=== PATIENT | female | born 1945 | race Hispanic/Latino ===

== ENCOUNTER 2019-02-19 17:45 | Inpatient (IN) | payer MEDICARE ==
[2019-02-19] MEDS ORDERED: Aspirin Chewable 81 MG TAB ONE (18:30)
[2019-02-19] MEDS ORDERED: Lidocaine 1% PF 5 ML VIAL ONE (20:09)
[2019-02-19] MEDS ORDERED: Ondansetron ODT 4 MG TAB ONE (20:09)
[2019-02-19 21:40] LABS: ALT (SGPT) 16 U/L (8-55); AST (SGOT) 21 U/L (5-34); Albumin 3.9 g/dL (3.4-4.8); Alkaline Phosphatase 75 U/L (40-110); Anion Gap 12 mmol/L (10-20); BUN (Urea Nitrogen) 18 mg/dL (9.8-20.1); Bilirubin, Total 0.3 mg/dL (0.2-1.2); Calc. Creatinine Clearance 0 mL/min (70-130); Calcium 9.2 mg/dL (7.8-10.44); Carbon Dioxide 27 mmol/L (23-31); Chloride 106 mmol/L (98-107); Estimated GFR-MDRD 73; Globulin 3.4 g/dL (2.4-3.5); Glucose 111 mg/dL (83-110); Lipase 41 U/L (8-78); Potassium 3.6 mmol/L (3.5-5.1); Protein, Total 7.3 g/dL (6.0-8.3); Sodium 141 mmol/L (136-145)
[2019-02-19 21:50] LABS: Eosinophils 2 % (0-10); Hemoglobin 15.2 g/dL (12.0-16.0); Lymphocytes 18 % (21-51); MDiff Complete? YES; Mean Corpuscular HGB CONC 32.8 g/dL (32.0-36.0); Mean Corpuscular Hemoglobin 31.1 pg (27.0-31.0); Mean Corpuscular Volume 94.7 fL (78.0-98.0); Mean Platelet Volume 10.9 fL (7.4-10.4); Monocytes 14 % (0-10); Neutrophil 66 % (42-75); Platelet Count 200 thou/uL (130-400); Platelet Morphology Comment Appears Adequate; RBC Distribution Width 12.4 % (11.5-14.5); Red Blood Cell (RBC) Count 4.88 mill/uL (4.20-5.40); White Blood Cell (WBC) Count 5.4 thou/uL (4.8-10.8)
--- NOTE | 2019-02-19 22:00 | RAD ---
EXAM: Chest PA and lateral: HISTORY: Cough COMPARISON: none FINDINGS: Cardiomegaly. Mild vascular congestion. No infiltrate or significant effusion. Osseous structures are unremarkable. IMPRESSION: Cardiomegaly with mild vascular congestion
[2019-02-19 22:01] LABS: CKMB 3.7 ng/mL (0-6.6)
[2019-02-20] MEDS ORDERED: Furosemide 40 MG/4 ML VIAL ONE (00:42)
[2019-02-20 03:02] VITALS: BMI 32.1
[2019-02-20] MEDS ORDERED: Bisacodyl 5 MG TAB PO PRN (03:07)
[2019-02-20] MEDS ORDERED: HYDROcodone/Acetaminophen 5/325 mg Tablet PO PRN (03:07)
[2019-02-20] MEDS ORDERED: hydrALAZINE 20 MG/ML VIAL SLOW IVP PRN (03:11)
[2019-02-20] MEDS ORDERED: Benzonatate 100 MG CAP PO PRN (03:11)
[2019-02-20 03:16] LABS: Troponin I 0.017 ng/mL (< 0.028)
--- NOTE | 2019-02-20 03:43 | HP ---
PRESENTING COMPLAINT: Cough with wheezing. HISTORY OF PRESENT ILLNESS: Aldo Lucas is a 73-year-old female with past medical history of hypertension, presumed CHF as per daughter, diagnosed in [facility] two years ago with heart failure but not started on any diuretics, no history of COPD in the past, who presented because of recurrent cough with chest congestion. The patient denies any left-sided chest pain. She admits to onset of symptoms since the last three weeks. She was seen by her primary and started on antibiotics, which she finished a couple of days ago, but symptoms did continue to persist. She presented to the ED at Urgent Care, where she was found to be mildly hypoxic and started on nasal cannula O2. She was also given DuoNeb and patient feels some relief. The patient denies any headaches. She denies any chest pain now. She denies any other symptoms. PAST MEDICAL HISTORY: Hypertension, hyperlipidemia, history of CHF as per daughter, but no known EF. SOCIAL HISTORY: The patient resides with the daughter. No history of tobacco, alcohol, or illicit drug use, although patient was a secondhand exposure for about 10 years with her spouse. ALLERGIES: NO KNOWN DRUG ALLERGIES. HOME MEDICATIONS: Include: 1. Lisinopril. 2. Coreg. 3. Zocor. 4. Furosemide 20 daily. REVIEW OF SYSTEMS: All systems reviewed x14, negative except as mentioned above. FAMILY HISTORY: No history of coronary artery disease or lung cancer. PHYSICAL EXAMINATION: VITAL SIGNS: Blood pressure of 118/64, pulse of 56, respiratory rate of 18, O2 saturation 96% on 2 L nasal cannula. GENERAL: Average build elderly female, appears stated age, not in any distress, on nasal cannula O2. HEENT: Head is atraumatic, normocephalic. Pupils equal and reactive to light. Extraocular motor movement intact. NECK: No JVD. No carotid bruit. RESPIRATORY: No bibasal crepitation, but noted mild expiratory wheezes bilaterally. CARDIOVASCULAR: S1, S2. Rate and rhythm regular. GI: Abdomen is full, soft, nontender. Bowel sounds positive. EXTREMITIES: No pedal edema. No calf tenderness. NEURO: The patient is alert and conversant. LABORATORY DATA: EKG shows normal sinus rhythm, no ST-segment changes except for mild T-wave flattening. Rest of lab: WBC 5.4, hemoglobin 15, neutrophils 66. D-dimer less than 0.2. Potassium 3.6, creatinine 0.7. Alkaline phosphatase, AST and ALT normal. Troponin 0.03, repeat of 0.01. BNP of 714. Lipase 41. IMPRESSION: 1. Possible acute diastolic congestive heart failure exacerbation. 2. Mild chronic obstructive pulmonary disease exacerbation. 3. Hypertension-controlled. PLAN: We will admit the patient to observation status and manage patient for the followin. Acute CHF exacerbation given mildly elevated BNP. We will obtain echocardiogram, daily weight, and monitor intake and output. We will start Lasix 40 mg IV q.12 for now. Follow with diuresis. We will consult Cardiology given mild elevated troponin on initial presentation. 2. Acute CHF exacerbation, unclear, possibility of underlying infectious process considered given prolonged phase of symptoms. We will start DuoNeb scheduled. We will start low-dose steroids. We will also dose Mucomyst for symptom relief. We will obtain flu swab to rule out viral bronchiolitis. Wean O2 as tolerated. 3. Hypertension, controlled. Continue lisinopril and Coreg for now. 4. DVT prophylaxis, subcutaneous Lovenox. 5. Advance directive discussed with daughter and patient. The patient wished to be full code. 6. Mild troponin elevation, follow Cardiology, may be due to demand ischemia. The patient might benefit from aspirin and Plavix, but would defer to Cardiology for now since trending down to low troponin. Total time spent in review of record discussion with patient and evaluation greater than 60 minutes. Job ID: [id number]
[2019-02-20] MEDS: Acetaminophen 325 MG TAB PO PRN (04:17)
[2019-02-20] MEDS: cefTRIAXone\\ROCEPHIN 1 GM in Sodium Chloride 0.9% 100 ML IVPB SCH (04:27)
[2019-02-20 04:55] LABS: ALT (SGPT) 16 U/L (8-55); AST (SGOT) 21 U/L (5-34); Albumin 3.9 g/dL (3.4-4.8); Alkaline Phosphatase 67 U/L (40-110); Anion Gap 10 mmol/L (10-20); BUN (Urea Nitrogen) 16 mg/dL (9.8-20.1); Bilirubin, Total 0.4 mg/dL (0.2-1.2); Calc. Creatinine Clearance 80 mL/min (70-130); Carbon Dioxide 30 mmol/L (23-31); Chloride 107 mmol/L (98-107); Estimated GFR-MDRD 75; Glucose 100 mg/dL (83-110); Magnesium 2.2 mg/dL (1.6-2.6); Potassium 3.4 mmol/L (3.5-5.1); Protein, Total 6.9 g/dL (6.0-8.3); Sodium 144 mmol/L (136-145)
[2019-02-20 04:59] LABS: Troponin I 0.038 ng/mL (< 0.028)
[2019-02-20] MEDS: methylPREDNISolone Sod Succ 40 MG VIAL IVP SCH ×4 (06:26→23:39)
[2019-02-20] MEDS: Furosemide 40 MG/4 ML VIAL SLOW IVP SCH ×2 (06:29→14:47)
[2019-02-20] MEDS: Acetylcysteine 20% 200 MG/ML 30 ML VIAL INH SCH ×4 (06:54→19:42)
[2019-02-20] MEDS ORDERED: Prevnar 13-Val Conj/PF 0.5 ML SYRINGE IM ONE (09:00)
[2019-02-20] MEDS ORDERED: Enoxaparin Sodium 40 MG/0.4 ML SYRINGE SC SCH (09:00)
[2019-02-20] MEDS: Carvedilol 6.25 MG TAB PO SCH ×2 (09:27→20:30)
[2019-02-20] MEDS: Aspirin Chewable 81 MG TAB PO SCH (09:27)
[2019-02-20] MEDS: Famotidine 20 MG TAB PO SCH ×2 (09:28→20:30)
[2019-02-20] MEDS: Lisinopril 10 MG TAB PO SCH (09:28)
[2019-02-20] MEDS: guaiFENesin ER 600 MG TAB PO SCH ×2 (09:28→20:30)
[2019-02-20] MEDS ORDERED: Potassium Chloride 20 MEQ TAB PO SCH (10:30)
[2019-02-20] MEDS ORDERED: Simvastatin 40 MG TAB PO SCH (21:00)
--- NOTE | 2019-02-20 22:03 | CON ---
DATE OF CONSULTATION: PRIMARY CARE DOCTOR: Zhang Clement MD PRIMARY FACILITY MAINTENANCE WORKER: Liliana Lorenz MD REASON FOR CARDIOLOGY CONSULTATION: Pericardial effusion. HISTORY OF PRESENT ILLNESS: Ms. Carlson is a 73-year-old female with a significant history of heart failure, hypertension. At this moment, the patient is a non-Tajik speaker, Frisian only. The patient's information was retrieved from the patient's medical record and Dr. Clement's office. The patient followed up with Dr. Clement in September 2017 for chronic systolic heart failure. According to his note, the patient was seen by a syruper in [facility]. She was told that has a congestive heart failure and enlarged heart. The patient is supposed to have echocardiograms done at Dr. Clement's office. However, the patient has not had any echocardiogram or any further cardiac workup. According to the patient's medical record, the patient started having severe cough with chest congestion for the last 3 weeks. She tried antibiotic, which was prescribed by primary care doctor and she finished a couple of days ago; however, the patient's symptoms did not improve. The patient presented to urgent care and the patient was found to be mildly hypoxic and the patient needed nasal cannula. At this moment, the patient is on 2 L nasal cannula. She is having severe cough. The patient denies any chest pain at this moment. The patient had echocardiograms done, which result is in the computer yet, but the patient was found to have pericardial effusion. PAST MEDICAL HISTORY: Chronic systolic heart failure, hypertension, hyperlipidemia. PAST SURGICAL HISTORY: Appendectomy, cholecystectomy. FAMILY HISTORY: No history of coronary artery disease or lung disease. However, the patient's daughter has a history of breast cancer. SOCIAL HISTORY: The patient denies EtOH, or tobacco abuse, or illicit drug abuse. She has a total of 6 children at home. ALLERGIES: SHE HAS NO KNOWN DRUG ALLERGIES. HOME MEDICATIONS: 1. Lasix 40 mg once a day. 2. Simvastatin 40 mg once a day. 3. Lisinopril 10 mg once a day. 4. Carvedilol 12.5 mg twice a day. 5. Tessalon 100 mg p.o. three times a day as needed. REVIEW OF SYSTEMS: According to the patient's medical record, the patient's review of systems is negative. PHYSICAL EXAMINATION: VITAL SIGNS: Blood pressure 106/60, temperature 97.2, pulse is 56, sinus rhythm, respiratory rate 16, O2 saturation 94% on room air. GENERAL: The patient is alert and oriented x4. She can follow commands, not in acute distress except the patient having severe cough. EYES: Head, normocephalic and atraumatic. EYES: Extraocular muscle movement intact. ENT AND MOUTH: Oral and nasal mucosa moist without lesions. NECK: Supple. Normal range of motion. No JVD. RESPIRATORY: Congestion to bilateral lung and diminished at the bases. CARDIOVASCULAR: Regular rate and rhythm. Normal S1, S2. No S3 or S4. No significant murmur, hives, or thrill noted. 2+ pulses in the bilateral upper and lower extremity. No edema in the lower extremities at this moment. SKIN: Warm and dry. No lesion, rash, or erythema noted. ABDOMEN: Soft, nontender. No mass to palpitate. Bowel sounds are present. MUSCULOSKELETAL: The patient is able to move all extremities. NEUROLOGIC: The patient is alert and oriented x4. The patient can follow commands. PSYCHIATRIC: The patient's mood is appropriate. DIAGNOSTIC DATA: Chest x-ray shows cardiomegaly with mild vascular congestion. LABORATORY DATA: WBC 5.4, hemoglobin 15.2, and platelet 200. D-dimer is negative. Sodium 133, potassium 3.4, BUN is 16, and creatinine 0.76, glucose 100, magnesium 2.2, AST 21, ALT 16, CK-MB 3.7, troponin 0.038, 0.017, and 0.038. BNP of 538. Influenza A and B negative. ASSESSMENT AND PLAN: 1. Acute on chronic systolic heart failure. At this moment, the patient is stable with room air. She is on carvedilol 12.5 mg twice a day, lisinopril 10 mg once a day and she is on Lasix 40 mg twice a day. Echocardiogram was done and result is pending at this moment. We would like to continue to monitor. 2. Possible pericardial effusion. At this moment, we are waiting for echocardiogram results and we are going to adjust the patient's medical treatment depending on echo results. 3. Hypertension. Blood pressure is stable with current medication. 4. Hyperlipidemia. She is on simvastatin 40 mg once a day. Thank you very much for Cardiology Service to participate in the care of this patient. We will follow along the patient's care team and make further recommendations as appropriate. Job ID: [id number]
[2019-02-21] MEDS: Acetylcysteine 20% 200 MG/ML 30 ML VIAL INH SCH ×4 (00:18→18:34)
[2019-02-21] MEDS: cefTRIAXone\\ROCEPHIN 1 GM in Sodium Chloride 0.9% 100 ML IVPB SCH (03:35)
[2019-02-21 05:56] LABS: Troponin I 0.013 ng/mL (< 0.028)
[2019-02-21] MEDS: methylPREDNISolone Sod Succ 40 MG VIAL IVP SCH (06:16)
[2019-02-21] MEDS: Furosemide 40 MG/4 ML VIAL SLOW IVP SCH (06:18)
[2019-02-21] MEDS: Aspirin Chewable 81 MG TAB PO SCH (08:32)
[2019-02-21] MEDS: Potassium Chloride 20 MEQ TAB PO SCH (08:32)
[2019-02-21] MEDS: Carvedilol 6.25 MG TAB PO SCH ×2 (08:33→20:29)
[2019-02-21] MEDS: Famotidine 20 MG TAB PO SCH ×2 (08:34→20:29)
[2019-02-21] MEDS: guaiFENesin ER 600 MG TAB PO SCH ×2 (08:35→20:29)
[2019-02-21] MEDS: Lisinopril 10 MG TAB PO SCH (08:35)
[2019-02-21 10:35] LABS: Potassium 3.8 mmol/L (3.5-5.1)
--- NOTE | 2019-02-21 12:55 | PDOC.HOSPP ---
- Subjective Encounter Date: 02/21/19 Encounter Time: 12:53 Subjective: Patient seen and examined for CHF. Had VT with Afib in last hour. SOB improving. No fever or chills. No new complaints. No overnight events - Objective Vital Signs & Weight: Vital Signs (12 hours) Temp Pulse Resp BP Pulse Ox 02/21/19 11:25 88 L 02/21/19 11:12 98 F 97 20 133/88 92 L 02/21/19 08:45 59 L 16 02/21/19 07:29 97.7 F 58 L 14 127/60 93 L 02/21/19 03:36 97.7 F 65 20 119/60 93 L Weight Admit Weight 164 lb 11.2 oz Weight 158 lb 12.8 oz I&O: 02/20/19 02/21/19 02/22/19 06:59 06:59 06:59 Intake Total 1570 240 Output Total 600 875 Balance -600 695 240 Result Diagrams: 02/19/19 18:37 02/21/19 04:51 EKG Reviewed by me: Yes (Tele Afib) Hospitalist ROS - Review of Systems Cardiovascular: reports: orthopnea, paroxysmal noc. dyspnea. denies: chest pain , palpitations, edema, light headedness, other Gastrointestinal: denies: nausea, vomiting, abdominal pain, diarrhea, constipation, melena, hematochezia, other - Medication Medications: Active Medications Generic Name Dose Route Start Last Admin Trade Name Freq PRN Reason Stop Dose Admin Acetaminophen 650 mg 02/20/19 03:14 02/20/19 04:17 Tylenol PO 650 mg Q4H PRN Administration Headache/Fever or Pain Acetylcysteine 600 mg 02/20/19 07:00 02/21/19 08:45 Mucomyst 20% INH 600 mg [id number] ZANE Administration Albuterol/Ipratropium 3 ml 02/20/19 13:00 02/21/19 08:45 Duoneb NEB 3 ml [id number] ZANE Administration Aspirin 81 mg 02/20/19 09:00 02/21/19 08:32 Aspirin Chewable PO 81 mg DAILY ZANE Administration Benzonatate 100 mg 02/20/19 03:11 02/20/19 04:17 Tessalon PO 100 mg TID PRN Administration Cough Carvedilol 12.5 mg 02/20/19 09:00 02/21/19 08:33 Coreg PO 12.5 mg BID ZANE Administration Famotidine 20 mg 02/20/19 09:00 02/21/19 08:34 Pepcid PO 20 mg BID ZANE Administration Furosemide 40 mg 02/20/19 06:00 02/21/19 06:18 Lasix SLOW IVP 40 mg 0600,1400 ZANE Administration Guaifenesin 1,200 mg 02/20/19 09:00 02/21/19 08:35 Mucinex PO 1,200 mg Q12HR ZANE Administration Lisinopril 10 mg 02/20/19 09:00 02/21/19 08:35 Zestril PO 10 mg QAM ZANE Administration Potassium Chloride 40 meq 02/21/19 08:00 02/21/19 08:32 K-Dur PO 40 meq QAM-WM ZANE Administration Simvastatin 40 mg 02/20/19 21:00 02/20/19 20:30 Zocor PO 40 mg HS ZANE Administration - Exam General Appearance: NAD Neck: supple, no JVD Heart: no gallops, no rubs, normal peripheral pulses, irregular Respiratory: CTAB, no wheezes, no rales, normal chest expansion, rhonchi Gastrointestinal: soft, non-tender, non-distended, normal bowel sounds Extremities: no cyanosis, no clubbing, no edema Neurological: no new deficit Psychiatric: normal affect, A&O x 3 Hosp A/P - Plan DVT proph w/SCDs Acute on chronic diastolic HF exacerbation (POA) New onset Afib/NSVT Acute Bronchitis Type 2 [place] (POA) - resolved Moderate Pericardial effusion HTN with HTN heart disease Hypokalemia HLD CKD 2 Obesity BMI 31 Polish speaking only PLAN: Cont IV Lasix Replace Potassium AM labs including VELAI TSH normal Change IV Ceftriaxone/Steroids to PO Cardio/CV following Cardiac Rehab Cont Coreg/Lisinopril Hold anticoag for Afib per Cardiology
--- NOTE | 2019-02-21 13:50 | PRG ---
DATE OF SERVICE: 02/21/2019 SUBJECTIVE: Ms. Carlson states she is doing better. She did have decreased oxygenation today down to 80. She required oxygen. She states she is resting comfortably. She would like to go home. She also developed atrial fibrillation over the last several hours. This is a new finding. She has no previous history of atrial fibrillation. She also had 4 beats of nonsustained VT. Her echo was recently reviewed. She has severe LVH present. It does appear diffuse. She has had poorly-controlled hypertension in the past. Her EKG does suggest LVH changes. OBJECTIVE: GENERAL: Patient is a pleasant 73-year-old female, who is in no acute distress. The patient appears their stated age. VITAL SIGNS: Blood pressure 132/88, pulse 97, temperature 98. NEUROLOGIC: The patient is alert and oriented x3 with no focal neurologic deficits. HEENT: Sclerae without icterus. Mouth has moist mucous membranes with normal pallor. NECK: No JVD. Carotid upstroke brisk. No bruits bilaterally. LUNGS: Clear to auscultation with unlabored respirations. BACK: No scoliosis or kyphosis. CARDIAC: Regular rate and rhythm with normal S1 and S2. No S3 or S4 noted. No significant rubs, murmurs, thrills, or gallops noted throughout the precordium. PMI is not displaced. There is no parasternal heave. ABDOMEN: Soft, nontender, nondistended. No peritoneal signs present. No hepatosplenomegaly. No abnormal striae. EXTREMITIES: 2+ femoral and 2+ dorsalis pedis pulses. No cyanosis, clubbing, or edema. SKIN: No gross abnormalities. PERTINENT LABORATORY DATA: Hemoglobin 15.2, hematocrit 46.2. Creatinine 0.76. BNP of 538. IMPRESSION: 1. Acute on chronic diastolic heart failure. 2. [id number] pericardial effusion without tamponade. 3. Marked left ventricular hypertrophy. 4. New-onset atrial fibrillation. 5. Nonsustained ventricular tachycardia. RECOMMENDATIONS: Ms. Carlson's clinical course is certainly complex. Her TSH was normal. She does have marked LVH, likely related to poorly-controlled blood pressure in the past. I am concerned about recent nonsustained VT. We would recommend amiodarone therapy IV for recent onset atrial fibrillation. We would not recommend anticoagulation therapy at this point. May consider anticoagulation therapy tomorrow in hopes of possible cardioversion if she continues to be in atrial fibrillation. Her effusion may be related to an inflammatory process. We will attempt nonsteroidal therapy. I do not feel this is consistent with amyloidosis. She can have pericardial effusion with LVH, but she does have EKG changes suggesting LVH. I would also recommend decreasing Lasix from b.i.d. dosing to once a day dosing. She has little filling noted on echo. We will follow. Job ID: [id number]
[2019-02-21] MEDS ORDERED: Amiodarone 150 MG, Admixture Fee 1 EACH in Dextrose 5% in Water 100 ML IVPB SCH (16:00)
[2019-02-21] MEDS: Amiodarone 450 MG in Dextrose 5% in Water 250 ML IVPB SCH (16:10)
[2019-02-21] MEDS: Calcium Carbonate + Vit D 1 TAB PO SCH (16:12)
[2019-02-21] MEDS: predniSONE 20 MG TAB PO SCH (16:12)
[2019-02-21] MEDS: Atorvastatin Calcium 20 MG TAB PO SCH (20:29)
[2019-02-21] MEDS: Cefdinir 300 MG CAP PO SCH (20:29)
[2019-02-22] MEDS: Acetylcysteine 20% 200 MG/ML 30 ML VIAL INH SCH ×2 (01:02→06:52)
[2019-02-22] MEDS: Amiodarone 450 MG in Dextrose 5% in Water 250 ML IVPB SCH ×2 (03:07→20:07)
[2019-02-22 04:55] LABS: #Eosinphils 0.1 thou/uL (0.0-0.7); #Monocytes 0.6 thou/uL (0.11-0.59); #Neutrophils 15.3 thou/uL (1.40-6.50); %Basophils 0.1 % (0.0-1.0); %Eosinophils 0.3 % (0.0-10.0); %Lymphocytes 5.9 % (21.0-51.0); %Monocytes 3.8 % (0.0-10.0); Hemoglobin 15.4 g/dL (12.0-16.0); Mean Corpuscular HGB CONC 32.4 g/dL (32.0-36.0); Mean Corpuscular Hemoglobin 30.6 pg (27.0-31.0); Mean Corpuscular Volume 94.6 fL (78.0-98.0); Mean Platelet Volume 9.9 fL (7.4-10.4); Platelet Count 239 thou/uL (130-400); RBC Distribution Width 12.3 % (11.5-14.5); Red Blood Cell (RBC) Count 5.03 mill/uL (4.20-5.40)
[2019-02-22 05:20] LABS: ALT (SGPT) 20 U/L (8-55); AST (SGOT) 20 U/L (5-34); Albumin 3.7 g/dL (3.4-4.8); Alkaline Phosphatase 70 U/L (40-110); Anion Gap 11 mmol/L (10-20); BUN (Urea Nitrogen) 25 mg/dL (9.8-20.1); Bilirubin, Total 0.3 mg/dL (0.2-1.2); Calc. Creatinine Clearance 64 mL/min (70-130); Calcium 9.5 mg/dL (7.8-10.44); Carbon Dioxide 28 mmol/L (23-31); Chloride 105 mmol/L (98-107); Estimated GFR-MDRD 61; Globulin 3.1 g/dL (2.4-3.5); Glucose 146 mg/dL (83-110); Magnesium 2.3 mg/dL (1.6-2.6); Protein, Total 6.8 g/dL (6.0-8.3); Sodium 140 mmol/L (136-145)
[2019-02-22 05:23] LABS: Phosphorus 2.9 mg/dL (2.3-4.7)
[2019-02-22] MEDS: Furosemide 40 MG/4 ML VIAL SLOW IVP SCH (06:13)
[2019-02-22] MEDS: guaiFENesin ER 600 MG TAB PO SCH ×2 (09:41→20:10)
[2019-02-22] MEDS: Multivit, Therapeutic 1 TAB PO SCH (09:42)
[2019-02-22] MEDS: Potassium Chloride 20 MEQ TAB PO SCH (09:42)
[2019-02-22] MEDS: Calcium Carbonate + Vit D 1 TAB PO SCH ×2 (09:42→16:13)
[2019-02-22] MEDS: Lisinopril 10 MG TAB PO SCH (09:42)
[2019-02-22] MEDS: Cefdinir 300 MG CAP PO SCH ×2 (09:42→20:09)
[2019-02-22] MEDS: Famotidine 20 MG TAB PO SCH ×2 (09:43→20:09)
[2019-02-22] MEDS: Carvedilol 6.25 MG TAB PO SCH ×2 (09:43→20:10)
[2019-02-22] MEDS: predniSONE 20 MG TAB PO SCH (09:43)
[2019-02-22] MEDS: Aspirin Chewable 81 MG TAB PO SCH (09:43)
--- NOTE | 2019-02-22 12:48 | PDOC.HOSPP ---
- Subjective Encounter Date: 02/22/19 Encounter Time: 08:00 Subjective: Patient seen and examined for CHF/Afib/Pericardial effusion. SOB improving. Mild productive cough. No other complaints. No overnight events - Objective Vital Signs & Weight: Vital Signs (12 hours) Temp Pulse Resp BP BP BP Pulse Ox 02/22/19 11:47 98 F 64 23 H 130/62 95 02/22/19 09:43 117/60 02/22/19 09:42 117/60 02/22/19 09:00 95 02/22/19 08:00 96.4 F L 67 18 132/83 95 02/22/19 06:50 79 16 91 L 02/22/19 03:00 98.4 F 74 16 114/56 L 93 L 02/22/19 01:01 81 12 91 L Weight Admit Weight 164 lb 11.2 oz Weight 150 lb 11.2 oz I&O: 02/21/19 02/22/19 02/23/19 06:59 06:59 06:59 Intake Total 1570 720 Output Total 875 Balance 695 720 Result Diagrams: 02/22/19 04:39 02/22/19 04:39 EKG Reviewed by me: Yes (Tele Afib) Hospitalist ROS - Review of Systems Cardiovascular: denies: chest pain, palpitations, orthopnea, paroxysmal noc. dyspnea, edema, light headedness, other Gastrointestinal: denies: nausea, vomiting, abdominal pain, diarrhea, constipation, melena, hematochezia, other - Medication Medications: Active Medications Generic Name Dose Route Start Last Admin Trade Name Freq PRN Reason Stop Dose Admin Acetaminophen 650 mg 02/20/19 03:14 02/20/19 04:17 Tylenol PO 650 mg Q4H PRN Administration Headache/Fever or Pain Albuterol/Ipratropium 3 ml 02/20/19 13:00 02/22/19 06:50 Duoneb NEB 3 ml [id number] ZANE Administration Aspirin 81 mg 02/20/19 09:00 02/22/19 09:43 Aspirin Chewable PO 81 mg DAILY ZANE Administration Atorvastatin Calcium 20 mg 02/21/19 21:00 02/21/19 20:29 Lipitor PO 20 mg HS ZANE Administration Benzonatate 100 mg 02/20/19 03:11 02/20/19 04:17 Tessalon PO 100 mg TID PRN Administration Cough Calcium/Vitamin D 1 tab 02/21/19 17:00 02/22/19 09:42 Caltrate 600 + Vit D PO 1 tab BID-WM ZANE Administration Carvedilol 12.5 mg 02/20/19 09:00 02/22/19 09:43 Coreg PO 12.5 mg BID ZANE Administration Cefdinir 300 mg 02/21/19 21:00 02/22/19 09:42 Omnicef PO 300 mg BID ZANE Administration Famotidine 20 mg 02/20/19 09:00 02/22/19 09:43 Pepcid PO 20 mg BID ZANE Administration Furosemide 40 mg 02/22/19 06:00 02/22/19 06:13 Lasix SLOW IVP 40 mg 0600 ZANE Administration Guaifenesin 1,200 mg 02/20/19 09:00 02/22/19 09:41 Mucinex PO 1,200 mg Q12HR ZANE Administration Amiodarone HCl 450 mg/ 259 mls @ 0 mls/hr 02/21/19 13:30 02/22/19 03:07 Dextrose/Water IVPB 259 mls INF ZANE Administration Protocol Per Protocol Lisinopril 10 mg 02/20/19 09:00 02/22/19 09:42 Zestril PO 10 mg QAM ZANE Administration Multivitamins 1 tab 02/22/19 09:00 02/22/19 09:42 Theragran PO 1 tab DAILY ZANE Administration Potassium Chloride 40 meq 02/21/19 08:00 02/22/19 09:42 K-Dur PO 40 meq QAM-WM ZANE Administration - Exam General Appearance: NAD Heart: no gallops, irregular Respiratory: no wheezes, no rales, rhonchi Gastrointestinal: soft, non-tender, normal bowel sounds Extremities: no edema Hosp A/P - Plan DVT proph w/SCDs Acute on chronic diastolic HF exacerbation (POA) New onset Afib/NSVT Acute Bronchitis Type 2 [place] (POA) - resolved Moderate Pericardial effusion HTN with HTN heart disease Hypokalemia HLD CKD 2 Obesity BMI 31 Northern Irish speaking only PLAN: Cont IV Lasix 40 mg daily Cont Amiodarone drip Cont Potassium Reduce Prednisone to daily Cont PO Omnicef Cont Coreg/Lisinopril Hold anticoag for Afib per Cardiology AM labs VELIA pending
[2019-02-22] MEDS: Atorvastatin Calcium 20 MG TAB PO SCH (20:10)
[2019-02-23 05:00] LABS: ALT (SGPT) 23 U/L (8-55); AST (SGOT) 16 U/L (5-34); Albumin 3.6 g/dL (3.4-4.8); Alkaline Phosphatase 72 U/L (40-110); Anion Gap 11 mmol/L (10-20); BUN (Urea Nitrogen) 23 mg/dL (9.8-20.1); Bilirubin, Total 0.3 mg/dL (0.2-1.2); Calc. Creatinine Clearance 73 mL/min (70-130); Calcium 9.5 mg/dL (7.8-10.44); Carbon Dioxide 28 mmol/L (23-31); Chloride 106 mmol/L (98-107); Estimated GFR-MDRD 75; Globulin 2.9 g/dL (2.4-3.5); Glucose 146 mg/dL (83-110); Magnesium 2.4 mg/dL (1.6-2.6); Potassium 4.2 mmol/L (3.5-5.1); Protein, Total 6.5 g/dL (6.0-8.3); Sodium 141 mmol/L (136-145)
[2019-02-23] MEDS: Furosemide 40 MG/4 ML VIAL SLOW IVP SCH (05:35)
[2019-02-23] MEDS: Famotidine 20 MG TAB PO SCH ×2 (08:23→20:14)
[2019-02-23] MEDS: Lisinopril 10 MG TAB PO SCH (08:24)
[2019-02-23] MEDS: predniSONE 20 MG TAB PO SCH (08:24)
[2019-02-23] MEDS: Multivit, Therapeutic 1 TAB PO SCH (08:24)
[2019-02-23] MEDS: Carvedilol 6.25 MG TAB PO SCH ×2 (08:25→20:16)
[2019-02-23] MEDS: guaiFENesin ER 600 MG TAB PO SCH ×2 (08:25→20:17)
[2019-02-23] MEDS: Calcium Carbonate + Vit D 1 TAB PO SCH ×2 (08:26→17:33)
[2019-02-23] MEDS: Potassium Chloride 20 MEQ TAB PO SCH (08:26)
[2019-02-23] MEDS: Cefdinir 300 MG CAP PO SCH ×2 (08:26→20:14)
[2019-02-23] MEDS: Aspirin Chewable 81 MG TAB PO SCH (08:26)
[2019-02-23] MEDS: Acetaminophen 325 MG TAB PO PRN (08:27)
[2019-02-23] MEDS ORDERED: Cyclobenzaprine 10 MG TAB PO PRN (09:29)
--- NOTE | 2019-02-23 10:32 | RAD ---
EXAM: XR Chest Pa Lat STANDARD PROVIDED CLINICAL HISTORY: Shortness of breath COMPARISON: 02/19/2019 FINDINGS: Cardiac silhouette remains enlarged. Mild prominence of the pulmonary vasculature. No focal consolida tion, pleural fluid or pneumothorax apparent. IMPRESSION: Stable radiographic appearance of the chest.
[2019-02-23] MEDS: Amiodarone 450 MG in Dextrose 5% in Water 250 ML IVPB SCH (11:52)
--- NOTE | 2019-02-23 16:27 | PDOC.HOSPP ---
- Subjective Encounter Date: 02/23/19 Encounter Time: 11:40 Subjective: Patient seen and examined for CHF/Afib. SOB earlier. Productive cough. On Amio drip. No other complaints. No overnight events - Objective Vital Signs & Weight: Vital Signs (12 hours) Temp Pulse Resp BP BP Pulse Ox 02/23/19 15:57 97.4 F L 93 22 H 139/91 H 93 L 02/23/19 12:36 63 16 02/23/19 11:11 98.0 F 75 24 H 126/76 92 L 02/23/19 08:23 98.4 F 89 19 128/63 91 L 02/23/19 06:59 72 14 Weight Admit Weight 164 lb 11.2 oz Weight 149 lb 3.2 oz I&O: 02/22/19 02/23/19 02/24/19 06:59 06:59 06:59 Intake Total 720 1272.05 Output Total 1550 Balance 720 -277.95 Result Diagrams: 02/22/19 04:39 02/23/19 04:09 EKG Reviewed by me: Yes (Tele Afib) Hospitalist ROS - Review of Systems Respiratory: reports: cough, SOB with excertion, sputum. denies: dry, shortness of breath, hemoptysis, pleuritic pain, wheezing, other Cardiovascular: denies: chest pain, palpitations, orthopnea, paroxysmal noc. dyspnea, edema, light headedness, other Gastrointestinal: denies: nausea, vomiting, abdominal pain, diarrhea, constipation, melena, hematochezia, other - Medication Medications: Active Medications Generic Name Dose Route Start Last Admin Trade Name Freq PRN Reason Stop Dose Admin Acetaminophen 650 mg 02/20/19 03:14 02/23/19 08:27 Tylenol PO 650 mg Q4H PRN Administration Headache/Fever or Pain Albuterol/Ipratropium 3 ml 02/20/19 03:14 02/23/19 12:36 Duoneb NEB 3 ml Q4H PRN Administration SOB &/or Wheezing Aspirin 81 mg 02/20/19 09:00 02/23/19 08:26 Aspirin Chewable PO 81 mg DAILY ZANE Administration Atorvastatin Calcium 20 mg 02/21/19 21:00 02/22/19 20:10 Lipitor PO 20 mg HS ZANE Administration Benzonatate 100 mg 02/20/19 03:11 02/20/19 04:17 Tessalon PO 100 mg TID PRN Administration Cough Calcium/Vitamin D 1 tab 02/21/19 17:00 02/23/19 08:26 Caltrate 600 + Vit D PO 1 tab BID-WM ZANE Administration Carvedilol 12.5 mg 02/20/19 09:00 02/23/19 08:25 Coreg PO 12.5 mg BID ZANE Administration Cefdinir 300 mg 02/21/19 21:00 02/23/19 08:26 Omnicef PO 300 mg BID ZANE Administration Famotidine 20 mg 02/20/19 09:00 02/23/19 08:23 Pepcid PO 20 mg BID ZANE Administration Furosemide 40 mg 02/22/19 06:00 02/23/19 05:35 Lasix SLOW IVP 40 mg 0600 ZANE Administration Guaifenesin 1,200 mg 02/20/19 09:00 02/23/19 08:25 Mucinex PO 1,200 mg Q12HR ZANE Administration Amiodarone HCl 450 mg/ 259 mls @ 0 mls/hr 02/21/19 13:30 02/23/19 11:52 Dextrose/Water IVPB 259 mls INF ZANE Administration Protocol Per Protocol Lisinopril 10 mg 02/20/19 09:00 02/23/19 08:24 Zestril PO 10 mg QAM ZANE Administration Multivitamins 1 tab 02/22/19 09:00 02/23/19 08:24 Theragran PO 1 tab DAILY ZANE Administration Potassium Chloride 40 meq 02/21/19 08:00 02/23/19 08:26 K-Dur PO 40 meq QAM-WM ZANE Administration Prednisone 20 mg 02/23/19 08:00 02/23/19 08:24 Prednisone PO 20 mg QAM-WM ZANE Administration - Exam General Appearance: NAD Heart: no gallops, irregular Respiratory: no wheezes, rhonchi Gastrointestinal: soft, non-tender, normal bowel sounds Extremities: no edema Hosp A/P - Plan DVT proph w/lovenox Acute on chronic diastolic HF exacerbation New onset Afib/NSVT Acute Bronchitis Type 2 [place] - resolved Moderate Pericardial effusion HTN with HTN heart disease Hypokalemia HLD CKD 2 Obesity BMI 31 Korean speaking only PLAN: CXR today - no infiltrate Cont IV Lasix/Amiodarone drip Cont Prednisone/Omnicef Cont Coreg/Lisinopril Hold anticoag for Afib per Cardiology Add Flexeril AM labs VELIA pending
[2019-02-23] MEDS: Budesonide 0.5 MG/2 ML NEB INH SCH (19:14)
[2019-02-23] MEDS: Amiodarone 200 MG TAB PO SCH (20:15)
[2019-02-23] MEDS: Atorvastatin Calcium 20 MG TAB PO SCH (20:16)
[2019-02-23] MEDS: Enoxaparin Sodium 80 MG/0.8 ML SYRINGE SC SCH (20:16)
[2019-02-23] MEDS ORDERED: Enoxaparin Sodium 40 MG/0.4 ML SYRINGE SC SCH (21:00)
[2019-02-24 04:49] LABS: #Basophils 0.1 thou/uL (0.0-0.2); #Eosinphils 0.1 thou/uL (0.0-0.7); #Lymphocytes 2.6 thou/uL (1.20-3.40); #Neutrophils 8.4 thou/uL (1.40-6.50); %Basophils 0.6 % (0.0-1.0); %Eosinophils 0.7 % (0.0-10.0); %Lymphocytes 21.6 % (21.0-51.0); %Monocytes 8.3 % (0.0-10.0); %Neutrophils 68.9 % (42.0-75.0); Hemoglobin 15.9 g/dL (12.0-16.0); Mean Corpuscular Hemoglobin 30.3 pg (27.0-31.0); Mean Corpuscular Volume 94.7 fL (78.0-98.0); Mean Platelet Volume 9.7 fL (7.4-10.4); Platelet Count 240 thou/uL (130-400); RBC Distribution Width 12.4 % (11.5-14.5); Red Blood Cell (RBC) Count 5.26 mill/uL (4.20-5.40); White Blood Cell (WBC) Count 12.1 thou/uL (4.8-10.8)
[2019-02-24 05:17] LABS: Anion Gap 11 mmol/L (10-20); BUN (Urea Nitrogen) 29 mg/dL (9.8-20.1); Calc. Creatinine Clearance 55 mL/min (70-130); Carbon Dioxide 28 mmol/L (23-31); Chloride 104 mmol/L (98-107); Estimated GFR-MDRD 55; Potassium 4.1 mmol/L (3.5-5.1); Sodium 139 mmol/L (136-145)
[2019-02-24 05:18] LABS: ALT (SGPT) 28 U/L (8-55); AST (SGOT) 19 U/L (5-34); Albumin 3.5 g/dL (3.4-4.8); Alkaline Phosphatase 65 U/L (40-110); Bilirubin, Total 0.3 mg/dL (0.2-1.2); Calcium 9.5 mg/dL (7.8-10.44); Globulin 2.9 g/dL (2.4-3.5); Glucose 93 mg/dL (83-110); Magnesium 2.3 mg/dL (1.6-2.6); Protein, Total 6.4 g/dL (6.0-8.3)
[2019-02-24] MEDS: Furosemide 40 MG/4 ML VIAL SLOW IVP SCH (06:02)
[2019-02-24] MEDS: Budesonide 0.5 MG/2 ML NEB INH SCH (06:58)
--- NOTE | 2019-02-24 08:27 | CON ---
DATE OF CONSULTATION: Please refer to the notes already dictated by nurse practitioner. This is a very pleasant 73-year-old female who is [place]ian-speaking only. She came in with increasing shortness of breath and was found to have also some short runs of nonsustained ventricular tachycardia by echocardiogram. She had a [id number] pericardial effusion. She has been followed by Dr. Clement in the past and had some echocardiograms performed at that time, but she has had no significant other further cardiac workup in the recent past. She did have some increased congestion and coughing, which for the last several weeks she has been on antibiotics, but continues to have problems with coughing and she was seen in the urgent care and was noted to be hypoxic and was started on oxygen and was then admitted to the hospital. I have discussed this patient with my nurse practitioner, Sandy Cruz. We agreed with her assessment and plan on this patient. PAST MEDICAL HISTORY: Please refer the notes dictated by the nurse practitioner. SOCIAL HISTORY: Please refer the notes dictated by the nurse practitioner. FAMILY HISTORY: Please refer the notes dictated by the nurse practitioner. REVIEW OF SYSTEMS: Please refer the notes dictated by the nurse practitioner. MEDICATIONS: Please refer the notes dictated by the nurse practitioner. ALLERGIES: PLEASE REFER THE NOTES DICTATED BY THE NURSE PRACTITIONER. PHYSICAL EXAMINATION: Please refer the notes dictated by the nurse practitioner. IMPRESSION: 1. A 73-year-old female who has developed most likely acute systolic heart failure or diastolic heart failure. She has had a history of probably recent viral infection, upper respiratory tract infection with coughing. She does have a small pericardial effusion, which for this could be a viral etiology, but has had no previous history of pericardial effusions that I am aware of. She has been placed on beta blockers. We will see whether or not this will control her. She has also been placed on diuretics and seems to be somewhat better. She is also on nebulizer treatments and hopefully the infection will subside. I believe she has also been placed on antibiotics and also some steroids and otherwise appears to be relatively comfortable. She has had a recent nebulizer treatment today. 2. Pericardial effusion. This is mild to moderate. There is no evidence of tamponade. I would continue the present medications with diuretics. This may improve. Otherwise, we will repeat the echocardiogram in the next 2 to 4 weeks depending on the progress of the patient. Should it become worse, then she may need to undergo a therapeutic pericardiocentesis or pericardial window. 3. Hypertension. This will be dealt with by the primary care service. 4. Hypercholesterolemia. This also will be dealt with the primary care service at this time. Further care of the patient will be by Dr. Clement. Job ID: [id number]
[2019-02-24] MEDS: Amiodarone 200 MG TAB PO SCH (09:19)
[2019-02-24] MEDS: Famotidine 20 MG TAB PO SCH (09:19)
[2019-02-24] MEDS: Cefdinir 300 MG CAP PO SCH (09:19)
[2019-02-24] MEDS: Potassium Chloride 20 MEQ TAB PO SCH (09:20)
[2019-02-24] MEDS: guaiFENesin ER 600 MG TAB PO SCH (09:21)
[2019-02-24] MEDS: Carvedilol 6.25 MG TAB PO SCH (09:21)
[2019-02-24] MEDS: Multivit, Therapeutic 1 TAB PO SCH (09:21)
[2019-02-24] MEDS: predniSONE 20 MG TAB PO SCH (09:22)
[2019-02-24] MEDS: Lisinopril 10 MG TAB PO SCH (09:22)
[2019-02-24] MEDS: Aspirin Chewable 81 MG TAB PO SCH (09:22)
[2019-02-24] MEDS: Calcium Carbonate + Vit D 1 TAB PO SCH (09:22)
[2019-02-24] MEDS: Enoxaparin Sodium 80 MG/0.8 ML SYRINGE SC SCH (09:23)
[2019-02-24 14:35] VITALS: BP 133/79; TEMP 97.4
--- NOTE | 2019-02-24 16:09 | PRG ---
DATE OF SERVICE: 02/24/2019 SUBJECTIVE: Ms. Carlson is doing much better over the weekend. She remains in atrial fibrillation. She got her 1st dose of Lovenox yesterday, which is out of the 48-hour window. She no longer has cough. Blood pressure has been better controlled. OBJECTIVE: VITAL SIGNS: Blood pressure 132/79, pulse 76, temperature 97.4. LUNGS: Clear to auscultation. HEART: Irregularly irregular. ABDOMEN: Soft, nontender, and nondistended. EXTREMITIES: No edema. PERTINENT LABORATORY DATA: Hemoglobin 15. Creatinine 1.0. IMPRESSION: 1. Small pericardial effusion. 2. Moderate to marked left ventricular hypertrophy. 3. Hypotension. 4. New onset atrial fibrillation. RECOMMENDATIONS: After discussing this further with the family, it appears Ms. Carlson likely has paroxysmal atrial fibrillation while at home. She has intermittent episodes of palpitations. She is currently rate controlled. We will therefore continue with amiodarone therapy and consider outpatient cardioversion. We will add Eliquis 5 mg one p.o. b.i.d. We will continue with current blood pressure medications without any changes. She did have episode of nonsustained VT and may be related to her LVH. She has no previous history of sudden cardiac in her family. No syncope or presyncope. She appears to be asymptomatic. At this point, we would not recommend a further treatment. Plan is to follow up Ms. Carlson in the next 2 to 3 weeks. Job ID: [id number]
[2019-02-24 16:20] LABS: ANA Symphony (Qualitative) POSITIVE (Negative); ANA Symphony (Quantitative) 2.3 Ratio (< 0.7 Negative); CENP IgG Antibody Less than 0.4 EliAU/mL (<7 Negative); Jo-1 IgG Antibody Less than 0.3 EliAU/mL (<7 Negative); RNP70 IgG Antibody Less than 0.3 EliAU/mL (<7 Negative); SSB/La IgG Antibody 1.8 EliAU/mL (<7 Negative); Scleroderma-70 IgG Antibody 0.7 EliAU/mL (<7 Negative); Smith D IgG Antibody 1.9 EliAU/mL (<7 Negative); dsDNA IgG Antibody 0.9 IU/mL (<10 Negative)
--- NOTE | 2019-02-25 14:16 | DIS ---
DATE OF ADMISSION: 02/20/2019 DATE OF DISCHARGE: 02/24/2019 DISCHARGE DISPOSITION: Home. FOLLOWUP: 1. Follow up with Dr. Karsten Rockwell on 27 February 2019. 2. Follow up with Dr. Clement in 2 weeks. 3. Outpatient cardiac rehab. ALLERGIES: NO KNOWN DRUG ALLERGIES. 2 L FLUID RESTRICTION WAS RECOMMENDED. THE PATIENT WAS SEEN AND EXAMINED ON THE DAY OF DISCHARGE. DENIES ANY NEW COMPLAINTS. SHORTNESS OF BREATH HAS SIGNIFICANTLY IMPROVED. DISCHARGE MEDICATIONS: 1. Prednisone 20 mg daily for next 2 days. 2. Multivitamin one tablet daily. 3. Omnicef 300 mg b.i.d. for one more day. 4. Eliquis 5 mg b.i.d. 5. Amiodarone taper. 6. Mucinex twice a day. All other home medications were left unchanged. BRIEF HOSPITAL COURSE: The patient is a 73-year-old female with hypertension, presented to the emergency room with shortness of breath, cough, and wheezing. Her workup was consistent with acute on chronic diastolic heart failure exacerbation. Echocardiogram showed ejection fraction 60% to 65% with diastolic dysfunction. Markedly enlarged right atrium, mild mitral regurgitation, mild tricuspid regurgitation with moderate pericardial effusion. The patient was evaluated by Cardiology. There was no indication for pericardiocentesis or pericardial window per Cardiology. She showed improvement with diuretics. The patient developed atrial fibrillation with rapid ventricular response, requiring amiodarone drip. Amiodarone has been transitioned to oral. Due to elevated CHADS2 score, the patient has been started on Eliquis. She understands the risk associated with anticoagulation. The patient also was diagnosed with acute bronchitis and showed good improvement with antibiotics as well as steroids. Shortness of breath, cough, and wheezing have significantly improved. She has been cleared by consultants for discharge. FINAL DIAGNOSES: 1. Acute on chronic diastolic heart failure exacerbation. 2. New onset atrial fibrillation with rapid ventricular response. 3. Nonsustained ventricular tachycardia. 4. Acute bronchitis. 5. Type 2 myocardial infarction, resolved. 6. Moderate pericardial effusion. 7. Hypertension with hypertensive heart disease. 8. Hypokalemia. 9. Hyperlipidemia. 10. Chronic kidney disease, stage 2. 11. Obesity with a BMI of 31. TEST PENDING AT DISCHARGE: VELIA. Job ID: [id number]
== END 2019-02-24 15:55 | disposition home or self-care (01) | DRG 280 ==
LOC: ERS 17:45 → 2SW 23:57 → OBSVTOIN 02-20 13:13 → 2NO 02-22 08:48
PROVIDERS: ADMIT Internal Medicine; ATTEND Internal Medicine
DX: I13.0 Hypertensive heart and chronic kidney disease with heart failure and stage 1 through stage 4 chronic kidney disease, or unspecified chronic kidney disease (principal); I21.A1 Myocardial infarction type 2; I50.33 Acute on chronic diastolic (congestive) heart failure; J44.1 Chronic obstructive pulmonary disease with (acute) exacerbation; I47.2 Ventricular tachycardia; I31.3 Pericardial effusion (noninflammatory); E87.6 Hypokalemia; N18.2 Chronic kidney disease, stage 2 (mild); I48.0 Paroxysmal atrial fibrillation; E66.9 Obesity, unspecified; I95.9 Hypotension, unspecified; J20.9 Acute bronchitis, unspecified; E78.00 Pure hypercholesterolemia, unspecified; E78.5 Hyperlipidemia, unspecified; Z90.49 Acquired absence of other specified parts of digestive tract; Z79.01 Long term (current) use of anticoagulants; Z68.31 Body mass index [BMI] 31.0-31.9, adult
CPT/HCPCS: 36415; 71046; 80053; 82553; 83690; 83735; 83880; 84100; 84132; 84443; 84484; 85025; 85379; 86038; 86140; 86225; 86235; 87070; 87205; 87804; 90471; 90670; 93306; 93798; 94640; G0009; J0282; J0696; J1650; J1940; J2001; J2920; J3490; J7070; J7512; J7608; J7620; J7626; Q0162

== ENCOUNTER 2019-12-25 16:00 | Inpatient (IN) | payer MEDICARE, OTHER ==
--- NOTE | 2019-12-25 16:55 | RAD ---
EXAM: Single view of the chest HISTORY: CHF and shortness of breath COMPARISON: 02/23/2019 FINDINGS: Single view of the chest shows a massively enlarged but stable cardiomediastinal silhouette . There is no evidence of consolidation, mass, or pleural effusion. No acute osseous abnormality. IMPRESSION: Severe cardiomegaly. A pericardial effusion cannot be excluded.
[2019-12-25 17:04] LABS: #Basophils 0.1 thou/uL (0.0-0.2); #Eosinphils 0.1 thou/uL (0.0-0.7); #Lymphocytes 1.3 thou/uL (1.20-3.40); #Monocytes 0.6 thou/uL (0.11-0.59); #Neutrophils 5.4 thou/uL (1.40-6.50); %Basophils 0.9 % (0.0-1.0); %Eosinophils 1.6 % (0.0-10.0); %Lymphocytes 17.7 % (21.0-51.0); %Monocytes 7.9 % (0.0-10.0); %Neutrophils 71.8 % (42.0-75.0); Hemoglobin 16.6 g/dL (12.0-16.0); Mean Corpuscular HGB CONC 31.5 g/dL (32.0-36.0); Mean Corpuscular Hemoglobin 30.5 pg (27.0-31.0); Mean Corpuscular Volume 96.6 fL (78.0-98.0); Mean Platelet Volume 9.3 fL (7.4-10.4); Platelet Count 254 thou/uL (130-400); RBC Distribution Width 14.4 % (11.5-14.5); Red Blood Cell (RBC) Count 5.43 mill/uL (4.20-5.40); White Blood Cell (WBC) Count 7.6 thou/uL (4.8-10.8)
[2019-12-25 17:31] LABS: ALT (SGPT) 27 U/L (8-55); AST (SGOT) 35 U/L (5-34); Albumin 3.4 g/dL (3.4-4.8); Alkaline Phosphatase 76 U/L (40-110); Anion Gap 12 mmol/L (10-20); BUN (Urea Nitrogen) 22 mg/dL (9.8-20.1); Bilirubin, Total 0.8 mg/dL (0.2-1.2); Calc. Creatinine Clearance 0 mL/min (70-130); Calcium 8.4 mg/dL (7.8-10.44); Carbon Dioxide 32 mmol/L (23-31); Chloride 105 mmol/L (98-107); Estimated GFR-MDRD 50; Globulin 2.6 g/dL (2.4-3.5); Glucose 139 mg/dL (83-110); Potassium 3.8 mmol/L (3.5-5.1); Sodium 145 mmol/L (136-145)
[2019-12-25 17:46] LABS: CKMB 3.8 ng/mL (0-6.6)
--- NOTE | 2019-12-25 19:19 | HP ---
PRIMARY CARE PHYSICIAN: Karsten Rockwell MD REASON FOR ADMISSION: [id number] diastolic congestive heart failure exacerbation. HISTORY OF PRESENT ILLNESS: female, who has history of chronic diastolic heart failure. The patient was admitted last year in February. At that time, the patient had new-onset atrial fibrillation and nonsustained ventricular tachycardia. The patient also had moderate pericardial effusion and echocardiography showed diastolic dysfunction. The patient was given diuretic therapy, Eliquis, amiodarone, and other medication. Today, the patient presented to emergency room with increasing shortness of breath and bilateral lower extremity edema. The patient reports that the patient returned from [place] today and she was given medication there as well. The patient does not have any medication with her at this point, so she does not know what medicine she was taking prior to coming to [place]. The patient has weight gain. The patient also visited here primary care physician and the patient was slightly hypoxic at doctor's office and subsequently she was sent to emergency room for evaluation. As per report at doctor's office, the patient's saturation was 88% on room air, but subsequently her saturation was 95% on room air. PAST MEDICAL HISTORY: 1. Chronic diastolic heart failure. 2. Hypertension. 3. Paroxysmal atrial fibrillation. 4. History of pericardial effusion. 5. Chronic kidney disease stage 2. 6. Obesity with BMI 31. 7. Dyslipidemia. PAST SURGICAL HISTORY: 1. Appendicectomy. 2. Cholecystectomy. FAMILY HISTORY: No strong family history of premature coronary artery disease, stroke, or cancer. SOCIAL HISTORY: No history of tobacco, alcohol, or illicit drug abuse. ALLERGIES: NO KNOWN DRUG ALLERGY. REVIEW OF SYSTEMS: All review of systems reviewed with her and negative except as mentioned in HPI. CURRENT HOME MEDICATIONS: The patient does not have any medication with her at this point, but based on last discharge summary, the patient is on following medications; 1. Coreg 12.5 mg twice daily. 2. Lasix 40 mg daily. 3. Lisinopril 10 mg daily. 4. Zocor 40 mg p.o. at bedtime. 5. Amiodarone 200 mg daily. 6. Eliquis 5 mg b.i.d. EMERGENCY ROOM COURSE: The patient has received no treatment so far in the emergency room. PHYSICAL EXAMINATION: VITAL SIGNS: Currently, blood pressure 141/80, pulse 76, respiratory rate 22, temperature 99.5, saturation 88% on room air on admission, but subsequently 95% on room air. Weight 77 kg. GENERAL: The patient is currently alert, awake, no acute distress. HEENT: Head; normocephalic, atraumatic. NECK: Supple. No JVD. No meningeal signs of irritation. LUNGS: Bibasilar rales noted. No obvious rhonchi or rales. CARDIAC: S1 and S2 appears irregular, soft systolic murmur noted, no gallop, no rub. ABDOMEN: Soft, bowel sounds present, nontender, nondistended. No organomegaly. No mass. EXTREMITIES: Bilateral lower extremity edema noted, good distal pulsation. SKIN: No skin rash. HEMATOLOGICAL: No lymphadenopathy. NEUROLOGIC: Grossly nonfocal examination. SIGNIFICANT LABORATORY DATA: CBC: WBC 7.6, hemoglobin 16.6, platelets 254. BMP: Sodium 145, potassium 3.8, chloride 105, carbon dioxide 32, anion gap 12, BUN 22, creatinine 1.08, glucose 139, calcium 8.4. LFT: AST 35, ALT 27, alkaline phosphatase 76, albumin 3.4, CK-MB 3.8, troponin-I 0.037. BNP 888.85. ASSESSMENT AND PLAN: 1. [id number] diastolic congestive heart failure exacerbation. The patient had echocardiography on February 2019, which showed EF 60% to 65% and diastolic dysfunction. The patient has an elevated BNP, bilateral lower extremity edema all consistent with CHF exacerbation. The patient will be treated with Lasix 40 mg IV b.i.d. and we will also give her Zaroxolyn 5 mg p.o. daily. We will monitor input/output chart and will repeat labs tomorrow. Fluid restriction 1.2 L. Heart failure education given. 2. Chronic atrial fibrillation, rate controlled. We will continue amiodarone 200 mg p.o. daily, Coreg 6.25 mg twice daily, Eliquis 5 mg p.o. b.i.d. 3. Elevated troponin, likely due to demand ischemia type-2 VA. We will do serial cardiac enzymes x3 to rule out acute coronary syndrome. 4. Dyslipidemia. We will continue Zocor 40 mg p.o. at bedtime. 5. Hypertension. We will continue Coreg 6.25 mg twice daily, lisinopril 5 mg p.o. daily. 6. DVT prophylaxis. The patient is already on Eliquis therapy. 7. Gastrointestinal prophylaxis, Pepcid 20 mg p.o. b.i.d. 8. Code status: The patient is full code. 9. Disposition plan: Based on clinical course, we are expecting the patient's stay in hospital 24 hours. We will also rule out COVID-19 infection on her. Job ID: [id number]
[2019-12-25] MEDS ORDERED: Nitroglycerin 0.4 MG TAB (25 Tab Bottle) SL PRN (20:30)
[2019-12-25] MEDS ORDERED: Loperamide HCl 2 MG CAP PO PRN (20:30)
[2019-12-25] MEDS ORDERED: Cepastat Lozenges 1 LOZ PO PRN (20:30)
[2019-12-25] MEDS ORDERED: Calcium Carbonate 500 MG ChewTAB PO PRN (20:30)
[2019-12-25] MEDS ORDERED: Diabetic Tussin 200 MG/10 ML UDCUP PO PRN (20:30)
[2019-12-25] MEDS ORDERED: Guaifenesin DM 100-10/5 ML UDCUP PO PRN (20:30)
[2019-12-25] MEDS ORDERED: Zolpidem Tartrate 5 MG TAB PO PRN (20:30)
[2019-12-25] MEDS ORDERED: Ondansetron PF 4 MG/2 ML Vial IVP PRN (20:30)
[2019-12-25] MEDS ORDERED: Ondansetron ODT 4 MG TAB PO PRN (20:30)
[2019-12-25] MEDS ORDERED: HYDROcodone/Acetaminophen 5/325 mg Tablet PO PRN ×3 (20:30)
[2019-12-25] MEDS ORDERED: Bisacodyl 10 MG SUPP PR PRN (20:30)
[2019-12-25] MEDS ORDERED: hydrALAZINE 20 MG/ML VIAL SLOW IVP PRN (20:30)
[2019-12-25] MEDS ORDERED: Senokot S 8.6-50 MG TAB PO PRN (20:30)
[2019-12-25] MEDS ORDERED: Sodium Chloride 0.65% Nasal 44 ML BOT EA NARE PRN (20:30)
[2019-12-25] MEDS ORDERED: Acetaminophen 325 MG TAB PO PRN ×2 (20:30)
[2019-12-25] MEDS ORDERED: Loratadine 10 MG TAB PO PRN (20:30)
[2019-12-25] MEDS ORDERED: Metolazone 5 MG TAB PO SCH (21:00)
[2019-12-25] MEDS ORDERED: Simvastatin 20 MG TAB PO SCH (21:00)
[2019-12-25] MEDS: Famotidine 20 MG TAB PO SCH (21:27)
[2019-12-25] MEDS: Apixaban 5 MG TAB PO SCH (21:27)
[2019-12-25 22:06] LABS: Troponin I 0.017 ng/mL (< 0.028)
[2019-12-25 22:53] VITALS: BMI 29.9
[2019-12-26 01:16] LABS: Troponin I 0.018 ng/mL (< 0.028)
[2019-12-26 04:45] LABS: #Eosinphils 0.1 thou/uL (0.0-0.7); #Lymphocytes 1.2 thou/uL (1.20-3.40); #Monocytes 0.5 thou/uL (0.11-0.59); #Neutrophils 5.3 thou/uL (1.40-6.50); %Basophils 0.5 % (0.0-1.0); %Eosinophils 1.7 % (0.0-10.0); %Lymphocytes 16.4 % (21.0-51.0); %Monocytes 7.2 % (0.0-10.0); %Neutrophils 74.1 % (42.0-75.0); Hemoglobin 16.3 g/dL (12.0-16.0); Mean Corpuscular HGB CONC 31.4 g/dL (32.0-36.0); Mean Corpuscular Hemoglobin 30.9 pg (27.0-31.0); Mean Corpuscular Volume 98.4 fL (78.0-98.0); Mean Platelet Volume 9.6 fL (7.4-10.4); Platelet Count 246 thou/uL (130-400); RBC Distribution Width 14.3 % (11.5-14.5); Red Blood Cell (RBC) Count 5.28 mill/uL (4.20-5.40); White Blood Cell (WBC) Count 7.2 thou/uL (4.8-10.8)
[2019-12-26] MEDS: Furosemide 40 MG/4 ML VIAL SLOW IVP SCH ×2 (05:04→13:47)
[2019-12-26 05:07] LABS: Anion Gap 12 mmol/L (10-20); BUN (Urea Nitrogen) 18 mg/dL (9.8-20.1); Calc. Creatinine Clearance 65 mL/min (70-130); Calcium 8.5 mg/dL (7.8-10.44); Carbon Dioxide 35 mmol/L (23-31); Chloride 103 mmol/L (98-107); Estimated GFR-MDRD 55; Glucose 127 mg/dL (83-110); Magnesium 2.3 mg/dL (1.6-2.6); Potassium 3.8 mmol/L (3.5-5.1); Sodium 146 mmol/L (136-145)
[2019-12-26 07:11] LABS: Bacteria/HPF None Seen HPF (None Seen); Bilirubin Negative (Negative); Blood, Urine Negative (Negative); Clarity Clear (Clear); Glucose, Urine (Dipstick) Normal (Negative); Ketone, Urine Negative (Negative); Leukocyte Negative Leu/uL (Negative); Nitrite Negative (Negative); Protein, Urine (Dipstick) Negative (Neg-Trace); RBC/HPF 0-3 HPF (0-3); Specific Gravity, Urine 1.007 (1.002-1.036); Squamous Epithelial None Seen HPF (0-3); Urobilinogen Normal mg/dL (Less than 2); WBC/HPF 0-3 HPF (0-3); pH, Urine 5.5 (5.0-9.0)
[2019-12-26 07:21] LABS: Urine Culture Reflex No No
[2019-12-26] MEDS ORDERED: Metolazone 5 MG TAB PO SCH (08:30)
[2019-12-26] MEDS ORDERED: FLU VACC QS2020-21(65YR UP)/PF 240 MCG/0.7 ML SYRINGE IM ONE (09:00)
[2019-12-26] MEDS: Famotidine 20 MG TAB PO SCH ×2 (09:05→20:06)
[2019-12-26] MEDS: Carvedilol 6.25 MG TAB PO SCH ×2 (09:05→17:55)
[2019-12-26] MEDS: Amiodarone 200 MG TAB PO SCH (09:05)
[2019-12-26] MEDS: Lisinopril 5 MG TAB PO SCH (09:05)
[2019-12-26] MEDS: Apixaban 5 MG TAB PO SCH ×2 (09:05→20:06)
--- NOTE | 2019-12-26 11:17 | PDOC.HOSPP ---
- Subjective Encounter Date: 12/26/19 Encounter Time: 10:15 Subjective: Patient is seen as a follow-up for congestive heart failure today. She states she has been diuresing well and has no chest pain or shortness of breath. No overnight events. - Objective Vital Signs & Weight: Vital Signs (12 hours) Temp Pulse Resp BP Pulse Ox 12/26/19 09:05 64 12/26/19 08:00 97.8 F 73 16 126/70 96 12/26/19 04:00 97.1 F L 64 14 120/60 94 L 12/26/19 00:00 97.3 F L Weight Weight 176 lb 14.4 oz I&O: 12/25/19 12/26/19 12/27/19 06:59 06:59 06:59 Intake Total 130 Output Total 400 Balance -270 Result Diagrams: 12/26/19 17:44 12/26/19 17:44 Radiology Reviewed by me: Yes (Chest x-raypulmonary vascular congestion) EKG Reviewed by me: Yes (Atrial fibrillation on telemetry) Hospitalist ROS - Review of Systems Cardiovascular: denies: chest pain, palpitations, orthopnea, paroxysmal noc. dyspnea, edema, light headedness, other Gastrointestinal: denies: nausea, vomiting, abdominal pain, diarrhea, constipation, melena, hematochezia, other All other systems reviewed; all pertinent +/- noted in HPI/Subj - Medication Medications: Active Medications Generic Name Dose Route Start Last Admin Trade Name Freq PRN Reason Stop Dose Admin Amiodarone HCl 200 mg 12/26/19 09:00 12/26/19 09:05 Amiodarone 200 Mg Tab PO 200 mg DAILY ZANE Administration Apixaban 5 mg 12/25/19 21:00 12/26/19 09:05 Apixaban 5 Mg Tab PO 5 mg BID ZANE Administration Carvedilol 6.25 mg 12/26/19 08:00 12/26/19 09:05 Carvedilol 6.25 Mg Tab PO 6.25 mg BID-WM ZANE Administration Famotidine 20 mg 12/25/19 21:00 12/26/19 09:05 Famotidine 20 Mg Tab PO 20 mg BID ZANE Administration Furosemide 40 mg 12/26/19 06:00 12/26/19 05:04 Furosemide 40 Mg/4 Ml Vial SLOW IVP 40 mg 0600,1400 ZANE Administration Lisinopril 5 mg 12/26/19 09:00 12/26/19 09:05 Lisinopril 5 Mg Tab PO 5 mg DAILY ZANE Administration Simvastatin 40 mg 12/25/19 21:00 12/25/19 21:27 Simvastatin 20 Mg Tab PO 40 mg HS ZANE Administration - Exam General Appearance: NAD, awake alert Neck: supple Heart: RRR, no murmur, no gallops, normal peripheral pulses, irregular Respiratory: no wheezes, no tachypnea, rales (bibasilar), rhonchi Gastrointestinal: soft, non-tender, non-distended, normal bowel sounds Extremities: no cyanosis, no clubbing, 1+ LE edema Neurological: no new deficit Psychiatric: normal affect, normal behavior, A&O x 3 Hosp A/P - Plan DVT proph w/SCDs Acute on chronic diastolic congestive heart failure exacerbation Patient appears to be diuresing well, 3 pounds lost since admission Continue IV Lasix Continue monitoring on telemetry Obtain echo, last known was in 2019 Consult cardiology Chronic atrial fibrillation, rate controlled Continue monitor on telemetry Patient not sure of medications, medications continued from previous hospital stay, nursing attempting to verify home medications with family Elevated troponin Second and third set of troponins negative Denied chest pain Possibly elevated due to demand ischemia Hypertension Vital signs stable throughout the night Continue current antihypertensives
[2019-12-26 16:23] LABS: SARS-CoV-2 MS2 Positive; SARS-CoV-2 N Gene Negative; SARS-CoV-2 S Gene Negative; SARS-CoV-2 by NAA Not Detected (NotDetected); SARS-CoV-2 orf1ab Negative
[2019-12-26 17:49] LABS: Hemoglobin 17.6 g/dL (12.0-16.0); Platelet Count 270 thou/uL (130-400)
[2019-12-26] MEDS: Atorvastatin Calcium 20 MG TAB PO SCH (20:07)
--- NOTE | 2019-12-26 21:10 | CON ---
DATE OF CONSULTATION: 12/26/2019 REASON FOR CONSULTATION: Heart failure. PRIMARY COUNCILOR: Dr. Zhang Clement. HISTORY OF PRESENT ILLNESS: Mrs. Carlson is a very pleasant 74 -year-old female, Vietnamese-speaking mostly, who comes to the hospital for shortness of breath. She has a significant history of what appears to be a hypertrophic cardiomyopathy versus an infiltrative disease. She has severe LVH and has had severe diastolic dysfunction in the past. She comes in after noticing worsening shortness of breath. She was admitted and given IV Lasix and she is already feeling better. On my evaluation, Mrs. Carlson is lying flat on the bed. Her breathing is still little bit labored, but not needing any oxygen supplementation. PAST MEDICAL HISTORY: 1. Diastolic heart failure. 2. Severe LVH. 3. Hypertension. 4. Paroxysmal atrial fibrillation. 5. History of pericardial effusion. 6. Chronic kidney disease, stage 2. 7. Obesity. 8. Hyperlipidemia. SURGICAL HISTORY: 1. Appendectomy. 2. Cholecystectomy. FAMILY HISTORY: No coronary artery disease. SOCIAL HISTORY: No alcohol, tobacco, or drugs. ALLERGIES: NO KNOWN DRUG ALLERGIES. REVIEW OF SYSTEMS: A 12-point review of systems was done and was found to be negative other than stated in the history of present illness. OUTPATIENT MEDICATIONS: 1. Coreg 12.5 mg b.i.d. 2. Lasix 40 mg a day. 3. Lisinopril 10 mg a day. 4. Zocor 40 mg a day. 5. Amiodarone 200 mg a day. 6. Eliquis 5 mg b.i.d. PHYSICAL EXAMINATION: VITAL SIGNS: respiratory rate 20, saturating 92% on 2 L nasal cannula, and blood pressure 139/80. GENERAL: Awake, alert, oriented x3. No distress. HEENT: Normocephalic and atraumatic. NECK: Supple. LUNGS: Clear. CARDIOVASCULAR: S1 and S2. No S3 or S4. There is a grade 2/6 systolic murmur at the right upper sternal border. ABDOMEN: Soft with positive bowel sounds. EXTREMITIES: No edema. SKIN: Warm and dry. LABORATORY DATA: Laboratory work was reviewed. CBC was reviewed. Hemoglobin is 17.6. Chemistries with a creatinine of 1.25, potassium is 3.8. UA was unremarkable. Serology, COVID PCR was negative. ASSESSMENT: 1. Severe left ventricular hypertrophy. 2. Moderate-sized pericardial effusion. 3. Hypertension. 4. Paroxysmal atrial fibrillation. PLAN: 1. With this amount of LVH seen on echo, there is always concern for amyloid or sarcoid unlikely that this is an apical variant of hypertrophic cardiomyopathy as the hypertrophy is global on the left ventricle. Her LV is hyperdynamic at about 70% to 75%; however, given the severity of her LVH, her filling pattern is not sufficient. I would hold off on any more diuresis. We would try to slow her down as much as possible with beta blockade to try to allow as much filling time as possible to improve forward flow and may restart diuresis after that. 2. Likely she got decompensated because rapid of atrial fibrillation. Currently rate controlled in the 60's to 70's. Thank you for letting us to participate in the care of your patient. We will follow. Job ID: [id number] MTDD
[2019-12-27] MEDS: Furosemide 40 MG/4 ML VIAL SLOW IVP SCH (00:45)
[2019-12-27] MEDS: Apixaban 5 MG TAB PO SCH ×2 (09:15→21:15)
[2019-12-27] MEDS: Amiodarone 200 MG TAB PO SCH (09:15)
[2019-12-27] MEDS: Lisinopril 5 MG TAB PO SCH (09:15)
[2019-12-27] MEDS: Famotidine 20 MG TAB PO SCH ×2 (09:15→21:14)
[2019-12-27] MEDS: Carvedilol 6.25 MG TAB PO SCH ×2 (09:15→16:21)
--- NOTE | 2019-12-27 14:48 | PDOC.HOSPP ---
- Subjective Encounter Date: 12/27/19 Encounter Time: 10:00 Subjective: Patient seen and examined for congestive heart failure exacerbation. Shortness of breath improving. Denies any chest pain, syncope or palpitations. - Objective Vital Signs & Weight: Vital Signs (12 hours) Temp Pulse Resp BP Pulse Ox 12/27/19 09:15 78 12/27/19 08:00 98.8 F 74 18 130/76 94 L 12/27/19 04:23 98.7 F 78 16 121/61 92 L Weight Weight 165 lb 14.4 oz I&O: 12/26/19 12/27/19 12/28/19 06:59 06:59 06:59 Intake Total 130 840 Output Total 400 2150 Balance -270 -1310 Result Diagrams: 12/26/19 17:44 12/26/19 17:44 Additional Labs: 12/26/19 17:44 Abnormal Lab Results - Last 48 hrs 12/25/19 16:50: RBC 5.43 H, Hgb 16.6 H, Hct 52.5 H, MCHC 31.5 L, Lymphocytes % 17.7 L, Monocytes # 0.6 H 12/25/19 16:50: B-Natriuretic Peptide 888.5 H 12/25/19 16:50: Troponin I 0.037 H 12/25/19 16:50: Carbon Dioxide 32 H, BUN 22 H, AST 35 H 12/26/19 04:01: Sodium 146 H, Carbon Dioxide 35 H 12/26/19 04:01: Hgb 16.3 H, Hct 52.0 H, MCV 98.4 H, MCHC 31.4 L, Lymphocytes % 16.4 L 12/26/19 05:58: Hyaline Casts 4-6 A EKG Reviewed by me: Yes (Atrial fibrillation on telemetry) Hospitalist ROS - Review of Systems Gastrointestinal: denies: nausea, vomiting, abdominal pain, diarrhea, constipation, melena, hematochezia, other Genitourinary: denies: dysuria, frequency, incontinence, hematuria, retention, other - Medication Medications: Active Medications Generic Name Dose Route Start Last Admin Trade Name Freq PRN Reason Stop Dose Admin Amiodarone HCl 200 mg 12/26/19 09:00 12/27/19 09:15 Amiodarone 200 Mg Tab PO 200 mg DAILY ZANE Administration Apixaban 5 mg 12/25/19 21:00 12/27/19 09:15 Apixaban 5 Mg Tab PO 5 mg BID ZANE Administration Atorvastatin Calcium 20 mg 12/26/19 21:00 12/26/19 20:07 Atorvastatin Calcium 20 Mg Tab PO 20 mg HS ZANE Administration Carvedilol 6.25 mg 12/26/19 08:00 12/27/19 09:15 Carvedilol 6.25 Mg Tab PO 6.25 mg BID-WM ZANE Administration Famotidine 20 mg 12/25/19 21:00 12/27/19 09:15 Famotidine 20 Mg Tab PO 20 mg BID ZANE Administration Lisinopril 5 mg 12/26/19 09:00 12/27/19 09:15 Lisinopril 5 Mg Tab PO 5 mg DAILY ZANE Administration - Exam General Appearance: NAD Heart: RRR, no gallops Respiratory: no wheezes, no ronchi Gastrointestinal: non-tender, non-distended, normal bowel sounds Extremities: no cyanosis, no clubbing Neurological: no new deficit Psychiatric: normal affect, A&O x 3 Hosp A/P - Plan Acute on chronic diastolic heart failure exacerbation Chronic atrial fibrillation on anticoagulation Hypertension with severe hypertensive heart disease CKD stage II Hyperlipidemia Plan: Diuretics on hold per cardiology recommendation. We will continue beta-blockers with low-dose MACIE inhibitor. Continue amiodarone with Eliquis for atrial f ibrillation. Cardiology input appreciated. Echocardiogram showed severely concentric left ventricular hypertrophy with moderate tricuspid regurgitation with moderate sized pericardial effusion. Monitor labs on a daily basis.
--- NOTE | 2019-12-27 16:10 | PDOC.CPN ---
- Subjective Date: 12/27/19 Time: 16:08 Interval history: She is feeling better. Breathing better. - Review of Systems General: denies: fever/chills, weight/appetite/sleep changes, night sweats, fatigue Respiratory: reports: shortness of breath. denies: cough, congestion, exercise intolerance Cardiovascular: denies: chest pain, palpitation, edema, paroxysmal nocturnal dyspnea, orthopnea Gastrointestinal: denies: nausea, vomiting, diarrhea, constipation, abd pain, GI bleeding Musculoskeletal: denies: pain, tenderness, stiffness, swelling, arthritis/ar thralgias Neurological: denies: numbness, syncope, seizure, weakness - Objective Allergies/Adverse Reactions: Allergies Allergy/AdvReac Type Severity Reaction Status Date / Time No Known Allergies Allergy Verified 12/25/19 20:52 Visit Medications: Current Medications Acetaminophen (Acetaminophen 325 Mg Tab) 650 mg PO Q4H PRN PRN Reason: Headache/Fever/Mild Pain (1-3) Hydrocodone Bitart/Acetaminophen (Hydrocodone/Acetaminophen 5/325 Mg Tablet) 1 tab PO Q4H PRN PRN Reason: Moderate Pain (4-6) Amiodarone HCl (Amiodarone 200 Mg Tab) 200 mg PO DAILY [facility] Last Admin: 12/27/19 09:15 Dose: 200 mg Documented by: Apixaban (Apixaban 5 Mg Tab) 5 mg PO BID [facility] Last Admin: 12/27/19 09:15 Dose: 5 mg Documented by: Atorvastatin Calcium (Atorvastatin Calcium 20 Mg Tab) 20 mg PO [facility] Last Admin: 12/26/19 20:07 Dose: 20 mg Documented by: Bisacodyl (Bisacodyl 10 Mg Supp) 10 mg ID DAILYPRN PRN PRN Reason: Constipation Calcium Carbonate (Calcium Carbonate 500 Mg Chewtab) 1,000 mg PO Q4H PRN PRN Reason: Heartburn or Indigestion Carvedilol (Carvedilol 6.25 Mg Tab) 6.25 mg PO BID-[facility] Last Admin: 12/27/19 09:15 Dose: 6.25 mg Documented by: Famotidine (Famotidine 20 Mg Tab) 20 mg PO BID [facility] Last Admin: 12/27/19 09:15 Dose: 20 mg Documented by: Guaifenesin (Diabetic Tussin 200 Mg/10 Ml Udcup) 200 mg PO Q4H PRN PRN Reason: Cough Guaifenesin/Dextromethorphan (Guaifenesin Dm 100-10/5 Ml Udcup) 15 ml PO Q4H PRN PRN Reason: Cough Hydralazine HCl (Hydralazine 20 Mg/Ml Vial) 10 mg SLOW IVP Q4H PRN PRN Reason: SBP > 180 and HR < 70 Lisinopril (Lisinopril 5 Mg Tab) 5 mg PO DAILY [facility] Last Admin: 12/27/19 09:15 Dose: 5 mg Documented by: Loperamide HCl (Loperamide Hcl 2 Mg Cap) 2 mg PO PRN PRN PRN Reason: Diarrhea/Loose Stools Loratadine (Loratadine 10 Mg Tab) 10 mg PO DAILYPRN PRN PRN Reason: Sinus Symptoms Nitroglycerin (Nitroglycerin 0.4 Mg Tab (25 Tab Bottle)) 0.4 mg SL Q5MIN PRN PRN Reason: Chest Pain Ondansetron HCl (Ondansetron Odt 4 Mg Tab) 4 mg PO Q6H PRN PRN Reason: Nausea/Vomiting Ondansetron HCl (Ondansetron Pf 4 Mg/2 Ml Vial) 4 mg IVP Q6H PRN PRN Reason: Nausea/Vomiting Senna/Docusate Sodium (Senokot S 8.6-50 Mg Tab) 2 tab PO BIDPRN PRN PRN Reason: Constipation Sodium Chloride (Sodium Chloride 0.65% Nasal 44 Ml Bot) 0 ml EA NARE QIDPRN PRN PRN Reason: Nasal Congestion Throat Lozenges (Cepastat Lozenges 1 Hakeem) 1 hakeem PO Q2H PRN PRN Reason: Sore Throat Zolpidem Tartrate (Zolpidem Tartrate 5 Mg Tab) 5 mg PO HSPRN PRN PRN Reason: Insomnia Vital Signs & Weight: Vital Signs Temp Pulse Resp BP Pulse Ox 12/27/19 15:41 98.6 F 78 16 93/58 L 92 L 12/27/19 12:00 98.4 F 72 17 116/70 93 L 12/27/19 09:15 78 12/27/19 08:00 98.8 F 74 18 130/76 94 L 12/27/19 04:23 98.7 F 78 16 121/61 92 L Weight 165 lb 14.4 oz - Physical Exam General: alert & oriented x3 HEENT: mucus membranes moist Neck: supple neck Cardiac: regular rate and rhythm Lungs: normal breath sounds Abdomen: active bowel sounds Extremities: no edema Skin: clear Musculoskeletal: no pain - Labs Result Diagrams: 12/26/19 17:44 12/26/19 17:44 Troponin/CKMB CK-MB (CK-2) 3.8 ng/mL (0-6.6) 12/25/19 16:50 Troponin I 0.018 ng/mL (< 0.028) 12/26/19 00:41 - Telemetry Supraventricular conduction: atrial fibrillation - Assessment/Plan Assessment/Plan: 1. Paroxysmal Afib 2. Diastolic dysfunction. 3. Severe LVH 4. Moderate sized pericardial effusion PLAN: - She is currently rate controlled. - Will give one dose IV lasix. - Will likely benefit from maintaining sinus rhythm. May need an ablation. Will get EP involved.
[2019-12-27] MEDS ORDERED: Furosemide 40 MG/4 ML VIAL SLOW IVP SCH (16:30)
[2019-12-27 16:51] LABS: BUN (Urea Nitrogen) 23 mg/dL (9.8-20.1); Calc. Creatinine Clearance 43 mL/min (70-130); Calcium 8.4 mg/dL (7.8-10.44); Estimated GFR-MDRD 36; Glucose 127 mg/dL (83-110)
[2019-12-27 17:01] LABS: Anion Gap 17 mmol/L (10-20); Carbon Dioxide 34 mmol/L (23-31); Chloride 91 mmol/L (98-107); Potassium 3.2 mmol/L (3.5-5.1); Sodium 139 mmol/L (136-145)
[2019-12-27] MEDS ORDERED: Potassium Chloride 20 MEQ TAB PO SCH (17:15)
[2019-12-27] MEDS: Atorvastatin Calcium 20 MG TAB PO SCH (21:15)
[2019-12-28 04:47] LABS: BUN (Urea Nitrogen) 25 mg/dL (9.8-20.1); Calc. Creatinine Clearance 53 mL/min (70-130); Calcium 8.8 mg/dL (7.8-10.44); Estimated GFR-MDRD 46; Glucose 102 mg/dL (83-110); Magnesium 2.5 mg/dL (1.6-2.6)
[2019-12-28 04:56] LABS: Anion Gap 17 mmol/L (10-20); Carbon Dioxide 35 mmol/L (23-31); Chloride 92 mmol/L (98-107); Potassium 3.7 mmol/L (3.5-5.1); Sodium 140 mmol/L (136-145)
[2019-12-28] MEDS: Famotidine 20 MG TAB PO SCH (09:14)
[2019-12-28] MEDS: Carvedilol 6.25 MG TAB PO SCH ×2 (09:14→16:29)
[2019-12-28] MEDS: Lisinopril 5 MG TAB PO SCH (09:14)
[2019-12-28] MEDS: Apixaban 5 MG TAB PO SCH ×2 (09:14→20:27)
[2019-12-28] MEDS: Amiodarone 200 MG TAB PO SCH (09:14)
--- NOTE | 2019-12-28 15:30 | PDOC.HOSPP ---
- Subjective Encounter Date: 12/28/19 Encounter Time: 11:00 Subjective: Patient seen and examined for congestive heart failure exacerbation. Short of breath on [id number] exertion. Denies any chest pain, palpitations or syncope. - Objective Vital Signs & Weight: Vital Signs (12 hours) Temp Pulse Resp BP Pulse Ox 12/28/19 15:22 979 F H 73 16 96/55 L 97 12/28/19 12:00 97.5 F L 75 16 100/68 95 12/28/19 09:14 61 12/28/19 08:00 97.6 F 78 17 102/76 92 L 12/28/19 04:00 97.9 F 61 14 103/59 L 92 L Weight Weight 169 lb 1 oz I&O: 12/27/19 12/28/19 12/29/19 06:59 06:59 06:59 Intake Total 840 720 250 Output Total 2150 400 400 Balance -1310 320 -150 Result Diagrams: 12/26/19 17:44 12/28/19 04:05 Additional Labs: Abnormal Lab Results - Last 48 hrs 12/26/19 17:44: Creatinine 1.25 H 12/26/19 17:44: Hgb 17.6 H, Hct 55.3 H 12/27/19 16:25: Potassium 3.2 L, Chloride 91 L, Carbon Dioxide 34 H, BUN 23 H, Creatinine 1.42 H 12/28/19 04:05: Chloride 92 L, Carbon Dioxide 35 H, BUN 25 H, Creatinine 1.16 H EKG Reviewed by me: Yes (Sinus rhythm on telemetry) Hospitalist ROS - Review of Systems Constitutional: denies: fever, chills, sweats, weakness, malaise, other Gastrointestinal: denies: nausea, vomiting, abdominal pain, diarrhea, constipation, melena, hematochezia, other - Medication Medications: Active Medications Generic Name Dose Route Start Last Admin Trade Name Freq PRN Reason Stop Dose Admin Amiodarone HCl 200 mg 12/26/19 09:00 12/28/19 09:14 Amiodarone 200 Mg Tab PO 200 mg DAILY [facility] Administration Apixaban 5 mg 12/25/19 21:00 12/28/19 09:14 Apixaban 5 Mg Tab PO 5 mg BID [facility] Administration Atorvastatin Calcium 20 mg 12/26/19 21:00 12/27/19 21:15 Atorvastatin Calcium 20 Mg Tab PO 20 mg HS [facility] Administration Carvedilol 6.25 mg 12/26/19 08:00 12/28/19 09:14 Carvedilol 6.25 Mg Tab PO 6.25 mg BID-[facility] ZANE Administration Lisinopril 5 mg 12/26/19 09:00 12/28/19 09:14 Lisinopril 5 Mg Tab PO Not Given DAILY [facility] - Exam General - other findings: In mild respiratory distress Heart: RRR, no gallops Respiratory: no wheezes, rales, rhonchi Gastrointestinal: soft, no guarding, no rigidity Extremities: no cyanosis Extremities - other findings: Trace edema in bilateral lower extremity Neurological: no new deficit Hosp A/P - Plan Acute on chronic diastolic heart failure exacerbation Chronic atrial fibrillation on anticoagulation Hypertension with severe hypertensive heart disease MARIA DEL ROSARIO on CKD stage II Hyperlipidemia Moderate tricuspid regurgitation Moderate sized pericardial effusion Plan: Continue IV Lasix. Monitor renal function closely. Continue fluid restriction. Continue amiodarone with Eliquis. Continue carvedilol with MACIE inhibitor. Echocardiogram reviewed. Electrophysiology consultation. A.m. labs. Plan discussed with the patient and the family at the bedside.
[2019-12-28] MEDS ORDERED: Furosemide 40 MG/4 ML VIAL SLOW IVP SCH (15:45)
--- NOTE | 2019-12-28 15:56 | PDOC.CPN ---
- Subjective Date: 12/28/19 Time: 15:55 Interval history: She feels better today, she diuresed well with single dosing and renal function improved but still needing supplemental O2. - Review of Systems General: denies: fever/chills, weight/appetite/sleep changes, night sweats, fatigue Respiratory: denies: cough, congestion, shortness of breath, exercise intolerance Cardiovascular: denies: chest pain, palpitation, edema, paroxysmal nocturnal dyspnea, orthopnea Gastrointestinal: denies: nausea, vomiting, diarrhea, constipation, abd pain, GI bleeding Musculoskeletal: denies: pain, tenderness, stiffness, swelling, arthritis/arthralgias Neurological: denies: numbness, syncope, seizure, weakness - Objective Allergies/Adverse Reactions: Allergies Allergy/AdvReac Type Severity Reaction Status Date / Time No Known Allergies Allergy Verified 12/25/19 20:52 Visit Medications: Current Medications Acetaminophen (Acetaminophen 325 Mg Tab) 650 mg PO Q4H PRN PRN Reason: Headache/Fever/Mild Pain (1-3) Hydrocodone Bitart/Acetaminophen (Hydrocodone/Acetaminophen 5/325 Mg Tablet) 1 tab PO Q4H PRN PRN Reason: Moderate Pain (4-6) Amiodarone HCl (Amiodarone 200 Mg Tab) 200 mg PO DAILY [facility] Last Admin: 12/28/19 09:14 Dose: 200 mg Documented by: Apixaban (Apixaban 5 Mg Tab) 5 mg PO BID [facility] Last Admin: 12/28/19 09:14 Dose: 5 mg Documented by: Atorvastatin Calcium (Atorvastatin Calcium 20 Mg Tab) 20 mg PO [facility] Last Admin: 12/27/19 21:15 Dose: 20 mg Documented by: Bisacodyl (Bisacodyl 10 Mg Supp) 10 mg MO DAILYPRN PRN PRN Reason: Constipation Calcium Carbonate (Calcium Carbonate 500 Mg Chewtab) 1,000 mg PO Q4H PRN PRN Reason: Heartburn or Indigestion Carvedilol (Carvedilol 6.25 Mg Tab) 6.25 mg PO BID-[facility] Last Admin: 12/28/19 09:14 Dose: 6.25 mg Documented by: Famotidine (Famotidine 20 Mg Tab) 20 mg PO DAILY [facility] Furosemide (Furosemide 40 Mg/4 Ml Vial) 40 mg SLOW IVP NOW [facility] Stop: 10/25/20 17:45 Guaifenesin (Diabetic Tussin 200 Mg/10 Ml Udcup) 200 mg PO Q4H PRN PRN Reason: Cough Guaifenesin/Dextromethorphan (Guaifenesin Dm 100-10/5 Ml Udcup) 15 ml PO Q4H PRN PRN Reason: Cough Hydralazine HCl (Hydralazine 20 Mg/Ml Vial) 10 mg SLOW IVP Q4H PRN PRN Reason: SBP > 180 and HR < 70 Lisinopril (Lisinopril 5 Mg Tab) 5 mg PO DAILY [facility] Last Admin: 12/28/19 09:14 Dose: Not Given Documented by: Loperamide HCl (Loperamide Hcl 2 Mg Cap) 2 mg PO PRN PRN PRN Reason: Diarrhea/Loose Stools Loratadine (Loratadine 10 Mg Tab) 10 mg PO DAILYPRN PRN PRN Reason: Sinus Symptoms Nitroglycerin (Nitroglycerin 0.4 Mg Tab (25 Tab Bottle)) 0.4 mg SL Q5MIN PRN PRN Reason: Chest Pain Ondansetron HCl (Ondansetron Odt 4 Mg Tab) 4 mg PO Q6H PRN PRN Reason: Nausea/Vomiting Ondansetron HCl (Ondansetron Pf 4 Mg/2 Ml Vial) 4 mg IVP Q6H PRN PRN Reason: Nausea/Vomiting Senna/Docusate Sodium (Senokot S 8.6-50 Mg Tab) 2 tab PO BIDPRN PRN PRN Reason: Constipation Sodium Chloride (Sodium Chloride 0.65% Nasal 44 Ml Bot) 0 ml EA NARE QIDPRN PRN PRN Reason: Nasal Congestion Throat Lozenges (Cepastat Lozenges 1 Hakeem) 1 hakeem PO Q2H PRN PRN Reason: Sore Throat Zolpidem Tartrate (Zolpidem Tartrate 5 Mg Tab) 5 mg PO HSPRN PRN PRN Reason: Insomnia Vital Signs & Weight: Vital Signs Temp Pulse Resp BP Pulse Ox 12/28/19 15:22 979 F H 73 16 96/55 L 97 12/28/19 12:00 97.5 F L 75 16 100/68 95 12/28/19 09:14 61 12/28/19 08:00 97.6 F 78 17 102/76 92 L 12/28/19 04:00 97.9 F 61 14 103/59 L 92 L Weight 169 lb 1 oz - Physical Exam General: alert & oriented x3 HEENT: mucus membranes moist Neck: supple neck Cardiac: irregularly regular Lungs: clear to auscultation Neuro: grossly intact Abdomen: active bowel sounds Extremities: no edema Skin: clear Musculoskeletal: no pain - Labs Result Diagrams: 12/26/19 17:44 12/28/19 04:05 Troponin/CKMB CK-MB (CK-2) 3.8 ng/mL (0-6.6) 12/25/19 16:50 Troponin I 0.018 ng/mL (< 0.028) 12/26/19 00:41 - Telemetry Supraventricular conduction: atrial fibrillation - Assessment/Plan Assessment/Plan: 1. Paroxysmal Afib 2. Acute on chronic Diastolic dysfunction. 3. Severe LVH 4. Moderate sized pericardial effusion PLAN: - She is currently rate controlled. - Continue IV lasix once daily for now. - Will likely benefit from maintaining sinus rhythm. May need an ablation. EP consult. - [place]peranza for stroke prophylaxis.
[2019-12-28] MEDS: Atorvastatin Calcium 20 MG TAB PO SCH (20:27)
[2019-12-29 04:37] LABS: BUN (Urea Nitrogen) 20 mg/dL (9.8-20.1); Calc. Creatinine Clearance 69 mL/min (70-130); Calcium 8.9 mg/dL (7.8-10.44); Estimated GFR-MDRD 63; Glucose 96 mg/dL (83-110)
[2019-12-29 04:47] LABS: Anion Gap 16 mmol/L (10-20); Carbon Dioxide 36 mmol/L (23-31); Chloride 90 mmol/L (98-107); Potassium 3.1 mmol/L (3.5-5.1); Sodium 139 mmol/L (136-145)
[2019-12-29] MEDS ORDERED: Potassium Chloride 20 MEQ TAB PO SCH (08:15)
[2019-12-29] MEDS ORDERED: Furosemide 100 MG/10 ML VIAL SLOW IVP SCH (09:00)
--- NOTE | 2019-12-29 09:29 | PRG ---
DATE OF SERVICE: 12/29/2019 SUBJECTIVE: MS. Carlson is doing much better. She was admitted over the weekend for CHF-type symptoms. She Was diuresed. She states she is near or back to her baseline. No current complaints. EP consultation is pending. OBJECTIVE: VITAL SIGNS: Blood pressure 112/67, pulse 63, temperature 98.1. LUNGS: Clear to auscultation. HEART: Irregularly irregular. ABDOMEN: Soft, nontender, and nondistended. EXTREMITIES: No edema. PERTINENT LABORATORY DATA: Hemoglobin 17.6, hematocrit 55.3. Echo Doppler dated 12/26/2019, LVEF 70% to 75% with moderately dilated left atrium measuring 4.4 with severe LVH. IMPRESSION: 1. Diastolic dysfunction. 2. Severe LVH. 3. Atrial fibrillation. RECOMMENDATIONS: Discussed the case with Kimberley, Ms. Carlson's daughter. It appears she had an appointment at [facility] and underwent coronary angiography and was not found to have significant coronary artery disease. There was no cardiac biopsy that was performed. I would like to obtain records from [facility]. EP has been consulted for her atrial fibrillation. Kimberley also states she was in [place] for 1 month and is unsure if she was stayed compliant on taking her anticoagulation therapy. I would like to obtain records from [facility]. There was no cardiac biopsy or workup. We then likely recommend she be seen at [facility] in the Amyloidosis Clinic. 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 Unfortunately, it portends a poor prognosis. Job ID: [id number]
[2019-12-29] MEDS: Apixaban 5 MG TAB PO SCH ×2 (09:53→20:01)
[2019-12-29] MEDS: Carvedilol 6.25 MG TAB PO SCH ×2 (09:53→17:16)
[2019-12-29] MEDS: Lisinopril 5 MG TAB PO SCH (09:53)
[2019-12-29] MEDS: Amiodarone 200 MG TAB PO SCH (09:53)
[2019-12-29] MEDS: Famotidine 20 MG TAB PO SCH (09:54)
[2019-12-29] MEDS: Potassium Chloride 20 MEQ TAB PO SCH ×2 (12:03→17:16)
--- NOTE | 2019-12-29 13:39 | CON ---
DATE OF CONSULTATION: 12/29/2019 REASON FOR CONSULTATION: Atrial fibrillation. HISTORY OF PRESENT ILLNESS: Ms. Shayy Carlson is a very pleasant 74-year-old woman, who is Angolan-speaking only. This consultation was performed with the assistance of [employer], given her preferred language is Angolan. Her current problem list is as follows: 1. Diastolic heart failure. 2. Hypertrophic cardiomyopathy with severe left ventricular hypertrophy versus infiltrative disease. 3. Hypertension. 4. Atrial fibrillation, diagnosed in February 2019, placed on Eliquis and amiodarone. 5. Pericardial effusion, diagnosed in February 2019. 6. Chronic kidney disease, stage 2. 7. Hyperlipidemia. 8. CHADS-VASc score of greater than or equal to 4 on the basis of advancing age, female gender, heart failure, and hypertension, with recent interruption in Eliquis/oral anticoagulation. SUBJECTIVE: Ms. Carlson was recently visiting her son in [place] and was there for nearly 1 month. She began to feel shortness of breath with weakness and having dyspnea. Her son took her to the hospital there, and upon discharge, she returned to be with her daughter here in [place]. Her daughter promptly brought her to the emergency room for further evaluation. She was found in slight fluid overload and diuresed. She was also found in atrial fibrillation with RVR and it is felt her atrial fibrillation with RVR is likely contributing to her congestive heart failure symptoms. EP consultation was requested for management of her atrial fibrillation. Her daughter usually manages her medications, but while she was in [place], it is unclear what medications she was on if any and the patient is not a good historian in this regard. Also, there is mention of an outpatient procedure at [facility] in [place], likely a left heart catheterization, but records have not yet been received for review. PAST MEDICAL HISTORY: As above. PAST SURGICAL HISTORY: Appendectomy and cholecystectomy. FAMILY HISTORY: Negative for sudden cardiac or early-onset CAD to the best of her recollection and her daughter's recollection. SOCIAL HISTORY: Denies alcohol, tobacco, or illicit drug use. ALLERGIES: NO KNOWN DRUG ALLERGIES. REVIEW OF SYSTEMS: A 12-point review of systems is unremarkable and as per HPI, and her shortness of breath is greatly improved and overall she feels well. OBJECTIVE: VITAL SIGNS: Height 5 feet 5 inches, weight 166 pounds. Pulse 66, temperature 97.5, respirations 18, oxygen is 95% on room air, blood pressure 133/70. GENERAL: The patient is alert and oriented. Speech is clear. Affect is appropriate. She is Angolan-speaking only. Translation services were used. She is in no apparent distress. Sitting upright at the edge of the bed, eating lunch as we converse. HEENT: She is normocephalic and atraumatic. Her sclerae are anicteric. EOMs are intact. Oral mucosa is moist and pink with adequate dentition. Her trachea is midline. There is no lymphadenopathy. CARDIAC: Her heart rate is irregularly irregular, but not tachycardic. PMI is nondisplaced. LUNGS: Clear to auscultation bilaterally without wheezes, crackles, or rhonchi. Respirations are even and unlabored with good bilateral excursion. ABDOMEN: Soft, nontender without palpable masses. EXTREMITIES: Warm and dry to touch. Well perfused without clubbing, cyanosis, or edema. NEUROLOGIC: Grossly intact and nonfocal. Gait was not assessed, but she moved independently in bed with no assistance. DATABASE: Laboratory is reviewed. Hematology is unremarkable. Chemistry; potassium 3.1, creatinine 0.88. BNP on admission 888. Liver enzymes within normal ranges. AST was slightly elevated at 35. Magnesium 2.3. Echocardiogram on 12/26/2019, LVEF 70% to 75%, with severe concentric left ventricular hypertrophy and poor filling, concern for amyloid versus sarcoid process. Moderate sized pericardial effusion, RVSP of 41 mmHg, left atrial dimension 4.41 cm (6 cm by echo in February 2019). Telemetry and EKG show atrial fibrillation, currently rate controlled, and incomplete right bundle-branch block measuring 114 milliseconds. IMPRESSION: 1. Persistent atrial fibrillation. 2. Severe concentric left ventricular hypertrophy. 3. Diastolic heart failure. 4. Chronic kidney disease. 5. Elevated CHADS-VASc score with indication for oral anticoagulation with recent unknown compliance. 6. Left atrial enlargement, currently assessed at 4.4 cm, measuring 6 cm in February 2019. PLAN AND RECOMMENDATIONS: Ms. Carlson is a very pleasant 74-year-old woman, diagnosed with atrial fibrillation in February of last year and was placed on amiodarone for suppression with oral anticoagulation on Eliquis. She was recently in [place] for nearly 1 month with unknown medication compliance at that time with her oral anticoagulation and other medications. She is a poor historian, and while she is in the [place], her daughter is largely her size cutter. She came in with some diastolic heart failure and is found to be in atrial fibrillation. There is concern that she may have been having RVR, which would certainly contribute to heart failure exacerbation with her severe left ventricular hypertrophy and her insufficient filling pattern. Her treatment options include reloading on amiodarone as there was possibly a one month interruption in her recent therapy versus pulmonary venous isolation ablation. Before attempting to restore sinus rhythm, she would either need to be on consistent oral anticoagulation for 30 days or ZOLTAN would need to be done to rule out left atrial appendage thrombus. I discussed treatment options with her and her daughter over the phone at length. We are awaiting some records from [facility] in [place] for procedure she had there. At this point, she is unsure if she is interested in an ablative procedure, but preventing rapid ventricular rates, to improve her filling time, it is needed to prevent recurrent episodes like this. For now, we will continue amiodarone and resuming oral anticoagulation. We will continue to discuss options with the patient and her daughter and possible ZOLTAN followed by ablation later this week. Thank you for allowing us to participate in the care of this patient. Job ID: [id number] [facility]ALS[facility]
--- NOTE | 2019-12-29 15:43 | PDOC.HOSPP ---
- Subjective Encounter Date: 12/29/19 Encounter Time: 10:00 Subjective: Patient seen and examined for congestive heart failure exacerbation. Shortness of breath improving. Denies any chest pain or palpitations. - Objective Vital Signs & Weight: Vital Signs (12 hours) Temp Pulse Resp BP BP Pulse Ox 12/29/19 15:28 97.5 F L 67 16 102/64 93 L 12/29/19 12:02 97.4 F L 74 18 96/61 94 L 12/29/19 09:57 95 12/29/19 07:45 97.5 F L 66 18 133/70 93 L Weight Weight 166 lb 7 oz I&O: 12/28/19 12/29/19 12/30/19 06:59 06:59 06:59 Intake Total 720 250 Output Total 400 400 Balance 320 -150 Result Diagrams: 12/26/19 17:44 12/29/19 04:00 Additional Labs: Abnormal Lab Results - Last 48 hrs 12/27/19 16:25: Potassium 3.2 L, Chloride 91 L, Carbon Dioxide 34 H, BUN 23 H, Creatinine 1.42 H 12/28/19 04:05: Chloride 92 L, Carbon Dioxide 35 H, BUN 25 H, Creatinine 1.16 H 12/29/19 04:00: Potassium 3.1 L, Chloride 90 L, Carbon Dioxide 36 H EKG Reviewed by me: Yes (Atrial fibrillation on telemetry) Hospitalist ROS - Review of Systems Constitutional: denies: fever, chills, sweats, weakness, malaise, other Gastrointestinal: denies: nausea, vomiting, abdominal pain, diarrhea, constipation, melena, hematochezia, other - Medication Medications: Active Medications Generic Name Dose Route Start Last Admin Trade Name Freq PRN Reason Stop Dose Admin Amiodarone HCl 200 mg 12/26/19 09:00 12/29/19 09:53 Amiodarone 200 Mg Tab PO 200 mg DAILY [facility] Administration Apixaban 5 mg 12/25/19 21:00 12/29/19 09:53 Apixaban 5 Mg Tab PO 5 mg BID [facility] Administration Atorvastatin Calcium 20 mg 12/26/19 21:00 12/28/19 20:27 Atorvastatin Calcium 20 Mg Tab PO 20 mg HS [facility]ANE Administration Carvedilol 6.25 mg 12/26/19 08:00 12/29/19 09:53 Carvedilol 6.25 Mg Tab PO 6.25 mg BID-WM ZANE Administration Famotidine 20 mg 12/29/19 09:00 12/29/19 09:54 Famotidine 20 Mg Tab PO 20 mg DAILY [facility] Administration Lisinopril 5 mg 12/26/19 09:00 12/29/19 09:53 Lisinopril 5 Mg Tab PO 5 mg DAILY [facility] Administration Potassium Chloride 20 meq 12/29/19 12:00 12/29/19 12:03 Potassium Chloride 20 Meq Tab PO 20 meq TID-WM ZANE Administration - Exam General Appearance: NAD Neck: supple Heart: RRR, no gallops Respiratory: no wheezes, rales, rhonchi Gastrointestinal: soft, non-tender, non-distended Extremities - other findings: Trace edema bilateral lower extremity Neurological: no new deficit Hosp A/P - Plan Acute on chronic diastolic heart failure exacerbation Chronic atrial fibrillation on anticoagulation Hypertension with severe hypertensive heart disease MARIA DEL ROSARIO on CKD stage II Hypokalemia Hyperlipidemia Moderate tricuspid regurgitation Moderate sized pericardial effusion Plan: Await electrophysiology input. Continue IV Lasixreduce dose to 40 mg IV daily. Replace potassium. Continue fluid restriction. Continue carvedilol, Eliquis with amiodarone. Get records from [facility] per cardiology recommendation. 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 Recheck electrolytes and renal function in a.m. Continue fluid restriction. Continue other medications as above.
[2019-12-29] MEDS: Atorvastatin Calcium 20 MG TAB PO SCH (20:01)
[2019-12-30 04:11] LABS: #Basophils 0.1 thou/uL (0.0-0.2); #Eosinphils 0.1 thou/uL (0.0-0.7); #Lymphocytes 1.4 thou/uL (1.20-3.40); #Monocytes 0.8 thou/uL (0.11-0.59); #Neutrophils 3.9 thou/uL (1.40-6.50); %Basophils 0.9 % (0.0-1.0); %Eosinophils 2.1 % (0.0-10.0); %Lymphocytes 21.7 % (21.0-51.0); %Monocytes 12.6 % (0.0-10.0); %Neutrophils 62.7 % (42.0-75.0); Hemoglobin 17.2 g/dL (12.0-16.0); Mean Corpuscular HGB CONC 31.4 g/dL (32.0-36.0); Mean Corpuscular Hemoglobin 30.2 pg (27.0-31.0); Mean Corpuscular Volume 96.2 fL (78.0-98.0); Mean Platelet Volume 9.5 fL (7.4-10.4); Platelet Count 251 thou/uL (130-400); RBC Distribution Width 14.2 % (11.5-14.5); Red Blood Cell (RBC) Count 5.68 mill/uL (4.20-5.40); White Blood Cell (WBC) Count 6.2 thou/uL (4.8-10.8)
[2019-12-30 04:33] LABS: Anion Gap 14 mmol/L (10-20); BUN (Urea Nitrogen) 33 mg/dL (9.8-20.1); Calc. Creatinine Clearance 64 mL/min (70-130); Calcium 9.2 mg/dL (7.8-10.44); Carbon Dioxide 35 mmol/L (23-31); Chloride 96 mmol/L (98-107); Estimated GFR-MDRD 59; Glucose 96 mg/dL (83-110); Potassium 3.8 mmol/L (3.5-5.1); Sodium 141 mmol/L (136-145)
[2019-12-30] MEDS: Carvedilol 6.25 MG TAB PO SCH ×2 (09:40→16:45)
[2019-12-30] MEDS: Potassium Chloride 20 MEQ TAB PO SCH ×3 (09:40→16:46)
[2019-12-30] MEDS: Famotidine 20 MG TAB PO SCH (09:40)
[2019-12-30] MEDS: Amiodarone 200 MG TAB PO SCH (09:41)
[2019-12-30] MEDS: Furosemide 40 MG/4 ML VIAL SLOW IVP SCH (09:41)
[2019-12-30] MEDS: Lisinopril 5 MG TAB PO SCH (09:41)
[2019-12-30] MEDS: Apixaban 5 MG TAB PO SCH ×2 (09:41→22:03)
--- NOTE | 2019-12-30 10:42 | PRG ---
DATE OF SERVICE: 12/30/2019 SUBJECTIVE: Ms. Carlson is doing well. No current complaints. She states she would like to go home. Her shortness of breath is back to baseline. OBJECTIVE: VITAL SIGNS: Blood pressure 108/63, pulse 66, temperature 98.5. LUNGS: Clear to auscultation. HEART: Irregularly irregular. ABDOMEN: Soft, nontender, and nondistended. EXTREMITIES: 1+ pitting edema. PERTINENT LABORATORY DATA: Hemoglobin 17.2, hematocrit 54.6, white blood cell count 6.2. Review of previous hospitalizations indicate negative ATTR amyloidosis after cardiac MR. Cardiac MR did confirm asymmetric septal hypertrophy with interseptum of 2.2 cm in thickness. IMPRESSION: 1. Atrial fibrillation. 2. Shortness of breath. 3. Asymmetric septal hypertrophy. 4. Moderate pericardial effusion. RECOMMENDATIONS: Discussed case with Dr. Harris, Dr. Billy, in addition to Dr. Blandon. I am pleased that she is negative for ATTR amyloidosis. We will have to address her asymmetric septal hypertrophy. She has no previous history of syncope, presyncope, lightheadedness, or dizziness with no documented history of ventricular tachycardia. We will continue to closely observe. May also benefit from cardioversion, although was in [place] for 1 month recently and unknown how compliant she was with the medications. Would recommend continuing amiodarone therapy in addition to beta- geena therapy. She has no coronary artery disease and aspirin not needed. I discussed the case with Dr. Blandon about pericardial window, although she does not appear to be hemodynamically compromised. This is a chronic pericardial effusion. Plan is outpatient cardioversion. Otherwise, I have no further recommendations. Job ID: [id number]
--- NOTE | 2019-12-30 15:28 | PDOC.HOSPP ---
- Subjective Encounter Date: 12/30/19 Encounter Time: 10:30 Subjective: Patient seen and examined for congestive heart failure exacerbation. Shortness of breath slightly better. No significant cough. No wheezing or chest pain reported. - Objective Vital Signs & Weight: Vital Signs (12 hours) Temp Pulse Resp BP BP Pulse Ox 12/30/19 11:33 98.1 F 73 16 108/63 96 12/30/19 09:41 66 12/30/19 07:42 98.5 F 66 16 108/63 69 L 12/30/19 07:40 97 12/30/19 04:00 98.0 F 65 15 130/74 94 L Weight Weight 164 lb 9 oz I&O: 12/29/19 12/30/19 12/31/19 06:59 06:59 06:59 Intake Total 250 1170 Output Total 400 1925 Balance -150 -755 Result Diagrams: 12/30/19 03:16 12/30/19 03:16 EKG Reviewed by me: Yes (Atrial fibrillation on telemetry) Hospitalist ROS - Review of Systems Gastrointestinal: denies: nausea, vomiting, abdominal pain, diarrhea, constipation, melena, hematochezia, other Genitourinary: denies: dysuria, frequency, incontinence, hematuria, retention, other - Medication Medications: Active Medications Generic Name Dose Route Start Last Admin Trade Name Freq PRN Reason Stop Dose Admin Amiodarone HCl 200 mg 12/26/19 09:00 12/30/19 09:41 Amiodarone 200 Mg Tab PO 200 mg DAILY ZANE Administration Apixaban 5 mg 12/25/19 21:00 12/30/19 09:41 Apixaban 5 Mg Tab PO 5 mg BID ZANE Administration Atorvastatin Calcium 20 mg 12/26/19 21:00 12/29/19 20:01 Atorvastatin Calcium 20 Mg Tab PO 20 mg HS ZANE Administration Carvedilol 6.25 mg 12/26/19 08:00 12/30/19 09:40 Carvedilol 6.25 Mg Tab PO 6.25 mg BID-WM ZANE Administration Famotidine 20 mg 12/29/19 09:00 12/30/19 09:40 Famotidine 20 Mg Tab PO 20 mg DAILY ZANE Administration Furosemide 40 mg 12/30/19 09:00 12/30/19 09:41 Furosemide 40 Mg/4 Ml Vial SLOW IVP 40 mg DAILY ZANE Administration Lisinopril 5 mg 12/26/19 09:00 12/30/19 09:41 Lisinopril 5 Mg Tab PO 5 mg DAILY ZANE Administration Potassium Chloride 20 meq 12/29/19 12:00 12/30/19 11:33 Potassium Chloride 20 Meq Tab PO 20 meq TID-WM ZANE Administration Sodium Chloride 10 ml 12/29/19 21:00 12/30/19 10:01 Flush - Normal Saline 10 Ml Syringe IVF 10 ml Q12HR ZANE Administration - Exam General - other findings: Mild respiratory distress Heart: RRR, no gallops Respiratory: no wheezes, rhonchi Gastrointestinal: soft, normal bowel sounds, no guarding, no rigidity Extremities - other findings: Trace edema in bilateral lower extremity Neurological: no new deficit Hosp A/P - Plan Acute on chronic diastolic heart failure exacerbationimprovingstill requiring O2 supplementation Chronic atrial fibrillation on anticoagulation Hypertension with severe hypertensive heart disease MARIA DEL ROSARIO on CKD stage II Hypokalemia Hyperlipidemia Moderate tricuspid regurgitation Moderate sized pericardial effusion ?Cardiac amyloidosis Plan: Continue IV Lasix. Continue amiodarone with beta-blockers and Eliquis. Continue MACIE inhibitor. Continue potassium replacement. Recheck labs on the daily basis. Cardioversion later this week with ZOLTAN. Plan discussed with family at the bedside. Continue other medications as above. Await records from [facility].
--- NOTE | 2019-12-30 15:57 | PDOC.EP ---
- Subjective Date: 12/30/19 Time: 08:00 Interval History: she is feeling less short of breath today and very eager to get home. She denies any heart racing, palpitations, chest pain, stroke-like symptoms, dizziness or lightheadedness, or passing out episodes. She is still requiring supplemental oxygen - Review of Systems Constitutional: denies: chills, fever, malaise, sweats, weakness Respiratory: reports: shortness of breath. denies: cough, dry, hemoptysis, pleuritic pain, SOB with excertion, sputum, wheezing Cardiology: denies: chest pain, edema, heart racing, light headedness, palpitations Gastrointestinal: denies: abdominal pain, constipation, vomitting - Objective Allergies/Adverse Reactions: Allergies Allergy/AdvReac Type Severity Reaction Status Date / Time No Known Allergies Allergy Verified 12/25/19 20:52 Current Medications Acetaminophen (Acetaminophen 325 Mg Tab) 650 mg PO Q4H PRN PRN Reason: Headache/Fever/Mild Pain (1-3) Hydrocodone Bitart/Acetaminophen (Hydrocodone/Acetaminophen 5/325 Mg Tablet) 1 tab PO Q4H PRN PRN Reason: Moderate Pain (4-6) Amiodarone HCl (Amiodarone 200 Mg Tab) 200 mg PO DAILY [facility] Last Admin: 12/30/19 09:41 Dose: 200 mg Documented by: Apixaban (Apixaban 5 Mg Tab) 5 mg PO BID [facility] Last Admin: 12/30/19 09:41 Dose: 5 mg Documented by: Atorvastatin Calcium (Atorvastatin Calcium 20 Mg Tab) 20 mg PO [facility] Last Admin: 12/29/19 20:01 Dose: 20 mg Documented by: Bisacodyl (Bisacodyl 10 Mg Supp) 10 mg MO DAILYPRN PRN PRN Reason: Constipation Calcium Carbonate (Calcium Carbonate 500 Mg Chewtab) 1,000 mg PO Q4H PRN PRN Reason: Heartburn or Indigestion Carvedilol (Carvedilol 6.25 Mg Tab) 6.25 mg PO BID-[facility] Last Admin: 12/30/19 09:40 Dose: 6.25 mg Documented by: Famotidine (Famotidine 20 Mg Tab) 20 mg PO DAILY [facility] Last Admin: 12/30/19 09:40 Dose: 20 mg Documented by: Furosemide (Furosemide 40 Mg/4 Ml Vial) 40 mg SLOW IVP DAILY [facility] Last Admin: 12/30/19 09:41 Dose: 40 mg Documented by: Guaifenesin (Diabetic Tussin 200 Mg/10 Ml Udcup) 200 mg PO Q4H PRN PRN Reason: Cough Guaifenesin/Dextromethorphan (Guaifenesin Dm 100-10/5 Ml Udcup) 15 ml PO Q4H PRN PRN Reason: Cough Hydralazine HCl (Hydralazine 20 Mg/Ml Vial) 10 mg SLOW IVP Q4H PRN PRN Reason: SBP > 180 and HR < 70 Lisinopril (Lisinopril 5 Mg Tab) 5 mg PO DAILY [facility] Last Admin: 12/30/19 09:41 Dose: 5 mg Documented by: Loperamide HCl (Loperamide Hcl 2 Mg Cap) 2 mg PO PRN PRN PRN Reason: Diarrhea/Loose Stools Loratadine (Loratadine 10 Mg Tab) 10 mg PO DAILYPRN PRN PRN Reason: Sinus Symptoms Nitroglycerin (Nitroglycerin 0.4 Mg Tab (25 Tab Bottle)) 0.4 mg SL Q5MIN PRN PRN Reason: Chest Pain Ondansetron HCl (Ondansetron Odt 4 Mg Tab) 4 mg PO Q6H PRN PRN Reason: Nausea/Vomiting Ondansetron HCl (Ondansetron Pf 4 Mg/2 Ml Vial) 4 mg IVP Q6H PRN PRN Reason: Nausea/Vomiting Potassium Chloride (Potassium Chloride 20 Meq Tab) 20 meq PO TID-WM [facility] Last Admin: 12/30/19 11:33 Dose: 20 meq Documented by: Senna/Docusate Sodium (Senokot S 8.6-50 Mg Tab) 2 tab PO BIDPRN PRN PRN Reason: Constipation Sodium Chloride (Sodium Chloride 0.65% Nasal 44 Ml Bot) 0 ml EA NARE QIDPRN PRN PRN Reason: Nasal Congestion Sodium Chloride (Flush - Normal Saline 10 Ml Syringe) 10 ml IVF Q12HR [facility] Last Admin: 12/30/19 10:01 Dose: 10 ml Documented by: Sodium Chloride (Flush - Normal Saline 10 Ml Syringe) 10 ml IVF PRN PRN PRN Reason: Saline Flush Throat Lozenges (Cepastat Lozenges 1 Hakeem) 1 hakeem PO Q2H PRN PRN Reason: Sore Throat Zolpidem Tartrate (Zolpidem Tartrate 5 Mg Tab) 5 mg PO HSPRN PRN PRN Reason: Insomnia Vital Signs & Weight: Vital Signs Temp Pulse Resp BP BP Pulse Ox 12/30/19 11:33 98.1 F 73 16 108/63 96 12/30/19 09:41 66 12/30/19 07:42 98.5 F 66 16 108/63 69 L 12/30/19 07:40 97 12/30/19 04:00 98.0 F 65 15 130/74 94 L Weight 164 lb 9 oz I/O: I/O 12/29/19 12/30/19 12/31/19 06:59 06:59 06:59 Intake Total 250 1170 Output Total 400 1925 Balance -150 -784 - Quality Measures CV meds: Eliquis: Yes - Physical Exam General: alert & oriented x3, appears well, no apparent distress, speech clear, affect appropriate HEENT: mucus membranes moist, normocephaly Neck: supple neck, midline trachea, no lymphadenopathy, JVD/HJR Cardiology: regular rate, irregularly irregular, other (negative for pulsus pa radoxus). negative: tachycardia Lungs: clear to auscultation, normal breath sounds, no wheeze, rales, rhonchi Neurology: cranial nerve 2-12 intact, grossly intact, no lateralizing findings Abdomen: unremarkable, active bowel sounds, no pulsations/bruits, other (+ HRJ) - Chadsvasc Risk factors Age 65-74: 1 Female: 1 Risk Score: 2 - Labs Result Diagrams: 12/30/19 03:16 12/31/19 04:20 - EKG Interpretation EKG Method: Telemetry EKG shows: Atrial fibrillation - Assessment/Plan Assessment/Plan: IMPRESSION: 1. Persistent atrial fibrillation. 2. Asymmetric septal hypertrophic cardiomyopathy 3. Diastolic heart failure. 4. Chronic kidney disease. 5. Elevated CHADS-VASc score with indication for oral anticoagulation with recent unknown compliance. 6. Left atrial enlargement, currently assessed at 4.4 cm, measuring 6 cm in February 2019. 7. moderate to large pericardial effusion -CVS feels her pericardial effusion is chronic and stable and doesn't require draining. CHF: She still has + JVD with O2 sats ~86% on room air. She is still being diuresed with IV lasix. Afib: For now I would recommend medical management with amiodarone and Eliquis which is the patient's preference as well. PVAI ablation could be considered later if the pericardial effusion is drained. ZOLTAN guided cardioversion was mentioned by Cardiology, possibly as outpatient later this week.
[2019-12-30] MEDS: Atorvastatin Calcium 20 MG TAB PO SCH (22:03)
[2019-12-31 05:01] LABS: Albumin 3.5 g/dL (3.4-4.8); Anion Gap 12 mmol/L (10-20); BUN (Urea Nitrogen) 30 mg/dL (9.8-20.1); BUN/Creatinine Ratio 28.57; Calc. Creatinine Clearance 57 mL/min (70-130); Calcium 9.6 mg/dL (7.8-10.44); Carbon Dioxide 37 mmol/L (23-31); Chloride 99 mmol/L (98-107); Estimated GFR-MDRD 52; Glucose 109 mg/dL (83-110); Magnesium 2.5 mg/dL (1.6-2.6); Phosphorus 3.8 mg/dL (2.3-4.7); Potassium 4.1 mmol/L (3.5-5.1); Sodium 144 mmol/L (136-145)
[2019-12-31] MEDS: Potassium Chloride 20 MEQ TAB PO SCH ×3 (08:14→18:02)
[2019-12-31] MEDS: Carvedilol 6.25 MG TAB PO SCH ×2 (08:15→18:02)
[2019-12-31] MEDS: Famotidine 20 MG TAB PO SCH (08:15)
[2019-12-31] MEDS: Lisinopril 5 MG TAB PO SCH (08:16)
[2019-12-31] MEDS: Apixaban 5 MG TAB PO SCH ×2 (08:16→22:38)
[2019-12-31] MEDS: Amiodarone 200 MG TAB PO SCH (08:17)
[2019-12-31] MEDS: Furosemide 40 MG/4 ML VIAL SLOW IVP SCH (08:17)
--- NOTE | 2019-12-31 12:45 | PQF ---
CLINICAL DOCUMENTATION CLARIFICATION FORM: Dear Dr. PASQUALE RUBIO Date: 12-31-19 Please exercise your independent, professional judgment in responding to the clarification form. Clinical indicators are provided on the bottom of this form for your review. Please check appropriate box(es) to clarify if the following diagnosis has been ruled in our ruled out: TYPE 2 CO [x ] Ruled in diagnosis [ ] Continue to treat [ x ] Resolved [ ] Ruled out diagnosis [ ] Other diagnosis [ ] Unable to determine In addition, please specify: Present on Admission (POA): [ x ] Yes [ ] No [ ] Unable to determine For continuity of documentation, please document condition throughout progress notes and discharge summary. Thank You. To be completed by CDI/Coding staff for physician review: CLINICAL INDICATORS - SIGNS / SYMPTOMS / LABS / RESULTS AND LOCATION IN MR: ER NOTES 12-25-19: SOB, HX OF CHF, HTN, HYPERCHOLESTEROLEMIA, MILD CHEST PAIN ER DX 12-25-19: CONGESTIVE HEART FAILURE, TROP ELEVATION H&P 12-26-19: ACUTE ON CHRONIC DIASTOLIC CONGESTIVE HEART FAILURE EXACERBATION, CHRONIC ATRIAL FIBRILLATION, ELEVATED TROPONIN, LIKELY DUE TO DEMAND ISCHEMIA TYPE -2 CO. WE WILL DO SERIAL CARDIAC ENZYMES X3 TO RULE OUT ACUTE CORONARY SYNDROME. TROPONIN: 12-25-19: 0.037 12-25-19: 0.017 12-26-19: 0.018 RISK FACTORS / RESULTS AND LOCATION IN MR: ER NOTES 12-25-19: SOB, HX OF CHF, HTN, HYPERCHOLESTEROLEMIA, MILD CHEST PAIN H&P 12-26-19: ACUTE ON CHRONIC DIASTOLIC CONGESTIVE HEART FAILURE EXACERBATION, CHRONIC ATRIAL FIBRILLATION, ELEVATED TROPONIN, LIKELY DUE TO DEMAND ISCHEMIA TYPE -2 CO. WE WILL DO SERIAL CARDIAC ENZYMES X3 TO RULE OUT ACUTE CORONARY SYNDROME. TREATMENTS / RESULTS AND LOCATION IN MR: CARDIAC TROPONIN X3 12-25-19 TO 12-26-19 CARDIOLOGY CONSULT 12-26-19 CDS Signature: Martha Chauhan Phone #: [phone] Date: 12-31-19 This is a permanent part of the Medical Record [facility]
--- NOTE | 2019-12-31 18:43 | PRG ---
DATE OF SERVICE: 12/31/2019 SUBJECTIVE: Ms. Carlson is doing well. No current complaints. She would like to go home. Her shortness of breath has improved. OBJECTIVE: VITAL SIGNS: Blood pressure 120/72, pulse 70, temperature 97.5. LUNGS: Clear to auscultation. HEART: Irregularly irregular. ABDOMEN: Soft, nontender, and nondistended. EXTREMITIES: No edema. PERTINENT LABORATORY DATA: Hemoglobin 17.2. Creatinine 1.05. IMPRESSION: 1. Atrial fibrillation. 2. Asymmetric septal hypertrophy. 3. Diastolic dysfunction. RECOMMENDATIONS: Plan is to continue with low-dose amiodarone therapy as an outpatient. Her rate appears to be well controlled. I would like to have Ms. Carlson continue anticoagulation therapy and amiodarone therapy over the next 3 to 4 weeks prior to cardioversion. She is hemodynamically stable. There is no compromise on echo. She does have a small to moderate sized pericardial effusion with no compromise. Discussed the case with Dr. Marck Blandon. If she continues to have issues with shortness of breath, may consider window, but at this point, we will continue with conservative treatment. Okay for discharge. Job ID: [id number]
--- NOTE | 2019-12-31 19:10 | PDOC.HOSPP ---
- Subjective Encounter Date: 12/31/19 Encounter Time: 10:30 Subjective: Patient seen and examined for congestive heart failure exacerbation. O2 saturation today is 86% on room air. Requiring 2 L oxygen. Gets short of breath on [id number] exertion. Denies any chest pain or palpitations - Objective Vital Signs & Weight: Vital Signs (12 hours) Temp Pulse Resp BP Pulse Ox 12/31/19 15:17 97.5 F L 70 16 120/72 94 L 12/31/19 11:33 97.5 F L 78 16 107/72 92 L 12/31/19 08:10 98.0 F 74 16 123/71 92 L Weight Weight 164 lb I&O: 12/30/19 12/31/19 01/01/20 06:59 06:59 06:59 Intake Total 1170 720 800 Output Total 2132 1300 1200 Balance -755 -580 -400 Result Diagrams: 12/30/19 03:16 01/01/20 04:07 Additional Labs: Abnormal Lab Results - Last 48 hrs 12/31/19 04:20: Carbon Dioxide 37 H, BUN 30 H EKG Reviewed by me: Yes (Atrial fibrillation on telemetry) Hospitalist ROS - Review of Systems Cardiovascular: denies: chest pain, palpitations, orthopnea, paroxysmal noc. dyspnea, edema, light headedness, other Gastrointestinal: denies: nausea, vomiting, abdominal pain, diarrhea, constipation, melena, hematochezia, other Genitourinary: denies: dysuria, frequency, incontinence, hematuria, retention, other - Medication Medications: Active Medications Generic Name Dose Route Start Last Admin Trade Name Freq PRN Reason Stop Dose Admin Amiodarone HCl 200 mg 12/26/19 09:00 12/31/19 08:17 Amiodarone 200 Mg Tab PO 200 mg DAILY ZANE Administration Apixaban 5 mg 12/25/19 21:00 12/31/19 08:16 Apixaban 5 Mg Tab PO 5 mg BID ZANE Administration Atorvastatin Calcium 20 mg 12/26/19 21:00 12/30/19 22:03 Atorvastatin Calcium 20 Mg Tab PO 20 mg HS ZANE Administration Carvedilol 6.25 mg 12/26/19 08:00 12/31/19 18:02 Carvedilol 6.25 Mg Tab PO 6.25 mg BID-WM ZANE Administration Famotidine 20 mg 12/29/19 09:00 12/31/19 08:15 Famotidine 20 Mg Tab PO 20 mg DAILY ZANE Administration Furosemide 40 mg 12/30/19 09:00 12/31/19 08:17 Furosemide 40 Mg/4 Ml Vial SLOW IVP 40 mg DAILY ZANE Administration Lisinopril 5 mg 12/26/19 09:00 12/31/19 08:16 Lisinopril 5 Mg Tab PO 5 mg DAILY ZANE Administration Potassium Chloride 20 meq 12/29/19 12:00 12/31/19 18:02 Potassium Chloride 20 Meq Tab PO 20 meq TID-WM ZANE Administration Sodium Chloride 10 ml 12/29/19 21:00 12/31/19 08:18 Flush - Normal Saline 10 Ml Syringe IVF 10 ml Q12HR ZANE Administration - Exam General Appearance: NAD (At rest) Heart: RRR, no gallops Respiratory: no wheezes, rhonchi Respiratory - other findings: Diminished air entry at bases Gastrointestinal: soft, non-tender, normal bowel sounds Extremities: no cyanosis Neurological: no new deficit Psychiatric: normal affect, A&O x 3 Hosp A/P - Plan Acute on chronic diastolic heart failure exacerbationimprovingstill requiring O2 supplementation Chronic atrial fibrillation on anticoagulation Hypertension with severe hypertensive heart disease MARIA DEL ROSARIO on CKD stage II Type II NM Hypokalemia Hyperlipidemia Moderate tricuspid regurgitation Moderate sized pericardial effusion ?Cardiac amyloidosis Plan: Awaiting [facility] from [facility]. Will arrange for home oxygen since O2 saturation on room air is 86%. Continue IV Lasix for now. Probably discharge in next 24 to 48 hours if okay with cardiology. Case discussed with ajit ctrophysiology. Continue current dose of amiodarone, Eliquis, carvedilol and lisinopril. Continue fluid restriction. Recheck electrolytes in a.m.
[2019-12-31] MEDS: Atorvastatin Calcium 20 MG TAB PO SCH (22:38)
[2020-01-01 04:53] LABS: Albumin 3.3 g/dL (3.4-4.8); Anion Gap 13 mmol/L (10-20); BUN (Urea Nitrogen) 26 mg/dL (9.8-20.1); BUN/Creatinine Ratio 29.89; Calc. Creatinine Clearance 69 mL/min (70-130); Calcium 9.3 mg/dL (7.8-10.44); Carbon Dioxide 30 mmol/L (23-31); Chloride 104 mmol/L (98-107); Estimated GFR-MDRD 64; Glucose 106 mg/dL (83-110); Magnesium 2.3 mg/dL (1.6-2.6); Potassium 4.2 mmol/L (3.5-5.1); Sodium 143 mmol/L (136-145)
[2020-01-01] MEDS: Apixaban 5 MG TAB PO SCH (09:11)
[2020-01-01] MEDS: Amiodarone 200 MG TAB PO SCH (09:11)
[2020-01-01] MEDS: Lisinopril 5 MG TAB PO SCH (09:11)
[2020-01-01] MEDS: Furosemide 40 MG/4 ML VIAL SLOW IVP SCH (09:13)
[2020-01-01] MEDS: Potassium Chloride 20 MEQ TAB PO SCH ×2 (09:13→12:19)
[2020-01-01] MEDS: Carvedilol 6.25 MG TAB PO SCH (09:13)
[2020-01-01] MEDS: Famotidine 20 MG TAB PO SCH (09:13)
[2020-01-01 12:34] VITALS: BP 135/81; TEMP 97.6
--- NOTE | 2020-01-01 16:33 | PDOC.EP ---
- Subjective Date: 01/01/20 Time: 08:00 Interval History: she looked significantly improved this morning and was ambulating throughout her room with no apparent distress. After her morning routine and returning to bed her oxygen level was 90% on room air, quickly returning to 94% within 1 mi nute of rest. she feels well and wishes to go home 8 point review of systems was negative except that listed above - Objective Allergies/Adverse Reactions: Allergies Allergy/AdvReac Type Severity Reaction Status Date / Time No Known Allergies Allergy Verified 12/25/19 20:52 Vital Signs & Weight: Vital Signs Temp Pulse Resp BP BP Pulse Ox 01/01/20 12:25 97.6 F 73 16 135/81 95 01/01/20 09:11 76 168/90 H 01/01/20 07:45 97.1 F L 67 17 137/83 95 Weight 164 lb I/O: I/O 12/31/19 01/01/20 01/02/20 06:59 06:59 06:59 Intake Total 720 930 Output Total 1300 1500 Balance -580 -570 - Quality Measures CV meds: Eliquis: Yes - Physical Exam General: alert & oriented x3, appears well, no apparent distress, speech clear, affect appropriate HEENT: mucus membranes moist, normocephaly Neck: supple neck, midline trachea, no JVD/HJR, no masses, no bruit, no lymphadenopathy, no thromegaly Cardiology: regular rate, PMI nondisplaced, irregularly irregular Lungs: clear to auscultation, normal breath sounds, no wheeze, rales, rhonchi Neurology: cranial nerve 2-12 intact, grossly intact, no lateralizing findings Abdomen: HJR negative - Labs Result Diagrams: 12/30/19 03:16 01/01/20 04:07 - EKG Interpretation EKG Method: Telemetry EKG shows: Atrial fibrillation - Assessment/Plan Assessment/Plan: IMPRESSION: 1. Persistent atrial fibrillation. 2. Asymmetric septal hypertrophic cardiomyopathy 3. Diastolic heart failure. 4. Chronic kidney disease. 5. Elevated CHADS-VASc score with indication for oral anticoagulation with recent unknown compliance. 6. Left atrial enlargement, currently assessed at 4.4 cm, measuring 6 cm in February 2019. 7. moderate to large pericardial effusion -CVS feels her pericardial effusion is chronic and stable and doesn't require draining. CHF: improved. JVD has normalized and now 90-94% on room air after activity Afib: For now I would recommend medical management with amiodarone and Eliquis which is the patient's preference as well. PVAI ablation could be considered later if the pericardial effusion is drained. cardiology is planning for cardioversion after 30 days of uninterrupted oral anticoagulation therapy. I will see her back in 6 weeks, to re-evaluate her after the cardioversion and discussed treatment options moving forward for her atrial fibrillation
--- NOTE | 2020-01-02 07:44 | PDOC.DS.DS ---
Provider - Provider Date of Admission: 12/26/19 15:30 Date of Discharge: 01/01/20 Admitting Provider: Jonathan Solano MD Consultations: Cardiology, Other (Electrophysiology) Primary Care Physician: LATONYA COFFEY JR, MD Course - Hospital Course Hospital Course: Patient is a 74-year-old female with diastolic heart failure who was recently in [place] presented to the emergency room with shortness of breath. Her initial O2 saturation in the emergency room was in high 80s. She was admitted with a diagnosis of acute on chronic diastolic heart failure exacerbation. She was unable to recall what medications were she taking recently. Her symptoms improved with IV diuretics with O2 supplementation. Her weight on the day of discharge is 164 pounds from 179 pounds. Patient was evaluated by cardiology and electrophysiology. Echocardiogram showed severe concentric left ventricular hypertrophy with moderate sized pericardial effusion, moderate tricuspid regurgitation. There was no need for pericardial window per cardiology at this time. She will follow up with cardiology and electrophysiology as outpatient for ZOLTAN cardioversion as outpatient. She was extensively counseled on congestive heart failure with fluid restriction. Final diagnosis: Acute on chronic diastolic heart failure exacerbationimprovingstill requiring O2 supplementation Chronic atrial fibrillation on anticoagulation Hypertension with severe hypertensive heart disease MARIA DEL ROSARIO on CKD stage II Type II PR Hypokalemia Hyperlipidemia Moderate tricuspid regurgitation Moderate sized pericardial effusion ?Cardiac amyloidosis Resuscitation Status: 12/25/19 18:18 Resuscitation Status Routine Resuscitation Status: FULL: Full Resuscitation - Labs Lab Results: 12/30/19 03:16 01/01/20 04:07 Abnormal Lab Results - Last 48 hrs 01/01/20 04:07: BUN 26 H, Albumin 3.3 L - Physical Exam Vitals: Weight Weight 164 lb Physical Exam: The patient was seen and examined on the day of discharge. Plan - Discharge Medications Prescriptions: Carvedilol 12.5 mg PO BID #60 tablet Amiodarone [Cordarone] 200 mg PO DAILY #30 tab Apixaban [Eliquis] 5 mg PO BID #60 tablet Potassium Chloride [K-Dur] 20 meq PO DAILY #7 tab Furosemide [Lasix] 40 mg PO DAILY #30 tab Lisinopril 10 mg PO QAM #30 tablet Home Medications: Medication Instructions Recorded Confirmed Type Multivit, Therapeutic [Theragran] 1 tab PO DAILY tab 02/24/19 12/26/19 Rx Amiodarone [Cordarone] 200 mg PO DAILY #30 tab 01/01/20 Rx Apixaban [Eliquis] 5 mg PO BID #60 tablet 01/01/20 Rx Carvedilol 12.5 mg PO BID #60 tablet 01/01/20 Rx Furosemide [Lasix] 40 mg PO DAILY #30 tab 01/01/20 Rx Lisinopril 10 mg PO QAM #30 tablet 01/01/20 Rx Potassium Chloride [K-Dur] 20 meq PO DAILY #7 tab 01/01/20 Rx Allergies: No Known Allergies Allergy (Verified 12/25/19 20:52) - Discharge Instructions Discharge Instructions:: Basic metabolic profile after 1 weekPCP to arrange and follow TAKE CONTROL OF HEART FAILURE Together we can! o Weigh yourself daily every morning after going to the bathroom. Call your health care provider if you gain 2 pounds in a day or 5 pounds in a week. Use the daily log provided to record your weight. o Eat no more than 2 grams (2000mg) sodium (salt) a day. Read food labels and throw away the salt shaker! o Your personal fluid limit: Take in no more than [ 1500 ] ml, equal to [ 6 ] Cups PER DAY. This includes anything that is liquid at room temperature. o Take your Medications as prescribed. Do not skip doses. If you can't afford your medications, please let your doctor know. o Watch for worsening heart failure symptoms such as increased swelling or increased shortness of breath with activity or at rest. o Follow-up with your primary care provider within 1 week of discharge from the hospital. o Maintain activity as tolerated with frequent rest periods. o If you smoke - smoking puts stress on your heart. We can help you quit smoking, just ask. o Expect a follow up call in one to three days if you are being discharged to your home. Please go to heart.[email or web address] to learn even more about managing your heart failure using the free interactive workbook. Nourishment:: Fluid Restriction Diet (1800 ml / 24 hours ) - Follow up Plan Referrals: Latonya Coffey Jr, MD [Primary Care Provider] - 01/06/20 10:00 am (YOU NEED REPEAT LABWORK-BMP IN 1 WEEK. ) Zhang Dodge MD [Active] - 2-3 Weeks (CALL AND SCHEDULE FOLLOW UP APPT TO SEE DR DODGE IN 2-3 WEEKS. ) Maikel Brown MD [Medical Territory Manager] - 7 Days (DR MARTÍNEZ OFFICE SHOULD CONTACT YOU TO SET UP OUTPATIENT FOLLOW UP APPT TO SEE DR BROWN FOR OUTPATIENT CARDIOVERSION AND ATRIAL FIBRILLATION FOLLOW UP. CALL HIS OFFICE IF YOU DO NOT HEAR FROM THEM. ) Disposition: HOME
== END 2020-01-01 14:51 | disposition home or self-care (01) | DRG 280 ==
LOC: ERS 16:00 → 2NO 18:37 → OBSVTOIN 12-26 15:30
PROVIDERS: ADMIT Internal Medicine; ATTEND Internal Medicine
DX: I13.0 Hypertensive heart and chronic kidney disease with heart failure and stage 1 through stage 4 chronic kidney disease, or unspecified chronic kidney disease (principal); I50.33 Acute on chronic diastolic (congestive) heart failure; I21.A1 Myocardial infarction type 2; I31.3 Pericardial effusion (noninflammatory); N17.9 Acute kidney failure, unspecified; I48.19 Other persistent atrial fibrillation; Z20.828 Contact with and (suspected) exposure to other viral communicable diseases; I48.0 Paroxysmal atrial fibrillation; N18.2 Chronic kidney disease, stage 2 (mild); E66.9 Obesity, unspecified; I07.1 Rheumatic tricuspid insufficiency; E87.6 Hypokalemia; Z68.31 Body mass index [BMI] 31.0-31.9, adult; Z90.49 Acquired absence of other specified parts of digestive tract; Z79.01 Long term (current) use of anticoagulants; Z79.899 Other long term (current) drug therapy; Z23 Encounter for immunization
CPT/HCPCS: 36415; 71045; 80048; 80053; 80069; 81001; 82553; 83735; 83880; 84484; 85025; 87635; 90471; 90662; 90732; 93005; 93306; 94760; G0008; G0009; J1940; U0003

== ENCOUNTER 2020-04-12 10:14 | Day surgery (SDC) | payer MEDICARE ==
[2020-04-09 09:21] VITALS: BMI 31.2
[2020-04-12] MEDS ORDERED: PROPOFOL 40 ML ONE (12:13)
[2020-04-12] MEDS ORDERED: Hydrocortisone 1% Cream 30 GM TUBE ONE (14:04)
== END 2020-04-12 14:15 | disposition home or self-care (01) ==
LOC: CCL 10:14
PROVIDERS: ATTEND Internal Medicine Cardiovascular Disease
PROC: 5A2204Z Restoration of Cardiac Rhythm, Single (ICD-10-PCS; principal; 2020-04-12)
DX: I48.19 Other persistent atrial fibrillation (principal); I13.0 Hypertensive heart and chronic kidney disease with heart failure and stage 1 through stage 4 chronic kidney disease, or unspecified chronic kidney disease; N18.2 Chronic kidney disease, stage 2 (mild); I50.32 Chronic diastolic (congestive) heart failure; E78.5 Hyperlipidemia, unspecified; I31.3 Pericardial effusion (noninflammatory); M35.00 Sjogren syndrome, unspecified; J44.9 Chronic obstructive pulmonary disease, unspecified; E66.9 Obesity, unspecified; Z68.31 Body mass index [BMI] 31.0-31.9, adult; Z79.01 Long term (current) use of anticoagulants; Z79.899 Other long term (current) drug therapy
CPT/HCPCS: 92960; 93005; 93010; J2704

== ENCOUNTER 2020-04-14 10:14 | Inpatient (IN) | payer MEDICARE ==
[2020-04-14] MEDS ORDERED: Propofol 1,000 MG/100 ML VIAL IV ONE (10:47)
[2020-04-14] MEDS ORDERED: Fentanyl 100 MCG/2 ML VIAL ONE (10:47)
[2020-04-14] MEDS ORDERED: Furosemide 40 MG/4 ML VIAL ONE (10:48)
[2020-04-14] MEDS ORDERED: Nitroglycerin 2% Ointment 1 INCH/1 GM Packet ONE (10:48)
[2020-04-14 10:51] LABS: #Lymphocytes 0.9 thou/uL (1.20-3.40); #Monocytes 0.4 thou/uL (0.11-0.59); #Neutrophils 8.9 thou/uL (1.40-6.50); %Basophils 0.1 % (0.0-1.0); %Eosinophils 0.4 % (0.0-10.0); %Lymphocytes 8.4 % (21.0-51.0); %Monocytes 4.3 % (0.0-10.0); %Neutrophils 86.7 % (42.0-75.0); Hemoglobin 15.9 g/dL (12.0-16.0); Mean Corpuscular HGB CONC 33.2 g/dL (32.0-36.0); Mean Corpuscular Hemoglobin 31.6 pg (27.0-31.0); Mean Corpuscular Volume 95.2 fL (78.0-98.0); Mean Platelet Volume 9.6 fL (7.4-10.4); Platelet Count 175 thou/uL (130-400); RBC Distribution Width 16.6 % (11.5-14.5); Red Blood Cell (RBC) Count 5.04 mill/uL (4.20-5.40); White Blood Cell (WBC) Count 10.3 thou/uL (4.8-10.8)
--- NOTE | 2020-04-14 10:52 | RAD ---
EXAM: Single view of the chest HISTORY: Decreased responsiveness COMPARISON: 12/25/2019 FINDINGS: Single view of the chest shows an enlarged cardiomediastinal silhouette. An NG tube is see n in the stomach. An endotracheal tube is seen approximately 7 mm from the placido. There appears to be a small right pleural effusion with adjacent atelectasis. No acute osseous abnormality. IMPRESSION: 1. Slightly low-lying endotracheal tube should be withdrawn approximately 2 cm. 2. Cardiomegaly and right pleural effusion
[2020-04-14 10:55] LABS: Actual Bicarbonate (HCO3a) 26.8 mEq/L (22-28); Analyzer IN Cardio ER; Base Excess (BEa) 0.4 mEq/L (-2.0 to +3.0); CO2 Tension 49.4 mmHg (35.0-45.0); Calcium, Ionized (arterial) 1.18 mmol/L (1.12-1.30); Carboxyhemoglobin (COHb) 0.6 gm% (0.0-3.0); Hemoglobin (Hb) 16.3 g/dL (12.0-16.0); O2 Tension (PaO2), arterial 77.9 mmHg (> 70.0); Potassium - ABG Lab 3.35 mmol/L (3.70-5.30); pH, Arterial 7.35 (7.35-7.45)
[2020-04-14 10:59] LABS: Bilirubin Negative (Negative); Blood, Urine Negative (Negative); Glucose, Urine (Dipstick) Negative (Negative); Ketone, Urine Negative (Negative); Leukocyte Negative (Negative); Nitrite Negative (Negative); Protein, Urine (Dipstick) Negative (Neg-Trace); Urobilinogen 0.2 mg/dL (Less than 2)
[2020-04-14 11:02] LABS: Clarity Clear (Clear)
[2020-04-14 11:04] LABS: Puncture Site LBA
[2020-04-14] MEDS ORDERED: Aspirin 300 MG Suppository ONE (11:06)
[2020-04-14 11:20] LABS: ALT (SGPT) 19 U/L (8-55); AST (SGOT) 25 U/L (5-34); Albumin 3.9 g/dL (3.4-4.8); Alkaline Phosphatase 96 U/L (40-110); Anion Gap 14 mmol/L (10-20); BUN (Urea Nitrogen) 10 mg/dL (9.8-20.1); Bilirubin, Total 1.2 mg/dL (0.2-1.2); Calc. Creatinine Clearance 0 mL/min (70-130); Calcium 8.3 mg/dL (7.8-10.44); Carbon Dioxide 26 mmol/L (23-31); Chloride 106 mmol/L (98-107); Globulin 2.5 g/dL (2.4-3.5); Glucose 147 mg/dL (83-110); Potassium 3.7 mmol/L (3.5-5.1); Protein, Total 6.4 g/dL (5.8-8.1); Sodium 142 mmol/L (136-145)
[2020-04-14 11:21] LABS: Magnesium 1.9 mg/dL (1.6-2.6)
[2020-04-14 11:27] LABS: INR-International Normal Ratio 1.3; PTT 29.3 sec (22.9-36.1); Prothrombin Time 16.8 sec (12.0-14.7)
[2020-04-14 11:48] LABS: SARS-CoV-2 NAA Rapid Test Not Detected (NotDetected)
[2020-04-14] MEDS ORDERED: fentaNYL Citrate/PF 2,000 MCG in Sodium Chloride 0.9% 60 ML IV SCH (12:00)
[2020-04-14 12:08] LABS: CKMB 2.9 ng/mL (0-6.6)
[2020-04-14] MEDS ORDERED: Acetaminophen 650 MG Suppository PR PRN (13:27)
[2020-04-14] MEDS ORDERED: Propofol 1,000 MG/100 ML VIAL IV PRN (15:30)
[2020-04-14] MEDS ORDERED: Fentanyl CADD 100 ML IV SCH (15:30)
[2020-04-14] MEDS ORDERED: Propofol BOLUS 1,000 MG/100 ML VIAL IV PRN (15:30)
[2020-04-14] MEDS ORDERED: Fentanyl BOLUS 250 ML IVPB PRN (15:30)
[2020-04-14] MEDS ORDERED: Morphine 2 MG/ML VIAL SLOW IVP PRN (15:30)
[2020-04-14] MEDS ORDERED: Lorazepam 2 MG/ML VIAL SLOW IVP PRN (15:30)
[2020-04-14] MEDS ORDERED: DISCONTINUE PREVIOUS NARCOTIC PAIN MEDICATIONS AND BENZODIAZEPINES FS SCH (15:30)
[2020-04-14 15:34] LABS: Troponin I 0.067 ng/mL (< 0.028)
[2020-04-14] MEDS ORDERED: Electrolyte Replacement Protocol FS SCH (15:39)
--- NOTE | 2020-04-14 15:44 | CT ---
Exam: Head CT without contrast HISTORY: Declining responsiveness. Fall. Patient is on blood thinners. COMPARISON: none FINDINGS: Hemorrhage: No intraparenchymal hemorrhage or extra-axial hematoma. Brain parenchyma: Cortical barboza-white matter differentiation is preserved. No mass effect or midline shift. Basilar cisterns are patent.Mild encephalomalacia in the left cerebellar hemisphere Ventricular system: Ventricles and sulci are patent and symmetric. Calvarium: Intact. No fracture. Sinuses and mastoid air cells: Right maxillary sinus mucus retention cysts. IMPRESSION: No acute intracranial process.
--- NOTE | 2020-04-14 16:21 | CON ---
DATE OF CONSULTATION: 04/14/2020 REASON FOR CONSULTATION: The patient is intubated. CONSULTING PHYSICIAN: Hospitalist group-no personal contact from them. HISTORY OF THE PRESENT ILLNESS: It seems she was intubated prior to arrival to the hospital and it is not clear from the ER records what had happened. There was also no history and physical on the chart. I am told she became unresponsive prior to arrival and there was a question whether or not she had fallen and hit her head. PAST MEDICAL HISTORY: Per previous records in the chart 1. She has diastolic heart failure. 2. Severe left ventricular hypertrophy. 3. Hypertension. 4. Paroxysmal atrial fibrillation. 5. Pericardial effusion. 6. Chronic kidney disease stage 2. 7. Obesity. 8. Hyperlipidemia. PAST SURGICAL HISTORY: 1. Appendectomy. 2. Cholecystectomy. FAMILY MEDICAL HISTORY: Unremarkable. SOCIAL HISTORY: Nonsmoker. Does not drink. Does not consume alcohol. ALLERGIES: NONE. MEDICATIONS: Prior to admission. 1. Carvedilol 3.125 mg b.i.d. 2. Eliquis 5 mg b.i.d. 3. Lasix 40 mg daily. 4. Lisinopril 10 mg daily. 5. Amiodarone 200 mg daily. REVIEW OF SYSTEMS: Cannot be obtained as she is intubated. PHYSICAL EXAMINATION: VITAL SIGNS: Pulse is 47, blood pressure 101/60, O2 saturation 98%, respiratory rate 16. Her last recorded temperature was 99.5, but it was high as 100.1 in the ER. GENERAL: She is currently intubated. She has received fentanyl for sedation. It is difficult to get her to arouse. HEENT: Pupils are 3 mm, reactive. Oropharynx intubated with ET tube and OG tube. NECK: No adenopathy or JVD. LUNGS: Fairly clear anteriorly. CARDIOVASCULAR: S1 and S2. Bradycardic. ABDOMEN: Soft and nontender to palpation. EXTREMITIES: No clubbing, cyanosis, edema. LABORATORY DATA: White blood cell count 10, hematocrit 48, platelet count 175. INR 1.3. PH 7.35, pCO2 of 49, PO2 of 77, on SIMV rate 16, tidal volume 450, PEEP 7, pressure 10, FiO2 60%. BNP was 821. Troponin 0.67. Sodium 142, potassium 3.7, chloride 106, CO2 of 26, BUN 10, creatinine 0.7, glucose 147. TSH 3.2. Chest x-ray shows cardiomegaly, bilateral small effusions. ET tube is just above the placido. There is fluid in the right horizontal fissure. ASSESSMENT: 1. Diastolic heart failure. 2. Acute hypoxic respiratory failure. 3. Bradycardia. PLAN: The patient will be kept on mechanical ventilation at least overnight. She has been started on furosemide intravenously by the hospitalist group. She will continue on fentanyl for sedation as needed. I will add Protonix for GI prophylaxis. Since there is a question whether or not she had some head trauma, her anticoagulation will be held. Job ID: [id number]
[2020-04-14 17:23] LABS: Troponin I 0.066 ng/mL (< 0.028)
--- NOTE | 2020-04-14 19:37 | CON ---
DATE OF CONSULTATION: REASON FOR CONSULTATION: Bradycardia, hypertrophic cardiomyopathy, intubated. HISTORY OF PRESENT ILLNESS: Ms. Carlson is a 74-year-old woman, currently intubated on the ventilator. She, from what I can tell from the chart, became unresponsive prior to arrival and was intubated prior to arrival to this hospital. It is unclear whether she had actually fallen or lost consciousness. PAST MEDICAL HISTORY: 1. Diastolic heart failure. 2. Hypertrophic cardiomyopathy. 3. Paroxysmal atrial fibrillation, I think she had a recent cardioversion. 4. History of pericardial effusion, I think she may have had that drained in the past. 5. Chronic kidney disease, stage 2. SURGICAL HISTORY: Appendectomy, cholecystectomy. FAMILY HISTORY: Unremarkable. SOCIAL HISTORY: Nonsmoker, nondrinker. ALLERGIES: NONE. REVIEW OF SYSTEMS: Not obtainable. MEDICATIONS: Listed were include; 1. Carvedilol. 2. Amiodarone. 3. Lisinopril. 4. Lasix. 5. Eliquis. PHYSICAL EXAMINATION: GENERAL: This is a 74-year-old woman, intubated on the ventilator. VITAL SIGNS: Her blood pressure is 94/50. Pulse 48, it is sinus. LUNGS: Clear. CARDIAC: She is bradycardic. There is no murmur, rub, or gallop. ABDOMEN: Soft, nontender. EXTREMITIES: Warm, dry. No clubbing. No cyanosis. No edema. PERTINENT LABORATORY DATA: Hemoglobin 15.9. Troponin indeterminate at 0.067. BNP 821. Chest x-ray; endotracheal tube in place, cardiomegaly, right-sided pleural effusion. We collected some fluid in the fissure. Echocardiogram done on 12/26/2019, revealed severe concentric left ventricular hypertrophy. CONCLUSION: 1. Episode of unresponsiveness, requiring intubation. According to the emergency room doctor, it appears that it was preceded by difficulty breathing. Reading the emergency room doctor's note, it says her daughter was attempting to drive her to the emergency room, she became altered in terms of mental status and very short of breath. She stopped and called 911. 2. History of pericardial window. 3. History of hypertrophic cardiomyopathy. 4. Sinus bradycardia. 5. Hold amiodarone and carvedilol. 6. Possibly extubate tomorrow. 7. In view of low blood pressure, we would hold any further diuretics tonight. 8. If necessary, add dopamine if blood pressure becomes lower. Currently, it is 127/65 most recently. If necessary, could also add dobutamine. Job ID: [id number]
[2020-04-14] MEDS: Famotidine/PF 20 mg/2ml Vial SLOW IVP SCH (20:59)
[2020-04-14] MEDS: Furosemide 40 MG/4 ML VIAL SLOW IVP SCH (20:59)
[2020-04-14] MEDS ORDERED: Furosemide 40 MG/4 ML VIAL SLOW IVP SCH (21:00)
--- NOTE | 2020-04-14 22:22 | PDOC.HHP ---
Hospitalist DENISA SOB History of Present Illness: Patient is a 75-year-old female with PMH of diastolic CHF, severe left ventricular hypertrophy, DM type II, paroxysmal A. fib, and CKD II who presents to the ED with CC of shortness of breath. Per daughter, patient had cardioversion 3 days ago, and her symptom started later that day. Her shortness of breath got worse today and daughter was driving patient here when she became unresponsive. Daughter stopped the car and called 911. Per report, patient was intubated by EMS prior to arrival here. Patient was admitted here and 12/2019, for CHF exacerbation. Echo done at that time showed severe LVH and pericardial effusion. Daughter states patient had pericardial window in 01/2020. Allergies/Adverse Reactions: Allergy/AdvReac Type Severity Reaction Status Date / Time No Known Allergies Allergy Verified 04/09/20 09:08 Home Medications: Medication Instructions Recorded Confirmed Type Multivit, Therapeutic [Theragran] 1 tab PO DAILY tab 02/24/19 04/12/20 Rx Amiodarone [Cordarone] 200 mg PO DAILY #30 tab 01/01/20 04/12/20 Rx Apixaban [Eliquis] 5 mg PO BID #60 tablet 01/01/20 04/12/20 Rx Furosemide [Lasix] 40 mg PO DAILY #30 tab 01/01/20 04/12/20 Rx Lisinopril 10 mg PO QAM #30 tablet 01/01/20 04/12/20 Rx Carvedilol 6.25 mg PO BID 04/09/20 04/12/20 History Past History: PMHx: PSHx: FHx: Social: Hospitalist HPI ROS ROS unobtainable: due to endotracheal tube Hospitalist Exam Vitals: Vital Signs (12 hours) Pulse Resp BP Pulse Ox 04/14/20 18:35 45 L 94/53 L 04/14/20 15:35 47 L 101/60 04/14/20 13:56 16 100 Weight Admit Weight 177 lb 0.499 oz Weight 177 lb 0.499 oz Most Recent Monitor Data Heart Rate from ECG 46 NIBP 110/69 NIBP BP-Mean 82 Respiration from ECG 16 SpO2 97 General - other findings: Intubated Eye: PERRL ENT: moist mucosa ENT - other findings: ET tube in place Neck: no JVD Heart - other findings: Bradycardic, regular rate, no murmur Gastrointestinal: soft, non-tender, non-distended Extremities: no edema Skin: normal turgor Neurological - other findings: tries to move extremities with painful stimuli, sedated and intubated Hospitalist Results Result Diagrams: 04/14/20 10:38 04/14/20 10:38 Lab results: Laboratory Last Values WBC 10.3 thou/uL (4.8-10.8) 04/14/20 10:38 RBC 5.04 mill/uL (4.20-5.40) 04/14/20 10:38 Hgb 15.9 g/dL (12.0-16.0) 04/14/20 10:38 Hct 48.0 % (36.0-47.0) H 04/14/20 10:38 MCV 95.2 fL (78.0-98.0) 04/14/20 10:38 MCH 31.6 pg (27.0-31.0) H 04/14/20 10:38 MCHC 33.2 g/dL (32.0-36.0) 04/14/20 10:38 RDW 16.6 % (11.5-14.5) H 04/14/20 10:38 Plt Count 175 thou/uL (130-400) 04/14/20 10:38 MPV 9.6 fL (7.4-10.4) 04/14/20 10:38 Neutrophils % 86.7 % (42.0-75.0) H 04/14/20 10:38 Lymphocytes % 8.4 % (21.0-51.0) L 04/14/20 10:38 Monocytes % 4.3 % (0.0-10.0) 04/14/20 10:38 Eosinophils % 0.4 % (0.0-10.0) 04/14/20 10:38 Basophils % 0.1 % (0.0-1.0) 04/14/20 10:38 Neutrophils # 8.9 thou/uL (1.40-6.50) H 04/14/20 10:38 Lymphocytes # 0.9 thou/uL (1.20-3.40) L 04/14/20 10:38 Monocytes # 0.4 thou/uL (0.11-0.59) 04/14/20 10:38 Eosinophils # 0.0 thou/uL (0.0-0.7) 04/14/20 10:38 Basophils # 0.0 thou/uL (0.0-0.2) 04/14/20 10:38 PT 16.8 sec (12.0-14.7) H 04/14/20 10:51 INR 1.3 04/14/20 10:51 APTT 29.3 sec (22.9-36.1) 04/14/20 10:51 Specimen Type ARTERIAL 04/14/20 10:50 Puncture Site LBA 04/14/20 10:50 Bicarbonate Actual 26.8 mEq/L (22-28) 04/14/20 10:50 ABG pH 7.35 (7.35-7.45) 04/14/20 10:50 ABG pCO2 49.4 mmHg (35.0-45.0) H 04/14/20 10:50 ABG pO2 77.9 mmHg (> 70.0) H 04/14/20 10:50 ABG O2 Sat (Measured) 94.8 % (94.0-98.0) 04/14/20 10:50 ABG O2 Content 21.5 vol% (18.0-21.0) H 04/14/20 10:50 ABG Base Excess 0.4 mEq/L (-2.0 to +3.0) 04/14/20 10:50 ABG Hematocrit 48.0 % (36.0-47.0) H 04/14/20 10:50 ABG Hemoglobin 16.3 g/dL (12.0-16.0) H 04/14/20 10:50 ABG Oxyhemoglobin 93.6 % (94.0-98.0) L 04/14/20 10:50 ABG Carboxyhemoglobin 0.6 gm% (0.0-3.0) 04/14/20 10:50 ABG Methemoglobin 0.70 gm% (0.04-1.52) 04/14/20 10:50 ABG Deoxyhemoglobin 5.1 % (0.0-2.9) H 04/14/20 10:50 Seb Test NOT DONE 04/14/20 10:50 A-a O2 Gradient 288.150 mmHg (0-20) H 04/14/20 10:50 Sodium 141 mmol/L (135-148) 04/14/20 10:50 Potassium 3.35 mmol/L (3.70-5.30) L 04/14/20 10:50 Chloride 104 mmol/L (98-106) 04/14/20 10:50 Ionized Calcium 1.18 mmol/L (1.12-1.30) 04/14/20 10:50 Mode of Support PSIMV 04/14/20 10:50 Mechanical Rate 16 min 04/14/20 10:50 Inspired O2 60 % 04/14/20 10:50 Tidal Volume 450 ml 04/14/20 10:50 Pressure Support 10 cmH2O 04/14/20 10:50 PEEP or CPAP 7.0 cmH2O 04/14/20 10:50 Sodium 142 mmol/L (136-145) 04/14/20 10:38 Potassium 3.7 mmol/L (3.5-5.1) 04/14/20 10:38 Chloride 106 mmol/L (98-107) 04/14/20 10:38 Carbon Dioxide 26 mmol/L (23-31) 04/14/20 10:38 Anion Gap 14 mmol/L (10-20) 04/14/20 10:38 BUN 10 mg/dL (9.8-20.1) 04/14/20 10:38 Creatinine 0.69 mg/dL (0.6-1.1) 04/14/20 10:38 Estimated GFR (MDRD) 84 04/14/20 10:38 Glucose 147 mg/dL (83-110) H 04/14/20 10:38 POC Glucose 130 mg/dL (70-100) H 04/14/20 15:42 Lactic Acid 1.2 mmol/L (0.5-2.2) 04/14/20 11:06 Calcium 8.3 mg/dL (7.8-10.44) 04/14/20 10:38 Magnesium 1.9 mg/dL (1.6-2.6) 04/14/20 10:54 Total Bilirubin 1.2 mg/dL (0.2-1.2) 04/14/20 10:38 AST 25 U/L (5-34) 04/14/20 10:38 ALT 19 U/L (8-55) 04/14/20 10:38 Alkaline Phosphatase 96 U/L (40-110) 04/14/20 10:38 Creatine Kinase 80 U/L (29-168) 04/14/20 10:54 CK-MB (CK-2) 2.9 ng/mL (0-6.6) 04/14/20 10:51 Troponin I 0.066 ng/mL (< 0.028) H 04/14/20 16:47 B-Natriuretic Peptide 821.7 pg/mL (0-100) H 04/14/20 11:06 Serum Total Protein 6.4 g/dL (5.8-8.1) 04/14/20 10:38 Albumin 3.9 g/dL (3.4-4.8) 04/14/20 10:38 Globulin 2.5 g/dL (2.4-3.5) 04/14/20 10:38 Albumin/Globulin Ratio 1.6 g/dL (1.2-2.2) 04/14/20 10:38 TSH 3rd Generation 3.2759 uIU/mL (0.35-4.94) 04/14/20 11:06 Urine Color Yellow (Yellow) 04/14/20 10:40 Urine Clarity Clear (Clear) 04/14/20 10:40 Urine pH 6.0 (5.0-9.0) 04/14/20 10:40 Ur Specific [place] 1.020 (1.005-1.030) 04/14/20 10:40 Urine Protein Negative mg/dL (Neg-Trace) 04/14/20 10:40 Urine Glucose (UA) Negative mg/dL (Negative) 04/14/20 10:40 Urine Ketones Negative mg/dL (Negative) 04/14/20 10:40 Urine Blood Negative (Negative) 04/14/20 10:40 Urine Nitrite Negative (Negative) 04/14/20 10:40 Urine Bilirubin Negative (Negative) 04/14/20 10:40 Urine Urobilinogen 0.2 mg/dL (Less than 2) 04/14/20 10:40 Ur Leukocyte Esterase Negative (Negative) 04/14/20 10:40 Influenza A RNA INAAT Not Detected (NotDetected) 04/14/20 11:02 Influenza B RNA INAAT Not Detected (NotDetected) 04/14/20 11:02 SARS-CoV-2 Rap RNA(RT-PCR) Not Detected (NotDetected) 04/14/20 11:02 CT scan - chest Status: image reviewed by vt Hospitalist H&P A/P (1) Acute respiratory failure with hypoxia Code(s): J96.01 - ACUTE RESPIRATORY FAILURE WITH HYPOXIA Status: Acute Assessment and Plan: possible from CHF excerbation (BNP elevated and CXR showed right sided pleural effusion). PE is also in the DDx, however patient is on eliquis. She received IV lasix in the ED. Plan: -Vent management per pulmonary -Echo -Lasix held for now due to hypotension (2) Syncope Code(s): R55 - SYNCOPE AND COLLAPSE Status: Acute Assessment and Plan: It sounds like patient had a syncopal episode while daughter was driving her here to the ED. EKG showed sinus bradycardia. CT head showed no acute intracranial abnormalities. This could also be from hypoxia. Plan: -Echo -Telemetry (3) Diastolic CHF Code(s): I50.30 - UNSPECIFIED DIASTOLIC (CONGESTIVE) HEART FAILURE Status: Chronic Assessment and Plan: -Lasix held due to hypotension -cardiology following (4) Paroxysmal A-fib Code(s): I48.0 - PAROXYSMAL ATRIAL FIBRILLATION Status: Chronic Assessment and Plan: EKG and Tele showed sinus bradycardia Plan: -amiodarone and carvedilol held by cardiology -cont Eliquis
[2020-04-15] MEDS: Acetaminophen 325 MG TAB PO PRN (01:30)
[2020-04-15 03:58] LABS: #Lymphocytes 1.1 thou/uL (1.20-3.40); #Monocytes 0.4 thou/uL (0.11-0.59); #Neutrophils 6.9 thou/uL (1.40-6.50); %Basophils 0.2 % (0.0-1.0); %Eosinophils 0.4 % (0.0-10.0); %Lymphocytes 12.6 % (21.0-51.0); %Monocytes 5.2 % (0.0-10.0); %Neutrophils 81.6 % (42.0-75.0); Hemoglobin 14.4 g/dL (12.0-16.0); Mean Corpuscular Hemoglobin 30.6 pg (27.0-31.0); Mean Corpuscular Volume 92.8 fL (78.0-98.0); Mean Platelet Volume 9.9 fL (7.4-10.4); Platelet Count 201 thou/uL (130-400); RBC Distribution Width 16.8 % (11.5-14.5); Red Blood Cell (RBC) Count 4.72 mill/uL (4.20-5.40); White Blood Cell (WBC) Count 8.4 thou/uL (4.8-10.8)
[2020-04-15 04:18] LABS: Anion Gap 14 mmol/L (10-20); BUN (Urea Nitrogen) 18 mg/dL (9.8-20.1); Calc. Creatinine Clearance 83 mL/min (70-130); Calcium 8.9 mg/dL (7.8-10.44); Carbon Dioxide 23 mmol/L (23-31); Chloride 107 mmol/L (98-107); Glucose 106 mg/dL (83-110); Potassium 3.3 mmol/L (3.5-5.1); Sodium 141 mmol/L (136-145)
[2020-04-15 06:44] LABS: CO2 Tension 31.6 mmHg (35.0-45.0); Calcium, Ionized (arterial) 1.19 mmol/L (1.12-1.30); Carboxyhemoglobin (COHb) 0.9 gm% (0.0-3.0); Hemoglobin (Hb) 15.4 g/dL (12.0-16.0); O2 Tension (PaO2), arterial 69.7 mmHg (> 70.0); Potassium - ABG Lab 3.22 mmol/L (3.70-5.30); pH, Arterial 7.53 (7.35-7.45)
[2020-04-15 07:42] LABS: Puncture Site LRA
--- NOTE | 2020-04-15 08:02 | RAD ---
PORTABLE CHEST: Date: 04/15/2020 INDICATION: Pneumonia follow-up. COMPARISON: 04/14/2020. FINDINGS/IMPRESSION: ET tube, NG tube unchanged. Cardiomegaly and bilateral effusions again noted. Mild vascular engorgeme nt. Heart has a globular shape and pericardial effusion should be excluded. No significant interval change. POS: AGW
[2020-04-15] MEDS ORDERED: Potassium Bicarbonate/Cit Ac 20 MEQ TAB PER TUBE SCH ×2 (08:30→09:45)
--- NOTE | 2020-04-15 08:34 | PRG ---
DATE OF SERVICE: 04/15/2020 35 minutes of critical care time. SUBJECTIVE: The patient remains intubated on mechanical ventilation. We tried to wake her up. She would follow some commands. OBJECTIVE: VITAL SIGNS: Her temperature is 99.7, pulse 47, blood pressure 127/66, O2 saturation 99%. 24-hour intake not quantitated nor output. HEENT: Unremarkable except for she has some excoriations on her tongue. NECK: No JVD. LUNGS: Clear. CARDIAC: S1 and S2. Regular. ABDOMEN: Soft. EXTREMITIES: No clubbing or cyanosis. Has trace edema. IMAGING DATA: Chest x-ray shows cardiomegaly with bilateral small effusions. The ET tube is in good position. LABORATORY DATA: White blood cell count 8.4, hematocrit 43, platelet count 201. PH 7.53, pCO2 of 31, pO2 of 69 on SIMV rate 16, tidal volume 450, PEEP 5, pressure support 10, FiO2 40%. Sodium 141, potassium 3.3, chloride 107, CO2 of 23, BUN 18, creatinine 0.7, glucose 106. ASSESSMENT: 1. Acute hypoxic respiratory failure requiring mechanical ventilation. 2. Acute diastolic heart failure. 3. History of pericardial window. 4. Hypertrophic cardiomyopathy. 5. Bradycardia. PLAN: 1. Hoping to get her extubated later today. I have decreased her ventilatory parameters and stopped her fentanyl. 2. Withhold beta-blockers. The patient is chronically anticoagulated. The patient is on diuretics, potassium, is on electrolyte replacement protocol. Job ID: [id number]
[2020-04-15] MEDS ORDERED: Magnesium 2 GM/50 ML 2 GM in Premix Bag 1 BAG IVPB SCH ×2 (09:45→18:00)
[2020-04-15] MEDS: Famotidine 20 MG TAB PO SCH ×2 (09:50→23:20)
[2020-04-15] MEDS: Apixaban 5 MG TAB PO SCH ×2 (09:50→10:00)
[2020-04-15] MEDS: Furosemide 40 MG/4 ML VIAL SLOW IVP SCH (10:00)
--- NOTE | 2020-04-15 12:04 | PRG ---
DATE OF SERVICE: 04/15/2020 SUBJECTIVE: Ms. Carlson was recently intubated due to mental status changes. She had increased shortness of breath. No chest pain or pressure noted. She remains in sinus rhythm. Chest x-ray did suggest a globular heart and cannot exclude pericardial effusion. The patient did undergo successful cardioversion two days ago and is currently in sinus. She is currently on amiodarone therapy. OBJECTIVE: VITAL SIGNS: Blood pressure 127/66, pulse 62, respirations 20. LUNGS: Mild crackles noted bilaterally. HEART: Regular rate and rhythm. ABDOMEN: Soft, nontender, nondistended. EXTREMITIES: No edema. PERTINENT LABORATORY DATA: Hemoglobin 43.8, platelet count 201. Creatinine 0.78. BNP of 821. PERTINENT CARDIAC MEDICATIONS: 1. Eliquis 5 mg b.i.d. 2. Lasix 40 b.i.d. IMPRESSION: 1. Respiratory failure. 2. Atrial fibrillation. 3. Hypertrophic cardiomyopathy. 4. Pericardial effusion, status post window. RECOMMENDATIONS: Would recommend repeating echo to assess for recurrent effusion. The patient did have an echo done in the office recently without significant effusion present. Continue Eliquis given recent cardioversion. Would also recommend restarting amiodarone. Her symptoms likely secondary to hypertrophic cardiomyopathy. Continue low-dose Lasix IV. The patient is awake and alert and following commands and likely to be extubated today. Job ID: [id number]
[2020-04-15 13:09] LABS: Potassium 3.1 mmol/L (3.5-5.1)
[2020-04-15] MEDS: Ondansetron PF 4 MG/2 ML Vial IVP PRN (13:45)
--- NOTE | 2020-04-15 14:35 | CT ---
CT HEAD WITHOUT CONTRAST: 04/15/20 INDICATIONS: Stroke protocol. Comparison made to CT head from 04/14/20. FINDINGS: There is now increased cytotoxic edema seen in the right occipital, posterior temporal and right thal amus. The findings are consistent with subacute infarct in the right posterior cerebral artery distri bution. No hemorrhage. Ventricles have normal size and position. IMPRESSION: Cytotoxic edema consistent with subacute infarct right posterior cerebral artery distribution. Musa crow discussed with Dr. Bauman. POS: JOSE
--- NOTE | 2020-04-15 15:28 | PDOC.HOSPP ---
- Subjective Encounter Date: 04/15/20 Encounter Time: 10:00 Subjective: is weaning on vent for extubation today awakens easily, not fully oriented, [place] speaking only - Objective Vital Signs & Weight: Vital Signs (12 hours) Pulse Resp BP Pulse Ox 04/15/20 08:58 99 04/15/20 06:32 44 L 105/66 04/15/20 06:00 16 04/15/20 04:00 16 Weight Admit Weight 177 lb 0.499 oz Weight 169 lb 12.095 oz Most Recent Monitor Data Heart Rate from ECG 63 NIBP 166/104 NIBP BP-Mean 124 Respiration from ECG 19 SpO2 94 I&O: 04/14/20 04/15/20 04/16/20 06:59 06:59 06:59 Intake Total 0 Output Total 1015 Balance -1015 Result Diagrams: 04/15/20 03:38 04/15/20 12:50 Additional Labs: Accuchecks 04/15/20 04/15/20 04/14/20 14:38 14:22 15:42 POC Glucose 108 H 115 H 130 H Hospitalist ROS - Medication Medications: Active Medications Generic Name Dose Route Start Last Admin Trade Name Freq PRN Reason Stop Dose Admin Acetaminophen 650 mg 04/14/20 13:27 04/15/20 01:30 Acetaminophen 325 Mg Tab PO 650 mg Q4H PRN Administration Headache/Fever/Mild Pain (1-3) Famotidine 20 mg 04/15/20 09:00 04/15/20 09:50 Famotidine 20 Mg Tab PO 20 mg BID ZANE Administration Furosemide 40 mg 04/14/20 21:00 04/15/20 10:00 Furosemide 40 Mg/4 Ml Vial SLOW IVP 40 mg BID ZANE Administration Hospitalist Exam Vitals: Vital Signs (12 hours) Pulse Resp BP Pulse Ox 04/15/20 08:58 99 04/15/20 06:32 44 L 105/66 04/15/20 06:00 16 04/15/20 04:00 16 Weight Admit Weight 177 lb 0.499 oz Weight 169 lb 12.095 oz Most Recent Monitor Data Heart Rate from ECG 63 NIBP 166/104 NIBP BP-Mean 124 Respiration from ECG 19 SpO2 94 Eye: PERRL, anicteric sclera ENT: no oropharyngeal lesions, moist mucosa Neck: supple, no JVD Heart: RRR, no murmur Respiratory: no wheezes, no rales Gastrointestinal: soft, non-tender, non-distended, normal bowel sounds Extremities: no cyanosis, no edema Neurological: cranial nerve grossly intact, no new deficit Hosp A/P (1) Acute CVA (cerebrovascular accident) Code(s): I63.9 - CEREBRAL INFARCTION, UNSPECIFIED Status: Acute (2) Hypertrophic cardiomyopathy Code(s): I42.2 - OTHER HYPERTROPHIC CARDIOMYOPATHY Status: Chronic (3) Pericardial effusion Code(s): I31.3 - PERICARDIAL EFFUSION (NONINFLAMMATORY) Status: Chronic (4) Obesity (BMI 30.0-34.9) Code(s): E66.9 - OBESITY, UNSPECIFIED Status: Chronic (5) Dyslipidemia Code(s): E78.5 - HYPERLIPIDEMIA, UNSPECIFIED Status: Chronic (6) H/O: CVA (cerebrovascular accident) Code(s): Z86.73 - PRSNL HX OF TIA (TIA), AND CEREB INFRC W/O RESID DEFICITS Status: Chronic (7) Acute respiratory failure with hypoxia Code(s): J96.01 - ACUTE RESPIRATORY FAILURE WITH HYPOXIA Status: Acute (8) Syncope Code(s): R55 - SYNCOPE AND COLLAPSE Status: Resolved (9) Diastolic CHF Code(s): I50.30 - UNSPECIFIED DIASTOLIC (CONGESTIVE) HEART FAILURE Status: Chr onic Qualifiers: Heart failure chronicity: acute on chronic Qualified Code(s): I50.33 - Acute on chronic diastolic (congestive) heart failure (10) Paroxysmal A-fib Code(s): I48.0 - PAROXYSMAL ATRIAL FIBRILLATION Status: Chronic - Plan Had CT brain on arrival which did not reveal ac cva but had findings of old left cerebellar cva, repeat done around 2 pm shows 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
[2020-04-15] MEDS ORDERED: Electrolyte Replacement Protocol 1 EACH FS ONE (15:43)
--- NOTE | 2020-04-15 16:04 | PDOC.PULCC ---
CCU Progress Note: Subj/Obj - Subjective Date: 04/15/20 Time: 15:56 Subjective: Patient had abrupt change in neurologic status some hours after extubation. Called code stroke with findings of sudden alteration in mental status, both eyes deviated to right and left neglect, no blink to confrontation, followed commands in all ext's but would not turn head nor eyes to left. Extensor findings in both feet and left arm. She was taken emergently to CT scan of the head and found subacute ischemic stroke of the right tempocc lobes compared to admission CT head. She is able to cough but does not clear secretions, deep suctioning causes gag reflex. Lungs are clear but there are sonorous sounds intermittently in upper airway that can be cleared with suctioning with [place]. BP w/ MAP [address], orders to maintain MAP 90 to 110. Concerns about temporal seizure like activity as described discussed with Neurol and plans of care. Orders strict NPO and change of meds from po to iv, d/c sedatives, needs mechanical DVT prophylaxis. Call to Neurologist and discussed. Discussed with MARY KAY Housestaff. CTA head and neck ordered, NS ordered to maintain Na in mid to high range due to cerebral edema. Neuro checks every hour. She is able to respond verbally to questions in [place] and motor is weak on left but intact, no nystagmus, pupils reactive. HOLD anticoagulants at least one week. Echo ordered. Trop elevated, series ordered. EKG ordered. Met with son and by phone with daughter and reviewed CT of the head with them. Explained clinical issues CCT bedside no overlap 45 mins - Objective Allergies/Adverse Reactions: Allergies Allergy/AdvReac Type Severity Reaction Status Date / Time No Known Allergies Allergy Verified 04/09/20 09:08 Medications: Current Medications Acetaminophen (Acetaminophen 650 Mg Suppository) 650 mg SD Q4H PRN PRN Reason: Headache/Fever/Mild Pain (1-3) Acetaminophen (Acetaminophen 325 Mg Tab) 650 mg PO Q4H PRN PRN Reason: Headache/Fever/Mild Pain (1-3) Last Admin: 04/15/20 01:30 Dose: 650 mg Documented by: Aspirin (Aspirin 81 Mg Enteric Coated Tablet) 81 mg PO DAILY ZANE Famotidine (Famotidine/Pf 20 Mg/2ml Vial) 20 mg SLOW IVP DAILY ZANE Sodium Chloride (Normal Saline 0.9%) 1,000 mls @ 100 mls/hr IV .Q10H ZANE Levetiracetam 1,000 mg/ Device 100 mls @ 200 mls/hr IVPB BID ZANE Levetiracetam 2,000 mg/ Sodium (Chloride) 120 mls @ 200 mls/hr IVPB ONE ZANE Miscellaneous Medication (Electrolyte Replacement Protocol) 1 each FS ASDIR ZANE Miscellaneous Medication (Electrolyte Replacement Protocol 1 Each) 1 each FS ONE ONE Stop: 04/15/20 15:44 Morphine Sulfate (Morphine 2 Mg/Ml Vial) 2 mg SLOW IVP Q1H PRN PRN Reason: Breakthrough Pain/Agitation Stop: 05/14/20 15:30 Discontinue Previous Narcotic Pain Medications And Benzodiazepines 1 each FS .ONE ZANE Stop: 05/14/20 15:30 Ondansetron HCl (Ondansetron Pf 4 Mg/2 Ml Vial) 4 mg IVP Q6H PRN PRN Reason: Nausea/Vomiting Vital Signs and I&O: Vital Signs Temp 100.2 F H 04/15/20 02:00 Pulse 44 L 04/15/20 06:32 Resp 16 04/15/20 06:00 BP 105/66 04/15/20 06:32 Pulse Ox 99 04/15/20 08:58 Intake & Output 04/14/20 04/15/20 04/15/20 18:59 06:59 18:59 Intake Total 0 Output Total 475 540 Balance -475 -540 Weight 177 lb 0.499 oz 169 lb 12.095 oz Intake: Oral 0 Output: Gastric Drainage 150 250 Output, Dodd 325 290 Emesis 0 Other: Voiding Method Indwelling Catheter Indwelling Catheter CCU Progress Note: Data - Labs Result Diagrams: 04/15/20 03:38 04/15/20 12:50 Lab results: Laboratory Results 04/14/20 04/14/20 04/14/20 10:38 10:38 10:40 WBC 10.3 RBC 5.04 Hgb 15.9 Hct 48.0 H MCV 95.2 MCH 31.6 H MCHC 33.2 RDW 16.6 H Plt Count 175 MPV 9.6 Neutrophils % 86.7 H Lymphocytes % 8.4 L Monocytes % 4.3 Eosinophils % 0.4 Basophils % 0.1 Neutrophils # 8.9 H Lymphocytes # 0.9 L Monocytes # 0.4 Eosinophils # 0.0 Basophils # 0.0 ESR Westergren PT INR APTT Specimen Type Puncture Site Bicarbonate Actual ABG pH ABG pCO2 ABG pO2 ABG O2 Sat (Measured) ABG O2 Content ABG Base Excess ABG Hematocrit ABG Hemoglobin ABG Oxyhemoglobin ABG Carboxyhemoglobin ABG Methemoglobin ABG Deoxyhemoglobin Seb Test A-a O2 Gradient Ionized Calcium Mode of Support Mechanical Rate Inspired O2 Tidal Volume Pressure Support PEEP or CPAP Sodium 142 Potassium 3.7 Chloride 106 Carbon Dioxide 26 Anion Gap 14 BUN 10 Creatinine 0.69 Estimated GFR (MDRD) 84 Glucose 147 H POC Glucose Lactic Acid Calcium 8.3 Magnesium Total Bilirubin 1.2 AST 25 ALT 19 Alkaline Phosphatase 96 Creatine Kinase CK-MB (CK-2) Troponin I B-Natriuretic Peptide Serum Total Protein 6.4 Albumin 3.9 Globulin 2.5 Albumin/Globulin Ratio 1.6 TSH 3rd Generation Urine Color Yellow Urine Clarity Clear Urine pH 6.0 Ur Specific [place] 1.020 Urine Protein Negative Urine Glucose (UA) Negative Urine Ketones Negative Urine Blood Negative Urine Nitrite Negative Urine Bilirubin Negative Urine Urobilinogen 0.2 Ur Leukocyte Esterase Negative Influenza A RNA INAAT Influenza B RNA INAAT SARS-CoV-2 Rap RNA(RT-PCR) 04/14/20 04/14/20 04/14/20 10:50 10:51 10:51 WBC RBC Hgb Hct MCV MCH MCHC RDW Plt Count MPV Neutrophils % Lymphocytes % Monocytes % Eosinophils % Basophils % Neutrophils # Lymphocytes # Monocytes # Eosinophils # Basophils # ESR Westergren PT 16.8 H INR 1.3 APTT 29.3 Specimen Type ARTERIAL Puncture Site LBA Bicarbonate Actual 26.8 ABG pH 7.35 ABG pCO2 49.4 H ABG pO2 77.9 H ABG O2 Sat (Measured) 94.8 ABG O2 Content 21.5 H ABG Base Excess 0.4 ABG Hematocrit 48.0 H ABG Hemoglobin 16.3 H ABG Oxyhemoglobin 93.6 L ABG Carboxyhemoglobin 0.6 ABG Methemoglobin 0.70 ABG Deoxyhemoglobin 5.1 H Seb Test NOT DONE A-a O2 Gradient 288.150 H Ionized Calcium 1.18 Mode of Support PSIMV Mechanical Rate 16 Inspired O2 60 Tidal Volume 450 Pressure Support 10 PEEP or CPAP 7.0 Sodium 141 Potassium 3.35 L Chloride 104 Carbon Dioxide Anion Gap BUN Creatinine Estimated GFR (MDRD) Glucose POC Glucose Lactic Acid Calcium Magnesium Total Bilirubin AST ALT Alkaline Phosphatase Creatine Kinase CK-MB (CK-2) 2.9 Troponin I 0.062 H B-Natriuretic Peptide Serum Total Protein Albumin Globulin Albumin/Globulin Ratio TSH 3rd Generation Urine Color Urine Clarity Urine pH Ur Specific [place] Urine Protein Urine Glucose (UA) Urine Ketones Urine Blood Urine Nitrite Urine Bilirubin Urine Urobilinogen Ur Leukocyte Esterase Influenza A RNA INAAT Influenza B RNA INAAT SARS-CoV-2 Rap RNA(RT-PCR) 04/14/20 04/14/20 04/14/20 10:54 11:02 11:06 WBC RBC Hgb Hct MCV MCH MCHC RDW Plt Count MPV Neutrophils % Lymphocytes % Monocytes % Eosinophils % Basophils % Neutrophils # Lymphocytes # Monocytes # Eosinophils # Basophils # ESR Westergren PT INR APTT Specimen Type Puncture Site Bicarbonate Actual ABG pH ABG pCO2 ABG pO2 ABG O2 Sat (Measured) ABG O2 Content ABG Base Excess ABG Hematocrit ABG Hemoglobin ABG Oxyhemoglobin ABG Carboxyhemoglobin ABG Methemoglobin ABG Deoxyhemoglobin Sbe Test A-a O2 Gradient Ionized Calcium Mode of Support Mechanical Rate Inspired O2 Tidal Volume Pressure Support PEEP or CPAP Sodium Potassium Chloride Carbon Dioxide Anion Gap BUN Creatinine Estimated GFR (MDRD) Glucose POC Glucose Lactic Acid Calcium Magnesium 1.9 Total Bilirubin AST ALT Alkaline Phosphatase Creatine Kinase 80 CK-MB (CK-2) Troponin I B-Natriuretic Peptide Serum Total Protein Albumin Globulin Albumin/Globulin Ratio TSH 3rd Generation 3.2759 Urine Color Urine Clarity Urine pH Ur Specific [place] Urine Protein Urine Glucose (UA) Urine Ketones Urine Blood Urine Nitrite Urine Bilirubin Urine Urobilinogen Ur Leukocyte Esterase Influenza A RNA INAAT Not Detected Influenza B RNA INAAT Not Detected SARS-CoV-2 Rap RNA(RT-PCR) Not Detected 04/14/20 04/14/20 04/14/20 11:06 11:06 14:11 WBC RBC Hgb Hct MCV MCH MCHC RDW Plt Count MPV Neutrophils % Lymphocytes % Monocytes % Eosinophils % Basophils % Neutrophils # Lymphocytes # Monocytes # Eosinophils # Basophils # ESR Westergren PT INR APTT Specimen Type Puncture Site Bicarbonate Actual ABG pH ABG pCO2 ABG pO2 ABG O2 Sat (Measured) ABG O2 Content ABG Base Excess ABG Hematocrit ABG Hemoglobin ABG Oxyhemoglobin ABG Carboxyhemoglobin ABG Methemoglobin ABG Deoxyhemoglobin Seb Test A-a O2 Gradient Ionized Calcium Mode of Support Mechanical Rate Inspired O2 Tidal Volume Pressure Support PEEP or CPAP Sodium Potassium Chloride Carbon Dioxide Anion Gap BUN Creatinine Estimated GFR (MDRD) Glucose POC Glucose Lactic Acid 1.2 Calcium Magnesium Total Bilirubin AST ALT Alkaline Phosphatase Creatine Kinase CK-MB (CK-2) Troponin I 0.067 H B-Natriuretic Peptide 821.7 H Serum Total Protein Albumin Globulin Albumin/Globulin Ratio TSH 3rd Generation Urine Color Urine Clarity Urine pH Ur Specific [place] Urine Protein Urine Glucose (UA) Urine Ketones Urine Blood Urine Nitrite Urine Bilirubin Urine Urobilinogen Ur Leukocyte Esterase Influenza A RNA INAAT Influenza B RNA INAAT SARS-CoV-2 Rap RNA(RT-PCR) 04/14/20 04/14/20 04/15/20 15:42 16:47 03:38 WBC RBC Hgb Hct MCV MCH MCHC RDW Plt Count MPV Neutrophils % Lymphocytes % Monocytes % Eosinophils % Basophils % Neutrophils # Lymphocytes # Monocytes # Eosinophils # Basophils # ESR Westergren PT INR APTT Specimen Type Puncture Site Bicarbonate Actual ABG pH ABG pCO2 ABG pO2 ABG O2 Sat (Measured) ABG O2 Content ABG Base Excess ABG Hematocrit ABG Hemoglobin ABG Oxyhemoglobin ABG Carboxyhemoglobin ABG Methemoglobin ABG Deoxyhemoglobin Seb Test A-a O2 Gradient Ionized Calcium Mode of Support Mechanical Rate Inspired O2 Tidal Volume Pressure Support PEEP or CPAP Sodium 141 Potassium 3.3 L Chloride 107 Carbon Dioxide 23 Anion Gap 14 BUN 18 Creatinine 0.78 Estimated GFR (MDRD) 73 Glucose 106 POC Glucose 130 H Lactic Acid Calcium 8.9 Magnesium Total Bilirubin AST ALT Alkaline Phosphatase Creatine Kinase CK-MB (CK-2) Troponin I 0.066 H B-Natriuretic Peptide Serum Total Protein Albumin Globulin Albumin/Globulin Ratio TSH 3rd Generation Urine Color Urine Clarity Urine pH Ur Specific [place] Urine Protein Urine Glucose (UA) Urine Ketones Urine Blood Urine Nitrite Urine Bilirubin Urine Urobilinogen Ur Leukocyte Esterase Influenza A RNA INAAT Influenza B RNA INAAT SARS-CoV-2 Rap RNA(RT-PCR) 04/15/20 04/15/20 04/15/20 03:38 06:30 12:50 WBC 8.4 RBC 4.72 Hgb 14.4 Hct 43.8 MCV 92.8 MCH 30.6 MCHC 33.0 RDW 16.8 H Plt Count 201 MPV 9.9 Neutrophils % 81.6 H Lymphocytes % 12.6 L Monocytes % 5.2 Eosinophils % 0.4 Basophils % 0.2 Neutrophils # 6.9 H Lymphocytes # 1.1 L Monocytes # 0.4 Eosinophils # 0.0 Basophils # 0.0 ESR Westergren PT INR APTT Specimen Type ARTERIAL Puncture Site LRA Bicarbonate Actual 26.0 ABG pH 7.53 H ABG pCO2 31.6 L ABG pO2 69.7 ABG O2 Sat (Measured) 95.1 ABG O2 Content 20.3 ABG Base Excess 4.0 H ABG Hematocrit 45.0 ABG Hemoglobin 15.4 ABG Oxyhemoglobin 94.0 ABG Carboxyhemoglobin 0.9 ABG Methemoglobin 0.30 ABG Deoxyhemoglobin 4.8 H Seb Test POSITIVE A-a O2 Gradient 176.000 H Ionized Calcium 1.19 Mode of Support SIMV.PSV Mechanical Rate 16 Inspired O2 40 Tidal Volume 450 Pressure Support 10 PEEP or CPAP 5.0 Sodium 141 Potassium 3.22 L 3.1 L Chloride 107 H Carbon Dioxide Anion Gap BUN Creatinine Estimated GFR (MDRD) Glucose POC Glucose Lactic Acid Calcium Magnesium Total Bilirubin AST ALT Alkaline Phosphatase Creatine Kinase CK-MB (CK-2) Troponin I B-Natriuretic Peptide Serum Total Protein Albumin Globulin Albumin/Globulin Ratio TSH 3rd Generation Urine Color Urine Clarity Urine pH Ur Specific [place] Urine Protein Urine Glucose (UA) Urine Ketones Urine Blood Urine Nitrite Urine Bilirubin Urine Urobilinogen Ur Leukocyte Esterase Influenza A RNA INAAT Influenza B RNA INAAT SARS-CoV-2 Rap RNA(RT-PCR) 04/15/20 04/15/20 04/15/20 14:22 14:38 15:20 WBC RBC Hgb Hct MCV MCH MCHC RDW Plt Count MPV Neutrophils % Lymphocytes % Monocytes % Eosinophils % Basophils % Neutrophils # Lymphocytes # Monocytes # Eosinophils # Basophils # ESR Westergren 18 PT INR APTT Specimen Type Puncture Site Bicarbonate Actual ABG pH ABG pCO2 ABG pO2 ABG O2 Sat (Measured) ABG O2 Content ABG Base Excess ABG Hematocrit ABG Hemoglobin ABG Oxyhemoglobin ABG Carboxyhemoglobin ABG Methemoglobin ABG Deoxyhemoglobin Seb Test A-a O2 Gradient Ionized Calcium Mode of Support Mechanical Rate Inspired O2 Tidal Volume Pressure Support PEEP or CPAP Sodium Potassium Chloride Carbon Dioxide Anion Gap BUN Creatinine Estimated GFR (MDRD) Glucose POC Glucose 115 H 108 H Lactic Acid Calcium Magnesium Total Bilirubin AST ALT Alkaline Phosphatase Creatine Kinase CK-MB (CK-2) Troponin I B-Natriuretic Peptide Serum Total Protein Albumin Globulin Albumin/Globulin Ratio TSH 3rd Generation Urine Color Urine Clarity Urine pH Ur Specific [place] Urine Protein Urine Glucose (UA) Urine Ketones Urine Blood Urine Nitrite Urine Bilirubin Urine Urobilinogen Ur Leukocyte Esterase Influenza A RNA INAAT Influenza B RNA INAAT SARS-CoV-2 Rap RNA(RT-PCR) - ABG Interpretation ABG Results: ABG pH 7.53 (7.35-7.45) H 04/15/20 06:30 ABG pCO2 31.6 mmHg (35.0-45.0) L 04/15/20 06:30 ABG Base Excess 4.0 mEq/L (-2.0 to +3.0) H 04/15/20 06:30
[2020-04-15 16:19] LABS: Syphilis Antibody Nonreactive (Nonreactive); Syphilis Antibody Index 0.05 S/CO (<1.00 Non-Reactive)
[2020-04-15] MEDS ORDERED: Electrolyte Replacement Protocol FS PRN (17:45)
[2020-04-15] MEDS ORDERED: levETIRAcetam 2,000 MG in Sodium Chloride 0.9% 100 ML IVPB SCH (17:45)
[2020-04-15] MEDS ORDERED: Potassium Chloride 40 MEQ in Sodium Chloride 0.9% 250 ML 250 ML IVPB SCH (18:00)
[2020-04-15] MEDS: Sodium Chloride 0.9% 1,000 ML IV SCH (18:48)
--- NOTE | 2020-04-15 19:34 | ULT ---
CAROTID DOPPLER: 04/15/20 PROVIDED CLINICAL HISTORY: CVA. FINDINGS: Gimenez scale and color Doppler sonography with spectral analysis was performed of the extracranial [place] tid system bilaterally. There was evidence for a hemodynamically significant internal carotid artery stenosis by peak systolic velocity or ratio criteria. Antegrade flow is seen in the vertebral arterie s. IMPRESSION: No sonographic evidence for a hemodynamically significant internal carotid artery stenosis. POS: MARK
[2020-04-15] MEDS ORDERED: Rosuvastatin 20 MG TAB PO SCH (21:00)
[2020-04-15] MEDS ORDERED: Famotidine 20 MG TAB PO SCH (21:00)
[2020-04-15] MEDS: Famotidine/PF 20 mg/2ml Vial SLOW IVP SCH (23:20)
[2020-04-16 03:15] LABS: #Lymphocytes 0.9 thou/uL (1.20-3.40); #Monocytes 0.6 thou/uL (0.11-0.59); #Neutrophils 7.7 thou/uL (1.40-6.50); %Basophils 0.3 % (0.0-1.0); %Eosinophils 0.5 % (0.0-10.0); %Lymphocytes 10.1 % (21.0-51.0); %Monocytes 6.8 % (0.0-10.0); %Neutrophils 82.4 % (42.0-75.0); Hemoglobin 15.1 g/dL (12.0-16.0); Mean Corpuscular HGB CONC 32.3 g/dL (32.0-36.0); Mean Corpuscular Hemoglobin 30.7 pg (27.0-31.0); Mean Platelet Volume 9.8 fL (7.4-10.4); Platelet Count 194 thou/uL (130-400); RBC Distribution Width 16.8 % (11.5-14.5); Red Blood Cell (RBC) Count 4.91 mill/uL (4.20-5.40); White Blood Cell (WBC) Count 9.3 thou/uL (4.8-10.8)
[2020-04-16 03:37] LABS: Anion Gap 12 mmol/L (10-20); BUN (Urea Nitrogen) 16 mg/dL (9.8-20.1); Calc. Creatinine Clearance 87 mL/min (70-130); Calcium 8.9 mg/dL (7.8-10.44); Carbon Dioxide 27 mmol/L (23-31); Cardiac Risk 5.1 (Less than 4.5); Chloride 108 mmol/L (98-107); Cholesterol 183 mg/dl (< 200 Desired); Glucose 87 mg/dL (83-110); HDL Cholesterol 36 mg/dL (>60 Neg Risk); LDL Cholesterol, Calculated 124 mg/dL; Magnesium 2.4 mg/dL (1.6-2.6); Potassium 3.8 mmol/L (3.5-5.1); Sodium 143 mmol/L (136-145); Triglycerides 115 mg/dL (Less than 150)
[2020-04-16] MEDS: Sodium Chloride 0.9% 1,000 ML IV SCH ×2 (05:19→18:09)
[2020-04-16] MEDS ORDERED: levETIRAcetam in NS 1,000 MG in Premix Bag 1 BAG IVPB SCH (06:00)
[2020-04-16] MEDS: Ondansetron PF 4 MG/2 ML Vial IVP PRN (06:04)
--- NOTE | 2020-04-16 08:55 | PDOC.PULCC ---
CCU Progress Note: Subj/Obj - Subjective Date: 04/16/20 Time: 08:40 Subjective: see dictated note [id number] - Objective Allergies/Adverse Reactions: Allergies Allergy/AdvReac Type Severity Reaction Status Date / Time No Known Allergies Allergy Verified 04/09/20 09:08 Medications: Current Medications Acetaminophen (Acetaminophen 650 Mg Suppository) 650 mg [place] Q4H PRN PRN Reason: Headache/Fever/Mild Pain (1-3) Acetaminophen (Acetaminophen 325 Mg Tab) 650 mg PO Q4H PRN PRN Reason: Headache/Fever/Mild Pain (1-3) Last Admin: 04/15/20 01:30 Dose: 650 mg Documented by: Amiodarone HCl (Amiodarone 200 Mg Tab) 200 mg PO DAILY ZANE Aspirin (Aspirin 81 Mg Enteric Coated Tablet) 81 mg PO DAILY ZANE Famotidine (Famotidine 20 Mg Tab) 20 mg PO DAILY ZANE Sodium Chloride (Normal Saline 0.9%) 1,000 mls @ 100 mls/hr IV .Q10H ZANE Last Admin: 04/16/20 05:19 Dose: 1,000 mls Documented by: Levetiracetam 500 mg/ Device 100 mls @ 200 mls/hr IVPB 0600,1800 ZANE Metoprolol Tartrate (Metoprolol Tartrate 25 Mg Tab) 12.5 mg PO BID ZANE Last Admin: 04/16/20 08:21 Dose: Not Given Documented by: Miscellaneous Medication (Electrolyte Replacement Protocol) 0 each FS ASDIR PRN; Protocol PRN Reason: ELECTROLYTE REPLACEMENT Morphine Sulfate (Morphine 2 Mg/Ml Vial) 2 mg SLOW IVP Q1H PRN PRN Reason: Breakthrough Pain/Agitation Stop: 05/14/20 15:30 Ondansetron HCl (Ondansetron Pf 4 Mg/2 Ml Vial) 4 mg IVP Q6H PRN PRN Reason: Nausea/Vomiting Last Admin: 04/16/20 06:04 Dose: 4 mg Documented by: Vital Signs and I&O: Vital Signs Temp 100.2 F H 04/15/20 02:00 Pulse 75 04/15/20 14:40 Resp 23 H 04/15/20 14:40 BP 161/120 H 04/15/20 14:40 Pulse Ox 95 04/16/20 06:30 Intake & Output 04/15/20 04/16/20 04/16/20 18:59 06:59 18:59 Intake Total 37 1615 Output Total 1427 382 Balance -1390 1233 Weight 166 lb 3.657 oz Intake: Intake, IV Amount 7 1615 Fentanyl CADD 100 ml @ 7 Per Protocol IV INF ZANE Rx#:[id number] Magnesium 2 GM/50 ML 2 gm 50 In Premix Bag 1 bag @ 50 mls/hr IVPB NOW ZANE Rx#: [id number] Potassium Chloride 40 meq 265 In Sodium Chloride 0.9% 250 ML 250 ml @ 67.5 mls/ hr IVPB NOW ZANE Rx#: [id number] Sodium Chloride 0.9% 1, 1200 000 ml @ 100 mls/hr IV . Q10H ZANE Rx#:[id number] levETIRAcetam in NS 1,000 100 mg In Premix Bag 1 bag @ 200 mls/hr IVPB 0600, 1800 ZANE Rx#:[id number] Oral 30 Output: Output, Dodd 1425 382 Emesis 2 Other: Voiding Method Indwelling Catheter # Bowel Movements 0 CCU Progress Note: Data - Labs Result Diagrams: 04/16/20 02:58 04/16/20 02:58 Lab results: Laboratory Results 04/14/20 04/14/20 04/14/20 10:38 10:38 10:40 WBC 10.3 RBC 5.04 Hgb 15.9 Hct 48.0 H MCV 95.2 MCH 31.6 H MCHC 33.2 RDW 16.6 H Plt Count 175 MPV 9.6 Neutrophils % 86.7 H Lymphocytes % 8.4 L Monocytes % 4.3 Eosinophils % 0.4 Basophils % 0.1 Neutrophils # 8.9 H Lymphocytes # 0.9 L Monocytes # 0.4 Eosinophils # 0.0 Basophils # 0.0 ESR Westergren PT INR APTT Specimen Type Puncture Site Bicarbonate Actual ABG pH ABG pCO2 ABG pO2 ABG O2 Sat (Measured) ABG O2 Content ABG Base Excess ABG Hematocrit ABG Hemoglobin ABG Oxyhemoglobin ABG Carboxyhemoglobin ABG Methemoglobin ABG Deoxyhemoglobin Seb Test A-a O2 Gradient Ionized Calcium Mode of Support Mechanical Rate Inspired O2 Tidal Volume Pressure Support PEEP or CPAP Sodium 142 Potassium 3.7 Chloride 106 Carbon Dioxide 26 Anion Gap 14 BUN 10 Creatinine 0.69 Estimated GFR (MDRD) 84 Glucose 147 H POC Glucose Lactic Acid Calcium 8.3 Magnesium Total Bilirubin 1.2 AST 25 ALT 19 Alkaline Phosphatase 96 Creatine Kinase CK-MB (CK-2) Troponin I B-Natriuretic Peptide Serum Total Protein 6.4 Albumin 3.9 Globulin 2.5 Albumin/Globulin Ratio 1.6 Triglycerides Cholesterol LDL Cholesterol, Calc HDL Cholesterol Heart Disease Risk Ratio TSH 3rd Generation Urine Color Yellow Urine Clarity Clear Urine pH 6.0 Ur Specific [place] 1.020 Urine Protein Negative Urine Glucose (UA) Negative Urine Ketones Negative Urine Blood Negative Urine Nitrite Negative Urine Bilirubin Negative Urine Urobilinogen 0.2 Ur Leukocyte Esterase Negative Syphilis IgG/IgM Ab Influenza A RNA INAAT Influenza B RNA INAAT SARS-CoV-2 Rap RNA(RT-PCR) 04/14/20 04/14/20 04/14/20 10:50 10:51 10:51 WBC RBC Hgb Hct MCV MCH MCHC RDW Plt Count MPV Neutrophils % Lymphocytes % Monocytes % Eosinophils % Basophils % Neutrophils # Lymphocytes # Monocytes # Eosinophils # Basophils # ESR Westergren PT 16.8 H INR 1.3 APTT 29.3 Specimen Type ARTERIAL Puncture Site LBA Bicarbonate Actual 26.8 ABG pH 7.35 ABG pCO2 49.4 H ABG pO2 77.9 H ABG O2 Sat (Measured) 94.8 ABG O2 Content 21.5 H ABG Base Excess 0.4 ABG Hematocrit 48.0 H ABG Hemoglobin 16.3 H ABG Oxyhemoglobin 93.6 L ABG Carboxyhemoglobin 0.6 ABG Methemoglobin 0.70 ABG Deoxyhemoglobin 5.1 H Seb Test NOT DONE A-a O2 Gradient 288.150 H Ionized Calcium 1.18 Mode of Support PSIMV Mechanical Rate 16 Inspired O2 60 Tidal Volume 450 Pressure Support 10 PEEP or CPAP 7.0 Sodium 141 Potassium 3.35 L Chloride 104 Carbon Dioxide Anion Gap BUN Creatinine Estimated GFR (MDRD) Glucose POC Glucose Lactic Acid Calcium Magnesium Total Bilirubin AST ALT Alkaline Phosphatase Creatine Kinase CK-MB (CK-2) 2.9 Troponin I 0.062 H B-Natriuretic Peptide Serum Total Protein Albumin Globulin Albumin/Globulin Ratio Triglycerides Cholesterol LDL Cholesterol, Calc HDL Cholesterol Heart Disease Risk Ratio TSH 3rd Generation Urine Color Urine Clarity Urine pH Ur Specific [place] Urine Protein Urine Glucose (UA) Urine Ketones Urine Blood Urine Nitrite Urine Bilirubin Urine Urobilinogen Ur Leukocyte Esterase Syphilis IgG/IgM Ab Influenza A RNA INAAT Influenza B RNA INAAT SARS-CoV-2 Rap RNA(RT-PCR) 04/14/20 04/14/20 04/14/20 10:54 11:02 11:06 WBC RBC Hgb Hct MCV MCH MCHC RDW Plt Count MPV Neutrophils % Lymphocytes % Monocytes % Eosinophils % Basophils % Neutrophils # Lymphocytes # Monocytes # Eosinophils # Basophils # ESR Westergren PT INR APTT Specimen Type Puncture Site Bicarbonate Actual ABG pH ABG pCO2 ABG pO2 ABG O2 Sat (Measured) ABG O2 Content ABG Base Excess ABG Hematocrit ABG Hemoglobin ABG Oxyhemoglobin ABG Carboxyhemoglobin ABG Methemoglobin ABG Deoxyhemoglobin Seb Test A-a O2 Gradient Ionized Calcium Mode of Support Mechanical Rate Inspired O2 Tidal Volume Pressure Support PEEP or CPAP Sodium Potassium Chloride Carbon Dioxide Anion Gap BUN Creatinine Estimated GFR (MDRD) Glucose POC Glucose Lactic Acid Calcium Magnesium 1.9 Total Bilirubin AST ALT Alkaline Phosphatase Creatine Kinase 80 CK-MB (CK-2) Troponin I B-Natriuretic Peptide Serum Total Protein Albumin Globulin Albumin/Globulin Ratio Triglycerides Cholesterol LDL Cholesterol, Calc HDL Cholesterol Heart Disease Risk Ratio TSH 3rd Generation 3.2759 Urine Color Urine Clarity Urine pH Ur Specific [place] Urine Protein Urine Glucose (UA) Urine Ketones Urine Blood Urine Nitrite Urine Bilirubin Urine Urobilinogen Ur Leukocyte Esterase Syphilis IgG/IgM Ab Influenza A RNA INAAT Not Detected Influenza B RNA INAAT Not Detected SARS-CoV-2 Rap RNA(RT-PCR) Not Detected 04/14/20 04/14/20 04/14/20 11:06 11:06 14:11 WBC RBC Hgb Hct MCV MCH MCHC RDW Plt Count MPV Neutrophils % Lymphocytes % Monocytes % Eosinophils % Basophils % Neutrophils # Lymphocytes # Monocytes # Eosinophils # Basophils # ESR Westergren PT INR APTT Specimen Type Puncture Site Bicarbonate Actual ABG pH ABG pCO2 ABG pO2 ABG O2 Sat (Measured) ABG O2 Content ABG Base Excess ABG Hematocrit ABG Hemoglobin ABG Oxyhemoglobin ABG Carboxyhemoglobin ABG Methemoglobin ABG Deoxyhemoglobin Seb Test A-a O2 Gradient Ionized Calcium Mode of Support Mechanical Rate Inspired O2 Tidal Volume Pressure Support PEEP or CPAP Sodium Potassium Chloride Carbon Dioxide Anion Gap BUN Creatinine Estimated GFR (MDRD) Glucose POC Glucose Lactic Acid 1.2 Calcium Magnesium Total Bilirubin AST ALT Alkaline Phosphatase Creatine Kinase CK-MB (CK-2) Troponin I 0.067 H B-Natriuretic Peptide 821.7 H Serum Total Protein Albumin Globulin Albumin/Globulin Ratio Triglycerides Cholesterol LDL Cholesterol, Calc HDL Cholesterol Heart Disease Risk Ratio TSH 3rd Generation Urine Color Urine Clarity Urine pH Ur Specific [place] Urine Protein Urine Glucose (UA) Urine Ketones Urine Blood Urine Nitrite Urine Bilirubin Urine Urobilinogen Ur Leukocyte Esterase Syphilis IgG/IgM Ab Influenza A RNA INAAT Influenza B RNA INAAT SARS-CoV-2 Rap RNA(RT-PCR) 04/14/20 04/14/20 04/15/20 15:42 16:47 03:38 WBC RBC Hgb Hct MCV MCH MCHC RDW Plt Count MPV Neutrophils % Lymphocytes % Monocytes % Eosinophils % Basophils % Neutrophils # Lymphocytes # Monocytes # Eosinophils # Basophils # ESR Westergren PT INR APTT Specimen Type Puncture Site Bicarbonate Actual ABG pH ABG pCO2 ABG pO2 ABG O2 Sat (Measured) ABG O2 Content ABG Base Excess ABG Hematocrit ABG Hemoglobin ABG Oxyhemoglobin ABG Carboxyhemoglobin ABG Methemoglobin ABG Deoxyhemoglobin Seb Test A-a O2 Gradient Ionized Calcium Mode of Support Mechanical Rate Inspired O2 Tidal Volume Pressure Support PEEP or CPAP Sodium 141 Potassium 3.3 L Chloride 107 Carbon Dioxide 23 Anion Gap 14 BUN 18 Creatinine 0.78 Estimated GFR (MDRD) 73 Glucose 106 POC Glucose 130 H Lactic Acid Calcium 8.9 Magnesium Total Bilirubin AST ALT Alkaline Phosphatase Creatine Kinase CK-MB (CK-2) Troponin I 0.066 H B-Natriuretic Peptide Serum Total Protein Albumin Globulin Albumin/Globulin Ratio Triglycerides Cholesterol LDL Cholesterol, Calc HDL Cholesterol Heart Disease Risk Ratio TSH 3rd Generation Urine Color Urine Clarity Urine pH Ur Specific [place] Urine Protein Urine Glucose (UA) Urine Ketones Urine Blood Urine Nitrite Urine Bilirubin Urine Urobilinogen Ur Leukocyte Esterase Syphilis IgG/IgM Ab Influenza A RNA INAAT Influenza B RNA INAAT SARS-CoV-2 Rap RNA(RT-PCR) 04/15/20 04/15/20 04/15/20 03:38 06:30 12:50 WBC 8.4 RBC 4.72 Hgb 14.4 Hct 43.8 MCV 92.8 MCH 30.6 MCHC 33.0 RDW 16.8 H Plt Count 201 MPV 9.9 Neutrophils % 81.6 H Lymphocytes % 12.6 L Monocytes % 5.2 Eosinophils % 0.4 Basophils % 0.2 Neutrophils # 6.9 H Lymphocytes # 1.1 L Monocytes # 0.4 Eosinophils # 0.0 Basophils # 0.0 ESR Westergren PT INR APTT Specimen Type ARTERIAL Puncture Site LRA Bicarbonate Actual 26.0 ABG pH 7.53 H ABG pCO2 31.6 L ABG pO2 69.7 ABG O2 Sat (Measured) 95.1 ABG O2 Content 20.3 ABG Base Excess 4.0 H ABG Hematocrit 45.0 ABG Hemoglobin 15.4 ABG Oxyhemoglobin 94.0 ABG Carboxyhemoglobin 0.9 ABG Methemoglobin 0.30 ABG Deoxyhemoglobin 4.8 H Seb Test POSITIVE A-a O2 Gradient 176.000 H Ionized Calcium 1.19 Mode of Support SIMV.PSV Mechanical Rate 16 Inspired O2 40 Tidal Volume 450 Pressure Support 10 PEEP or CPAP 5.0 Sodium 141 Potassium 3.22 L 3.1 L Chloride 107 H Carbon Dioxide Anion Gap BUN Creatinine Estimated GFR (MDRD) Glucose POC Glucose Lactic Acid Calcium Magnesium Total Bilirubin AST ALT Alkaline Phosphatase Creatine Kinase CK-MB (CK-2) Troponin I B-Natriuretic Peptide Serum Total Protein Albumin Globulin Albumin/Globulin Ratio Triglycerides Cholesterol LDL Cholesterol, Calc HDL Cholesterol Heart Disease Risk Ratio TSH 3rd Generation Urine Color Urine Clarity Urine pH Ur Specific [place] Urine Protein Urine Glucose (UA) Urine Ketones Urine Blood Urine Nitrite Urine Bilirubin Urine Urobilinogen Ur Leukocyte Esterase Syphilis IgG/IgM Ab Influenza A RNA INAAT Influenza B RNA INAAT SARS-CoV-2 Rap RNA(RT-PCR) 04/15/20 04/15/20 04/15/20 14:22 14:38 15:20 WBC RBC Hgb Hct MCV MCH MCHC RDW Plt Count MPV Neutrophils % Lymphocytes % Monocytes % Eosinophils % Basophils % Neutrophils # Lymphocytes # Monocytes # Eosinophils # Basophils # ESR Westergren 18 PT INR APTT Specimen Type Puncture Site Bicarbonate Actual ABG pH ABG pCO2 ABG pO2 ABG O2 Sat (Measured) ABG O2 Content ABG Base Excess ABG Hematocrit ABG Hemoglobin ABG Oxyhemoglobin ABG Carboxyhemoglobin ABG Methemoglobin ABG Deoxyhemoglobin Seb Test A-a O2 Gradient Ionized Calcium Mode of Support Mechanical Rate Inspired O2 Tidal Volume Pressure Support PEEP or CPAP Sodium Potassium Chloride Carbon Dioxide Anion Gap BUN Creatinine Estimated GFR (MDRD) Glucose POC Glucose 115 H 108 H Lactic Acid Calcium Magnesium Total Bilirubin AST ALT Alkaline Phosphatase Creatine Kinase CK-MB (CK-2) Troponin I B-Natriuretic Peptide Serum Total Protein Albumin Globulin Albumin/Globulin Ratio Triglycerides Cholesterol LDL Cholesterol, Calc HDL Cholesterol Heart Disease Risk Ratio TSH 3rd Generation Urine Color Urine Clarity Urine pH Ur Specific [place] Urine Protein Urine Glucose (UA) Urine Ketones Urine Blood Urine Nitrite Urine Bilirubin Urine Urobilinogen Ur Leukocyte Esterase Syphilis IgG/IgM Ab Influenza A RNA INAAT Influenza B RNA INAAT SARS-CoV-2 Rap RNA(RT-PCR) 04/15/20 04/15/20 04/16/20 15:20 18:57 02:58 WBC RBC Hgb Hct MCV MCH MCHC RDW Plt Count MPV Neutrophils % Lymphocytes % Monocytes % Eosinophils % Basophils % Neutrophils # Lymphocytes # Monocytes # Eosinophils # Basophils # ESR Westergren PT INR APTT Specimen Type Puncture Site Bicarbonate Actual ABG pH ABG pCO2 ABG pO2 ABG O2 Sat (Measured) ABG O2 Content ABG Base Excess ABG Hematocrit ABG Hemoglobin ABG Oxyhemoglobin ABG Carboxyhemoglobin ABG Methemoglobin ABG Deoxyhemoglobin Seb Test A-a O2 Gradient Ionized Calcium Mode of Support Mechanical Rate Inspired O2 Tidal Volume Pressure Support PEEP or CPAP Sodium 143 Potassium 3.8 Chloride 108 H Carbon Dioxide 27 Anion Gap 12 BUN 16 Creatinine 0.71 Estimated GFR (MDRD) 81 Glucose 87 POC Glucose 106 H Lactic Acid Calcium 8.9 Magnesium 2.4 Total Bilirubin AST ALT Alkaline Phosphatase Creatine Kinase CK-MB (CK-2) Troponin I B-Natriuretic Peptide Serum Total Protein Albumin Globulin Albumin/Globulin Ratio Triglycerides 115 Cholesterol 183 LDL Cholesterol, Calc 124 HDL Cholesterol 36 Heart Disease Risk Ratio 5.1 TSH 3rd Generation Urine Color Urine Clarity Urine pH Ur Specific [place] Urine Protein Urine Glucose (UA) Urine Ketones Urine Blood Urine Nitrite Urine Bilirubin Urine Urobilinogen Ur Leukocyte Esterase Syphilis IgG/IgM Ab Nonreactive Influenza A RNA INAAT Influenza B RNA INAAT SARS-CoV-2 Rap RNA(RT-PCR) 04/16/20 04/16/20 04/16/20 02:58 02:58 06:32 WBC 9.3 RBC 4.91 Hgb 15.1 Hct 46.7 MCV 95.0 MCH 30.7 MCHC 32.3 RDW 16.8 H Plt Count 194 MPV 9.8 Neutrophils % 82.4 H Lymphocytes % 10.1 L Monocytes % 6.8 Eosinophils % 0.5 Basophils % 0.3 Neutrophils # 7.7 H Lymphocytes # 0.9 L Monocytes # 0.6 H Eosinophils # 0.0 Basophils # 0.0 ESR Westergren PT INR APTT Specimen Type Puncture Site Bicarbonate Actual ABG pH ABG pCO2 ABG pO2 ABG O2 Sat (Measured) ABG O2 Content ABG Base Excess ABG Hematocrit ABG Hemoglobin ABG Oxyhemoglobin ABG Carboxyhemoglobin ABG Methemoglobin ABG Deoxyhemoglobin Sbe Test A-a O2 Gradient Ionized Calcium Mode of Support Mechanical Rate Inspired O2 Tidal Volume Pressure Support PEEP or CPAP Sodium Potassium Chloride Carbon Dioxide Anion Gap BUN Creatinine Estimated GFR (MDRD) Glucose POC Glucose 78 Lactic Acid Calcium Magnesium Total Bilirubin AST ALT Alkaline Phosphatase Creatine Kinase CK-MB (CK-2) Troponin I B-Natriuretic Peptide 1325.4 H Serum Total Protein Albumin Globulin Albumin/Globulin Ratio Triglycerides Cholesterol LDL Cholesterol, Calc HDL Cholesterol Heart Disease Risk Ratio TSH 3rd Generation Urine Color Urine Clarity Urine pH Ur Specific [place] Urine Protein Urine Glucose (UA) Urine Ketones Urine Blood Urine Nitrite Urine Bilirubin Urine Urobilinogen Ur Leukocyte Esterase Syphilis IgG/IgM Ab Influenza A RNA INAAT Influenza B RNA INAAT SARS-CoV-2 Rap RNA(RT-PCR) 04/16/20 08:25 WBC RBC Hgb Hct MCV MCH MCHC RDW Plt Count MPV Neutrophils % Lymphocytes % Monocytes % Eosinophils % Basophils % Neutrophils # Lymphocytes # Monocytes # Eosinophils # Basophils # ESR Westergren PT INR APTT Specimen Type Puncture Site Bicarbonate Actual ABG pH ABG pCO2 ABG pO2 ABG O2 Sat (Measured) ABG O2 Content ABG Base Excess ABG Hematocrit ABG Hemoglobin ABG Oxyhemoglobin ABG Carboxyhemoglobin ABG Methemoglobin ABG Deoxyhemoglobin Seb Test A-a O2 Gradient Ionized Calcium Mode of Support Mechanical Rate Inspired O2 Tidal Volume Pressure Support PEEP or CPAP Sodium Potassium Chloride Carbon Dioxide Anion Gap BUN Creatinine Estimated GFR (MDRD) Glucose POC Glucose 80 Lactic Acid Calcium Magnesium Total Bilirubin AST ALT Alkaline Phosphatase Creatine Kinase CK-MB (CK-2) Troponin I B-Natriuretic Peptide Serum Total Protein Albumin Globulin Albumin/Globulin Ratio Triglycerides Cholesterol LDL Cholesterol, Calc HDL Cholesterol Heart Disease Risk Ratio TSH 3rd Generation Urine Color Urine Clarity Urine pH Ur Specific [place] Urine Protein Urine Glucose (UA) Urine Ketones Urine Blood Urine Nitrite Urine Bilirubin Urine Urobilinogen Ur Leukocyte Esterase Syphilis IgG/IgM Ab Influenza A RNA INAAT Influenza B RNA INAAT SARS-CoV-2 Rap RNA(RT-PCR) - ABG Interpretation ABG Results: ABG pH 7.53 (7.35-7.45) H 04/15/20 06:30 ABG pCO2 31.6 mmHg (35.0-45.0) L 04/15/20 06:30 ABG Base Excess 4.0 mEq/L (-2.0 to +3.0) H 04/15/20 06:30
[2020-04-16] MEDS ORDERED: Aspirin 81 mg Enteric Coated Tablet PO SCH (09:00)
[2020-04-16] MEDS ORDERED: Amiodarone 200 MG TAB PO SCH (09:00)
[2020-04-16] MEDS ORDERED: Famotidine 20 MG TAB PO SCH (09:00)
[2020-04-16] MEDS ORDERED: Metoprolol Tartrate 25 MG TAB PO SCH (09:00)
[2020-04-16] MEDS ORDERED: Sodium Chloride 3% 500 ML IVPB SCH (09:15)
--- NOTE | 2020-04-16 09:21 | PRG ---
DATE OF SERVICE: 04/16/2020 SUBJECTIVE: This patient remains extubated but has been diagnosed with a fairly significant stroke by CT scan. She has a right posterior cerebellar artery distribution infarct. She has profound dysarthria. She has some left-sided arm weakness and leg weakness, but can move those extremities. OBJECTIVE: VITAL SIGNS: Her temperature is 99.7, pulse 70, blood pressure 142/113. HEENT: She can follow with her eyes. Oropharynx has facial droop. NECK: No adenopathy or JVD. LUNGS: Clear. CARDIAC: S1 and S2. Regular. ABDOMEN: Soft. EXTREMITIES: Trace edema. LABORATORY DATA: White blood cell count 9.3, hematocrit 46, platelet count 194. Sodium 143, potassium 3.8, chloride 108, CO2 of 27, BUN 16, creatinine 0.7, glucose 87. BNP 1325. ASSESSMENT: 1. Cerebrovascular accident. 2. Status post respiratory failure requiring mechanical ventilation. 3. Acute diastolic heart failure. 4. History of pericardial window. 5. Hypertrophic cardiomyopathy. PLAN: Her prognosis from a neurologic standpoint is quite poor. It does not look like she needs to be reintubated, but she will need to be watched closely as she is at risk for this to happen. Will eventually need to consider putting a Dobhoff tube in starting tube feeds. Need to discuss with family the possibility of a DNR status as the patient is unlikely do well. Job ID: [id number]
[2020-04-16] MEDS ORDERED: Famotidine/PF 20 mg/2ml Vial SLOW IVP SCH (09:45)
--- NOTE | 2020-04-16 09:52 | PRG ---
DATE OF SERVICE: 04/16/2020 TIME: 08:40 a.m. SUBJECTIVE: The patient is able to answer some questions. She has an ineffective cause for clearance of upper airway secretions. She has remained n.p.o. since discovery of an extensive temporo-occipital ischemic stroke on 04/15/2020. No additional seizure activity has been noted, the patient was placed on Keppra on 04/15/2020. The case was discussed this morning with Cardiology and the attending physician. She is examined completely. OBJECTIVE: VITAL SIGNS: The patient has a T-max of 100.8. HEAD AND NECK: The patient has a left-sided gaze paresis. Pupils are equal. She has a left-sided motor weakness as well. Her oropharynx is extremely dry. Tongue is dry. She is asking for water. When slight a bit of water was given to her with sponge, she had extreme dysphagia and cannot take anything by mouth. Neck is supple. No bruits. LUNGS: Clear. CARDIAC: Regular rate and rhythm. There is a systolic short early ejection murmur at the left sternal border. No rub, click or gallop. ABDOMEN: Protuberant, soft without hepatosplenomegaly, hypoactive bowel sounds. EXTREMITIES: Without clubbing, cyanosis, edema. : Dodd catheter in place with a pink sediment. Urine is kennedy in color. SKIN: There are no rashes or lesions noted. The patient is currently undergoing EEG monitoring. LABORATORY DATA: Normal UA. CBC with a hemoglobin of 15, white count 9.3, platelets 194, neutrophils 82%. Chemistry showed a sodium of 143, potassium 3.8, chloride 108, bicarbonate 27, BUN 12, creatinine 0.7, glucose is ranging 78 to 106. BNP is 1325. Triglycerides 115, cholesterol 183, LDL 124, HDL 36. TSH 3.2. Serologies negative for syphilis. IMPRESSION: 1. Extensive right hemispheric temporo-occipital ischemic stroke. 2. Severe dysphagia. 3. History of atrial fibrillation now in sinus rhythm. 4. Hypertrophic cardiomyopathy. 5. Hypertension with plans to maintain MAP 90 to 110 today and start decreasing tomorrow. 6. At risk of hypoglycemia since she is n.p.o. 7. Pericardial effusion, discussed with Cardiology and plans are to address further delayed date. PLAN: 1. Continue IV fluids to keep her sodium in the 140s. She is currently at 143, so we will continue saline and add small amount of 3% about 100 mL of 3% today. 2. Continue Accu-Chek every 6 hours to avoid hypoglycemia. 3. Suggest we do not manipulate her airway at this time as she is quite fragile and wait to provide nutrition. The alternative is to place a percutaneous gastrostomy through Radiology or Surgery. 4. Decrease blood pressure tomorrow. 5. Monitor electrolytes. 6. Check Keppra level and have reduced the dose to 500 every 12 hours. 7. Mechanical DVT prophylaxis. 8. Stress ulcer prophylaxis, IV Pepcid. 9. Awaiting Neurology interpretation of her EEG due to possible seizure. 10. Hold diuretics for now as her input and output is no excessively positive. She is being maintained just above her insensible losses. High risk of requiring endotracheal intubation. I have discussed with the nurses about oral care and we will continue to monitor closely in ICU. She is scheduled to have an MRI/MRA today per Dr. Shabazz. Coordinate care with Neurology, Cardiology and Primary Service. Critical care time at bedside 45 minutes, now overlap. Job ID: [id number]
[2020-04-16] MEDS: Famotidine/PF 20 mg/2ml Vial SLOW IVP SCH (09:54)
--- NOTE | 2020-04-16 10:39 | PDOC.EEG ---
Neurology EEG Report - Report Report: This EEG was performed using 24 channel [employer] video EEG machine with 24 disc electrodes. This was an extended 2 hours 9 minutes of inpatient video EEG recording. Digital analysis of the EEG was done for spike and seizure detection which revealed no abnormalities. Background: The posterior background rhythm is not observed. Excessive beta activity seen intermixed with the background. Hyperventilation: Not performed. Photic Stimulation: No significant response. Sleep: No stage change is observed. EEG Diagnosis: Generalized irregular theta delta activity with superimposed beta seen during the recording. Absence of posterior background rhythm. Clinical Interpretation: This EEG is consistent with moderate generalized nonspecific cerebral dysfunction. No electrographic seizures captured during the recording.
--- NOTE | 2020-04-16 12:11 | PDOC.PALCO ---
Palliative Care Consult - Consult Details Requesting Physician: Dr Shabazz Reason for Consult: goals of care, assistance with communication prognosis/disease, family support - Pertinent HPI 75 year old who had a recent cardioversion 3 days prior to event on 04/14.Beckie rtness of breath onset evening after procedures and progressively became worse. She had continued increase in shortness of breath and the daughter was driving her mother to the emergency room for shortness of breath, enroute patient lost consciousness and daughter pulled over and called 911. EMS presented and patient was intubated and transported to the emergency room for further evaluation. Most recent hospitalization was 12/2019 for CHF exacerbation. In review of records and obtaining history from daughter patient also has sought health care in [place], unknown medications. ECHO in 12/2019 identified LVH and pericardial effusion. Identified to have a temporo-occipital ischemic stroke. Currently extubated, not engaging at time of my assessment. - Pertinent PMH Chronic diastolic heart failure, HTN, Atria fib, pericardial effusio, CKD, Obesity BMI 31 - Social History Smoking Status: Never smoker Smoking: no tobacco exposure Alcohol Use: none Drug Use History: none Living Situation: independent, other - Medications MAR Reviewed: Yes - Allergies Allergies/Adverse Reactions: Allergies Allergy/AdvReac Type Severity Reaction Status Date / Time No Known Allergies Allergy Verified 04/09/20 09:08 - Subjective Lethargic, unable to participate in exam, not decisional. Daughter Germaine at bedside. - ROS Non Response: due to mental status - Objective Vital Signs: Vital Signs - Most Recent Temp Pulse Resp BP Pulse Ox 100.2 F H 75 23 H 161/120 H 95 04/15/20 02:00 04/15/20 14:40 04/15/20 14:40 04/15/20 14:40 04/16/20 06:30 Palliative Performance Scale: 30 - Physical Exam Constitutional: confusion, ill appearing, mild distress HEENT: moist MMs, sclera anicteric Respiratory: no rales, no rhonchi, no wheezing Deviation from normal: shallow Cardiovascular: RRR Gastrointestinal: soft, non-tender, positive bowel sounds Genitourinary: raza catheter Deviation from normal: scant edema Neurology: facial droop, hemiplegia Deviation from normal: left sided weakness, difficulity clearing secretions. Skin: cap refill <2 seconds Deviation from normal: unable to appreciate orientation - Problem List (1) Palliative care encounter Code(s): Z51.5 - ENCOUNTER FOR PALLIATIVE CARE Current Visit: Yes Status: Acute (2) Acute CVA (cerebrovascular accident) Code(s): I63.9 - CEREBRAL INFARCTION, UNSPECIFIED Current Visit: Yes Status: Acute (3) Diastolic CHF Code(s): I50.30 - UNSPECIFIED DIASTOLIC (CONGESTIVE) HEART FAILURE Current Visit: Yes Status: Chronic Qualifiers: Heart failure chronicity: acute on chronic Qualified Code(s): I50.33 - Acute on chronic diastolic (congestive) heart failure (4) Dyslipidemia Code(s): E78.5 - HYPERLIPIDEMIA, UNSPECIFIED Current Visit: Yes Status: Chronic (5) Hypertrophic cardiomyopathy Code(s): I42.2 - OTHER HYPERTROPHIC CARDIOMYOPATHY Current Visit: Yes Status: Chronic (6) Obesity (BMI 30.0-34.9) Code(s): E66.9 - OBESITY, UNSPECIFIED Current Visit: Yes Status: Chronic - Plan/Recommendations Plan: Discussed patient with Dr Shabazz Introduced palliative care. Identified Surrogate decision maker. Family agreed to allow Katherine Ignacio be surrogate decision maker. Please see Palliative Care notes in note section. Discussed current complex medical issues and "Hope for the best but family also needs to consider unfavorable outcomes". Encouraged Katherine Ignacio to discuss with her siblings what their mother would desire if she has a poor prognosis or declines. Short life review - Ms Carlson is known for generous love to her family. Multiple grandchildren. Loves to cook, visit over meals and coffee. Kim based and non lutheran Scientologist family. [70] minutes spent on this encounter with >50% of the time in counseling and coordination of care. Thank you for this very appropriate consult.
--- NOTE | 2020-04-16 12:49 | PRG ---
DATE OF SERVICE: 04/16/2020 SUBJECTIVE: Ms. Jones yesterday was extubated. She developed significant unilateral weakness. CT scan confirmed a large ischemic stroke. The patient did appear to be on a Coumadin up until yesterday morning. She recently underwent a cardioversion on 04/12/2020. She has been in sinus rhythm. OBJECTIVE: VITAL SIGNS: Blood pressure 169/82, pulse 66, temperature afebrile. LUNGS: Clear to auscultation. HEART: Regular rate and rhythm. ABDOMEN: Soft, nontender, nondistended. EXTREMITIES: No edema. NEUROLOGIC: Left-sided weakness. PERTINENT LABORATORY DATA: Hemoglobin 15.1, hematocrit 46.7. IMPRESSION: 1. Recent cerebrovascular accident, ischemic. 2. Hypertrophic cardiomyopathy. 3. Atrial fibrillation, status post cardioversion. RECOMMENDATIONS: After discussing case with Dr. Goins, it appears her stroke was consistent with ischemic stroke based on the distribution. We will await MRI results. Given her large CVA present on CT scan, we will need to hold anticoagulation therapy in order to not transform into a hemorrhagic stroke. Unfortunately, prognosis appears poor. We will continue support. ADDENDUM: Spoke with Dr. Carlson. CVA appears to be ischemic and not embolic. Given she is still in SR, we will not continue ACT given risk of conversion to hemmorhagic SVA given large distribution. If she converts to afib, may consider restarting ACT but risk hemmorhagic CVA. I spoke with Kimberley and all questions were answered. Job ID: [id number] MTDD
--- NOTE | 2020-04-16 12:56 | MRI ---
MRI BRAIN NONCONTRAST: DATE: 04/16/2020. HISTORY: A 74-year-old female with acute stroke. Left-sided weakness and gaze deficit. Unresponsive, altered mental status. COMPARISON: No prior MRI of brain. CT of 04/15/2020 available. FINDINGS: As demonstrated on the CT, there is a large, confluent, contiguous region of cytotoxic edema, which h as strongly restricted diffusion, from the anterior temporal lobe, through the posteromedial temporal lobe, and throughout the right occipital lobe. This also involves essentially the entire right thal amus. There is mild mass effect caused by this edema at the thalamus, with the medial edge of the ri ght thalamus crossing the midline to the left a distance of approximately 0.4 cm. There is mild to m oderate effacement of the trigone of the right lateral ventricle. No ventricular dilation; no obstru ctive hydrocephalus. This large acute infarction on the right represents essentially the entire righ t BRICK PITCHER territory, including right thalamoperforators. There are additional regions of cytotoxic edema with restricted diffusion involving large upper porti ons of the bilateral cerebellar hemispheres, right greater than left (bilateral superior cerebellar a rtery territories). There is a 2.5 x 1.5 cm wedge-shaped focus of cytotoxic edema with restricted diffusion at the green end worker ior aspect of the mid left cerebellar hemisphere (left PICA territory). No recent or remote major intraaxial hemorrhage. No extraaxial fluid collection. No shift of the re st of the septum pellucidum. Basal cisterns are clear and patent. IMPRESSION: Large acute infarctions of posterior circulation: 1. Large acute infarction involving entire right BRICK PITCHER (posterior cerebral artery) territory. 2. Acute infarctions involving large portions of the bilateral superior cerebellar artery territorie s, right greater than left. 3. Acute infarction at left PICA (posterior-inferior cerebellar artery) territory. 4. No intracranial hemorrhage. CODEY [place]agg POS: RILEY
--- NOTE | 2020-04-16 14:28 | CON ---
NEUROLOGY CONSULTATION DATE OF CONSULTATION: 04/16/2020 REASON FOR CONSULTATION: Stroke. HISTORY OF PRESENT ILLNESS: Ms. Aldo Holland is a 74-year-old female with a past medical history significant for diastolic congestive heart failure, severe left ventricular hypertrophy, diabetes mellitus type 2, paroxysmal atrial fibrillation and chronic kidney disease stage 2, who presented to the emergency room with shortness of breath on 04/14/2020. She was intubated prior to arrival to the hospital to protect her airway. She underwent cardioversion 3 days prior to the admission. She was admitted for management off CHF exacerbation. Echo was done at that time showed severe left ventricular hypertrophy and pericardial effusion. She was subsequently extubated on 04/15/2020. Several hours after the extubation, she had an abrupt change in neurological status yesterday and stroke code was called because of alteration of awareness, right gaze preference and left hemiplegia. She was taken emergently to the head CT and found to have subacute ischemic infarct , so Neurology was consulted for further evaluation. Abnormal involuntary movements were noted by the road equipment operator, so she was loaded with Keppra 1 g yesterday and started on 1000 mg q.12 hours q.12 hours. No reported seizures after the initiation of Keppra. REVIEW OF SYSTEMS: Not obtainable secondary to the patient's mental status. ALLERGIES: NO KNOWN DRUG ALLERGIES. HOME MEDICATIONS: 1. Multivitamin one tab p.o. daily. 2. Cordarone 200 mg p.o. daily. 3. Eliquis 5 mg p.o. b.i.d. 4. Lasix 40 mg p.o. daily. 5. Lisinopril 10 mg p.o. q.a.m. 6. Carvedilol 6.25 mg p.o. b.i.d. PAST MEDICAL HISTORY: Diastolic congestive heart failure, severe left ventricular hypertrophy, diabetes mellitus type 2, paroxysmal atrial fibrillation, chronic kidney disease type 2. PAST SURGICAL HISTORY: No significant past surgical history. FAMILY HISTORY: No family history of stroke. SOCIAL HISTORY: No history of smoking, alcohol, or illegal drug use. PHYSICAL EXAMINATION: VITAL SIGNS: Blood pressure 169/82, pulse 111, temperature 99.5. CVS: Regular rate and rhythm. CHEST: Clear. ABDOMEN: Soft. NECK: Supple. NEUROLOGICAL EXAMINATION: Mental status, the patient is alert, awake, opens eyes to verbal stimuli. Follows simple commands on the left side. Cranial nerves 2 through 12 intact. Pupils are 4 mm, round and reactive to light. Face, mild left facial droop. gaze preference. Hearing seems to be intact. Tongue midline. . Daughter at bedside, who speaks Romansh. Motor, muscle tone is decreased bulk is normal. Left hemiparesis. Cerebellar, unable to perform finger-nose testing due to mental status. Gait: Deferred due to patient's safety reasons. DATA REVIEWED: I reviewed the MRI of the brain which showed large acute infarction involving the entire posterior cerebral artery territory, acute infarction involving the large portions of the bilateral superior cerebellar territories, right greater than left, acute infarction at left posterior inferior cerebellar artery territory. There is no evidence of acute intracranial hemorrhage. ASSESSMENT AND PLAN: (1) Acute CVA (cerebrovascular accident) Code(s): I63.9 - CEREBRAL INFARCTION, UNSPECIFIED Current Visit: Yes Status: Acute (2) Diastolic CHF Code(s): I50.30 - UNSPECIFIED DIASTOLIC (CONGESTIVE) HEART FAILURE Current Visit: Yes Status: Chronic Qualifiers: Heart failure chronicity: acute on chronic Qualified Code(s): I50.33 - Acute on chronic diastolic (congestive) heart failure (3) Dyslipidemia Code(s): E78.5 - HYPERLIPIDEMIA, UNSPECIFIED Current Visit: Yes Status: Chronic (4) Hypertrophic cardiomyopathy Code(s): I42.2 - OTHER HYPERTROPHIC CARDIOMYOPATHY Current Visit: Yes Status: Chronic (5) Obesity (BMI 30.0-34.9) Code(s): E66.9 - OBESITY, UNSPECIFIED Current Visit: Yes Status: Chronic Ms. Aldo Holland is a 74-year-old female who was admitted on 04/14/2020 because of shortness of breath and intubated prior to arrival, to the hospital. She was treated for congestive heart failure and subsequently extubated; yesterday, Several hours after which she has abrupt change in mental status and head CT showed a subacute infarction. MRI of the brain is positive for acute infarction. Start aspirin and high-intensity statin for secondary stroke. N.p.o. until cleared by Speech. . Permissive control of blood pressure at this time. Strict control of blood glucose. EEG completed today, which was consistent with moderate generalized nonspecific cerebral dysfunction. Consider decreasing the dose of Keppra to 500 mg IV q.12 hours. We will continue to follow. Telemetry to rule out arrhythmias. The patient is currently in sinus rhythm and Cardiology is on board. Hold Eliquis for now since increased risk of hemorrhagic conversion with a stroke. 2D echocardiogram showed left ventricular ejection fraction of 70% to 75%. No thrombus or PFO. She does have grade 3/3 diastolic dysfunction, severe concentric left ventricular hypertrophy, and carotid Dopplers did not reveal hemodynamically significant stenosis. Continue a home medications. PT/OT/Speech. DVT prophylaxis. Check hemoglobin A1c, fasting lipid panel, and TSH. Continue medical management per primary team and Pulmonology. Plan discussed in detail with the patient's daughter at bedside and also Pulmonology attending Dr. Lorena Goins. Thank you for the consult. Job ID: [id number] [place]
[2020-04-16 16:08] LABS: ANA Symphony (Qualitative) POSITIVE (Negative); ANA Symphony (Quantitative) 1.2 Ratio (< 0.7 Negative); CCP IgG Antibody 1.1 EliAU/mL (<7 Negative); CENP IgG Antibody Less than 0.4 EliAU/mL (<7 Negative); EliA RAS New Method **** NEW METHOD ****; Jo-1 IgG Antibody Less than 0.3 EliAU/mL (<7 Negative); RNP70 IgG Antibody Less than 0.3 EliAU/mL (<7 Negative); Rheumatoid Factor IgA Antibody 4.2 IU/mL (<14 Negative); Rheumatoid Factor IgM Antibody 4.4 IU/mL (<3.5 Negative); Scleroderma-70 IgG Antibody Less than 0.6 EliAU/mL (<7 Negative); Smith D IgG Antibody 1.2 EliAU/mL (<7 Negative); dsDNA IgG Antibody Less than 0.5 IU/mL (<10 Negative)
[2020-04-16 16:53] LABS: Anion Gap 14 mmol/L (10-20); BUN (Urea Nitrogen) 15 mg/dL (9.8-20.1); Calc. Creatinine Clearance 96 mL/min (70-130); Calcium 8.8 mg/dL (7.8-10.44); Carbon Dioxide 24 mmol/L (23-31); Chloride 113 mmol/L (98-107); Glucose 82 mg/dL (83-110); Potassium 3.7 mmol/L (3.5-5.1); Sodium 147 mmol/L (136-145)
--- NOTE | 2020-04-16 17:17 | PDOC.HOSPP ---
- Subjective Encounter Date: 04/16/20 Encounter Time: 10:30 Subjective: awake, follows simple verbal stimuli moves all extremities very slowly more so on the left - Objective Vital Signs & Weight: Vital Signs (12 hours) Pulse Pulse BP BP Pulse Ox Pulse Ox Pulse Ox 04/16/20 13:51 53 L 56 L 132/59 L 164/75 H 99 98 04/16/20 13:50 104 H 164/75 H 04/16/20 06:30 95 Weight Admit Weight 177 lb 0.499 oz Weight 166 lb 3.657 oz Most Recent Monitor Data Heart Rate from ECG 68 NIBP 169/82 NIBP BP-Mean 111 Respiration from ECG 20 SpO2 97 I&O: 04/15/20 04/16/20 04/17/20 06:59 06:59 06:59 Intake Total 31.4 1652 Output Total 1015 1809 Balance -983.6 -157 Result Diagrams: 04/16/20 02:58 04/16/20 16:18 Additional Labs: Accuchecks 04/16/20 04/16/20 04/16/20 13:26 08:25 06:32 POC Glucose 85 80 78 04/15/20 18:57 POC Glucose 106 H Hospitalist ROS - Medication Medications: Active Medications Generic Name Dose Route Start Last Admin Trade Name Freq PRN Reason Stop Dose Admin Acetaminophen 650 mg 04/14/20 13:27 04/15/20 01:30 Acetaminophen 325 Mg Tab PO 650 mg Q4H PRN Administration Headache/Fever/Mild Pain (1-3) Famotidine 20 mg 04/17/20 09:00 04/16/20 09:54 Famotidine/Pf 20 Mg/2ml Vial SLOW IVP 20 mg DAILY ZANE Administration Sodium Chloride 1,000 mls @ 100 mls/hr 04/15/20 15:30 04/16/20 05:19 Normal Saline 0.9% IV 1,000 mls .Q10H ZANE Administration Ondansetron HCl 4 mg 04/14/20 13:27 04/16/20 06:04 Ondansetron Pf 4 Mg/2 Ml Vial IVP 4 mg Q6H PRN Administration Nausea/Vomiting Hospitalist Exam Vitals: Vital Signs (12 hours) Pulse Pulse BP BP Pulse Ox Pulse Ox Pulse Ox 04/16/20 13:51 53 L 56 L 132/59 L 164/75 H 99 98 02/12/21 13:50 104 H 164/75 H 04/16/20 06:30 95 Weight Admit Weight 177 lb 0.499 oz Weight 166 lb 3.657 oz Most Recent Monitor Data Heart Rate from ECG 68 NIBP 169/82 NIBP BP-Mean 111 Respiration from ECG 20 SpO2 97 General Appearance: ill appearing Eye: anicteric sclera Eye - other findings: right gaze preference ENT: no oropharyngeal lesions, dry oral mucosa Neck: supple, no JVD Heart: RRR, no murmur Respiratory: no wheezes, no rales, rhonchi Gastrointestinal: soft, non-tender, non-distended, normal bowel sounds Extremities: no cyanosis, no edema Neurological - other findings: left hemiparesis, dysarthria, dysphagia Hosp A/P (1) Acute CVA (cerebrovascular accident) Code(s): I63.9 - CEREBRAL INFARCTION, UNSPECIFIED Status: Acute (2) Hypertrophic cardiomyopathy Code(s): I42.2 - OTHER HYPERTROPHIC CARDIOMYOPATHY Status: Chronic (3) Pericardial effusion Code(s): I31.3 - PERICARDIAL EFFUSION (NONINFLAMMATORY) Status: Chronic (4) Obesity (BMI 30.0-34.9) Code(s): E66.9 - OBESITY, UNSPECIFIED Status: Chronic (5) Dyslipidemia Code(s): E78.5 - HYPERLIPIDEMIA, UNSPECIFIED Status: Chronic (6) H/O: CVA (cerebrovascular accident) Code(s): Z86.73 - PRSNL HX OF TIA (TIA), AND CEREB INFRC W/O RESID DEFICITS Status: Chronic (7) Acute respiratory failure with hypoxia Code(s): J96.01 - ACUTE RESPIRATORY FAILURE WITH HYPOXIA Status: Resolved (8) Syncope Code(s): R55 - SYNCOPE AND COLLAPSE Status: Resolved (9) Diastolic CHF Code(s): I50.30 - UNSPECIFIED DIASTOLIC (CONGESTIVE) HEART FAILURE Status: Chronic Qualifiers: Heart failure chronicity: acute on chronic Qualified Code(s): I50.33 - Acut e on chronic diastolic (congestive) heart failure (10) Paroxysmal A-fib Code(s): I48.0 - PAROXYSMAL ATRIAL FIBRILLATION Status: Chronic - Plan Had CT brain on arrival which did not reveal ac cva but had findings of old left cerebellar cva, repeat done around 2 pm shows massive transfer coordinator distribution cva with edema MRI wo contrast done this am shows post circ multiple cva's including large right transfer coordinator infarct with edema, left pica, b/l superior cerebellar art R>L, appears to be a ischemic infarct, unlikely to be embolic due to post circ involvement with none in the carotid outreach areas. D/w . Plan is start heparin drip if she were to go into afib again, currently in sinus rhythm, only on aspirin rectal. eliquis held in view of large cva with edema and risk of bleeding, d/w and 04/15/20. asp rectal, crestor if able to swallow, stroke protocol with neuro checks, usg carotids shows no sig stenosis. has large pericardial effusion wo tamponade physiology as of now, if she were to get hypotensive, elevated jvd etc then will need stat window, is aware of patient I believe. got extubated on 04/15/20 and maintaining airway lasix held in view of ac cva has multiple medical ac issues, prognosis guarded PT/OT and speech eval, might need peg, await her cerebral edema to resolve to see if she improves clinically. was briefly on 3% NS to reduce cerebral edema, sod got to 147 and it was dc'd by d/w who is in contact with daughter and family, she can speak comoran as well.
[2020-04-16] MEDS ORDERED: Aspirin 300 MG Suppository PR SCH (17:30)
[2020-04-16] MEDS ORDERED: levETIRAcetam in NS 500 MG in Premix Bag 1 BAG IVPB SCH (18:00)
[2020-04-16] MEDS: levETIRAcetam in NS 500 MG in Premix Bag 1 BAG IVPB SCH (20:30)
[2020-04-17 02:20] LABS: Anion Gap 13 mmol/L (10-20); BUN (Urea Nitrogen) 15 mg/dL (9.8-20.1); Calc. Creatinine Clearance 92 mL/min (70-130); Calcium 9.4 mg/dL (7.8-10.44); Carbon Dioxide 26 mmol/L (23-31); Chloride 114 mmol/L (98-107); Glucose 88 mg/dL (83-110); Magnesium 2.2 mg/dL (1.6-2.6); Potassium 4.2 mmol/L (3.5-5.1); Sodium 149 mmol/L (136-145)
[2020-04-17 04:19] LABS: #Lymphocytes 0.7 thou/uL (1.20-3.40); #Monocytes 0.5 thou/uL (0.11-0.59); #Neutrophils 7.8 thou/uL (1.40-6.50); %Basophils 0.1 % (0.0-1.0); %Eosinophils 0.2 % (0.0-10.0); %Lymphocytes 7.5 % (21.0-51.0); %Monocytes 5.5 % (0.0-10.0); %Neutrophils 86.6 % (42.0-75.0); Mean Corpuscular HGB CONC 31.6 g/dL (32.0-36.0); Mean Corpuscular Hemoglobin 30.6 pg (27.0-31.0); Mean Corpuscular Volume 96.7 fL (78.0-98.0); Mean Platelet Volume 9.4 fL (7.4-10.4); Platelet Count 210 thou/uL (130-400); RBC Distribution Width 16.5 % (11.5-14.5)
[2020-04-17 04:46] LABS: Troponin I 0.062 ng/mL (< 0.028)
[2020-04-17] MEDS: Sodium Chloride 0.9% 1,000 ML IV SCH ×2 (04:48→14:49)
[2020-04-17] MEDS: Famotidine/PF 20 mg/2ml Vial SLOW IVP SCH (08:44)
[2020-04-17] MEDS: Aspirin 300 MG Suppository PR SCH (08:45)
[2020-04-17] MEDS: levETIRAcetam in NS 500 MG in Premix Bag 1 BAG IVPB SCH ×2 (10:00→21:20)
[2020-04-17] MEDS: niCARdipine 25 MG in Sodium Chloride 0.9% 250 ML 240 ML IVPB SCH (16:44)
[2020-04-17] MEDS ORDERED: D5 1/2 NS w/10 mEq KCl 1,000 ML/1,000 ML BAG IV SCH (17:30)
--- NOTE | 2020-04-17 18:06 | PRG ---
DATE OF SERVICE: 04/17/2020 TIME: 11 a.m. SUBJECTIVE: For 24 hours, the patient has been in the same clinical state as she was yesterday with left hemiparetic response to her large temporal and occipital stroke with edema. She was given 3% saline with normal saline overnight and had an improvement in sodium level to 147. However, this has not improved her mental status or her physical examination. Her blood pressure has been in the range as targeted. Family has been at bedside and has been informed of her clinical condition. OBJECTIVE: VITAL SIGNS: Blood pressure 164/77 with MAP of 106. Intake of sodium chloride of 0.9%, 100 mL an hour. Glucose is 84. Her temperature is 99.5. GENERAL: She is lethargic. She has a left gaze paresis. She does not have any fascial droop. She is able to follow commands. She will raise her right arm, right leg to command with good strength with crawler dragline operator and elevation. Left side is extremely week. She has a left gaze paresis as mentioned. LUNGS: Clear. CARDIAC: Regular rate and rhythm. ABDOMEN: Benign. She is n.p.o. due to severe dysphagia. LABORATORY DATA: Her labs show white count of 9000, hemoglobin of 15, hematocrit of 47, platelet count of 210. Chemistry, sodium is 149 now, potassium of 4.2, chloride 114. Calcium 9.4, magnesium 2.2. Troponins have all been 0.06 with no change. She has had no additional cardiac arrhythmias. Keppra level is 13.2 and range of normal. She has had no evidence of additional seizures. IMPRESSION: 1. Hypertension to start on Cardene drip with goal blood pressure of 140 to 160 systolic today and to start reducing blood pressure to 130 to 150 tomorrow. 2. Hypernatremia. Stop saline today and start D5 half normal saline. 3. Nutritional status is addressed due to her dysphagia. Awaiting to access whether not the edema around the stroke will improve so that she can oral with speech therapy evaluation next week. 4. History of atrial fibrillation with suspicion on embolic cerebrovascular accident causing the ischemic stroke. Holding anticoagulation at this time and the recommendation of Neurology for at least 1 week to avoid hemorrhagic conversion of large ischemic stroke. This has been explained in detail to the family. 5. Hypertrophic cardiomyopathy. Plan is to start a nicardipine drip today to tightly control her blood pressure. Critical care time at bedside 40 minutes. Job ID: [id number]
--- NOTE | 2020-04-17 18:29 | PDOC.HOSPP ---
- Subjective Encounter Date: 04/17/20 Encounter Time: 12:30 non-verbal Subjective: Patient seen and examined for acute CVA. No overnight events. No significant change in mentation. - Objective Vital Signs & Weight: Vital Signs (12 hours) BP Pulse Ox 04/17/20 11:00 164/77 H 98 Weight Admit Weight 177 lb 0.499 oz Weight 2.681 oz Most Recent Monitor Data Heart Rate from ECG 65 NIBP 163/82 NIBP BP-Mean 109 Respiration from ECG 21 SpO2 100 I&O: 04/16/20 04/17/20 04/18/20 06:59 06:59 06:59 Intake Total 2352 1300 Output Total 1809 1393 Balance 543 -93 Result Diagrams: 04/17/20 04:04 04/17/20 01:27 Additional Labs: Accuchecks 04/17/20 04/17/20 04/17/20 17:47 12:09 06:28 POC Glucose 92 84 85 04/17/20 01:40 POC Glucose 80 Abnormal Lab Results - Last 48 hrs 04/15/20 15:20: Rheumatoid Factor IgM 4.4 H, VELIA Screen POSITIVE H, VELIA Scrn Qualitative POSITIVE H, VELIA Scrn Quantitative 1.2 H, SS-A/Ro IgG Antibody 11.0 H 04/16/20 02:58: Chloride 108 H 04/16/20 02:58: RDW 16.8 H, Neutrophils % 82.4 H, Lymphocytes % 10.1 L, Neutrophils # 7.7 H, Lymphocytes # 0.9 L, Monocytes # 0.6 H 04/16/20 02:58: B-Natriuretic Peptide 1325.4 H 04/16/20 16:18: Sodium 147 H, Chloride 113 H 04/17/20 01:27: Sodium 149 H, Chloride 114 H 04/17/20 04:04: Hct 47.4 H, MCHC 31.6 L, RDW 16.5 H, Neutrophils % 86.6 H, Lymphocytes % 7.5 L, Neutrophils # 7.8 H, Lymphocytes # 0.7 L 04/17/20 04:04: Troponin I 0.062 H Microbiology - Entire Visit 04/14/20 11:06 Venous blood - Right Hand Blood Culture - Preliminary NO GROWTH AT 48 HOURS 04/14/20 11:06 Venous blood - Left Hand Blood Culture - Preliminary NO GROWTH AT 48 HOURS 04/14/20 10:40 Urine raza catheter Urine Culture - Final NO GROWTH AT 48 HOURS Radiology Reviewed by me: Yes (MRI brainreviewed) EKG Reviewed by me: Yes (Sinus rhythm on telemetry) Hospitalist ROS - Review of Systems ROS unobtainable: due to mental status - Medication Medications: Active Medications Generic Name Dose Route Start Last Admin Trade Name Freq PRN Reason Stop Dose Admin Acetaminophen 650 mg 04/14/20 13:27 04/15/20 01:30 Acetaminophen 325 Mg Tab PO 650 mg Q4H PRN Administration Headache/Fever/Mild Pain (1-3) Aspirin 300 mg 04/17/20 09:00 04/17/20 08:45 Aspirin 300 Mg Suppository OK 300 mg DAILY ZANE Administration Famotidine 20 mg 04/17/20 09:00 04/17/20 08:44 Famotidine/Pf 20 Mg/2ml Vial SLOW IVP 20 mg DAILY ZANE Administration Levetiracetam 500 mg/ Device 100 mls @ 200 mls/hr 04/16/20 21:00 04/17/20 10:00 IVPB 100 mls 0900,2100 ZANE Administration Nicardipine HCl 25 mg/ Sodium 250 mls @ 0 mls/hr 04/17/20 15:45 04/17/20 16:44 Chloride IVPB 250 mls INF ZANE Administration Protocol Titrate Ondansetron HCl 4 mg 04/14/20 13:27 04/16/20 06:04 Ondansetron Pf 4 Mg/2 Ml Vial IVP 4 mg Q6H PRN Administration Nausea/Vomiting Sodium Chloride 10 ml 04/17/20 21:00 04/17/20 16:50 Flush - Normal Saline 10 Ml Syringe IVF 10 ml Q12HR ZANE Administration Hospitalist Exam Vitals: Vital Signs (12 hours) BP Pulse Ox 04/17/20 11:00 164/77 H 98 Weight Admit Weight 177 lb 0.499 oz Weight 2.681 oz Most Recent Monitor Data Heart Rate from ECG 65 NIBP 163/82 NIBP BP-Mean 109 Respiration from ECG 21 SpO2 100 General Appearance: ill appearing Neck: supple, no JVD Heart: RRR, no gallops, no rubs Respiratory: no wheezes, no rales Gastrointestinal: soft, non-distended Psychiatric: lethargic Hosp A/P (1) Acute CVA (cerebrovascular accident) Code(s): I63.9 - CEREBRAL INFARCTION, UNSPECIFIED Status: Acute (2) Paroxysmal A-fib Code(s): I48.0 - PAROXYSMAL ATRIAL FIBRILLATION Status: Chronic (3) Diastolic CHF Code(s): I50.30 - UNSPECIFIED DIASTOLIC (CONGESTIVE) HEART FAILURE Status: Chronic Qualifiers: Heart failure chronicity: acute on chronic Qualified Code(s): I50.33 - Acute on chronic diastolic (congestive) heart failure - Plan DVT proph w/SCDs 75-year-old female with recent cardioversion for atrial fibrillation presented on 04/14 with shortness of breath and syncope. Patient was intubated by EMS prior to arrival. Patient was extubated next day. Stroke alert was called on 04/15/2020. CT brain was consistent with acute CVA involving the right posterior cerebral artery distribution with edema. Acute hypoxic respiratory failure requiring mechanical ventilation due to acute on chronic diastolic heart failureresolved Extubated on 04/15 Acute CVA involving the right posterior cerebral artery with bilateral superior cerebral artery and left PICA involvement On aspirin with statins, anticoagulant on hold due to risk of hemorrhagic conversion, stroke team, repeat CT brain in a.m., IV fluids per critical care, on Keppra for seizure prophylaxis Hypertension Plan: Plan for Cardene drip per critical care Hypertrophic cardiomyopathy/large pericardial effusion on echocardiogram with history of pericardial window Atrial fibrillation status post recent cardioversion Swallowing dysfunction due to acute CVA Plan: Will Place Dobbhoff tubeconfirm by imaging, speech therapy input appreciated Diet: We will place Dobbhoff tube and start tube feeding Restraints renewed Family updated A.m. labs ordered DVT prophylaxis: On SCDs, no Lovenox or heparin due to risk of hemorrhagic conversion GI prophylaxis: On Pepcid Pressure ulcer precautions PT/OT/speech
[2020-04-17] MEDS ORDERED: Sodium Chloride 0.9% 500 ML IV SCH (19:15)
[2020-04-17] MEDS: D5 1/2 NS w/10 mEq KCl 1,000 ML/1,000 ML BAG IV SCH (21:20)
[2020-04-18 06:15] LABS: #Lymphocytes 0.7 thou/uL (1.20-3.40); #Monocytes 0.7 thou/uL (0.11-0.59); %Basophils 0.2 % (0.0-1.0); %Eosinophils 0.3 % (0.0-10.0); %Lymphocytes 7.4 % (21.0-51.0); %Monocytes 7.3 % (0.0-10.0); %Neutrophils 84.7 % (42.0-75.0); Mean Corpuscular HGB CONC 31.9 g/dL (32.0-36.0); Mean Corpuscular Hemoglobin 30.8 pg (27.0-31.0); Mean Corpuscular Volume 96.7 fL (78.0-98.0); Mean Platelet Volume 8.8 fL (7.4-10.4); Platelet Count 227 thou/uL (130-400); RBC Distribution Width 16.3 % (11.5-14.5); Red Blood Cell (RBC) Count 5.19 mill/uL (4.20-5.40); White Blood Cell (WBC) Count 9.5 thou/uL (4.8-10.8)
[2020-04-18 06:33] LABS: Phosphorus 2.3 mg/dL (2.3-4.7)
[2020-04-18 06:35] LABS: Anion Gap 12 mmol/L (10-20); BUN (Urea Nitrogen) 9 mg/dL (9.8-20.1); Calc. Creatinine Clearance 0 mL/min (70-130); Calcium 9.1 mg/dL (7.8-10.44); Carbon Dioxide 29 mmol/L (23-31); Chloride 107 mmol/L (98-107); Glucose 143 mg/dL (83-110); Potassium 3.4 mmol/L (3.5-5.1); Sodium 145 mmol/L (136-145)
[2020-04-18] MEDS: D5 1/2 NS w/10 mEq KCl 1,000 ML/1,000 ML BAG IV SCH (07:05)
--- NOTE | 2020-04-18 07:57 | CT ---
PRELIMINARY REPORT/[facility]/AFTER HOURS PROCEDURE CT HEAD WITHOUT INTRAVENOUS CONTRAST: CLINICAL HISTORY: Follow up CVA. TECHNIQUE: Axial computed tomography images of the head/brain without intravenous contrast. COMPARISON: 04/15/2010 FINDINGS: BRAIN: Large bland infarct in the right CHANGE MANAGEMENT MANAGER distribution is again seen, becoming a little better defi delgado but is nonhemorrhagic. Ischemic changes are now also demonstrated along the superior aspect of t he right cerebellum and possibly the left cerebellum. VENTRICLES: No hydrocephalus. ORBITS: The orbits are unremarkable. SINUSES AND MASTOIDS: The paranasal sinuses and mastoid air cells are clear. SOFT TISSUES: No significant facial or scalp soft tissue swelling evident. No radiopaque foreign body is seen. BONES: No acute skull fracture. IMPRESSION: Large right CHANGE MANAGEMENT MANAGER infarct noted. No evidence of hemorrhagic conversion. Extension of the ischemic moses ges now to the cerebellar hemispheres bilaterally right greater than left suggesting involvement of t he basilar artery. ELECTRONICALLY SIGNED BY: Karsten Brasher MD Apr 18, 2020 6:28:53 AM WATER RESOURCE MANAGER This report is intended for review by the ordering physician only, in accordance of law. If you recei ve this report in error, please call [facility] at [phone]. FINAL REPORT EMERGENCY AFTER HOURS CT BRAIN WITHOUT IV CONTRAST: 04/18/20 5:37 a.m. FINDINGS: Large right posterior cerebral artery nonhemorrhagic infarct again noted. There is progression of abnormal low attenuation, evidence for ischemia, now involving the right and left cerebellar hemispheres superiorly. IMPRESSION: Some progressive infarct/ischemic changes in the region of the right posterior cerebral artery as wel l as changes in the superior right cerebellar hemisphere and left cerebellar hemisphere regions. No a cute hemorrhage. This report agrees with the preliminary report. CODE QA POS: RRE
[2020-04-18] MEDS ORDERED: Potassium Chloride 40 MEQ in Sodium Chloride 0.9% 250 ML 250 ML IVPB SCH (09:15)
[2020-04-18] MEDS ORDERED: Magnesium 2 GM/50 ML 2 GM in Premix Bag 1 BAG IVPB SCH (09:15)
[2020-04-18] MEDS: Famotidine/PF 20 mg/2ml Vial SLOW IVP SCH (10:07)
[2020-04-18] MEDS: Aspirin 300 MG Suppository PR SCH (10:07)
[2020-04-18] MEDS: levETIRAcetam in NS 500 MG in Premix Bag 1 BAG IVPB SCH ×2 (10:21→21:00)
[2020-04-18] MEDS: niCARdipine 25 MG in Sodium Chloride 0.9% 250 ML 240 ML IVPB SCH (10:49)
--- NOTE | 2020-04-18 14:29 | PDOC.PULCC ---
CCU Progress Note: Subj/Obj - Subjective Date: 04/18/20 Time: 12:25 - Objective Allergies/Adverse Reactions: Allergies Allergy/AdvReac Type Severity Reaction Status Date / Time No Known Allergies Allergy Verified 04/09/20 09:08 Medications: Current Medications Acetaminophen (Acetaminophen 650 Mg Suppository) 650 mg MI Q4H PRN PRN Reason: Headache/Fever/Mild Pain (1-3) Acetaminophen (Acetaminophen 325 Mg Tab) 650 mg PO Q4H PRN PRN Reason: Headache/Fever/Mild Pain (1-3) Last Admin: 04/15/20 01:30 Dose: 650 mg Documented by: Aspirin (Aspirin 300 Mg Suppository) 300 mg MI DAILY ZANE Last Admin: 04/18/20 10:07 Dose: 300 mg Documented by: Famotidine (Famotidine/Pf 20 Mg/2ml Vial) 20 mg SLOW IVP DAILY ZANE Last Admin: 04/18/20 10:07 Dose: 20 mg Documented by: Levetiracetam 500 mg/ Device 100 mls @ 200 mls/hr IVPB 0900,2100 ZANE Last Admin: 04/18/20 10:21 Dose: 100 mls Documented by: Nicardipine HCl 25 mg/ Sodium (Chloride) 250 mls @ 0 mls/hr IVPB INF ZANE; Protocol Last Admin: 04/18/20 10:49 Dose: 250 mls Documented by: Sodium Chloride (Normal Saline 0.9%) 500 mls @ 0 mls/hr IV .Q0M ZANE Sodium Chloride (Normal Saline 0.9%) 1,000 mls @ 125 mls/hr IV .Q8H ZANE Miscellaneous Medication (Electrolyte Replacement Protocol) 0 each FS ASDIR PRN; Protocol PRN Reason: ELECTROLYTE REPLACEMENT Morphine Sulfate (Morphine 2 Mg/Ml Vial) 2 mg SLOW IVP Q1H PRN PRN Reason: Breakthrough Pain/Agitation Stop: 05/14/20 15:30 Ondansetron HCl (Ondansetron Pf 4 Mg/2 Ml Vial) 4 mg IVP Q6H PRN PRN Reason: Nausea/Vomiting Last Admin: 04/16/20 06:04 Dose: 4 mg Documented by: Sodium Chloride (Flush - Normal Saline 10 Ml Syringe) 10 ml IVF Q12HR ZANE Last Admin: 04/17/20 16:50 Dose: 10 ml Documented by: Sodium Chloride (Flush - Normal Saline 10 Ml Syringe) 10 ml IVF PRN PRN PRN Reason: Saline Flush Vital Signs and I&O: Vital Signs Temp 100.2 F H 04/15/20 02:00 Pulse 53 L 04/16/20 13:51 Resp 23 H 04/15/20 14:40 BP 164/77 H 04/17/20 11:00 Pulse Ox 100 04/17/20 20:00 Intake & Output 04/17/20 04/18/20 04/18/20 18:59 06:59 18:59 Intake Total 1243 1293 Output Total 625 1450 Balance 618 -157 Weight 2.691 oz Intake: Intake, IV Amount 1243 1293 D5 1/2 NS w/10 mEq KCl 1, 958 000 ml In 1,000 ml @ 100 mls/hr IV .Q10H ZANE Rx#: [id number] Sodium Chloride 0.9% 1, 1200 000 ml @ 100 mls/hr IV . Q10H ZANE Rx#:[id number] niCARdipine 25 mg In 43 335 Sodium Chloride 0.9% 250 ML 240 ml @ Titrate IVPB INF ZANE Rx#:[id number] Oral 0 0 Output: Output, Dodd 625 1450 Emesis 0 0 Other: Voiding Method Indwelling Catheter CCU Progress Note: Exam - Physical Exam HEENT: PERRLA Neck: no nodes Cardiovascular: RRR Respiratory: clear to auscultation anteriorly Gastrointestinal: soft, non-tender Deviation from normal: Left hemiparesis and left gaze paresis Psychiatric: normal affect Skin: no rash CCU Progress Note: Data - Labs Result Diagrams: 04/18/20 06:06 04/18/20 06:06 Lab results: Laboratory Results 04/15/20 04/16/20 04/17/20 15:20 16:18 01:27 WBC RBC Hgb Hct MCV MCH MCHC RDW Plt Count MPV Neutrophils % Lymphocytes % Monocytes % Eosinophils % Basophils % Neutrophils # Lymphocytes # Monocytes # Eosinophils # Basophils # Sodium 147 H 149 H Potassium 3.7 4.2 Chloride 113 H 114 H Carbon Dioxide 24 26 Anion Gap 14 13 BUN 15 15 Creatinine 0.63 0.66 Estimated GFR (MDRD) Greater than 90 88 Glucose 82 L 88 POC Glucose Calcium 8.8 9.4 Phosphorus Magnesium 2.2 Troponin I Levetiracetam Rheumatoid Factor IgA 4.2 Rheumatoid Factor IgM 4.4 H Cycl Citrul Peptide IgG 1.1 Rheumatoid Arth New Method NEW METHOD Rheumatoid Arth Interp VELIA Screen POSITIVE H VELIA Scrn Qualitative POSITIVE H VELIA Scrn Quantitative 1.2 H VELIA Interpretation VELIA & Anti-EL New Method NEW METHOD GORGE-1 IgG Antibody Less than 0.3 SS-A/Ro IgG Antibody 11.0 H SS-B/La IgG Antibody 1.0 Sm (Canales) IgG Ab, Quant 1.2 ROPE CLEANER IgG Ab, Quant Less than 0.3 Scl-70 IgG Ab Less than 0.6 Anti-ds DNA IgG Ab Less than 0.5 Anti-ds DNA Interp Anti-U1-ROPE CLEANER IgG, Quant 1.1 Anti-Centromere IgG Ab Less than 0.4 04/17/20 04/17/20 04/17/20 01:40 04:04 04:04 WBC 9.0 RBC 4.90 Hgb 15.0 Hct 47.4 H MCV 96.7 MCH 30.6 MCHC 31.6 L RDW 16.5 H Plt Count 210 MPV 9.4 Neutrophils % 86.6 H Lymphocytes % 7.5 L Monocytes % 5.5 Eosinophils % 0.2 Basophils % 0.1 Neutrophils # 7.8 H Lymphocytes # 0.7 L Monocytes # 0.5 Eosinophils # 0.0 Basophils # 0.0 Sodium Potassium Chloride Carbon Dioxide Anion Gap BUN Creatinine Estimated GFR (MDRD) Glucose POC Glucose 80 Calcium Phosphorus Magnesium Troponin I Levetiracetam 13.2 Rheumatoid Factor IgA Rheumatoid Factor IgM Cycl Citrul Peptide IgG Rheumatoid Arth New Method Rheumatoid Arth Interp VELIA Screen VELIA Scrn Qualitative VELIA Scrn Quantitative VELIA Interpretation VELIA & Anti-EL New Method GORGE-1 IgG Antibody SS-A/Ro IgG Antibody SS-B/La IgG Antibody Sm (Canales) IgG Ab, Quant ROPE CLEANER IgG Ab, Quant Scl-70 IgG Ab Anti-ds DNA IgG Ab Anti-ds DNA Interp Anti-U1-ROPE CLEANER IgG, Quant Anti-Centromere IgG Ab 04/17/20 04/17/20 04/17/20 04:04 06:28 12:09 WBC RBC Hgb Hct MCV MCH MCHC RDW Plt Count MPV Neutrophils % Lymphocytes % Monocytes % Eosinophils % Basophils % Neutrophils # Lymphocytes # Monocytes # Eosinophils # Basophils # Sodium Potassium Chloride Carbon Dioxide Anion Gap BUN Creatinine Estimated GFR (MDRD) Glucose POC Glucose 85 84 Calcium Phosphorus Magnesium Troponin I 0.062 H Levetiracetam Rheumatoid Factor IgA Rheumatoid Factor IgM Cycl Citrul Peptide IgG Rheumatoid Arth New Method Rheumatoid Arth Interp VELIA Screen VELIA Scrn Qualitative VELIA Scrn Quantitative VELIA Interpretation VELIA & Anti-EL New Method GORGE-1 IgG Antibody SS-A/Ro IgG Antibody SS-B/La IgG Antibody Sm (Canales) IgG Ab, Quant ROPE CLEANER IgG Ab, Quant Scl-70 IgG Ab Anti-ds DNA IgG Ab Anti-ds DNA Interp Anti-U1-ROPE CLEANER IgG, Quant Anti-Centromere IgG Ab 04/17/20 04/18/20 04/18/20 17:47 01:45 06:06 WBC RBC Hgb Hct MCV MCH MCHC RDW Plt Count MPV Neutrophils % Lymphocytes % Monocytes % Eosinophils % Basophils % Neutrophils # Lymphocytes # Monocytes # Eosinophils # Basophils # Sodium 145 Potassium 3.4 L Chloride 107 Carbon Dioxide 29 Anion Gap 12 BUN 9 L Creatinine 0.56 L Estimated GFR (MDRD) Greater than 90 Glucose 143 H POC Glucose 92 133 H Calcium 9.1 Phosphorus Magnesium 2.0 Troponin I Levetiracetam Rheumatoid Factor IgA Rheumatoid Factor IgM Cycl Citrul Peptide IgG Rheumatoid Arth New Method Rheumatoid Arth Interp VELIA Screen VELIA Scrn Qualitative VELIA Scrn Quantitative VELIA Interpretation VELIA & Anti-EL New Method GORGE-1 IgG Antibody SS-A/Ro IgG Antibody SS-B/La IgG Antibody Sm (Canales) IgG Ab, Quant ROPE CLEANER IgG Ab, Quant Scl-70 IgG Ab Anti-ds DNA IgG Ab Anti-ds DNA Interp Anti-U1-ROPE CLEANER IgG, Quant Anti-Centromere IgG Ab 04/18/20 04/18/20 04/18/20 06:06 06:06 06:45 WBC 9.5 RBC 5.19 Hgb 16.0 Hct 50.2 H MCV 96.7 MCH 30.8 MCHC 31.9 L RDW 16.3 H Plt Count 227 MPV 8.8 Neutrophils % 84.7 H Lymphocytes % 7.4 L Monocytes % 7.3 Eosinophils % 0.3 Basophils % 0.2 Neutrophils # 8.0 H Lymphocytes # 0.7 L Monocytes # 0.7 H Eosinophils # 0.0 Basophils # 0.0 Sodium Potassium Chloride Carbon Dioxide Anion Gap BUN Creatinine Estimated GFR (MDRD) Glucose POC Glucose 131 H Calcium Phosphorus 2.3 Magnesium Troponin I Levetiracetam Rheumatoid Factor IgA Rheumatoid Factor IgM Cycl Citrul Peptide IgG Rheumatoid Arth New Method Rheumatoid Arth Interp VELIA Screen VELIA Scrn Qualitative VELIA Scrn Quantitative VELIA Interpretation VELIA & Anti-EL New Method GORGE-1 IgG Antibody SS-A/Ro IgG Antibody SS-B/La IgG Antibody Sm (Canales) IgG Ab, Quant ROPE CLEANER IgG Ab, Quant Scl-70 IgG Ab Anti-ds DNA IgG Ab Anti-ds DNA Interp Anti-U1-ROPE CLEANER IgG, Quant Anti-Centromere IgG Ab - ABG Interpretation ABG Results: ABG pH 7.53 (7.35-7.45) H 04/15/20 06:30 ABG pCO2 31.6 mmHg (35.0-45.0) L 04/15/20 06:30 ABG Base Excess 4.0 mEq/L (-2.0 to +3.0) H 04/15/20 06:30 CCU Progress Note: A/P - Plan Plan: Assessment Left hemiparesis and left gaze paresis due to temporoparietal and occipital stroke with surrounding edema Treated with elevation of sodium levels 145-149 with improvement Treated with control of blood pressure with Cardene drip Ongoing dysphagia seen by speech therapy today Hypokalemia treated History of atrial fibrillation and normal sinus rhythm since admission History of hypertrophic cardiomyopathy Recommendation Transfer to neuro floor after no longer requires nicardipine drip per neurology and cardiology Cardiac meds per cardiology Anticoagulation in 3 days if okay with neurology for her history of paroxysmal atrial fibrillation and likelihood of embolic CVA Stress ulcer prophylaxis DVT prophylaxis Physical therapy Normal saline reordered today change from D5 half-normal due to reduction in sodium from 149-145
[2020-04-18] MEDS: Sodium Chloride 0.9% 1,000 ML IV SCH (15:41)
--- NOTE | 2020-04-18 16:08 | PDOC.HOSPP ---
- Subjective Encounter Date: 04/18/20 Encounter Time: 10:30 non-verbal Subjective: Patient seen and examined for encephalopathy due to acute CVA. Remains confused. No new overnight events. N.p.o. due to swallow dysfunction. - Objective Vital Signs & Weight: Weight Admit Weight 177 lb 0.499 oz Weight 2.691 oz Most Recent Monitor Data Heart Rate from ECG 54 NIBP 124/59 NIBP BP-Mean 80 Respiration from ECG 17 SpO2 95 I&O: 04/17/20 04/18/20 04/19/20 06:59 06:59 06:59 Intake Total 1300 2536 Output Total 1393 2075 Balance -93 461 Result Diagrams: 04/18/20 06:06 04/18/20 06:06 Additional Labs: Accuchecks 04/18/20 04/18/20 04/18/20 15:23 06:45 01:45 POC Glucose 97 131 H 133 H 04/17/20 17:47 POC Glucose 92 Abnormal Lab Results - Last 48 hrs 04/15/20 15:20: Rheumatoid Factor IgM 4.4 H, VELIA Screen POSITIVE H, VELIA Scrn Qualitative POSITIVE H, VELIA Scrn Quantitative 1.2 H, SS-A/Ro IgG Antibody 11.0 H 04/16/20 16:18: Sodium 147 H, Chloride 113 H 04/17/20 01:27: Sodium 149 H, Chloride 114 H 04/17/20 04:04: Hct 47.4 H, MCHC 31.6 L, RDW 16.5 H, Neutrophils % 86.6 H, Lymphocytes % 7.5 L, Neutrophils # 7.8 H, Lymphocytes # 0.7 L 04/17/20 04:04: Troponin I 0.062 H 04/18/20 06:06: Potassium 3.4 L, BUN 9 L, Creatinine 0.56 L 04/18/20 06:06: Hct 50.2 H, MCHC 31.9 L, RDW 16.3 H, Neutrophils % 84.7 H, Lymphocytes % 7.4 L, Neutrophils # 8.0 H, Lymphocytes # 0.7 L, Monocytes # 0.7 H Microbiology - Entire Visit 04/14/20 11:06 Venous blood - Right Hand Blood Culture - Preliminary NO GROWTH AT 48 HOURS 04/14/20 11:06 Venous blood - Left Hand Blood Culture - Preliminary NO GROWTH AT 48 HOURS 04/14/20 10:40 Urine raza catheter Urine Culture - Final NO GROWTH AT 48 HOURS Radiology Reviewed by me: Yes (CT brainacute CVA) EKG Reviewed by me: Yes (Sinus rhythm on telemetry) Hospitalist ROS - Review of Systems ROS unobtainable: due to mental status - Medication Medications: Active Medications Generic Name Dose Route Start Last Admin Trade Name Freq PRN Reason Stop Dose Admin Acetaminophen 650 mg 04/14/20 13:27 04/15/20 01:30 Acetaminophen 325 Mg Tab PO 650 mg Q4H PRN Administration Headache/Fever/Mild Pain (1-3) Aspirin 300 mg 04/17/20 09:00 04/18/20 10:07 Aspirin 300 Mg Suppository CA 300 mg DAILY ZANE Administration Famotidine 20 mg 04/17/20 09:00 04/18/20 10:07 Famotidine/Pf 20 Mg/2ml Vial SLOW IVP 20 mg DAILY ZANE Administration Levetiracetam 500 mg/ Device 100 mls @ 200 mls/hr 04/16/20 21:00 04/18/20 10:21 IVPB 100 mls 0900,2100 ZANE Administration Nicardipine HCl 25 mg/ Sodium 250 mls @ 0 mls/hr 04/17/20 15:45 04/18/20 10:49 Chloride IVPB 250 mls INF ZANE Administration Protocol Titrate Sodium Chloride 1,000 mls @ 125 mls/hr 04/18/20 14:30 04/18/20 15:41 Normal Saline 0.9% IV 1,000 mls .Q8H ZANE Administration Ondansetron HCl 4 mg 04/14/20 13:27 04/16/20 06:04 Ondansetron Pf 4 Mg/2 Ml Vial IVP 4 mg Q6H PRN Administration Nausea/Vomiting Sodium Chloride 10 ml 04/17/20 21:00 04/18/20 09:00 Flush - Normal Saline 10 Ml Syringe IVF 10 ml Q12HR ZANE Administration Hospitalist Exam Vitals: Weight Admit Weight 177 lb 0.499 oz Weight 2.691 oz Most Recent Monitor Data Heart Rate from ECG 54 NIBP 124/59 NIBP BP-Mean 80 Respiration from ECG 17 SpO2 95 General Appearance: ill appearing Neck: supple, no JVD Heart: RRR, no gallops Respiratory: no wheezes, no ronchi Gastrointestinal: soft, no guarding, no rigidity Extremities: no cyanosis Neurological - other findings: Exam limited, left-sided neglect Hosp A/P (1) Acute respiratory failure with hypoxia Code(s): J96.01 - ACUTE RESPIRATORY FAILURE WITH HYPOXIA (2) Diastolic CHF Code(s): I50.30 - UNSPECIFIED DIASTOLIC (CONGESTIVE) HEART FAILURE Status: Chronic Qualifiers: Heart failure chronicity: acute on chronic Qualified Code(s): I50.33 - Acut e on chronic diastolic (congestive) heart failure (3) Acute CVA (cerebrovascular accident) Code(s): I63.9 - CEREBRAL INFARCTION, UNSPECIFIED Status: Acute (4) Paroxysmal A-fib Code(s): I48.0 - PAROXYSMAL ATRIAL FIBRILLATION Status: Chronic (5) Hypertrophic cardiomyopathy Code(s): I42.2 - OTHER HYPERTROPHIC CARDIOMYOPATHY Status: Chronic (6) Hypokalemia Code(s): E87.6 - HYPOKALEMIA Status: Acute (7) Swallowing dysfunction Code(s): R13.10 - DYSPHAGIA, UNSPECIFIED Status: Acute - Plan 75-year-old female with recent cardioversion for atrial fibrillation presented on 04/14 with shortness of breath and syncope. Patient was intubated by EMS prior to arrival. Her work-up was consistent with acute on chronic diastolic heart failure exacerbation. She showed good improvement with diuretics. She was extubated the following day. Later on, stroke alert was called on the same day. CT brain was consistent with acute CVA involving the right posterior cerebral artery distribution with edema. Patient was started on aspirin along with statins. Anticoagulants were held due to risk of hemorrhagic conversion. IV fluids and blood pressure was gradually titrated with Cardene drip per critical care recommendations to prevent hemorrhagic conversion as well as vasogenic edema. Echocardiogram was done that showed large pericardial effusion with 3 of 3 diastolic dysfunction and severe concentric left ventricular hypertrophy. Impression/plan: Acute hypoxic respiratory failure requiring mechanical ventilation due to acute on chronic diastolic heart failureExtubated on 04/15 Acute CVA involving the right posterior cerebral artery with bilateral superior cerebral artery and left PICA involvement Plan: Continue aspirin with statins. Anticoagulant on hold due to risk of hemorrhagic conversion, stroke team, continue Keppra for seizure prophylaxis Hypertension with hypertensive crisis Plan: Patient on Cardene drip per critical care Hypertrophic cardiomyopathy/large pericardial effusion on echocardiogram with history of pericardial window Atrial fibrillation status post recent cardioversion Swallowing dysfunction due to acute CVA Plan: Patient is currently n.p.o. until cleared by speech Electrolyte abnormalityhypokalemia Plan: We will replace electrolytes Diet: N.p.o. Critical care recommended to hold Dobbhoff tube feeding since patient will require restraint I attempted to call the family with no answer A.m. labs ordered DVT prophylaxis: On SCDs, no Lovenox or heparin due to risk of hemorrhagic conversion GI prophylaxis: On Pepcid Pressure ulcer precautions Stroke team
[2020-04-18 17:54] LABS: Magnesium 2.3 mg/dL (1.6-2.6); Potassium 4.1 mmol/L (3.5-5.1)
[2020-04-19] MEDS ORDERED: niCARdipine 25 MG/10 ML VIAL ONE (08:00)
[2020-04-19] MEDS ORDERED: Sodium Chloride 0.9% 250 Advantage ONE (08:00)
--- NOTE | 2020-04-19 12:11 | RAD ---
Exam: Abdomen one view HISTORY: Dobbhoff feeding tube placement FINDINGS: Single view abdomen demonstrates a Dobbhoff feeding tube. Distal tip is likely in the duode nal bulb. IMPRESSION: Dobbhoff feeding tube likely terminating in the duodenal bulb.
--- NOTE | 2020-04-19 12:14 | PRG ---
DATE OF SERVICE: 04/19/2020 SUBJECTIVE: The patient remains in the ICU related to recent stroke. OBJECTIVE: VITAL SIGNS: Temperature 98.4, pulse 60, blood pressure 145/80, O2 saturation 94%. GENERAL: She is dysarthric. She is weak on the left side compared to the right. HEENT: Otherwise unremarkable. NECK: No JVD. LUNGS: Clear. CARDIAC: S1, S2. Regular. ABDOMEN: Soft. EXTREMITIES: No edema. LABORATORY DATA: Labs are not available for review at this time. CT of the head result was reviewed from yesterday. ASSESSMENT: 1. Cerebrovascular accident. 2. Status post respiratory failure requiring mechanical ventilation. 3. Paroxysmal atrial fibrillation. 4. Hypertrophic cardiomyopathy. 5. Diastolic heart dysfunction. PLAN: Main issue appears to be related to her stroke. She is still requiring nicardipine for blood pressure control. She cannot take oral medication, so my suggestion would be to have either a feeding tube placed or Dobhoff tube placed and initiate tube feeds and oral medication. Her prognosis is very poor for functional recovery. Job ID: [id number]
[2020-04-19] MEDS: Sodium Chloride 0.9% 1,000 ML IV SCH ×3 (14:39→21:30)
[2020-04-19] MEDS: Aspirin 300 MG Suppository PR SCH (14:42)
[2020-04-19 16:42] LABS: #Eosinphils 0.1 thou/uL (0.0-0.7); #Monocytes 0.8 thou/uL (0.11-0.59); #Neutrophils 7.8 thou/uL (1.40-6.50); %Basophils 0.2 % (0.0-1.0); %Eosinophils 1.2 % (0.0-10.0); %Lymphocytes 10.4 % (21.0-51.0); %Monocytes 8.6 % (0.0-10.0); %Neutrophils 79.5 % (42.0-75.0); Hemoglobin 16.6 g/dL (12.0-16.0); Mean Corpuscular HGB CONC 32.3 g/dL (32.0-36.0); Mean Corpuscular Hemoglobin 31.6 pg (27.0-31.0); Mean Corpuscular Volume 98.1 fL (78.0-98.0); Mean Platelet Volume 10.3 fL (7.4-10.4); Platelet Count 199 thou/uL (130-400); RBC Distribution Width 16.2 % (11.5-14.5); Red Blood Cell (RBC) Count 5.24 mill/uL (4.20-5.40); White Blood Cell (WBC) Count 9.8 thou/uL (4.8-10.8)
[2020-04-19 17:07] LABS: Anion Gap 13 mmol/L (10-20); BUN (Urea Nitrogen) 8 mg/dL (9.8-20.1); Calc. Creatinine Clearance 0 mL/min (70-130); Calcium 9.1 mg/dL (7.8-10.44); Carbon Dioxide 30 mmol/L (23-31); Chloride 102 mmol/L (98-107); Glucose 89 mg/dL (83-110); Magnesium 2.1 mg/dL (1.6-2.6); Potassium 3.7 mmol/L (3.5-5.1); Sodium 141 mmol/L (136-145)
[2020-04-19] MEDS: levETIRAcetam in NS 500 MG in Premix Bag 1 BAG IVPB SCH (18:19)
--- NOTE | 2020-04-19 18:57 | PDOC.HOSPP ---
- Subjective Encounter Date: 04/19/20 Encounter Time: 12:30 Subjective: Patient seen and examined for acute CVA. Intermittently follows commands per RN. She failed swallow eval. No other overnight events - Objective Vital Signs & Weight: Vital Signs (12 hours) Pulse Pulse BP BP Pulse Ox Pulse Ox Pulse Ox 04/19/20 14:24 54 L 54 L 150/83 H 150/85 H 100 99 04/19/20 13:00 96 Weight Admit Weight 177 lb 0.499 oz Weight 2.691 oz Most Recent Monitor Data Heart Rate from ECG 53 NIBP 162/72 NIBP BP-Mean 102 Respiration from ECG 18 SpO2 99 I&O: 04/18/20 04/19/20 04/20/20 06:59 06:59 06:59 Intake Total 2536 1290 1472.2 Output Total 2075 1590 1240 Balance 461 -300 232.2 Result Diagrams: 04/19/20 03:45 04/19/20 03:45 Additional Labs: Accuchecks 04/19/20 04/19/20 04/19/20 17:52 05:53 00:06 POC Glucose 91 88 115 H Abnormal Lab Results - Last 48 hrs 04/18/20 06:06: Potassium 3.4 L, BUN 9 L, Creatinine 0.56 L 04/18/20 06:06: Hct 50.2 H, MCHC 31.9 L, RDW 16.3 H, Neutrophils % 84.7 H, Lymphocytes % 7.4 L, Neutrophils # 8.0 H, Lymphocytes # 0.7 L, Monocytes # 0.7 H 04/19/20 03:45: BUN 8 L, Creatinine 0.48 L 04/19/20 03:45: Hgb 16.6 H, Hct 51.4 H, MCV 98.1 H, MCH 31.6 H, RDW 16.2 H, Neutrophils % 79.5 H, Lymphocytes % 10.4 L, Neutrophils # 7.8 H, Lymphocytes # 1.0 L, Monocytes # 0.8 H Microbiology - Entire Visit 04/14/20 11:06 Venous blood - Right Hand Blood Culture - Final NO GROWTH IN 5 DAYS 04/14/20 11:06 Venous blood - Left Hand Blood Culture - Final NO GROWTH IN 5 DAYS 04/14/20 10:40 Urine raza catheter Urine Culture - Final NO GROWTH AT 48 HOURS EKG Reviewed by me: Yes (Sinus rhythm on telemetry) Hospitalist ROS - Review of Systems ROS unobtainable: due to mental status - Medication Medications: Active Medications Generic Name Dose Route Start Last Admin Trade Name Freq PRN Reason Stop Dose Admin Acetaminophen 650 mg 04/14/20 13:27 04/15/20 01:30 Acetaminophen 325 Mg Tab PO 650 mg Q4H PRN Administration Headache/Fever/Mild Pain (1-3) Aspirin 300 mg 04/17/20 09:00 04/19/20 14:42 Aspirin 300 Mg Suppository [place] Not Given DAILY ZANE Famotidine 20 mg 04/17/20 09:00 04/18/20 10:07 Famotidine/Pf 20 Mg/2ml Vial SLOW IVP 20 mg DAILY ZANE Administration Nicardipine HCl 25 mg/ Sodium 250 mls @ 0 mls/hr 04/17/20 15:45 04/18/20 10:49 Chloride IVPB 250 mls INF ZANE Administration Protocol Titrate Sodium Chloride 1,000 mls @ 125 mls/hr 04/18/20 14:30 04/19/20 14:42 Normal Saline 0.9% IV Not Given .Q8H ZANE Ondansetron HCl 4 mg 04/14/20 13:27 04/16/20 06:04 Ondansetron Pf 4 Mg/2 Ml Vial IVP 4 mg Q6H PRN Administration Nausea/Vomiting Sodium Chloride 10 ml 04/17/20 21:00 04/19/20 14:42 Flush - Normal Saline 10 Ml Syringe IVF Not Given Q12HR [facility] Hospitalist Exam Vitals: Vital Signs (12 hours) Pulse Pulse BP BP Pulse Ox Pulse Ox Pulse Ox 04/19/20 14:24 54 L 54 L 150/83 H 150/85 H 100 99 04/19/20 13:00 96 Weight Admit Weight 177 lb 0.499 oz Weight 2.691 oz Most Recent Monitor Data Heart Rate from ECG 53 NIBP 162/72 NIBP BP-Mean 102 Respiration from ECG 18 SpO2 99 General Appearance: NAD Heart: RRR, no gallops Respiratory: no wheezes, no ronchi Gastrointestinal: soft, non-distended Extremities: no cyanosis Neurological - other findings: Neuroexam limited due to current mentation, exam unchanged Psychiatric: lethargic Hosp A/P (1) Acute respiratory failure with hypoxia Code(s): J96.01 - ACUTE RESPIRATORY FAILURE WITH HYPOXIA (2) Diastolic CHF Code(s): I50.30 - UNSPECIFIED DIASTOLIC (CONGESTIVE) HEART FAILURE Status: Chronic Qualifiers: Heart failure chronicity: acute on chronic Qualified Code(s): I50.33 - Acute on chronic diastolic (congestive) heart failure (3) Acute CVA (cerebrovascular accident) Code(s): I63.9 - CEREBRAL INFARCTION, UNSPECIFIED Status: Acute (4) Paroxysmal A-fib Code(s): I48.0 - PAROXYSMAL ATRIAL FIBRILLATION Status: Chronic (5) Hypertrophic cardiomyopathy Code(s): I42.2 - OTHER HYPERTROPHIC CARDIOMYOPATHY Status: Chronic (6) Hypokalemia Code(s): E87.6 - HYPOKALEMIA Status: Acute (7) Swallowing dysfunction Code(s): R13.10 - DYSPHAGIA, UNSPECIFIED Status: Acute - Plan 75-year-old female with recent cardioversion for atrial fibrillation presented on 04/14 with shortness of breath and syncope. Patient was intubated by EMS prior to arrival. Her work-up was consistent with acute on chronic diastolic heart failure exacerbation. She showed good improvement with diuretics. She was extubated the following day. Later on, stroke alert was called on the same day. CT brain was consistent with acute CVA involving the right posterior cerebral artery distribution with edema. Patient was started on aspirin along with statins. Anticoagulants were held due to risk of hemorrhagic conversion. IV fluids and blood pressure was gradually titrated with Cardene drip per critical care recommendations to prevent hemorrhagic conversion as well as vasogenic edema. Echocardiogram was done that showed large pericardial effusion with 3 of 3 diastolic dysfunction and severe concentric left ventricular hypertrophy. Impression/plan: Acute hypoxic respiratory failure requiring mechanical ventilation due to acute on chronic diastolic heart failureExtubated on 04/15 Acute CVA involving the right posterior cerebral artery with bilateral superior cerebral artery and left PICA involvement Plan: Continue aspirin, statins. stroke team, continue Keppra for seizure prophylaxis. I discussed case with neurology who recommendedanticoagulants can be started 7 days post CVA , increase Keppra to 1000 mg twice daily Hypertension with hypertensive crisis Plan: Cardene drip was discontinued this morning Hypertrophic cardiomyopathy/large pericardial effusion on echocardiogram with history of pericardial window Atrial fibrillation status post recent cardioversionanticoagulant on hold per neurology due to risk of hemorrhagic conversion Swallowing dysfunction due to acute CVA Plan: Patient failed swallow eval. Dobbhoff tube will be placed. Patient will be started on tube feeding Electrolyte abnormalityhypokalemia Plan: Continue to monitor Diet: Tube feeding will be started I attempted to call daughter Kimberley at [phone] with no answer A.m. labs ordered DVT prophylaxis: On SCDs, will start heparin subcu route for DVT prophylaxis GI prophylaxis: On Pepcid Pressure ulcer precautions Stroke team
[2020-04-19] MEDS: Heparin 5,000 UNITS/ML VIAL SC SCH (21:29)
[2020-04-19] MEDS: levETIRAcetam in NS 1,000 MG in Premix Bag 1 BAG IVPB SCH (21:30)
[2020-04-20] MEDS: niCARdipine 25 MG in Sodium Chloride 0.9% 250 ML 240 ML IVPB SCH ×2 (01:55→06:44)
[2020-04-20] MEDS: Sodium Chloride 0.9% 1,000 ML IV SCH (06:07)
--- NOTE | 2020-04-20 08:28 | PRG ---
DATE OF SERVICE: 04/20/2020 SUBJECTIVE: This patient remains in the ICU. She had a Dobhoff tube placed yesterday. Tube feeds have been started. She remains on a nicardipine drip. I find her less responsive today than she was yesterday, although she seems to be maintaining her airway well. OBJECTIVE: VITAL SIGNS: Temperature is 98.3, pulse 62, blood pressure 140/60, and O2 saturation in the low to mid 90s on room air. HEENT: Unremarkable. NECK: No JVD. CHEST: Fairly clear anteriorly. CARDIAC: S1 and S2. Regular. ABDOMEN: Soft. EXTREMITIES: No edema. LABORATORY DATA: I do not see any labs that were ordered today. ASSESSMENT: 1. . 2. Hypertension. 3. Status post respiratory failure requiring mechanical ventilation. PLAN: We will start her on oral antihypertensives through her Dobhoff tube. She could be transferred out to the stroke floor. Her prognosis is extremely poor for functional recovery. Job ID: [id number]
[2020-04-20] MEDS: Famotidine/PF 20 mg/2ml Vial SLOW IVP SCH (08:55)
[2020-04-20] MEDS: Heparin 5,000 UNITS/ML VIAL SC SCH ×2 (08:55→21:12)
[2020-04-20] MEDS: Amlodipine 10 MG TAB PER TUBE SCH (08:55)
[2020-04-20] MEDS ORDERED: Carvedilol 6.25 MG TAB PER TUBE SCH (09:00)
[2020-04-20] MEDS: levETIRAcetam in NS 1,000 MG in Premix Bag 1 BAG IVPB SCH (09:08)
[2020-04-20] MEDS: Amiodarone 200 MG TAB PER TUBE SCH (09:23)
[2020-04-20] MEDS: Aspirin 325 MG TAB PER TUBE SCH (09:23)
--- NOTE | 2020-04-20 09:46 | RAD ---
XR Abdomen 1 View/KUB HISTORY: Dobbhoff tube placement COMPARISON: None. FINDINGS: The Dobbhoff feeding tube is seen the tip is in the region of the antrum or first portion o f the duodenum. The position is similar to the previous exam. IMPRESSION: Dobbhoff feeding tube, the tip of the tube is felt to be in the first portion of the duod enum. Appearance is unchanged since the previous day's study.
[2020-04-20 10:36] LABS: ALT (SGPT) 16 U/L (8-55); AST (SGOT) 26 U/L (5-34); Albumin 3.1 g/dL (3.4-4.8); Alkaline Phosphatase 92 U/L (40-110); Anion Gap 12 mmol/L (10-20); BUN (Urea Nitrogen) 10 mg/dL (9.8-20.1); Bilirubin, Total 1.8 mg/dL (0.2-1.2); Calc. Creatinine Clearance 118 mL/min (70-130); Carbon Dioxide 29 mmol/L (23-31); Chloride 101 mmol/L (98-107); Glucose 83 mg/dL (83-110); Magnesium 1.9 mg/dL (1.6-2.6); Phosphorus 3.1 mg/dL (2.3-4.7); Potassium 3.3 mmol/L (3.5-5.1); Protein, Total 6.1 g/dL (5.8-8.1); Sodium 139 mmol/L (136-145)
--- NOTE | 2020-04-20 10:51 | PRG ---
DATE OF SERVICE: 04/20/2020 SUBJECTIVE: Ms. Carlson is currently undergoing EEG. She has had increase in blood pressure noted. She is somewhat somnolent. OBJECTIVE: VITAL SIGNS: Blood pressure 144/60, pulse 58, temperature afebrile. LUNGS: Clear to auscultation. HEART: Regular rate and rhythm. ABDOMEN: Soft, nontender, nondistended. IMPRESSION AND PLAN: 1. Recent CVA. 2. Respiratory failure, status post intubation, now extubated. I would like to start anticoagulation therapy as soon as okay with Neurology. Neurology has cleared away for anticoagulation therapy after day #7. The patient has had a Dobbhoff tube placed. We will continue amiodarone therapy. Amlodipine has also been added for blood pressure management. Continue aspirin and hold anticoagulation therapy. She is also on carvedilol 6.25 mg one p.o. b.i.d. at home and we will add. We will also add lisinopril 10 mg q.a.m., which is also a home medication. We will make adjustments if needed. Job ID: [id number]
[2020-04-20] MEDS ORDERED: Magnesium 2 GM/50 ML 2 GM in Premix Bag 1 BAG IVPB SCH (11:15)
[2020-04-20] MEDS ORDERED: Potassium Chloride 20 MEQ TAB PO SCH (11:15)
--- NOTE | 2020-04-20 15:19 | PDOC.HOSPP ---
- Subjective Encounter Date: 04/20/20 Encounter Time: 11:00 Subjective: Patient seen and examined for respiratory failure/acute CVA. Somnolent. Was following commands earlier per RN. Off Cardene drip. Tolerating tube feeding. - Objective Vital Signs & Weight: Vital Signs (12 hours) Temp Pulse BP Pulse Ox 04/20/20 12:00 98.3 F 04/20/20 09:23 150/55 H 04/20/20 08:55 65 150/55 H 04/20/20 08:00 98.8 F 100 04/20/20 04:00 98.3 F Weight Admit Weight 177 lb 0.499 oz Weight 168 lb 3.403 oz Most Recent Monitor Data Heart Rate from ECG 62 NIBP 128/71 NIBP BP-Mean 90 Respiration from ECG 22 SpO2 99 I&O: 04/19/20 04/20/20 04/21/20 06:59 06:59 06:59 Intake Total 1290 3490.2 676 Output Total 1590 3015 765 Balance -300 475.2 -89 Result Diagrams: 04/19/20 03:45 04/20/20 10:03 Additional Labs: Accuchecks 04/20/20 04/20/20 04/20/20 12:17 06:13 00:28 POC Glucose 93 92 95 04/19/20 04/19/20 04/17/20 17:52 14:48 08:54 POC Glucose 91 78 86 04/16/20 17:05 POC Glucose 87 Abnormal Lab Results - Last 48 hrs 04/19/20 03:45: BUN 8 L, Creatinine 0.48 L 04/19/20 03:45: Hgb 16.6 H, Hct 51.4 H, MCV 98.1 H, MCH 31.6 H, RDW 16.2 H, Neut rophils % 79.5 H, Lymphocytes % 10.4 L, Neutrophils # 7.8 H, Lymphocytes # 1.0 L, Monocytes # 0.8 H 04/20/20 10:03: Potassium 3.3 L, Creatinine 0.52 L, Total Bilirubin 1.8 H, Albumin 3.1 L, Albumin/Globulin Ratio 1.0 L Microbiology - Entire Visit 04/14/20 11:06 Venous blood - Right Hand Blood Culture - Final NO GROWTH IN 5 DAYS 04/14/20 11:06 Venous blood - Left Hand Blood Culture - Final NO GROWTH IN 5 DAYS 04/14/20 10:40 Urine raza catheter Urine Culture - Final NO GROWTH AT 48 HOURS EKG Reviewed by me: Yes (Sinus rhythm on telemetry) Hospitalist ROS - Review of Systems ROS unobtainable: due to mental status - Medication Medications: Active Medications Generic Name Dose Route Start Last Admin Trade Name Freq PRN Reason Stop Dose Admin Acetaminophen 650 mg 04/14/20 13:27 04/15/20 01:30 Acetaminophen 325 Mg Tab PO 650 mg Q4H PRN Administration Headache/Fever/Mild Pain (1-3) Amiodarone HCl 200 mg 04/20/20 09:00 04/20/20 09:23 Amiodarone 200 Mg Tab PER TUBE 200 mg DAILY ZANE Administration Amlodipine Besylate 10 mg 04/20/20 09:00 04/20/20 08:55 Amlodipine 10 Mg Tab PER TUBE 10 mg DAILY ZANE Administration Aspirin 325 mg 04/20/20 09:00 04/20/20 09:23 Aspirin 325 Mg Tab PER TUBE 325 mg DAILY ZANE Administration Famotidine 20 mg 04/17/20 09:00 04/20/20 08:55 Famotidine/Pf 20 Mg/2ml Vial SLOW IVP 20 mg DAILY ZANE Administration Heparin Sodium (Porcine) 5,000 units 04/19/20 21:00 04/20/20 08:55 Heparin 5,000 Units/Ml Vial SC 5,000 units BID ZANE Administration Levetiracetam 1,000 mg/ Device 100 mls @ 200 mls/hr 04/19/20 21:00 04/20/20 09:08 IVPB 100 mls BID ZANE Administration Ondansetron HCl 4 mg 04/14/20 13:27 04/16/20 06:04 Ondansetron Pf 4 Mg/2 Ml Vial IVP 4 mg Q6H PRN Administration Nausea/Vomiting Sodium Chloride 10 ml 04/17/20 21:00 04/20/20 08:56 Flush - Normal Saline 10 Ml Syringe IVF 10 ml Q12HR ZANE Administration Hospitalist Exam Vitals: Vital Signs (12 hours) Temp Pulse BP Pulse Ox 04/20/20 12:00 98.3 F 04/20/20 09:23 150/55 H 04/20/20 08:55 65 150/55 H 04/20/20 08:00 98.8 F 100 04/20/20 04:00 98.3 F Weight Admit Weight 177 lb 0.499 oz Weight 168 lb 3.403 oz Most Recent Monitor Data Heart Rate from ECG 62 NIBP 128/71 NIBP BP-Mean 90 Respiration from ECG 22 SpO2 99 General Appearance: NAD Heart: RRR, no gallops Respiratory: no wheezes, no ronchi Gastrointestinal: soft, non-distended Extremities: no cyanosis Neurological: no new deficit Neurological - other findings: Left side hemineglect Psychiatric: somnolent Hosp A/P (1) Acute respiratory failure with hypoxia Code(s): J96.01 - ACUTE RESPIRATORY FAILURE WITH HYPOXIA (2) Diastolic CHF Code(s): I50.30 - UNSPECIFIED DIASTOLIC (CONGESTIVE) HEART FAILURE Status: Chronic Qualifiers: Heart failure chronicity: acute on chronic Qualified Code(s): I50.33 - Acute on chronic diastolic (congestive) heart failure (3) Acute CVA (cerebrovascular accident) Code(s): I63.9 - CEREBRAL INFARCTION, UNSPECIFIED Status: Acute (4) Paroxysmal A-fib Code(s): I48.0 - PAROXYSMAL ATRIAL FIBRILLATION Status: Chronic (5) Hypertrophic cardiomyopathy Code(s): I42.2 - OTHER HYPERTROPHIC CARDIOMYOPATHY Status: Chronic (6) Hypokalemia Code(s): E87.6 - HYPOKALEMIA Status: Acute (7) Swallowing dysfunction Code(s): R13.10 - DYSPHAGIA, UNSPECIFIED Status: Acute (8) Hypomagnesemia Code(s): E83.42 - HYPOMAGNESEMIA Status: Acute (9) Abnormal LFTs Code(s): R94.5 - ABNORMAL RESULTS OF LIVER FUNCTION STUDIES Status: Acute (10) Obesity (BMI 30.0-34.9) Code(s): E66.9 - OBESITY, UNSPECIFIED Status: Chronic - Plan 75-year-old female with recent cardioversion for atrial fibrillation presented on 04/14 with shortness of breath and syncope. Patient was intubated by EMS prior to arrival. Her work-up was consistent with acute on chronic diastolic heart failure exacerbation. She showed good improvement with diuretics. She was extubated the following day (04/15). Stroke alert was called later on the same day. CT brain was consistent with acute CVA involving the right posterior cerebral artery distribution with edema. Patient was started on aspirin along with statins. Anticoagulants were held due to risk of hemorrhagic conversion. IV fluids and blood pressure was gradually titrated with Cardene drip per critical care recommendations to prevent hemorrhagic conversion as well as vasogenic edema. Echocardiogram was done that showed large pericardial effusion with 3 of 3 diastolic dysfunction and severe concentric left ventricular hypertrophy. Anticoagulants can be resumed 7 days post CVA per neurology recommendation. Dobbhoff tube was placed on 04/19 due to swallowing dysfunction. Patient was transferred to stroke unit on 04/20. Plan: Patient will be transferred to stroke unit. Patient is off Cardene drip. Will discontinue Raza catheter. Continue tube feeding. Change Keppra to p.o. Replace magnesium and potassium. Restart amlodipine and carvedilol. Change aspirin to p.o. Continue heparin for DVT prophylaxis. Recheck LFTs in a.m. Patient has isolated hyperbilirubinemia of unclear etiology. Will avoid hepa totoxic agents. Plan of care was discussed with the daughter at the bedside. Continue physical therapy. DC blood sugar check.
--- NOTE | 2020-04-20 15:52 | PDOC.EEG ---
Neurology EEG Report - Report Report: This EEG was performed using 24 channel [employer] video digital EEG machine with 24 disc electrodes. This was an extended 2 hours 5 minutes of inpatient video EEG recording. Digital analysis of the EEG was done for Hector and seizure detection which revealed no abnormalities. Background: There is a nonsustained posterior background rhythm is 8 to 8.5 Hz minimal reactivity seen with eye opening and closure. Hyperventilation: . Not performed Photic stimulation: No significant response Sleep: Drowsiness and sleep are observed EEG diagnosis: Intermittent irregular theta activity seen during the recording Nonsustained posterior background rhythm Clinical interpretation: This EEG is consistent with mild generalized nonspecific cerebral dysfunction.
--- NOTE | 2020-04-20 16:41 | PDOC.NEUPN ---
- Subjective Encounter Date: 04/20/20 Subjective: Patient has no acute issues overnight. Transferred to floor today. - Objective Vital Signs & Weight: Vital Signs (12 hours) Temp Pulse BP Pulse Ox 04/20/20 12:00 98.3 F 04/20/20 09:23 150/55 H 04/20/20 08:55 65 150/55 H 04/20/20 08:00 98.8 F 100 Weight Admit Weight 177 lb 0.499 oz Weight 168 lb 3.403 oz Most Recent Monitor Data Heart Rate from ECG 62 NIBP 128/71 NIBP BP-Mean 90 Respiration from ECG 22 SpO2 99 I&O: 04/19/20 04/20/20 04/21/20 06:59 06:59 06:59 Intake Total 1290 3490.2 676 Output Total 1590 3015 765 Balance -300 475.2 -89 Result Diagrams: 04/19/20 03:45 04/20/20 10:03 Additional Labs: Accuchecks 04/20/20 04/20/20 04/20/20 12:17 06:13 00:28 POC Glucose 93 92 95 04/19/20 04/19/20 04/17/20 17:52 14:48 08:54 POC Glucose 91 78 86 04/16/20 17:05 POC Glucose 87 Radiology Reviewed by me: Yes EKG Reviewed by me: Yes ROS - Review of Systems ROS unobtainable: due to mental status (somnolent) - Medication Medications: Active Medications Generic Name Dose Route Start Last Admin Trade Name Freq PRN Reason Stop Dose Admin Acetaminophen 650 mg 04/14/20 13:27 04/15/20 01:30 Acetaminophen 325 Mg Tab PO 650 mg Q4H PRN Administration Headache/Fever/Mild Pain (1-3) Amiodarone HCl 200 mg 04/20/20 09:00 04/20/20 09:23 Amiodarone 200 Mg Tab PER TUBE 200 mg DAILY ZANE Administration Amlodipine Besylate 10 mg 04/20/20 09:00 04/20/20 08:55 Amlodipine 10 Mg Tab PER TUBE 10 mg DAILY ZANE Administration Aspirin 325 mg 04/20/20 09:00 04/20/20 09:23 Aspirin 325 Mg Tab PER TUBE 325 mg DAILY ZANE Administration Heparin Sodium (Porcine) 5,000 units 04/19/20 21:00 04/20/20 08:55 Heparin 5,000 Units/Ml Vial SC 5,000 units BID ZANE Administration Ondansetron HCl 4 mg 04/14/20 13:27 04/16/20 06:04 Ondansetron Pf 4 Mg/2 Ml Vial IVP 4 mg Q6H PRN Administration Nausea/Vomiting Sodium Chloride 10 ml 04/17/20 21:00 04/20/20 08:56 Flush - Normal Saline 10 Ml Syringe IVF 10 ml Q12HR AZNE Administration - Exam General Appearance: awake alert Eye: PERRL ENT: normocephalic atraumatic Neck: supple Respiratory: CTAB Cardiovascular: RRR Gastrointestinal: soft Extremities: no cyanosis Skin: normal turgor Neurological: no new deficit Musculoskeletal: normal tone, no muscle wasting PSYCH: somnolent, lethargic Results - Labs Result Diagrams: 04/19/20 03:45 04/20/20 10:03 Lab results: WBC 9.8 thou/uL (4.8-10.8) 04/19/20 03:45 Hgb 16.6 g/dL (12.0-16.0) H 04/19/20 03:45 Hct 51.4 % (36.0-47.0) H 04/19/20 03:45 MCV 98.1 fL (78.0-98.0) H 04/19/20 03:45 Plt Count 199 thou/uL (130-400) 04/19/20 03:45 Neutrophils % 79.5 % (42.0-75.0) H 04/19/20 03:45 ESR Westergren 18 mm/hr (Less than 30) 04/15/20 15:20 ABG pH 7.53 (7.35-7.45) H 04/15/20 06:30 ABG pCO2 31.6 mmHg (35.0-45.0) L 04/15/20 06:30 ABG pO2 69.7 mmHg (> 70.0) 04/15/20 06:30 Sodium 139 mmol/L (136-145) 04/20/20 10:03 Potassium 3.3 mmol/L (3.5-5.1) L 04/20/20 10:03 Chloride 101 mmol/L (98-107) 04/20/20 10:03 Carbon Dioxide 29 mmol/L (23-31) 04/20/20 10:03 BUN 10 mg/dL (9.8-20.1) 04/20/20 10:03 Creatinine 0.52 mg/dL (0.6-1.1) L 04/20/20 10:03 Glucose 83 mg/dL (83-110) 04/20/20 10:03 Lactic Acid 1.2 mmol/L (0.5-2.2) 04/14/20 11:06 Calcium 9.0 mg/dL (7.8-10.44) 04/20/20 10:03 Total Bilirubin 1.8 mg/dL (0.2-1.2) H 04/20/20 10:03 AST 26 U/L (5-34) 04/20/20 10:03 ALT 16 U/L (8-55) 04/20/20 10:03 Alkaline Phosphatase 92 U/L (40-110) 04/20/20 10:03 Creatine Kinase 80 U/L (29-168) 04/14/20 10:54 CK-MB (CK-2) 2.9 ng/mL (0-6.6) 04/14/20 10:51 Troponin I 0.062 ng/mL (< 0.028) H 04/17/20 04:04 B-Natriuretic Peptide 1325.4 pg/mL (0-100) H 04/16/20 02:58 Serum Total Protein 6.1 g/dL (5.8-8.1) 04/20/20 10:03 Albumin 3.1 g/dL (3.4-4.8) L 04/20/20 10:03 Urine Ketones Negative mg/dL (Negative) 04/14/20 10:40 Urine Blood Negative (Negative) 04/14/20 10:40 Urine Nitrite Negative (Negative) 04/14/20 10:40 Ur Leukocyte Esterase Negative (Negative) 04/14/20 10:40 - Radiology Interpretation MRI - head Additional Comment: MRI brain consistent with acute infarction. PN A/P (1) Acute CVA (cerebrovascular accident) Code(s): I63.9 - CEREBRAL INFARCTION, UNSPECIFIED Status: Acute (2) Hypokalemia Code(s): E87.6 - HYPOKALEMIA Status: Acute (3) Hypomagnesemia Code(s): E83.42 - HYPOMAGNESEMIA Status: Acute (4) Swallowing dysfunction Code(s): R13.10 - DYSPHAGIA, UNSPECIFIED Status: Acute (5) Diastolic CHF Code(s): I50.30 - UNSPECIFIED DIASTOLIC (CONGESTIVE) HEART FAILURE Status: Chronic Qualifiers: Heart failure chronicity: acute on chronic Qualified Code(s): I50.33 - Acute on chronic diastolic (congestive) heart failure (6) Dyslipidemia Code(s): E78.5 - HYPERLIPIDEMIA, UNSPECIFIED Status: Chronic (7) Obesity (BMI 30.0-34.9) Code(s): E66.9 - OBESITY, UNSPECIFIED Status: Chronic (8) Paroxysmal A-fib Code(s): I48.0 - PAROXYSMAL ATRIAL FIBRILLATION Status: Chronic - Plan Daily Plan: speech therapy, out of bed/ambulate, DVT proph w/lovenox 74 year old female with history significant for paroxysmal atrial fibrillation underwent cardioversion few days before this admission now in sinus rhythm consulted for acute stroke. There was concern about seizures . Keppra was started which she tolerated well. No reported seizures since initiation of Keppra. Repeat EEG fro today reviewed which was negative for seizure activity. Continue Keppra 1000 mg PO BID per dophoff tube. Inserted 04/15 for dysphagia Observe seizure precations Arivan 2 mg IV for seizures greater than 2 minutes. MRI of the brain was consistent with acute infarction in the right [employer] and bilateral superior cerebellar territory. 2D echo to evaluate for left ventricular ejection fraction showed pericardial effusion and LVEF 70-75%.. Carotid Dopplers pending to rule out hemodynamically significant stenosis. Continue telemetrypatient has history of atrial fibrillation but currently in sinus rhythm. Cardiology is on board. Neurochecks every 4 hours. Strict control of blood pressure at this time. Strict control of blood glucose. Continue aspirin and high intensity statin for secondary stroke prevention. Restart anticoagulation - 7 days post stroke. Held due to risk of hemorrhagic conversion. N.p.o. till cleared by speech. PT/OT/speech. Continue home medications. Continue medical management per primary team DVT prophylaxis. Case management consult regarding discharge planning. Plan discussed in detail with the nursing staff and also with the daughter at bedside and on the phone.
[2020-04-20] MEDS: Carvedilol 6.25 MG TAB PER TUBE SCH (17:07)
[2020-04-20] MEDS: Atorvastatin Calcium 40 MG TAB PER TUBE SCH (21:12)
[2020-04-20] MEDS: levETIRAcetam 500 mg/5 ml Oral Solution PER TUBE SCH (21:18)
[2020-04-21 05:27] LABS: #Eosinphils 0.1 thou/uL (0.0-0.7); #Lymphocytes 1.1 thou/uL (1.20-3.40); #Monocytes 0.6 thou/uL (0.11-0.59); #Neutrophils 7.2 thou/uL (1.40-6.50); %Basophils 0.1 % (0.0-1.0); %Lymphocytes 11.8 % (21.0-51.0); %Monocytes 7.1 % (0.0-10.0); %Neutrophils 80.1 % (42.0-75.0); Hemoglobin 15.8 g/dL (12.0-16.0); Mean Corpuscular HGB CONC 32.8 g/dL (32.0-36.0); Mean Corpuscular Hemoglobin 31.4 pg (27.0-31.0); Mean Corpuscular Volume 95.8 fL (78.0-98.0); Mean Platelet Volume 8.7 fL (7.4-10.4); Platelet Count 244 thou/uL (130-400); RBC Distribution Width 15.7 % (11.5-14.5); Red Blood Cell (RBC) Count 5.04 mill/uL (4.20-5.40); White Blood Cell (WBC) Count 8.9 thou/uL (4.8-10.8)
[2020-04-21 05:42] LABS: ALT (SGPT) 13 U/L (8-55); AST (SGOT) 21 U/L (5-34); Albumin 2.9 g/dL (3.4-4.8); Alkaline Phosphatase 89 U/L (40-110); Anion Gap 10 mmol/L (10-20); BUN (Urea Nitrogen) 14 mg/dL (9.8-20.1); Bilirubin, Total 1.1 mg/dL (0.2-1.2); Calc. Creatinine Clearance 106 mL/min (70-130); Calcium 8.8 mg/dL (7.8-10.44); Carbon Dioxide 31 mmol/L (23-31); Chloride 101 mmol/L (98-107); Globulin 2.7 g/dL (2.4-3.5); Glucose 131 mg/dL (83-110); Potassium 3.8 mmol/L (3.5-5.1); Protein, Total 5.6 g/dL (5.8-8.1); Sodium 138 mmol/L (136-145)
--- NOTE | 2020-04-21 08:52 | PRG ---
DATE OF SERVICE: 04/21/2020 SUBJECTIVE: Ms. Jones is resting. No current issues overnight. OBJECTIVE: VITAL SIGNS: Blood pressure 137/67, pulse 65, temperature afebrile. LUNGS: Clear to auscultation. HEART: Regular rate and rhythm. ABDOMEN: Soft, nontender, nondistended. EXTREMITIES: No edema. IMPRESSION: 1. Hypertrophic cardiomyopathy. 2. Atrial fibrillation status post cardioversion. 3. Recent cerebrovascular accident. RECOMMENDATIONS: We will await final recommendations from Neurology on when to restart anticoagulation therapy. Currently, the patient appears to be rate controlled. The patient will also need to undergo rehab. Job ID: [id number]
[2020-04-21] MEDS: levETIRAcetam 500 mg/5 ml Oral Solution PER TUBE SCH ×2 (11:51→20:44)
[2020-04-21] MEDS: Multivit, Therapeutic 1 TAB PER TUBE SCH (11:51)
[2020-04-21] MEDS: Lisinopril 5 MG TAB PO SCH (11:51)
[2020-04-21] MEDS: Pantoprazole 40 MG GRANULES PACKET PO SCH (11:51)
[2020-04-21] MEDS: Heparin 5,000 UNITS/ML VIAL SC SCH (11:51)
[2020-04-21] MEDS: Aspirin 325 MG TAB PER TUBE SCH (11:51)
[2020-04-21] MEDS: Amlodipine 10 MG TAB PER TUBE SCH (11:52)
[2020-04-21] MEDS: Amiodarone 200 MG TAB PER TUBE SCH (11:52)
[2020-04-21] MEDS: Carvedilol 6.25 MG TAB PER TUBE SCH ×2 (11:52→18:05)
--- NOTE | 2020-04-21 16:56 | PDOC.HOSPP ---
- Subjective Encounter Date: 04/21/20 Encounter Time: 11:00 Subjective: Patient seen and examined for acute CVA. Mentation improving. Intermittent confusion per RN. Tolerating tube feeding. - Objective Vital Signs & Weight: Vital Signs (12 hours) Temp Pulse Pulse Pulse Resp BP BP 04/21/20 15:05 98.1 F 57 L 20 04/21/20 11:52 56 L 151/73 H 04/21/20 11:51 56 L 151/73 H 04/21/20 11:00 98.1 F 64 20 04/21/20 09:56 58 L 61 172/85 H 04/21/20 08:05 98.2 F 62 18 04/21/20 06:27 55 L 18 BP BP Pulse Ox 04/21/20 15:05 130/71 93 L 04/21/20 11:52 04/21/20 11:51 04/21/20 11:00 151/73 H 94 L 04/21/20 09:56 156/82 H 04/21/20 08:05 170/90 H 99 04/21/20 06:27 137/69 Weight Admit Weight 177 lb 0.499 oz Weight 170 lb 10.205 oz Most Recent Monitor Data Heart Rate from ECG 62 NIBP 128/71 NIBP BP-Mean 90 Respiration from ECG 22 SpO2 99 I&O: 04/20/20 04/21/20 04/22/20 06:59 06:59 06:59 Intake Total 3490.2 1631 200 Output Total 3865 1015 Balance -374.8 616 200 Result Diagrams: 04/21/20 05:11 04/21/20 05:11 Additional Labs: Abnormal Lab Results - Last 48 hrs 04/19/20 03:45: BUN 8 L, Creatinine 0.48 L 04/20/20 10:03: Potassium 3.3 L, Creatinine 0.52 L, Total Bilirubin 1.8 H, Albumin 3.1 L, Albumin/Globulin Ratio 1.0 L 04/21/20 05:11: Hct 48.3 H, MCH 31.4 H, RDW 15.7 H, Neutrophils % 80.1 H, Lymphocytes % 11.8 L, Neutrophils # 7.2 H, Lymphocytes # 1.1 L, Monocytes # 0.6 H 04/21/20 05:11: Creatinine 0.58 L, Serum Total Protein 5.6 L, Albumin 2.9 L, Albumin/Globulin Ratio 1.1 L Microbiology - Entire Visit 04/14/20 11:06 Venous blood - Right Hand Blood Culture - Final NO GROWTH IN 5 DAYS 04/14/20 11:06 Venous blood - Left Hand Blood Culture - Final NO GROWTH IN 5 DAYS 04/14/20 10:40 Urine raza catheter Urine Culture - Final NO GROWTH AT 48 HOURS EKG Reviewed by me: Yes (Sinus rhythm on telemetry) Hospitalist ROS - Review of Systems ROS unobtainable: due to mental status - Medication Medications: Active Medications Generic Name Dose Route Start Last Admin Trade Name Freq PRN Reason Stop Dose Admin Acetaminophen 650 mg 04/14/20 13:27 04/15/20 01:30 Acetaminophen 325 Mg Tab PO 650 mg Q4H PRN Administration Headache/Fever/Mild Pain (1-3) Amiodarone HCl 200 mg 04/20/20 09:00 04/21/20 11:52 Amiodarone 200 Mg Tab PER TUBE 200 mg DAILY ZANE Administration Amlodipine Besylate 10 mg 04/20/20 09:00 04/21/20 11:52 Amlodipine 10 Mg Tab PER TUBE 10 mg DAILY ZANE Administration Aspirin 325 mg 04/20/20 09:00 04/21/20 11:51 Aspirin 325 Mg Tab PER TUBE 325 mg DAILY ZANE Administration Atorvastatin Calcium 40 mg 04/20/20 21:00 04/20/20 21:12 Atorvastatin Calcium 40 Mg Tab PER TUBE 40 mg HS ZANE Administration Carvedilol 6.25 mg 04/20/20 17:00 04/21/20 11:52 Carvedilol 6.25 Mg Tab PER TUBE 6.25 mg BID-WM ZANE Administration Heparin Sodium (Porcine) 5,000 units 04/19/20 21:00 04/21/20 11:51 Heparin 5,000 Units/Ml Vial SC 5,000 units BID ZANE Administration Levetiracetam 500 mg 04/20/20 21:00 04/21/20 11:51 Levetiracetam 500 Mg/5 Ml Oral Solution PER TUBE 500 mg BID ZANE Administration Lisinopril 5 mg 04/21/20 09:00 04/21/20 11:51 Lisinopril 5 Mg Tab PO 5 mg DAILY ZANE Administration Multivitamins 1 tab 04/21/20 09:00 04/21/20 11:51 Multivit, Therapeutic 1 Tab PER TUBE 1 tab DAILY ZANE Administration Ondansetron HCl 4 mg 04/14/20 13:27 04/16/20 06:04 Ondansetron Pf 4 Mg/2 Ml Vial IVP 4 mg Q6H PRN Administration Nausea/Vomiting Pantoprazole Sodium 40 mg 04/21/20 09:00 04/21/20 11:51 Pantoprazole 40 Mg Granules Packet PO 40 mg DAILY ZANE Administration Sodium Chloride 10 ml 04/17/20 21:00 04/21/20 11:53 Flush - Normal Saline 10 Ml Syringe IVF 10 ml Q12HR ZANE Administration Hospitalist Exam Vitals: Vital Signs (12 hours) Temp Pulse Pulse Pulse Resp BP BP 04/21/20 15:05 98.1 F 57 L 20 04/21/20 11:52 56 L 151/73 H 04/21/20 11:51 56 L 151/73 H 04/21/20 11:00 98.1 F 64 20 04/21/20 09:56 58 L 61 172/85 H 04/21/20 08:05 98.2 F 62 18 04/21/20 06:27 55 L 18 BP BP Pulse Ox 04/21/20 15:05 130/71 93 L 04/21/20 11:52 04/21/20 11:51 04/21/20 11:00 151/73 H 94 L 04/21/20 09:56 156/82 H 04/21/20 08:05 170/90 H 99 04/21/20 06:27 137/69 Weight Admit Weight 177 lb 0.499 oz Weight 170 lb 10.205 oz Most Recent Monitor Data Heart Rate from ECG 62 NIBP 128/71 NIBP BP-Mean 90 Respiration from ECG 22 SpO2 99 General Appearance: NAD Heart: RRR, no gallops Respiratory: no wheezes, no ronchi Gastrointestinal: soft, no guarding, no rigidity Extremities: no cyanosis Neurological: no new deficit Neurological - other findings: Left-sided weakness unchanged Hosp A/P (1) Acute respiratory failure with hypoxia Code(s): J96.01 - ACUTE RESPIRATORY FAILURE WITH HYPOXIA (2) Diastolic CHF Code(s): I50.30 - UNSPECIFIED DIASTOLIC (CONGESTIVE) HEART FAILURE Status: Chronic Qualifiers: Heart failure chronicity: acute on chronic Qualified Code(s): I50.33 - Acute on chronic diastolic (congestive) heart failure (3) Acute CVA (cerebrovascular accident) Code(s): I63.9 - CEREBRAL INFARCTION, UNSPECIFIED Status: Acute (4) Paroxysmal A-fib Code(s): I48.0 - PAROXYSMAL ATRIAL FIBRILLATION Status: Chronic (5) Hypertrophic cardiomyopathy Code(s): I42.2 - OTHER HYPERTROPHIC CARDIOMYOPATHY Status: Chronic (6) Hypokalemia Code(s): E87.6 - HYPOKALEMIA Status: Acute (7) Swallowing dysfunction Code(s): R13.10 - DYSPHAGIA, UNSPECIFIED Status: Acute (8) Hypomagnesemia Code(s): E83.42 - HYPOMAGNESEMIA Status: Acute (9) Abnormal LFTs Code(s): R94.5 - ABNORMAL RESULTS OF LIVER FUNCTION STUDIES Status: Acute (10) Obesity (BMI 30.0-34.9) Code(s): E66.9 - OBESITY, UNSPECIFIED Status: Chronic - Plan DVT proph w/lovenox, DVT proph w/SCDs 75-year-old female with recent cardioversion for atrial fibrillation presented on 04/14 with shortness of breath and syncope. Patient was intubated by EMS prior to arrival. Her work-up was consistent with acute on chronic diastolic heart failure exacerbation. She showed good improvement with diuretics. She was extubated the following day (04/15). Stroke alert was called later on the same day. CT brain was consistent with acute CVA involving the right posterior cerebral artery distribution with edema. Patient was started on aspirin along with statins. Anticoagulants were held due to risk of hemorrhagic conversion. IV fluids and blood pressure was gradually titrated with Cardene drip per critical care recommendations to prevent hemorrhagic conversion as well as vasogenic edema. Echocardiogram was done that showed large pericardial effusion with 3 of 3 diastolic dysfunction and severe concentric left ventricular hypertrophy. Anticoagulants can be resumed 7 days post CVA per neurology recommendation. Dobbhoff tube was placed on 04/19 due to swallowing dysfunction. Patient was transferred to stroke unit on 04/20. Plan: Acute CVA Anticoagulation with Lovenox 1 mg/kg every 12 hourly will be restarted tonight. I discussed with neurology. No need for repeat CT brain per neurology (family had requested to repeat CT brain) continue frequent neurochecks. Stroke team. Will DC subacute heparin for DVT prophylaxis Swallow dysfunction Continue Dobbhoff tube feeding. Patient may probably require PEG tube prior to discharge Hypokalemia Improving. Potassium 3.8 today Physical deconditioning Continue physical therapy Paroxysmal atrial fibrillation status post recent cardioversion Continue beta-blockers and amiodarone Hypertension Continue amlodipine with carvedilol and lisinopril Discharge disposition Consult casework manager for rehab eval
[2020-04-21] MEDS: Enoxaparin Sodium 80 MG/0.8 ML SYRINGE SC SCH (20:44)
[2020-04-21] MEDS: Atorvastatin Calcium 40 MG TAB PER TUBE SCH (20:44)
[2020-04-22 05:16] LABS: #Eosinphils 0.1 thou/uL (0.0-0.7); #Lymphocytes 1.1 thou/uL (1.20-3.40); #Monocytes 0.5 thou/uL (0.11-0.59); %Basophils 0.5 % (0.0-1.0); %Eosinophils 0.9 % (0.0-10.0); %Lymphocytes 14.1 % (21.0-51.0); %Monocytes 6.4 % (0.0-10.0); %Neutrophils 78.2 % (42.0-75.0); Hemoglobin 15.4 g/dL (12.0-16.0); Mean Corpuscular HGB CONC 30.8 g/dL (32.0-36.0); Mean Corpuscular Hemoglobin 29.4 pg (27.0-31.0); Mean Corpuscular Volume 95.4 fL (78.0-98.0); Mean Platelet Volume 8.7 fL (7.4-10.4); Platelet Count 259 thou/uL (130-400); RBC Distribution Width 15.8 % (11.5-14.5); Red Blood Cell (RBC) Count 5.25 mill/uL (4.20-5.40); White Blood Cell (WBC) Count 7.7 thou/uL (4.8-10.8)
[2020-04-22 05:39] LABS: Anion Gap 10 mmol/L (10-20); BUN (Urea Nitrogen) 14 mg/dL (9.8-20.1); Calc. Creatinine Clearance 104 mL/min (70-130); Calcium 9.1 mg/dL (7.8-10.44); Carbon Dioxide 32 mmol/L (23-31); Chloride 103 mmol/L (98-107); Glucose 140 mg/dL (83-110); Potassium 3.4 mmol/L (3.5-5.1); Sodium 142 mmol/L (136-145)
[2020-04-22] MEDS ORDERED: Potassium Chloride 20 MEQ TAB PO SCH (06:30)
[2020-04-22] MEDS: Carvedilol 6.25 MG TAB PER TUBE SCH ×3 (08:21→23:38)
[2020-04-22] MEDS: Multivit, Therapeutic 1 TAB PER TUBE SCH (08:21)
[2020-04-22] MEDS: Aspirin 325 MG TAB PER TUBE SCH (08:21)
[2020-04-22] MEDS: Amiodarone 200 MG TAB PER TUBE SCH (08:21)
[2020-04-22] MEDS: Amlodipine 10 MG TAB PER TUBE SCH (08:22)
[2020-04-22] MEDS: levETIRAcetam 500 mg/5 ml Oral Solution PER TUBE SCH ×2 (08:22→23:35)
[2020-04-22] MEDS: Enoxaparin Sodium 80 MG/0.8 ML SYRINGE SC SCH ×2 (08:22→21:10)
[2020-04-22] MEDS: Pantoprazole 40 MG GRANULES PACKET PO SCH (08:22)
[2020-04-22] MEDS: Lisinopril 5 MG TAB PO SCH (08:22)
--- NOTE | 2020-04-22 09:19 | RAD ---
EXAM: Single view of the abdomen HISTORY: Dobbhoff tube placement COMPARISON: 04/20/2020 FINDINGS: Single view of the abdomen shows a nonspecific, nonobstructive bowel gas pattern. A Dobbhof f tube is seen in the distal esophagus. Cholecystectomy clips are seen. No suspicious calcifications are seen. The bones are unremarkable. IMPRESSION: Dobbhoff tube is in the distal esophagus and needs to be completely advanced into the sto mach.
[2020-04-22] MEDS ORDERED: Saccharomyces boulardii 250 MG CAP PER TUBE SCH (09:45)
--- NOTE | 2020-04-22 10:11 | RAD ---
EXAM: Single view of the abdomen HISTORY: NG tube placement COMPARISON: 04/22/2020 FINDINGS: Single view of the abdomen shows a nonspecific, nonobstructive bowel gas pattern. The Dobbh off tube is been advanced with its tip in the stomach. No suspicious calcifications are seen. Goals cystectomy clips are seen. The bones are unremarkable. IMPRESSION: Dobbhoff tube located in the stomach
[2020-04-22] MEDS: Vancomycin HCl 25 MG/ML Oral PER TUBE SCH ×2 (10:57→19:58)
[2020-04-22] MEDS ORDERED: Sodium Bicarbonate Tab 325 MG TAB PER TUBE PRN (11:30)
[2020-04-22] MEDS ORDERED: Pancrelipase DR 12,000 1 CAP FS PRN (11:30)
--- NOTE | 2020-04-22 13:29 | PRG ---
DATE OF SERVICE: 04/22/2020 SUBJECTIVE: Ms. Carlson appears to be slightly improving per son. She is more alert and having normal ability. No other changes present. She remains in sinus rhythm. Lovenox was started yesterday. OBJECTIVE: VITAL SIGNS: Blood pressure 156/80, pulse 62, and temperature 98.5. LUNGS: Clear to auscultation. HEART: Regular rate and rhythm. ABDOMEN: Soft, nontender, and nondistended. EXTREMITIES: No edema. PERTINENT LABORATORY DATA: Hemoglobin 15.4, hematocrit 50.1, and platelet count 259. IMPRESSION: 1. Respiratory distress. 2. Recent cerebrovascular accident. RECOMMENDATIONS: 1. Lovenox has been started. We would recommend switching to Eliquis when she is close to discharge. 2. Rate appears to be well controlled. 3. The patient will likely need rehabilitation after recent CVA. Job ID: [id number]
--- NOTE | 2020-04-22 14:24 | PDOC.NEUPN ---
- Subjective Encounter Date: 04/22/20 Subjective: Mrs. Carlson has been doing better this morning and is alert and oriented to person place and time. Son at bedside who speaks Tajik and help with interpretation during the visit - Objective Vital Signs & Weight: Vital Signs (12 hours) Temp Pulse Pulse Pulse Resp BP BP 04/22/20 10:20 59 L 60 162/81 H 156/80 H 04/22/20 08:00 04/22/20 06:00 62 16 04/22/20 04:48 98.5 F 55 L 18 BP Pulse Ox 04/22/20 10:20 04/22/20 08:00 96 04/22/20 06:00 147/78 H 04/22/20 04:48 131/73 93 L Weight Admit Weight 177 lb 0.499 oz Weight 175 lb 7.807 oz Most Recent Monitor Data Heart Rate from ECG 62 NIBP 128/71 NIBP BP-Mean 90 Respiration from ECG 22 SpO2 99 I&O: 04/21/20 04/22/20 04/23/20 06:59 06:59 06:59 Intake Total 1631 2080 Output Total 1015 Balance 616 2080 Result Diagrams: 04/22/20 05:06 04/22/20 05:06 Additional Labs: Accuchecks 04/21/20 23:24 POC Glucose 108 H Radiology Reviewed by me: Yes EKG Reviewed by me: Yes ROS - Review of Systems Constitutional: denies: fever, chills, sweats, weakness, malaise, other ENT: denies: ear pain, ear discharge, nose pain, nose discharge, nose congestion, mouth pain, mouth swelling, throat pain, throat swelling, other Gastrointestinal: denies: nausea, vomiting, abdominal pain, diarrhea, constipation, melena, hematochezia, other Neurological: reports: weakness, numbness. denies: incoordination, change in speech, confusion, seizures, other - Medication Medications: Active Medications Generic Name Dose Route Start Last Admin Trade Name Freq PRN Reason Stop Dose Admin Acetaminophen 650 mg 04/14/20 13:27 04/15/20 01:30 Acetaminophen 325 Mg Tab PO 650 mg Q4H PRN Administration Headache/Fever/Mild Pain (1-3) Amiodarone HCl 200 mg 04/20/20 09:00 04/22/20 08:21 Amiodarone 200 Mg Tab PER TUBE 200 mg DAILY ZANE Administration Amlodipine Besylate 10 mg 04/20/20 09:00 04/22/20 08:22 Amlodipine 10 Mg Tab PER TUBE 10 mg DAILY ZANE Administration Lipase/Protease/Amylase 1 cap 04/22/20 11:30 04/22/20 11:57 Pancrelipase 12,000 1 Cap FS 1 cap .PER PROTOCOL PRN Administration TUBE OCCLUSION PROTOCOL Atorvastatin Calcium 40 mg 04/20/20 21:00 04/21/20 20:44 Atorvastatin Calcium 40 Mg Tab PER TUBE 40 mg HS ZANE Administration Carvedilol 6.25 mg 04/20/20 17:00 04/22/20 08:21 Carvedilol 6.25 Mg Tab PER TUBE 6.25 mg BID-WM ZANE Administration Enoxaparin Sodium 80 mg 04/21/20 21:00 04/22/20 08:22 Enoxaparin Sodium 80 Mg/0.8 Ml Syringe SC 80 mg 0900,2100 ZANE Administration Levetiracetam 500 mg 04/20/20 21:00 04/22/20 08:22 Levetiracetam 500 Mg/5 Ml Oral Solution PER TUBE 500 mg BID ZANE Administration Lisinopril 5 mg 04/21/20 09:00 04/22/20 08:22 Lisinopril 5 Mg Tab PO 5 mg DAILY ZANE Administration Multivitamins 1 tab 04/21/20 09:00 04/22/20 08:21 Multivit, Therapeutic 1 Tab PER TUBE 1 tab DAILY ZANE Administration Ondansetron HCl 4 mg 04/14/20 13:27 04/16/20 06:04 Ondansetron Pf 4 Mg/2 Ml Vial IVP 4 mg Q6H PRN Administration Nausea/Vomiting Sodium Bicarbonate 650 mg 04/22/20 11:30 04/22/20 11:57 Sodium Bicarbonate Tab 325 Mg Tab PER TUBE 650 mg .PER PROTOCOL PRN Administration ENTERAL TUBE OCCLUSION Sodium Chloride 10 ml 04/17/20 21:00 04/22/20 08:23 Flush - Normal Saline 10 Ml Syringe IVF 10 ml Q12HR ZANE Administration Vancomycin HCl 250 mg 04/22/20 10:00 04/22/20 10:57 Vancomycin Hcl 25 Mg/Ml Oral PER TUBE 250 mg Q6H ZANE Administration - Exam General Appearance: awake alert Eye: PERRL ENT: normocephalic atraumatic Neck: supple Respiratory: CTAB Cardiovascular: RRR Gastrointestinal: soft Extremities: no cyanosis Skin: normal turgor Neurological: facial droop, hemiplegia, speech deficit Musculoskeletal: no muscle wasting PSYCH: normal affect, normal behavior, A&O x 3 Results - Labs Result Diagrams: 04/22/20 05:06 04/22/20 05:06 Lab results: WBC 7.7 thou/uL (4.8-10.8) 04/22/20 05:06 Hgb 15.4 g/dL (12.0-16.0) 04/22/20 05:06 Hct 50.1 % (36.0-47.0) H 04/22/20 05:06 MCV 95.4 fL (78.0-98.0) 04/22/20 05:06 Plt Count 259 thou/uL (130-400) 04/22/20 05:06 Neutrophils % 78.2 % (42.0-75.0) H 04/22/20 05:06 ESR Westergren 18 mm/hr (Less than 30) 04/15/20 15:20 ABG pH 7.53 (7.35-7.45) H 04/15/20 06:30 ABG pCO2 31.6 mmHg (35.0-45.0) L 04/15/20 06:30 ABG pO2 69.7 mmHg (> 70.0) 04/15/20 06:30 Sodium 142 mmol/L (136-145) 04/22/20 05:06 Potassium 3.4 mmol/L (3.5-5.1) L 04/22/20 05:06 Chloride 103 mmol/L (98-107) 04/22/20 05:06 Carbon Dioxide 32 mmol/L (23-31) H 04/22/20 05:06 BUN 14 mg/dL (9.8-20.1) 04/22/20 05:06 Creatinine 0.60 mg/dL (0.6-1.1) 04/22/20 05:06 Glucose 140 mg/dL (83-110) H 04/22/20 05:06 Lactic Acid 1.2 mmol/L (0.5-2.2) 04/14/20 11:06 Calcium 9.1 mg/dL (7.8-10.44) 04/22/20 05:06 Total Bilirubin 1.1 mg/dL (0.2-1.2) 04/21/20 05:11 AST 21 U/L (5-34) 04/21/20 05:11 ALT 13 U/L (8-55) 04/21/20 05:11 Alkaline Phosphatase 89 U/L (40-110) 04/21/20 05:11 Creatine Kinase 80 U/L (29-168) 04/14/20 10:54 CK-MB (CK-2) 2.9 ng/mL (0-6.6) 04/14/20 10:51 Troponin I 0.062 ng/mL (< 0.028) H 04/17/20 04:04 B-Natriuretic Peptide 1325.4 pg/mL (0-100) H 04/16/20 02:58 Serum Total Protein 5.6 g/dL (5.8-8.1) L 04/21/20 05:11 Albumin 2.9 g/dL (3.4-4.8) L 04/21/20 05:11 Urine Ketones Negative mg/dL (Negative) 04/14/20 10:40 Urine Blood Negative (Negative) 04/14/20 10:40 Urine Nitrite Negative (Negative) 04/14/20 10:40 Ur Leukocyte Esterase Negative (Negative) 04/14/20 10:40 - Radiology Interpretation MRI - head Additional Comment: MRI of the brain was consistent with acute infarction PN A/P (1) Acute CVA (cerebrovascular accident) Code(s): I63.9 - CEREBRAL INFARCTION, UNSPECIFIED Status: Acute (2) Hypokalemia Code(s): E87.6 - HYPOKALEMIA Status: Acute (3) Hypomagnesemia Code(s): E83.42 - HYPOMAGNESEMIA Status: Acute (4) Swallowing dysfunction Code(s): R13.10 - DYSPHAGIA, UNSPECIFIED Status: Acute (5) Diastolic CHF Code(s): I50.30 - UNSPECIFIED DIASTOLIC (CONGESTIVE) HEART FAILURE Status: Chronic Qualifiers: Heart failure chronicity: acute on chronic Qualified Code(s): I50.33 - Acute on chronic diastolic (congestive) heart failure (6) Dyslipidemia Code(s): E78.5 - HYPERLIPIDEMIA, UNSPECIFIED Status: Chronic (7) Obesity (BMI 30.0-34.9) Code(s): E66.9 - OBESITY, UNSPECIFIED Status: Chronic (8) Paroxysmal A-fib Code(s): I48.0 - PAROXYSMAL ATRIAL FIBRILLATION Status: Chronic - Plan Daily Plan: plan discussed w/ family, PT/OT, speech therapy (Son at bedside), DVT proph w/SCDs 74 year old female with history significant for paroxysmal atrial fibrillation underwent cardioversion few days before this admission now in sinus rhythm consulted for acute stroke. There was concern about seizures . Keppra was starte d which she tolerated well. No reported seizures since initiation of Keppra. Repeat EEG did not show any evidence of seizure activity. Continue Keppra 500 mg twice daily. Observe seizure precations Arivan 2 mg IV for seizures greater than 2 minutes. MRI of the brain was consistent with acute infarction in the right STUDENT SERVICES REPRESENTATIVE and bilateral superior cerebellar territory. 2D echo to evaluate for left ventricular ejection fraction showed pericardial effusion and LVEF 70-75%.. Carotid Dopplers pending to rule out hemodynamically significant stenosis. Continue telemetrypatient has history of atrial fibrillation but currently in sinus rhythm. Cardiology is on board. Neurochecks every 4 hours. Strict control of blood pressure at this time. Strict control of blood glucose. Continue aspirin and high intensity statin for secondary stroke prevention. Restart Eliquis 5 mg p.o. twice daily for atrial fibrillation. Eliquis was held 7 days because of acute stroke since there is high risk for hemorrhagic conversion. PT/OT/speech. Continue home medications. Continue medical management per primary team DVT prophylaxis. Case management consult regarding discharge planning. Plan discussed in detail with the nursing staff and also with the son at bedside
[2020-04-22] MEDS ORDERED: D5 1/2 NS w/20 mEq KCL 1,000 ML IV SCH (16:45)
--- NOTE | 2020-04-22 17:40 | PDOC.HOSPP ---
- Subjective Encounter Date: 04/22/20 Encounter Time: 10:00 Subjective: Patient seen and examined for acute CVA. Mentation slowly improving. Overnight events noted. Patient developed diarrhea. Stool work-up was positive for C. difficiletoxin positive - Objective Vital Signs & Weight: Vital Signs (12 hours) Temp Pulse Pulse Pulse Resp BP BP 04/22/20 15:45 97.6 F 60 15 04/22/20 10:20 97.6 F 54 L 59 L 60 18 162/81 H 156/80 H 04/22/20 08:00 04/22/20 06:00 62 16 BP Pulse Ox 04/22/20 15:45 156/79 H 97 04/22/20 10:20 153/69 H 92 L 04/22/20 08:00 96 04/22/20 06:00 147/78 H Weight Admit Weight 177 lb 0.499 oz Weight 175 lb 7.807 oz Most Recent Monitor Data Heart Rate from ECG 62 NIBP 128/71 NIBP BP-Mean 90 Respiration from ECG 22 SpO2 99 I&O: 04/21/20 04/22/20 04/23/20 06:59 06:59 06:59 Intake Total 1631 2080 Output Total 1015 Balance 616 2080 Result Diagrams: 04/22/20 05:06 04/22/20 05:06 Additional Labs: Accuchecks 04/21/20 23:24 POC Glucose 108 H Abnormal Lab Results - Last 48 hrs 04/21/20 05:11: Hct 48.3 H, MCH 31.4 H, RDW 15.7 H, Neutrophils % 80.1 H, Lymphocytes % 11.8 L, Neutrophils # 7.2 H, Lymphocytes # 1.1 L, Monocytes # 0.6 H 04/21/20 05:11: Creatinine 0.58 L, Serum Total Protein 5.6 L, Albumin 2.9 L, Albumin/Globulin Ratio 1.1 L 04/22/20 05:06: Hct 50.1 H, MCHC 30.8 L, RDW 15.8 H, Neutrophils % 78.2 H, Lymphocytes % 14.1 L, Lymphocytes # 1.1 L 04/22/20 05:06: Potassium 3.4 L, Carbon Dioxide 32 H Microbiology - Entire Visit 04/22/20 02:00 Stool Stool Lactoferrin - Final 04/22/20 02:00 Stool Campylobacter Antigen Assay - Final 04/22/20 02:00 Stool Shiga Toxin Test - Final 04/21/20 02:00 Stool - Pending C. difficile GDH Antigen & Toxins - Final 04/21/20 02:00 Stool - Pending Clostridioides difficile Toxins A&B (PCR) - Pending 04/22/20 02:00 Stool Stool Culture - Pending 04/22/20 02:00 Stool Escherichia coli 0157 Culture - Final 04/14/20 11:06 Venous blood - Right Hand Blood Culture - Final NO GROWTH IN 5 DAYS 04/14/20 11:06 Venous blood - Left Hand Blood Culture - Final NO GROWTH IN 5 DAYS 04/14/20 10:40 Urine raza catheter Urine Culture - Final NO GROWTH AT 48 HOURS EKG Reviewed by me: Yes (Sinus rhythm on telemetry) Hospitalist ROS - Review of Systems Cardiovascular: denies: chest pain, palpitations, orthopnea, paroxysmal noc. dyspnea, edema, light headedness, other Gastrointestinal: denies: nausea, vomiting, abdominal pain, diarrhea, const ipation, melena, hematochezia, other - Medication Medications: Active Medications Generic Name Dose Route Start Last Admin Trade Name Freq PRN Reason Stop Dose Admin Acetaminophen 650 mg 04/14/20 13:27 04/15/20 01:30 Acetaminophen 325 Mg Tab PO 650 mg Q4H PRN Administration Headache/Fever/Mild Pain (1-3) Amiodarone HCl 200 mg 04/20/20 09:00 04/22/20 08:21 Amiodarone 200 Mg Tab PER TUBE 200 mg DAILY ZANE Administration Amlodipine Besylate 10 mg 04/20/20 09:00 04/22/20 08:22 Amlodipine 10 Mg Tab PER TUBE 10 mg DAILY ZANE Administration Lipase/Protease/Amylase 1 cap 04/22/20 11:30 04/22/20 11:[address] 12,000 1 Cap FS 1 cap .PER PROTOCOL PRN Administration TUBE OCCLUSION PROTOCOL Atorvastatin Calcium 40 mg 04/20/20 21:00 04/21/20 20:44 Atorvastatin Calcium 40 Mg Tab PER TUBE 40 mg HS ZANE Administration Carvedilol 6.25 mg 04/20/20 17:00 04/22/20 08:21 Carvedilol 6.25 Mg Tab PER TUBE 6.25 mg BID-WM ZANE Administration Enoxaparin Sodium 80 mg 04/21/20 21:00 04/22/20 08:22 Enoxaparin Sodium 80 Mg/0.8 Ml Syringe SC 80 mg 0900,2100 ZANE Administration Levetiracetam 500 mg 04/20/20 21:00 04/22/20 08:22 Levetiracetam 500 Mg/5 Ml Oral Solution PER TUBE 500 mg BID ZANE Administration Lisinopril 5 mg 04/21/20 09:00 04/22/20 08:22 Lisinopril 5 Mg Tab PO 5 mg DAILY ZANE Administration Multivitamins 1 tab 04/21/20 09:00 04/22/20 08:21 Multivit, Therapeutic 1 Tab PER TUBE 1 tab DAILY ZANE Administration Ondansetron HCl 4 mg 04/14/20 13:27 04/16/20 06:04 Ondansetron Pf 4 Mg/2 Ml Vial IVP 4 mg Q6H PRN Administration Nausea/Vomiting Sodium Bicarbonate 650 mg 04/22/20 11:30 04/22/20 11:57 Sodium Bicarbonate Tab 325 Mg Tab PER TUBE 650 mg .PER PROTOCOL PRN Administration ENTERAL TUBE OCCLUSION Sodium Chloride 10 ml 04/17/20 21:00 04/22/20 08:23 Flush - Normal Saline 10 Ml Syringe IVF 10 ml Q12HR ZANE Administration Vancomycin HCl 250 mg 04/22/20 10:00 04/22/20 10:57 Vancomycin Hcl 25 Mg/Ml Oral PER TUBE 250 mg Q6H ZANE Administration Hospitalist Exam Vitals: Vital Signs (12 hours) Temp Pulse Pulse Pulse Resp BP BP 04/22/20 15:45 97.6 F 60 15 04/22/20 10:20 97.6 F 54 L 59 L 60 18 162/81 H 156/80 H 04/22/20 08:00 04/22/20 06:00 62 16 BP Pulse Ox 04/22/20 15:45 156/79 H 97 04/22/20 10:20 153/69 H 92 L 04/22/20 08:00 96 04/22/20 06:00 147/78 H Weight Admit Weight 177 lb 0.499 oz Weight 175 lb 7.807 oz Most Recent Monitor Data Heart Rate from ECG 62 NIBP 128/71 NIBP BP-Mean 90 Respiration from ECG 22 SpO2 99 General Appearance: awake alert General - other findings: NG tube in place Neck: supple, no JVD Heart: RRR, no gallops Respiratory: no wheezes, no rales Gastrointestinal: soft, non-distended, normal bowel sounds, no guarding, no rigidity Extremities: no cyanosis Neurological: no new deficit Hosp A/P (1) Acute respiratory failure with hypoxia Code(s): J96.01 - ACUTE RESPIRATORY FAILURE WITH HYPOXIA (2) Diastolic CHF Code(s): I50.30 - UNSPECIFIED DIASTOLIC (CONGESTIVE) HEART FAILURE Status: Chronic Qualifiers: Heart failure chronicity: acute on chronic Qualified Code(s): I50.33 - Acute on chronic diastolic (congestive) heart failure (3) Acute CVA (cerebrovascular accident) Code(s): I63.9 - CEREBRAL INFARCTION, UNSPECIFIED Status: Acute (4) Paroxysmal A-fib Code(s): I48.0 - PAROXYSMAL ATRIAL FIBRILLATION Status: Chronic (5) Hypertrophic cardiomyopathy Code(s): I42.2 - OTHER HYPERTROPHIC CARDIOMYOPATHY Status: Chronic (6) Hypokalemia Code(s): E87.6 - HYPOKALEMIA Status: Acute (7) Swallowing dysfunction Code(s): R13.10 - DYSPHAGIA, UNSPECIFIED Status: Acute (8) Hypomagnesemia Code(s): E83.42 - HYPOMAGNESEMIA Status: Acute (9) Abnormal LFTs Code(s): R94.5 - ABNORMAL RESULTS OF LIVER FUNCTION STUDIES Status: Acute (10) Obesity (BMI 30.0-34.9) Code(s): E66.9 - OBESITY, UNSPECIFIED Status: Chronic (11) C. difficile colitis Code(s): A04.72 - ENTEROCOLITIS D/T CLOSTRIDIUM DIFFICILE, NOT SPCF RECUR Status: Acute - Plan 75-year-old female with recent cardioversion for atrial fibrillation presented on 04/14 with shortness of breath and syncope. Patient was intubated by EMS prior to arrival. Her work-up was consistent with acute on chronic diastolic heart failure exacerbation. She showed good improvement with diuretics. She was extubated the following day (04/15). Stroke alert was called later on the same day. CT brain was consistent with acute CVA involving the right posterior cerebral artery distribution with edema. Patient was started on aspirin along with statins. Anticoagulants were held due to risk of hemorrhagic conversion. IV fluids and blood pressure was gradually titrated with Cardene drip per critical care recommendations to prevent hemorrhagic conversion as well as vasogenic edema. Echocardiogram was done that showed large pericardial effusion with 3 of 3 diastolic dysfunction and severe concentric left ventricular hypertrophy. Anticoagulants can be resumed 7 days post CVA per neurology recommendation. Dobbhoff tube was placed on 04/19 due to swallowing dysfunction. Patient was transferred to stroke unit on 04/20. On 04/22 patient was diagnosed with C. difficile colitis and was started on oral vancomycin. On the same day NG tube was replaced due to malfunction Plan: Acute CVA Continue anticoagulation with Lovenox 1 mg/kg every 12 hourly. Reduce aspirin to 81 mg daily per neurology. Plan discussed with cardiology. C. difficile colitisetiology unclear Patient never received any antibiotics during this hospital stay. We will start her on oral vancomycin with probiotics. Swallow dysfunction Continue Dobbhoff tube feeding. Will consult gastroenterology for evaluation for PEG tube Hypokalemia We will replace Physical deconditioning Continue physical therapy Paroxysmal atrial fibrillation status post recent cardioversion Continue beta-blockers and amiodarone with anticoagulation Hypertension Continue amlodipine with carvedilol and lisinopril Discharge disposition Consult rn case mgr for rehab eval
--- NOTE | 2020-04-22 18:33 | RAD ---
PORTABLE ABDOMEN: 04/22/20 INDICATIONS: Assess NG tube placement. FINDINGS/IMPRESSION: A Dobhoff type feeding tube has been placed. This tube passes through the EG junction and is coiled w ithin the mid gastric body. Bowel gas pattern unremarkable. Post cholecystectomy clips are noted. POS: AGW
[2020-04-22] MEDS ORDERED: Famotidine 20 MG TAB PER TUBE SCH (21:00)
[2020-04-22] MEDS: Famotidine/PF 20 mg/2ml Vial SLOW IVP SCH (21:10)
--- NOTE | 2020-04-22 22:23 | RAD ---
Abdomen one view HISTORY: Dobbhoff feeding catheter placement. COMPARISON: Earlier exam on the same date. FINDINGS: Visualized bowel gas pattern is nonspecific. The pelvis and left abdomen are excluded from the image. Metallic clips overlie the gallbladder fossa. Metallic tip of the Dobbhoff feeding catheter overlies the upper gastric body. IMPRESSION : Dobbhoff feeding catheter has been pulled back slightly compared to the most recent exam, with the me tallic tip overlying the gastric body.
[2020-04-22] MEDS: Atorvastatin Calcium 40 MG TAB PER TUBE SCH (23:38)
[2020-04-22] MEDS ORDERED: Vancomycin HCl 25 MG/ML Oral PER TUBE SCH (23:59)
[2020-04-23] MEDS: Vancomycin HCl 25 MG/ML Oral PER TUBE SCH ×5 (00:42→21:43)
[2020-04-23 05:08] LABS: #Eosinphils 0.1 thou/uL (0.0-0.7); #Lymphocytes 1.3 thou/uL (1.20-3.40); #Monocytes 0.6 thou/uL (0.11-0.59); #Neutrophils 5.3 thou/uL (1.40-6.50); %Basophils 0.3 % (0.0-1.0); %Eosinophils 1.3 % (0.0-10.0); %Monocytes 8.2 % (0.0-10.0); %Neutrophils 72.3 % (42.0-75.0); Hemoglobin 15.7 g/dL (12.0-16.0); Mean Corpuscular HGB CONC 30.9 g/dL (32.0-36.0); Mean Corpuscular Hemoglobin 29.7 pg (27.0-31.0); Mean Platelet Volume 9.1 fL (7.4-10.4); Platelet Count 251 thou/uL (130-400); RBC Distribution Width 15.7 % (11.5-14.5); Red Blood Cell (RBC) Count 5.28 mill/uL (4.20-5.40); White Blood Cell (WBC) Count 7.3 thou/uL (4.8-10.8)
[2020-04-23 05:29] LABS: Anion Gap 12 mmol/L (10-20); BUN (Urea Nitrogen) 12 mg/dL (9.8-20.1); Calc. Creatinine Clearance 108 mL/min (70-130); Calcium 9.1 mg/dL (7.8-10.44); Carbon Dioxide 29 mmol/L (23-31); Chloride 103 mmol/L (98-107); Glucose 91 mg/dL (83-110); Magnesium 2.2 mg/dL (1.6-2.6); Potassium 4.2 mmol/L (3.5-5.1); Sodium 140 mmol/L (136-145)
[2020-04-23 05:30] LABS: Phosphorus 4.5 mg/dL (2.3-4.7)
[2020-04-23] MEDS ORDERED: Aspirin 325 MG TAB PO SCH (09:00)
[2020-04-23] MEDS: Lisinopril 5 MG TAB PO SCH (10:07)
[2020-04-23] MEDS: Amiodarone 200 MG TAB PER TUBE SCH (10:07)
[2020-04-23] MEDS: Amlodipine 10 MG TAB PER TUBE SCH (10:07)
[2020-04-23] MEDS: Saccharomyces boulardii 250 MG CAP PER TUBE SCH (10:09)
[2020-04-23] MEDS: Carvedilol 6.25 MG TAB PER TUBE SCH (10:09)
[2020-04-23] MEDS: Aspirin Chewable 81 MG TAB PO SCH (10:09)
[2020-04-23] MEDS: Multivit, Therapeutic 1 TAB PER TUBE SCH (10:09)
[2020-04-23] MEDS: Enoxaparin Sodium 80 MG/0.8 ML SYRINGE SC SCH (10:10)
[2020-04-23] MEDS: levETIRAcetam 500 mg/5 ml Oral Solution PER TUBE SCH ×2 (10:10→21:42)
[2020-04-23] MEDS: Famotidine/PF 20 mg/2ml Vial SLOW IVP SCH (10:10)
--- NOTE | 2020-04-23 13:53 | PDOC.NEUPN ---
- Subjective Encounter Date: 04/23/20 Subjective: Oriented to person, place and time/year. She is much more awake and following commands appropriately. Son at bedside to help with interpretation. - Objective Vital Signs & Weight: Vital Signs (12 hours) Temp Pulse Pulse Pulse Resp BP BP 04/23/20 11:43 97.6 F 50 L 18 04/23/20 09:27 52 L 51 L 154/74 H 149/78 H 04/23/20 07:53 97.6 F 46 L 20 04/23/20 07:30 04/23/20 04:00 97.1 F L 51 L 16 BP Pulse Ox 04/23/20 11:43 129/60 98 04/23/20 09:27 04/23/20 07:53 110/59 L 95 04/23/20 07:30 95 04/23/20 04:00 138/73 95 Weight Admit Weight 177 lb 0.499 oz Weight 165 lb Most Recent Monitor Data Heart Rate from ECG 62 NIBP 128/71 NIBP BP-Mean 90 Respiration from ECG 22 SpO2 99 I&O: 04/22/20 04/23/20 04/24/20 06:59 06:59 06:59 Intake Total 2079 60 537 Balance 2079 60 537 Result Diagrams: 04/23/20 04:52 04/23/20 04:52 Radiology Reviewed by me: Yes EKG Reviewed by me: Yes ROS - Review of Systems Constitutional: denies: fever, chills, sweats, weakness, malaise, other Eyes: denies: pain, vision change, conjunctivae inflammation, eyelid i nflammation, redness, other Gastrointestinal: denies: nausea, vomiting, abdominal pain, diarrhea, constipation, melena, hematochezia, other Genitourinary: denies: dysuria, frequency, incontinence, hematuria, retention, other Neurological: reports: weakness, numbness, incoordination, change in speech - Medication Medications: Active Medications Generic Name Dose Route Start Last Admin Trade Name Freq PRN Reason Stop Dose Admin Acetaminophen 650 mg 04/14/20 13:27 04/15/20 01:30 Acetaminophen 325 Mg Tab PO 650 mg Q4H PRN Administration Headache/Fever/Mild Pain (1-3) Amiodarone HCl 200 mg 04/20/20 09:00 04/23/20 10:07 Amiodarone 200 Mg Tab PER TUBE 200 mg DAILY ZANE Administration Amlodipine Besylate 10 mg 04/20/20 09:00 04/23/20 10:07 Amlodipine 10 Mg Tab PER TUBE 10 mg DAILY ZANE Administration Lipase/Protease/Amylase 1 cap 04/22/20 11:30 04/22/20 11:57 Pancrelipase 12,000 1 Cap FS 1 cap .PER PROTOCOL PRN Administration TUBE OCCLUSION PROTOCOL Aspirin 81 mg 04/23/20 09:00 04/23/20 10:09 Aspirin Chewable 81 Mg Tab PO 81 mg DAILY ZANE Administration Atorvastatin Calcium 40 mg 04/20/20 21:00 04/22/20 23:38 Atorvastatin Calcium 40 Mg Tab PER TUBE 40 mg HS ZANE Administration Carvedilol 6.25 mg 04/22/20 21:00 04/23/20 10:09 Carvedilol 6.25 Mg Tab PER TUBE 6.25 mg BID ZANE Administration Enoxaparin Sodium 80 mg 04/21/20 21:00 04/23/20 10:10 Enoxaparin Sodium 80 Mg/0.8 Ml Syringe SC 80 mg 0900,2100 ZANE Administration Famotidine 20 mg 04/22/20 21:00 04/23/20 10:10 Famotidine/Pf 20 Mg/2ml Vial SLOW IVP 20 mg BID ZANE Administration Levetiracetam 500 mg 04/20/20 21:00 04/23/20 10:10 Levetiracetam 500 Mg/5 Ml Oral Solution PER TUBE 500 mg BID ZANE Administration Lisinopril 5 mg 04/21/20 09:00 04/23/20 10:07 Lisinopril 5 Mg Tab PO 5 mg DAILY ZANE Administration Multivitamins 1 tab 04/21/20 09:00 04/23/20 10:09 Multivit, Therapeutic 1 Tab PER TUBE 1 tab DAILY ZANE Administration Ondansetron HCl 4 mg 04/14/20 13:27 04/16/20 06:04 Ondansetron Pf 4 Mg/2 Ml Vial IVP 4 mg Q6H PRN Administration Nausea/Vomiting Saccharomyces Boulardii 250 mg 04/23/20 09:00 04/23/20 10:09 Saccharomyces Boulardii 250 Mg Cap PER TUBE 250 mg DAILY ZANE Administration Sodium Bicarbonate 650 mg 04/22/20 11:30 04/22/20 11:57 Sodium Bicarbonate Tab 325 Mg Tab PER TUBE 650 mg .PER PROTOCOL PRN Administration ENTERAL TUBE OCCLUSION Sodium Chloride 10 ml 04/17/20 21:00 04/23/20 10:11 Flush - Normal Saline 10 Ml Syringe IVF 10 ml Q12HR ZANE Administration Vancomycin HCl 250 mg 04/22/20 21:00 04/23/20 10:10 Vancomycin Hcl 25 Mg/Ml Oral PER TUBE 250 mg 0300,0900,1500,2100 ZANE Administration - Exam General Appearance: awake alert Eye: PERRL ENT: normocephalic atraumatic Neck: supple Respiratory: CTAB Cardiovascular: RRR Gastrointestinal: soft Extremities: no cyanosis Skin: normal turgor Neurological: no new deficit Musculoskeletal: normal tone, no muscle wasting PSYCH: normal affect, normal behavior, A&O x 3 Results - Labs Result Diagrams: 04/23/20 04:52 04/23/20 04:52 Lab results: WBC 7.3 thou/uL (4.8-10.8) 04/23/20 04:52 Hgb 15.7 g/dL (12.0-16.0) 04/23/20 04:52 Hct 50.7 % (36.0-47.0) H 04/23/20 04:52 MCV 96.0 fL (78.0-98.0) 04/23/20 04:52 Plt Count 251 thou/uL (130-400) 04/23/20 04:52 Neutrophils % 72.3 % (42.0-75.0) 04/23/20 04:52 ESR Westergren 18 mm/hr (Less than 30) 04/15/20 15:20 ABG pH 7.53 (7.35-7.45) H 04/15/20 06:30 ABG pCO2 31.6 mmHg (35.0-45.0) L 04/15/20 06:30 ABG pO2 69.7 mmHg (> 70.0) 04/15/20 06:30 Sodium 140 mmol/L (136-145) 04/23/20 04:52 Potassium 4.2 mmol/L (3.5-5.1) 04/23/20 04:52 Chloride 103 mmol/L (98-107) 04/23/20 04:52 Carbon Dioxide 29 mmol/L (23-31) 04/23/20 04:52 BUN 12 mg/dL (9.8-20.1) 04/23/20 04:52 Creatinine 0.59 mg/dL (0.6-1.1) L 04/23/20 04:52 Glucose 91 mg/dL (83-110) 04/23/20 04:52 Lactic Acid 1.2 mmol/L (0.5-2.2) 04/14/20 11:06 Calcium 9.1 mg/dL (7.8-10.44) 04/23/20 04:52 Total Bilirubin 1.1 mg/dL (0.2-1.2) 04/21/20 05:11 AST 21 U/L (5-34) 04/21/20 05:11 ALT 13 U/L (8-55) 04/21/20 05:11 Alkaline Phosphatase 89 U/L (40-110) 04/21/20 05:11 Creatine Kinase 80 U/L (29-168) 04/14/20 10:54 CK-MB (CK-2) 2.9 ng/mL (0-6.6) 04/14/20 10:51 Troponin I 0.062 ng/mL (< 0.028) H 04/17/20 04:04 B-Natriuretic Peptide 1325.4 pg/mL (0-100) H 04/16/20 02:58 Serum Total Protein 5.6 g/dL (5.8-8.1) L 04/21/20 05:11 Albumin 2.9 g/dL (3.4-4.8) L 04/21/20 05:11 Urine Ketones Negative mg/dL (Negative) 04/14/20 10:40 Urine Blood Negative (Negative) 04/14/20 10:40 Urine Nitrite Negative (Negative) 04/14/20 10:40 Ur Leukocyte Esterase Negative (Negative) 04/14/20 10:40 PN A/P (1) Acute CVA (cerebrovascular accident) Code(s): I63.9 - CEREBRAL INFARCTION, UNSPECIFIED Status: Acute (2) Hypokalemia Code(s): E87.6 - HYPOKALEMIA Status: Acute (3) Hypomagnesemia Code(s): E83.42 - HYPOMAGNESEMIA Status: Acute (4) Swallowing dysfunction Code(s): R13.10 - DYSPHAGIA, UNSPECIFIED Status: Acute (5) Diastolic CHF Code(s): I50.30 - UNSPECIFIED DIASTOLIC (CONGESTIVE) HEART FAILURE Status: Chronic Qualifiers: Heart failure chronicity: acute on chronic Qualified Code(s): I50.33 - Acute on chronic diastolic (congestive) heart failure (6) Dyslipidemia Code(s): E78.5 - HYPERLIPIDEMIA, UNSPECIFIED Status: Chronic (7) Obesity (BMI 30.0-34.9) Code(s): E66.9 - OBESITY, UNSPECIFIED Status: Chronic (8) Paroxysmal A-fib Code(s): I48.0 - PAROXYSMAL ATRIAL FIBRILLATION Status: Chronic - Plan Daily Plan: plan discussed w/ family (Son at bedside), PT/OT, speech therapy, DVT proph w/lovenox 74 year old female with history significant for paroxysmal atrial fibrillation underwent cardioversion few days before this admission now in sinus rhythm consulted for acute stroke. There was concern about seizures . Keppra was started which she tolerated well. No reported seizures since initiation of Keppra. Patient is doing well and is alert and oriented to person place and time and following commands appropriately. Son at bedside who help with interp retation. Repeat EEG yesterday did not show any evidence of seizure activity. Continue Keppra 500 mg twice daily. Observe seizure precations Arivan 2 mg IV for seizures greater than 2 minutes. MRI of the brain was consistent with acute infarction in the right [employer] and bilateral superior cerebellar territory. 2D echo to evaluate for left ventricular ejection fraction showed pericardial effusion and LVEF 70-75%.. Carotid Dopplers pending to rule out hemodynamically significant stenosis. Continue telemetrypatient has history of atrial fibrillation but currently in sinus rhythm. Cardiology is on board. Neurochecks every 4 hours. Strict control of blood pressure at this time. Strict control of blood glucose. Continue aspirin and high intensity statin for secondary stroke prevention. Eliquis 5 mg p.o. twice daily restarted yesterday for atrial fibrillation. Eliquis was held 7 days because of acute stroke since there is high risk for hemorrhagic conversion. N.p.o. till cleared by speech. Consider PEG placement. PT/OT/speech. Continue home medications. Continue medical management per primary team DVT prophylaxis. Case management consult regarding discharge planning. Plan discussed in detail with the nursing staff and also with the son at bedside
--- NOTE | 2020-04-23 14:28 | PDOC.HOSPP ---
- Subjective Encounter Date: 04/23/20 Encounter Time: 09:30 Subjective: Patient seen and examined for acute CVA. Mentation slowly improving. No new focal deficit. Diarrhea is slowing down per RN. - Objective Vital Signs & Weight: Vital Signs (12 hours) Temp Pulse Pulse Pulse Resp BP BP 04/23/20 11:43 97.6 F 50 L 18 04/23/20 09:27 52 L 51 L 154/74 H 149/78 H 04/23/20 07:53 97.6 F 46 L 20 04/23/20 07:30 04/23/20 04:00 97.1 F L 51 L 16 BP Pulse Ox 04/23/20 11:43 129/60 98 04/23/20 09:27 04/23/20 07:53 110/59 L 95 04/23/20 07:30 95 04/23/20 04:00 138/73 95 Weight Admit Weight 177 lb 0.499 oz Weight 165 lb Most Recent Monitor Data Heart Rate from ECG 62 NIBP 128/71 NIBP BP-Mean 90 Respiration from ECG 22 SpO2 99 I&O: 04/22/20 04/23/20 04/24/20 06:59 06:59 06:59 Intake Total 2080 60 537 Balance 2080 60 537 Result Diagrams: 04/23/20 04:52 04/23/20 04:52 Additional Labs: Abnormal Lab Results - Last 48 hrs 04/22/20 05:06: Hct 50.1 H, MCHC 30.8 L, RDW 15.8 H, Neutrophils % 78.2 H, Lymphocytes % 14.1 L, Lymphocytes # 1.1 L 04/22/20 05:06: Potassium 3.4 L, Carbon Dioxide 32 H 04/23/20 04:52: Creatinine 0.59 L 04/23/20 04:52: Hct 50.7 H, MCHC 30.9 L, RDW 15.7 H, Lymphocytes % 18.0 L, Monocytes # 0.6 H Microbiology - Entire Visit 04/22/20 02:00 Stool Stool Culture - Preliminary 04/22/20 02:00 Stool Escherichia coli 0157 Culture - Final 04/21/20 02:00 Stool - Pending C. difficile GDH Antigen & Toxins - Final 04/21/20 02:00 Stool - Pending Clostridioides difficile Toxins A&B (PCR) - Final 04/22/20 02:00 Stool Stool Lactoferrin - Final 04/22/20 02:00 Stool Campylobacter Antigen Assay - Final 04/22/20 02:00 Stool Shiga Toxin Test - Final 04/14/20 11:06 Venous blood - Right Hand Blood Culture - Final NO GROWTH IN 5 DAYS 04/14/20 11:06 Venous blood - Left Hand Blood Culture - Final NO GROWTH IN 5 DAYS 04/14/20 10:40 Urine raza catheter Urine Culture - Final NO GROWTH AT 48 HOURS EKG Reviewed by me: Yes (Sinus bradycardia on telemetry) Hospitalist ROS - Review of Systems ROS unobtainable: due to mental status - Medication Medications: Active Medications Generic Name Dose Route Start Last Admin Trade Name Freq PRN Reason Stop Dose Admin Acetaminophen 650 mg 04/14/20 13:27 04/15/20 01:30 Acetaminophen 325 Mg Tab PO 650 mg Q4H PRN Administration Headache/Fever/Mild Pain (1-3) Amiodarone HCl 200 mg 04/20/20 09:00 04/23/20 10:07 Amiodarone 200 Mg Tab PER TUBE 200 mg DAILY ZANE Administration Amlodipine Besylate 10 mg 04/20/20 09:00 04/23/20 10:07 Amlodipine 10 Mg Tab PER TUBE 10 mg DAILY ZANE Administration Lipase/Protease/Amylase 1 cap 04/22/20 11:30 04/22/20 11:57 Pancrelipase 12,000 1 Cap FS 1 cap .PER PROTOCOL PRN Administration TUBE OCCLUSION PROTOCOL Aspirin 81 mg 04/23/20 09:00 04/23/20 10:09 Aspirin Chewable 81 Mg Tab PO 81 mg DAILY ZANE Administration Atorvastatin Calcium 40 mg 04/20/20 21:00 04/22/20 23:38 Atorvastatin Calcium 40 Mg Tab PER TUBE 40 mg HS ZANE Administration Carvedilol 6.25 mg 04/22/20 21:00 04/23/20 10:09 Carvedilol 6.25 Mg Tab PER TUBE 6.25 mg BID ZANE Administration Enoxaparin Sodium 80 mg 04/21/20 21:00 04/23/20 10:10 Enoxaparin Sodium 80 Mg/0.8 Ml Syringe SC 80 mg 0900,2100 ZANE Administration Famotidine 20 mg 04/22/20 21:00 04/23/20 10:10 Famotidine/Pf 20 Mg/2ml Vial SLOW IVP 20 mg BID ZANE Administration Levetiracetam 500 mg 04/20/20 21:00 04/23/20 10:10 Levetiracetam 500 Mg/5 Ml Oral Solution PER TUBE 500 mg BID ZANE Administration Lisinopril 5 mg 04/21/20 09:00 04/23/20 10:07 Lisinopril 5 Mg Tab PO 5 mg DAILY ZANE Administration Multivitamins 1 tab 04/21/20 09:00 04/23/20 10:09 Multivit, Therapeutic 1 Tab PER TUBE 1 tab DAILY ZANE Administration Ondansetron HCl 4 mg 04/14/20 13:27 04/16/20 06:04 Ondansetron Pf 4 Mg/2 Ml Vial IVP 4 mg Q6H PRN Administration Nausea/Vomiting Saccharomyces Boulardii 250 mg 04/23/20 09:00 04/23/20 10:09 Saccharomyces Boulardii 250 Mg Cap PER TUBE 250 mg DAILY ZANE Administration Sodium Bicarbonate 650 mg 04/22/20 11:30 04/22/20 11:57 Sodium Bicarbonate Tab 325 Mg Tab PER TUBE 650 mg .PER PROTOCOL PRN Administration ENTERAL TUBE OCCLUSION Sodium Chloride 10 ml 04/17/20 21:00 04/23/20 10:11 Flush - Normal Saline 10 Ml Syringe IVF 10 ml Q12HR ZANE Administration Vancomycin HCl 250 mg 04/22/20 21:00 04/23/20 10:10 Vancomycin Hcl 25 Mg/Ml Oral PER TUBE 250 mg 0300,0900,1500,2100 ZANE Administration Hospitalist Exam Vitals: Vital Signs (12 hours) Temp Pulse Pulse Pulse Resp BP BP 04/23/20 11:43 97.6 F 50 L 18 04/23/20 09:27 52 L 51 L 154/74 H 149/78 H 04/23/20 07:53 97.6 F 46 L 20 04/23/20 07:30 04/23/20 04:00 97.1 F L 51 L 16 BP Pulse Ox 04/23/20 11:43 129/60 98 04/23/20 09:27 04/23/20 07:53 110/59 L 95 04/23/20 07:30 95 04/23/20 04:00 138/73 95 Weight Admit Weight 177 lb 0.499 oz Weight 165 lb Most Recent Monitor Data Heart Rate from ECG 62 NIBP 128/71 NIBP BP-Mean 90 Respiration from ECG 22 SpO2 99 General Appearance: NAD General - other findings: Dobbhoff tube in place Neck: supple, no JVD Heart: RRR, no gallops, no rubs Respiratory: no wheezes, no rales Gastrointestinal: soft, non-distended, no guarding, no rigidity Extremities: no cyanosis Neurological: no new deficit Hosp A/P (1) Acute respiratory failure with hypoxia Code(s): J96.01 - ACUTE RESPIRATORY FAILURE WITH HYPOXIA (2) Diastolic CHF Code(s): I50.30 - UNSPECIFIED DIASTOLIC (CONGESTIVE) HEART FAILURE Status: Chronic Qualifiers: Heart failure chronicity: acute on chronic Qualified Code(s): I50.33 - Acute on chronic diastolic (congestive) heart failure (3) Acute CVA (cerebrovascular accident) Code(s): I63.9 - CEREBRAL INFARCTION, UNSPECIFIED Status: Acute (4) Paroxysmal A-fib Code(s): I48.0 - PAROXYSMAL ATRIAL FIBRILLATION Status: Chronic (5) Hypertrophic cardiomyopathy Code(s): I42.2 - OTHER HYPERTROPHIC CARDIOMYOPATHY Status: Chronic (6) Hypokalemia Code(s): E87.6 - HYPOKALEMIA Status: Acute (7) Swallowing dysfunction Code(s): R13.10 - DYSPHAGIA, UNSPECIFIED Status: Acute (8) Hypomagnesemia Code(s): E83.42 - HYPOMAGNESEMIA Status: Acute (9) Abnormal LFTs Code(s): R94.5 - ABNORMAL RESULTS OF LIVER FUNCTION STUDIES Status: Acute (10) Obesity (BMI 30.0-34.9) Code(s): E66.9 - OBESITY, UNSPECIFIED Status: Chronic (11) C. difficile colitis Code(s): A04.72 - ENTEROCOLITIS D/T CLOSTRIDIUM DIFFICILE, NOT SPCF RECUR Status: Acute - Plan DVT proph w/SCDs 75-year-old female with recent cardioversion for atrial fibrillation presented on 04/14 with shortness of breath and syncope. Patient was intubated by EMS prior to arrival. Her work-up was consistent with acute on chronic diastolic heart failure exacerbation. She showed good improvement with diuretics. She was extubated the following day (04/15). Stroke alert was called later on the same day. CT brain was consistent with acute CVA involving the right posterior cerebral artery distribution with edema. Patient was started on aspirin along with statins. Anticoagulants were held due to risk of hemorrhagic conversion. IV fluids and blood pressure was gradually titrated with Cardene drip per critical care recommendations to prevent hemorrhagic conversion as well as vasogenic edema. Echocardiogram was done that showed large pericardial effusion with 3 of 3 diastolic dysfunction and severe concentric left ventricular hypertrophy. Anticoagulants can be resumed 7 days post CVA per neurology recommendation. Dobbhoff tube was placed on 04/19 due to swallowing dysfunction. Patient was transferred to stroke unit on 04/20. On 04/22 patient was diagnosed with C. difficile colitis and was started on oral vancomycin. On the same day NG tube was replaced due to malfunction. GI has been consulted for possible PEG tube placement Plan: Acute CVA Continue anticoagulation with Lovenox 1 mg/kg every 12 hourly. Stroke team. Continue supportive care. On per neurology C. difficile colitisetiology unclear Diarrhea is slowing down. Continue oral vancomycin with probiotic. No history of recent antibiotic use Swallow dysfunction Continue Dobbhoff tube feeding. GI consulted for PEG tube placement. Change Pepcid to p.o. Hypokalemia Replaced Physical deconditioning Continue physical therapy Paroxysmal atrial fibrillation status post recent cardioversion Continue beta-blockers, amiodarone with anticoagulation Hypertension Continue amlodipine, carvedilol and lisinopril Discharge disposition Patient will need inpatient rehab placement
--- NOTE | 2020-04-23 15:25 | PRG ---
DATE OF SERVICE: 04/23/2020 SUBJECTIVE: Ms. Carlson is doing well. She is more talkative today. Continues to be sinus rhythm. OBJECTIVE: VITAL SIGNS: Heart rate 50, blood pressure 129/60. LUNGS: Clear to auscultation. HEART: Regular rate and rhythm. ABDOMEN: Soft, nontender, nondistended. EXTREMITIES: No edema. PERTINENT LABORATORY DATA: Hemoglobin 15.7, creatinine 0.59. IMPRESSION: 1. Atrial fibrillation. 2. Recent cerebrovascular accident. 3. Hypertrophic cardiomyopathy. RECOMMENDATIONS: Ms. Carlson rhythm appears to be stable. She is on amiodarone 200 mg p.o. q.a.m. I will decrease her carvedilol from 6.25 b.i.d. to 3.125 one p.o. b.i.d. She is on anticoagulation therapy. Recommend switching to Eliquis 5 mg p.o. b.i.d. Continue aspirin. Otherwise, I have no further recommendations. Job ID: [id number]
--- NOTE | 2020-04-23 17:56 | CON ---
DATE OF CONSULTATION: REASON FOR CONSULTATION: Request for PEG tube placement. HISTORY OF PRESENT ILLNESS: Ms. Jones is a 74-year-old female, who is admitted to the hospital on 04/14 with an acute stroke. Apparently, she had become unresponsive before coming in and was intubated in the emergency room. CAT scan on the revealed a subacute right infarct posterior cerebral artery distribution. Followup MRI showed a large infarction involving the entire right NET WASHER and bilateral superior cerebellar arteries and acute infarction of the posteroinferior cerebellar artery. Cardiology saw the patient initially for hypertrophic cardiomyopathy and AFib, was cardioverted. The patient has been started on Lovenox now. She is more alert, has expressive aphasia it seems, but is waking up, she is now extubated on the floor. She is oriented to person, place, time, and year per Neurology. She has had no seizure activity, but remains on Keppra. Apparently, she has restarted Eliquis yesterday. I have been asked to see the patient for a PEG. Speech Pathology evaluated long-term issues with swallowing. Another factor that has come up is she has been diagnosed with C difficile on a stool study yesterday and she was started on vancomycin for that. PAST MEDICAL HISTORY: Atrial fibrillation, congestive heart failure, cardiomyopathy, hyperlipidemia, and hypertension. PAST SURGICAL HISTORY: Appendectomy, cholecystectomy. MEDICATIONS: 1. Tylenol. 2. Amiodarone. 3. Norvasc. 4. Aspirin. 5. Carvedilol. 6. Lovenox 80 q.12. 7. Famotidine. 8. Apresoline. 9. Keppra. 10. Lipase. 11. Lisinopril. 12. Morphine. 13. Saccharomyces. 14. Vancomycin p.o. SOCIAL HISTORY: Cannot be obtained. REVIEW OF SYSTEMS: Cannot be obtained. FAMILY HISTORY: Cannot be obtained. PHYSICAL EXAMINATION: VITAL SIGNS: Temperature 98, pulse 47, respirations 18, blood pressure 154/74. GENERAL: She is resting comfortably in bed. She is resting. She opens her eyes, talked to me a little bit. Oropharynx without lesions. NECK: Supple. No adenopathy. NG tube is in place. LUNGS: Clear. HEART: Regular rate and rhythm without clicks or murmurs. ABDOMEN: Soft and nontender. No rebound or guarding. LABORATORY STUDIES: White count 7.3, hemoglobin 15.7, and platelet count 251. Sodium 140, potassium 4.2, BUN and creatinine 12 and 0.59, albumin 2.9, protein 5.6. Urinalysis on 04/14 was normal. COVID was negative. History of positive VELIA, positive rheumatoid factor, positive Ro antibody. ASSESSMENT: 1. Clostridium difficile positive, started on treatment yesterday. Diarrhea improving. It has been minimal today. Started on antibiotics yesterday. 2. Stroke with improvement in mentation, actually starting to speak well, but then Speech pathologist long-term rehab before she can swallow on her own. 3. Atrial fibrillation. She is on full-dose Lovenox. PLAN: PEG tomorrow. We will hold Lovenox tonight and tomorrow morning. Job ID: [id number]
--- NOTE | 2020-04-23 20:52 | RAD ---
Frontal radiograph abdomen: 04/23/2020 COMPARISON: 04/22/2020 HISTORY: Evaluate nasogastric tube FINDINGS: The cardiac silhouette is enlarged. Clips in the right upper quadrant suggest prior cholecy stectomy. The abdomen is only partially imaged on this exam. A stable Dobbhoff tube is noted, distal tip overlying the lateral left upper quadrant, likely in the region of the gastric body. IMPRESSION: Dobbhoff tube as above.
[2020-04-23] MEDS: Atorvastatin Calcium 40 MG TAB PER TUBE SCH (21:42)
[2020-04-23] MEDS: Carvedilol 3.125 MG TAB PER TUBE SCH (21:43)
[2020-04-24] MEDS: Vancomycin HCl 25 MG/ML Oral PER TUBE SCH ×4 (03:56→21:49)
[2020-04-24 05:44] LABS: #Eosinphils 0.1 thou/uL (0.0-0.7); #Monocytes 0.5 thou/uL (0.11-0.59); #Neutrophils 6.2 thou/uL (1.40-6.50); %Basophils 0.2 % (0.0-1.0); %Eosinophils 1.3 % (0.0-10.0); %Lymphocytes 12.2 % (21.0-51.0); %Monocytes 6.9 % (0.0-10.0); %Neutrophils 79.4 % (42.0-75.0); Hemoglobin 16.5 g/dL (12.0-16.0); Mean Corpuscular HGB CONC 33.5 g/dL (32.0-36.0); Mean Corpuscular Hemoglobin 32.5 pg (27.0-31.0); Mean Corpuscular Volume 96.9 fL (78.0-98.0); Platelet Count 234 thou/uL (130-400); RBC Distribution Width 15.6 % (11.5-14.5); Red Blood Cell (RBC) Count 5.08 mill/uL (4.20-5.40); White Blood Cell (WBC) Count 7.8 thou/uL (4.8-10.8)
[2020-04-24 06:09] LABS: Anion Gap 12 mmol/L (10-20); BUN (Urea Nitrogen) 14 mg/dL (9.8-20.1); Calc. Creatinine Clearance 97 mL/min (70-130); Calcium 9.7 mg/dL (7.8-10.44); Carbon Dioxide 33 mmol/L (23-31); Chloride 100 mmol/L (98-107); Glucose 97 mg/dL (83-110); Potassium 4.1 mmol/L (3.5-5.1); Sodium 141 mmol/L (136-145)
[2020-04-24] MEDS ORDERED: Famotidine 40 MG/5 ML Oral Suspension PO SCH (09:00)
[2020-04-24] MEDS: Multivit, Therapeutic 1 TAB PER TUBE SCH (10:13)
[2020-04-24] MEDS: Saccharomyces boulardii 250 MG CAP PER TUBE SCH (10:13)
[2020-04-24] MEDS: levETIRAcetam 500 mg/5 ml Oral Solution PER TUBE SCH (10:13)
[2020-04-24] MEDS: Lisinopril 5 MG TAB PO SCH (10:14)
[2020-04-24] MEDS: Carvedilol 3.125 MG TAB PER TUBE SCH ×2 (10:15→21:46)
[2020-04-24] MEDS: Amlodipine 10 MG TAB PER TUBE SCH (10:15)
[2020-04-24] MEDS: Amiodarone 200 MG TAB PER TUBE SCH (10:15)
[2020-04-24] MEDS: Aspirin Chewable 81 MG TAB PO SCH (10:16)
[2020-04-24] MEDS: Ondansetron PF 4 MG/2 ML Vial IVP PRN (11:58)
[2020-04-24] MEDS: hydrALAZINE 20 MG/ML VIAL SLOW IVP PRN ×2 (11:58→16:14)
--- NOTE | 2020-04-24 13:08 | RAD ---
PORTABLE CHEST: HISTORY: Aspiration pneumonia. COMPARISON: 04/15/2020 exam. FINDINGS: Heart size is enlarged. Pulmonary vessels are engorged. Some bibasilar lung changes more prominent in the right base. Appearance is fairly similar to the previous exam. IMPRESSION: 1. Marked cardiomegaly. 2. Bibasilar lung changes fairly similar to the previous study. POS: KAYLEN
--- NOTE | 2020-04-24 13:43 | PRG ---
DATE OF SERVICE: 04/24/2020 I have been informed by the nursing staff that Ms. Carlson has had mental status changes and is going to have a repeat CAT scan. For this reason, elective PEG tube placement for today was discontinued. I have instructed the nurse they can use it to resume feeds and her medicines can be used through it. They can put her back on her blood thinners, if they need to. At this point in time, we will hold off on PEG tube placement until neurologic situation stabilizes and is more clear. Job ID: [id number]
--- NOTE | 2020-04-24 14:11 | CT ---
CT Brain WO Con History: Change in mental status Comparison: CT brain without contrast April 18, 2020 Findings: Increased edema and hemorrhagic transformation within the the right FACILITIES CUSTODIAN territory infarctio n with enlarging infarction of the right thalamus. There is progressive right-left midline shift of 1 cm the level of the foramen of Cano. There is also right-sided uncal herniation. Right superior cerebellar infarction is similar. Subtle left superior cerebellar infarctions and infe rior cerebellar infarction is similar. Small right subdural hematoma measures up to 3 mm along the right convexity. Near complete loss of ol d right hemispheric sulci. Calvarium is intact. No gross retention cyst right maxillary sinus. Impression: 1. Hemorrhagic conversion of the right FACILITIES CUSTODIAN territory infarction with new 11 mm right-left midline alexis ft, downward transtentorial uncal herniation, and near complete loss of right hemispheric sulci due to mass effect and pressure from hemorrhage and edema. 2. Small right convexity 3 mm subdural hematoma. 3. Slight interval size increase of the right thalamic infarction with similar appearance of the bila teral cerebellar infarctions. 4. Slight enlargement of the lateral ventricles likely sequela mass effect upon the third ventricle. Code: MAGDALENA Shabazz notified of findings via telephone at 2:05 PM
--- NOTE | 2020-04-24 15:01 | PDOC.HOSPP ---
- Subjective Encounter Date: 04/24/20 Encounter Time: 14:00 Subjective: is more drowsy than when I saw her in am, keeps touching her right scalp to say she has headache son at bedside moves her right extremities well, left upper very minimal finger movement and left lower can move on bed but cant lift her leg around 1.30 pm, this was different than when I saw her in the morning when she could lift her left leg up atleast 30 degrees above bed and hold my fingers in her left hand around 10 am. talks in portuguese has dysarthria and drags her speech which is similar from am - Objective Vital Signs & Weight: Vital Signs (12 hours) Temp Pulse Pulse Pulse Resp BP BP 04/24/20 14:50 54 L 04/24/20 13:30 57 L 04/24/20 13:14 57 L 18 04/24/20 12:00 98.0 F 56 L 21 H 04/24/20 11:58 49 L 223/93 H 04/24/20 10:15 49 L 04/24/20 10:14 49 L 04/24/20 10:10 52 L 46 L 194/90 H 04/24/20 08:00 98.1 F 50 L 18 04/24/20 04:01 04/24/20 03:35 98.1 F 50 L 16 BP BP Pulse Ox 04/24/20 14:50 157/68 H 04/24/20 13:30 151/79 H 04/24/20 13:14 98 04/24/20 12:00 190/90 H 92 L 04/24/20 11:58 04/24/20 10:15 04/24/20 10:14 04/24/20 10:10 180/83 H 04/24/20 08:00 136/76 96 04/24/20 04:01 96 04/24/20 03:35 118/69 96 Weight Admit Weight 177 lb 0.499 oz Weight 165 lb 5.547 oz Most Recent Monitor Data Heart Rate from ECG 62 NIBP 128/71 NIBP BP-Mean 90 Respiration from ECG 22 SpO2 99 I&O: 04/23/20 04/24/20 04/25/20 06:59 06:59 06:59 Intake Total 60 627 Balance 60 627 Result Diagrams: 04/24/20 05:12 04/24/20 05:12 Hospitalist ROS - Medication Medications: Active Medications Generic Name Dose Route Start Last Admin Trade Name Freq PRN Reason Stop Dose Admin Acetaminophen 650 mg 04/14/20 13:27 04/15/20 01:30 Acetaminophen 325 Mg Tab PO 650 mg Q4H PRN Administration Headache/Fever/Mild Pain (1-3) Albuterol/Ipratropium 3 ml 04/24/20 13:00 04/24/20 13:14 Ipratropium/Albuterol Sulfate 3 Ml Neb NEB 3 ml F4CP-DS ZANE Administration Amiodarone HCl 200 mg 04/20/20 09:00 04/24/20 10:15 Amiodarone 200 Mg Tab PER TUBE 200 mg DAILY ZANE Administration Amlodipine Besylate 10 mg 04/20/20 09:00 04/24/20 10:15 Amlodipine 10 Mg Tab PER TUBE 10 mg DAILY ZANE Administration Lipase/Protease/Amylase 1 cap 04/22/20 11:30 04/22/20 11:[address] 12,000 1 Cap FS 1 cap .PER PROTOCOL PRN Administration TUBE OCCLUSION PROTOCOL Aspirin 81 mg 04/23/20 09:00 04/24/20 10:16 Aspirin Chewable 81 Mg Tab PO Not Given DAILY [facility] Atorvastatin Calcium 40 mg 04/20/20 21:00 04/23/20 21:42 Atorvastatin Calcium 40 Mg Tab PER TUBE 40 mg HS ZANE Administration Carvedilol 3.125 mg 04/23/20 21:00 04/24/20 10:15 Carvedilol 3.125 Mg Tab PER TUBE Not Given BID [facility] Enoxaparin Sodium 80 mg 04/21/20 21:00 04/23/20 10:10 Enoxaparin Sodium 80 Mg/0.8 Ml Syringe SC 80 mg 0900,2100 ZANE Administration Famotidine 20 mg 04/24/20 09:00 04/24/20 13:24 Famotidine 40 Mg/5 Ml Oral Suspension PO Not Given DAILY [facility] Hydralazine HCl 10 mg 04/20/20 08:50 04/24/20 11:58 Hydralazine 20 Mg/Ml Vial SLOW IVP 10 mg Q4H PRN Administration SBP GREATER THAN 160 Levetiracetam 500 mg 04/20/20 21:00 04/24/20 10:13 Levetiracetam 500 Mg/5 Ml Oral Solution PER TUBE 500 mg BID ZANE Administration Lisinopril 5 mg 04/21/20 09:00 04/24/20 10:14 Lisinopril 5 Mg Tab PO 5 mg DAILY ZANE Administration Multivitamins 1 tab 04/21/20 09:00 04/24/20 10:13 Multivit, Therapeutic 1 Tab PER TUBE 1 tab DAILY ZANE Administration Ondansetron HCl 4 mg 04/14/20 13:27 04/24/20 11:58 Ondansetron Pf 4 Mg/2 Ml Vial IVP 4 mg Q6H PRN Administration Nausea/Vomiting Saccharomyces Boulardii 250 mg 04/23/20 09:00 04/24/20 10:13 Saccharomyces Boulardii 250 Mg Cap PER TUBE 250 mg DAILY ZANE Administration Sodium Bicarbonate 650 mg 04/22/20 11:30 04/22/20 11:57 Sodium Bicarbonate Tab 325 Mg Tab PER TUBE 650 mg .PER PROTOCOL PRN Administration ENTERAL TUBE OCCLUSION Sodium Chloride 10 ml 04/17/20 21:00 04/24/20 10:16 Flush - Normal Saline 10 Ml Syringe IVF 10 ml Q12HR ZANE Administration Vancomycin HCl 250 mg 04/22/20 21:00 04/24/20 10:13 Vancomycin Hcl 25 Mg/Ml Oral PER TUBE 250 mg 0300,0900,1500,2100 AZNE Administration Hospitalist Exam Vitals: Vital Signs (12 hours) Temp Pulse Pulse Pulse Resp BP BP 04/24/20 14:50 54 L 04/24/20 13:30 57 L 04/24/20 13:14 57 L 18 04/24/20 12:00 98.0 F 56 L 21 H 04/24/20 11:58 49 L 223/93 H 04/24/20 10:15 49 L 04/24/20 10:14 49 L 04/24/20 10:10 52 L 46 L 194/90 H 04/24/20 08:00 98.1 F 50 L 18 04/24/20 04:01 04/24/20 03:35 98.1 F 50 L 16 BP BP Pulse Ox 04/24/20 14:50 157/68 H 04/24/20 13:30 151/79 H 04/24/20 13:14 98 04/24/20 12:00 190/90 H 92 L 04/24/20 11:58 04/24/20 10:15 04/24/20 10:14 04/24/20 10:10 180/83 H 04/24/20 08:00 136/76 96 04/24/20 04:01 96 04/24/20 03:35 118/69 96 Weight Admit Weight 177 lb 0.499 oz Weight 165 lb 5.547 oz Most Recent Monitor Data Heart Rate from ECG 62 NIBP 128/71 NIBP BP-Mean 90 Respiration from ECG 22 SpO2 99 General Appearance: ill appearing Eye: PERRL, anicteric sclera ENT: no oropharyngeal lesions, dry oral mucosa Neck: supple, no JVD Heart: RRR, no murmur Respiratory: no wheezes, no rales Gastrointestinal: soft, non-tender, non-distended, normal bowel sounds Extremities: no cyanosis, no edema Neurological: hemiplegia, speech deficit Neurological - other findings: left Hosp A/P (1) Acute CVA (cerebrovascular accident) Code(s): I63.9 - CEREBRAL INFARCTION, UNSPECIFIED Status: Acute (2) Hypertrophic cardiomyopathy Code(s): I42.2 - OTHER HYPERTROPHIC CARDIOMYOPATHY Status: Chronic (3) Pericardial effusion Code(s): I31.3 - PERICARDIAL EFFUSION (NONINFLAMMATORY) Status: Chronic (4) Obesity (BMI 30.0-34.9) Code(s): E66.9 - OBESITY, UNSPECIFIED Status: Chronic (5) Dyslipidemia Code(s): E78.5 - HYPERLIPIDEMIA, UNSPECIFIED Status: Chronic (6) H/O: CVA (cerebrovascular accident) Code(s): Z86.73 - PRSNL HX OF TIA (TIA), AND CEREB INFRC W/O RESID DEFICITS Status: Chronic (7) Acute respiratory failure with hypoxia Code(s): J96.01 - ACUTE RESPIRATORY FAILURE WITH HYPOXIA Status: Resolved (8) Syncope Code(s): R55 - SYNCOPE AND COLLAPSE Status: Resolved (9) Diastolic CHF Code(s): I50.30 - UNSPECIFIED DIASTOLIC (CONGESTIVE) HEART FAILURE Status: Chronic Qualifiers: Heart failure chronicity: acute on chronic Qualified Code(s): I50.33 - Acute on chronic diastolic (congestive) heart failure (10) Paroxysmal A-fib Code(s): I48.0 - PAROXYSMAL ATRIAL FIBRILLATION Status: Chronic (11) hemorrhagic conversion of cva Status: Acute (12) Uncal herniation Code(s): G93.5 - COMPRESSION OF BRAIN Status: Acute (13) Transtentorial herniation Code(s): G93.5 - COMPRESSION OF BRAIN Status: Acute - Plan CT brain from this am shows hemorrhagic conversion of marine mammal trainer distribution infarct with midline shift and transtentorial/uncal herniation, d/w , will transfer to icu for close monitoring. Is maintaining airway, d/w , may need intubation if ICP worsens or if she goes to OR. D/w , is off lovenox from yesterday, peg will be postponed until she stabilizes a bit. Had CT brain on arrival which did not reveal ac cva but had findings of old left cerebellar cva, repeat done around 2 pm shows massive marine mammal trainer distribution cva with edema on 04/15/20. MRI wo contrast done this am shows post circ multiple cva's including large right marine mammal trainer infarct with edema, left pica, b/l superior cerebellar art R>L, appears to be a ischemic infarct, unlikely to be embolic due to post circ involvement with none in the carotid outreach areas. oral meds will be held including aspirin, continue nitropaste, clonidine tts and cardene drip prn for sbp >160 for now. has large pericardial effusion wo tamponade physiology as of now, if she were to get hypotensive, elevated jvd etc then will need stat window, CTS is aware of patient. got extubated on 04/15/20 and maintaining airway has multiple medical ac issues, prognosis guarded hold PT/OT until she stabilizes . progosis guarded.
--- NOTE | 2020-04-24 15:03 | PRG ---
DATE OF SERVICE: 04/24/2020 SUBJECTIVE: The patient in terms of worse neurologic status. She is being transferred back to the CCU. OBJECTIVE: VITAL SIGNS: Temperature 98.1, pulse in the 40s, blood pressure last measured 223/93, O2 saturations 96%. HEENT: Unchanged. NECK: No JVD. LUNGS: Clear. CARDIAC: S1 and S2. Regular. ABDOMEN: Soft. LABORATORY DATA: White blood cell count 7.8, hematocrit 49.3, and platelet count 234. Sodium 141, potassium 4.1, BUN 14, creatinine 0.6, and glucose 97. The CT result is noted. ASSESSMENT: 1. Hemorrhagic conversion of the previous stroke. 2. Altered mental status. PLAN: Her anticoagulation is being held. She is being transferred back to the CCU. I think her prognosis for functional recovery is possibly poor. For blood pressure control, I would recommend putting her on a nicardipine drip rather than using her current antihypertensives. Job ID: [id number]
[2020-04-24] MEDS ORDERED: niCARdipine 25 MG in Sodium Chloride 0.9% 250 ML 240 ML IVPB PRN (15:33)
[2020-04-24 16:11] LABS: INR-International Normal Ratio 1.1; PTT 31.5 sec (22.9-36.1); Prothrombin Time 14.4 sec (12.0-14.7)
[2020-04-24 17:25] LABS: Anion Gap 17 mmol/L (10-20); BUN (Urea Nitrogen) 15 mg/dL (9.8-20.1); Calc. Creatinine Clearance 96 mL/min (70-130); Calcium 10.1 mg/dL (7.8-10.44); Carbon Dioxide 27 mmol/L (23-31); Chloride 101 mmol/L (98-107); Glucose 114 mg/dL (83-110); Potassium 4.1 mmol/L (3.5-5.1); Sodium 141 mmol/L (136-145)
--- NOTE | 2020-04-24 17:54 | PRG ---
DATE OF SERVICE: 04/24/2020 I personally interviewed the patient, examined the patient, spoke with the family, reviewed records, reviewed the imaging and agree with the notes of Karsten Zepeda PA-C, dated 04/24/20. Briefly, Shayy Holland is a 74-year-old woman who came to the emergency department at [facility] on the 14 of April for some shortness of breath. She had acute loss of consciousness while in the vehicle of her family member who was driving her to the emergency department. She was intubated. The original CT scan of the brain did not show new infarction, but the one done in followup the next day did and the infarct involved the right posterior cerebral artery territory as well as portions of the bilateral superior cerebellar artery distributions. She was noted to follow commands intermittently the day after her admission. She was extubated thereafter. On the , her 3rd hospital day, she was noted to be weak, but moving her arm and leg on the left side. Our colleagues in Neurology noted a left facial droop and a left paresis, but not plegia. On April 20, she was noted by Critical Care colleagues to be less responsive on her examination. She remained extubated, however. Intermittently, she follows commands. By the , Neurology noticed a facial droop and a left hemiplegia. Followup notes from Neurology on the did not demonstrate any new neurological deficit, but no comment was made as to whether she had a paresis or plegia on that day. Notes from our colleagues in the hospitalist on the inpatient Medicine Service indicated that she had been lifting her left leg off the bed this morning and moving the fingers of her left hand. Sometime later in the morning the patient's son noticed a change in her level of responsiveness and increased weakness on the left side. For the change in neurological function, she was taken back to the CT scanner. The CT scan revealed hemorrhagic conversion of the [employer] infarct on the right side with some increased mass effect of the stroke globally affecting the right hemisphere of the brain. Neurosurgery was consulted because of the hemorrhagic conversion and because colleagues in Radiology felt she had an uncal herniation. Ms. Aldo Holland is now in the critical care unit. I am seeing her at the bedside. She is resting comfortably. With enough stimulation, she will open her eyes. She says 1 to 2 words with some dysarthria, but then drifts back to sleep. Her blood pressure spiked earlier this morning at 223/93 and is coming back down to 178/101 currently. That is still, unfortunately, too high. Pulse is in the 50s. On my examination, there is a left facial droop. There is a fairly dense hemiparesis, but not a hemiplegia affecting the left side. Specifically, I can get Mrs. Aldo Holland to wiggle the toes on the left foot. I have gotten her to wiggle the thumb and index finger of the left hand. She does not squeeze with her left hand, however. She does not lift the left leg off the bed. The hemoglobin is 16.5 and the hematocrit 49.3, which could be lessened with the therapeutic phlebotomy. The viscosity of the blood could be reduced to help with perfusion. The sodium this morning was 141. I reviewed the CT scan of the brain and every CT scan done since her admission. Compared to the most recent scan (April 18, 2020), the amount of temporal lobe over the tentorium is the same. In fact, rather than the uncus, this is the posterior portion of the hippocampal complex that is herniated behind the cerebral peduncle into the ambient cistern. It was herniated on previous scans as well. Compared to the , there is no change in the amount of temporal lobe that is over the tentorium. What is different on today's examination is global mass effect from the stroke with a less prominent sylvian fissure, less prominent right lateral ventricle, a little bit more midline shift and punctate areas of hemorrhagic conversion of the [employer] infarct. I had a long discussion with the patient's daughter at the bedside. I told the hemorrhagic conversion is seen in stroke patients. It is not the normal outcome, but we do see it frequently. This hemorrhagic conversion could have happened any time during her hospitalization between the and the current scan. She was on twice daily Lovenox and 325 mg of aspirin a day before the aspirin was decreased to 81 mg on the . It is unclear whether she was restarted on Eliquis. What it is also unclear is whether she in fact had hemiplegia as noted on the . I suspect she has waxing and waning neurological function as many patients do after stroke involving three vascular territories. She may have been seen by Neurology on the at the anne of her neurological function and seen by the Medicine service at the apex of her function the next day. The deterioration day could be the normal fluctuations of neurological function following stroke. It could be that she is postictal from an unwitnessed seizure. It could be that the hemorrhagic conversion and increased mass effect has caused a neurological deterioration. Rather than being overly aggressive in proceeding directly with a hemicraniectomy, I think a middle of the road approach would be to add mannitol to her treatment regimen. We will place a Dodd and get a baseline sodium. For the first 2 days, we will have her on 1/2 g/kg of mannitol given as a bolus every 6 hours. After two days of that treatment, we will move to every 12 hours for 2 days. For the and 6th days, we can use mannitol once a day and we will taper her off. Hopefully, she has the response to this. Neurology will undoubtedly want to check her Keppra level and perhaps another EEG to see if this is a postictal phenomenon. I will defer to the their expertise for that decision making. If she continues to deteriorate neurologically in spite of mannitol therapy, she may need to be intubated. If she is intubated to control her CO2 and prevent hypercapnia, she may improve neurologically. If she does not respond to either of those maneuvers, hemicraniectomy could be considered and I asked the daughter to discuss it with the family members whether their mother would want to undergo an aggressive surgical procedure if it is unlikely to change her stroke outcome. It would, however, save her life. Hopefully, we will have to make that decision, but I prepped the family with information they need to be able to do so. >>>1hr Job ID: [id number] MTDD
--- NOTE | 2020-04-24 17:54 | EKG ---
Test Reason : Blood Pressure : / mmHG Vent. Rate : 057 BPM Atrial Rate : 057 BPM P-R Int : 176 ms QRS Dur : 122 ms QT Int : 508 ms P-R-T Axes : 053 020 082 degrees QTc Int : 494 ms Sinus bradycardia Possible Left atrial enlargement RSR' or QR pattern in V1 suggests right ventricular conduction delay Abnormal ECG Confirmed by ORIN SEVERINO M.D. ([id number]), editor newspaper [employer] ([id number]) on 04/24/2020 5:53:42 PM Referred By: Confirmed By:ORIN SEVERINO M.D.
[2020-04-24] MEDS: Nitroglycerin 2% Ointment 1 INCH/1 GM Packet TOP SCH ×2 (18:25→21:46)
[2020-04-24] MEDS: Mannitol 12.5 GM/50 ML IV SCH ×2 (18:26→23:51)
--- NOTE | 2020-04-24 18:49 | RAD ---
KUB: 04/24/2020 COMPARISON: 04/23/2020 HISTORY: Evaluate Dobbhoff tube FINDINGS: A Dobbhoff tube overlies the left upper quadrant, now curling in the left upper quadrant, w ith the distal tip directed in a cephalad direction, likely overlying the gastric fundus. Stable enlargement of the cardiac silhouette. Cholecystectomy clips are noted. IMPRESSION: Dobbhoff tube curling in the left upper quadrant as above.
--- NOTE | 2020-04-24 19:10 | CON ---
DATE OF CONSULTATION: 04/24/2020 Ms. Carlson's status is worsened today. She developed more somnolent. CT scan of the brain did confirm increased edema and herniation. Slight increase in hemorrhage. The patient received Lovenox over the last 24 hours. I had a long discussion with both the son and the daughter. I am very concerned about now her worsening prognosis. Neurosurgery has been consulted. Heart rate remains stable. She did have hypertension earlier that has improved. We will continue to monitor closely. I did spend greater than 30 minutes of critical care time with the patient. Job ID: [id number]
--- NOTE | 2020-04-24 20:58 | RAD ---
KUB: 04/24/2020 8:44 PM COMPARISON: 04/24/2020 6:28 PM HISTORY: Evaluate Dobbhoff tube FINDINGS: The Dobbhoff tube has been retracted slightly when compared to the prior exam. The distal t ip overlies the left upper quadrant, likely in the region of the gastric body. Cardiac silhouette is enlarged. Clips in the right upper quadrant suggest prior cholecystectomy. IMPRESSION: Dobbhoff tube as above.
[2020-04-24] MEDS: Pantoprazole 40 MG VIAL IVP SCH (21:46)
[2020-04-24] MEDS: Atorvastatin Calcium 40 MG TAB PER TUBE SCH (21:46)
[2020-04-24 23:28] LABS: Sodium 142 mmol/L (136-145)
--- NOTE | 2020-04-25 01:06 | PRG ---
DATE OF SERVICE: Consult 04/24/2020 CC: Worsening Neuro Exam HPI: Ms. Carlson is a 74-year-old female, who presented to the Emergency Department by EMS for acute onset respiratory distress on April 14. Original Head CT did not show a new infarct. Today, neurosurgery was consulted due to change in her neuro exam. CT exam was done today compared to a CT of the brain one week ago. The old scan did show uncal herniation, anyway difference between the two scans was there was a small area of hemorrhage. ROS: Negative unless stated in the above HPI PAST MEDICAL HISTORY: AFib, CHF, cardiomyopathy, hyperlipidemia, and HTN PAST SURGICAL HISTORY: Appendectomy, cholecystectomy MEDICATIONS: 1. Tylenol 2. Amiodarone 3. Norvasc 4. Aspirin 5. Carvedilol 6 Lovenox 7. Famotidine 8. Apresoline 9. Keppra 10. Lipase 11. Lisinopril 12. Morphine 13. Saccharomyces 14. PO Vancomycin SOCIAL HISTORY: non contributory FAMILY HISTORY: non contributory VITALS: Among the electronic records, she had a BP of 178/101, pulse 65, O2 saturation 98, and temperature of 98.0 EXAMINATION: her speech is slightly more slurred. She was able to wiggle her left fingers and toes this morning. She is unable to lift her left arm and left leg against gravity. She is able to move her right arm and right leg. She is awake, follows commands by opening to voice, verbal response, confused. ASSESSMENT: 1. AMS 2, New infarct PLAN: SBP less than 140. Recommend few days of intermittent mannitol versus decompressive craniotomy. No mannitol when serum Na > 160, osmolality >320mosm/kg. If serum sodium still less than 160, can repeat mannitol 0.5gram/kg bolus Q6Hrs. Total IVF in should not be more than 90cc/hour. Job ID: [id number] [facility]
[2020-04-25] MEDS: Vancomycin HCl 25 MG/ML Oral PER TUBE SCH ×4 (03:02→21:34)
[2020-04-25 04:15] LABS: #Lymphocytes 0.9 thou/uL (1.20-3.40); #Monocytes 0.5 thou/uL (0.11-0.59); #Neutrophils 10.8 thou/uL (1.40-6.50); %Basophils 0.2 % (0.0-1.0); %Lymphocytes 7.4 % (21.0-51.0); %Monocytes 4.3 % (0.0-10.0); %Neutrophils 88.1 % (42.0-75.0); Hemoglobin 16.2 g/dL (12.0-16.0); Mean Corpuscular HGB CONC 32.6 g/dL (32.0-36.0); Mean Corpuscular Hemoglobin 31.1 pg (27.0-31.0); Mean Corpuscular Volume 95.5 fL (78.0-98.0); Mean Platelet Volume 9.5 fL (7.4-10.4); Platelet Count 308 thou/uL (130-400); RBC Distribution Width 15.8 % (11.5-14.5); Red Blood Cell (RBC) Count 5.21 mill/uL (4.20-5.40); White Blood Cell (WBC) Count 12.3 thou/uL (4.8-10.8)
[2020-04-25 04:34] LABS: Anion Gap 14 mmol/L (10-20); BUN (Urea Nitrogen) 17 mg/dL (9.8-20.1); Calc. Creatinine Clearance 76 mL/min (70-130); Calcium 9.8 mg/dL (7.8-10.44); Carbon Dioxide 30 mmol/L (23-31); Chloride 99 mmol/L (98-107); Glucose 112 mg/dL (83-110); Sodium 139 mmol/L (136-145)
[2020-04-25] MEDS: Mannitol 12.5 GM/50 ML IV SCH ×4 (05:50→23:53)
--- NOTE | 2020-04-25 08:24 | PRG ---
DATE OF SERVICE: 04/25/2020 NEUROSURGERY PROGRESS NOTE. Yesterday, we initiated some mannitol therapy with Ms. Aldo Holland. Overnight, nursing reports improvement in her neurological function. Among the electronically documented vital signs, I see a maximum temperature of 99.3 degrees Fahrenheit. Blood pressures have been in the 100s to 150s. When I see Ms. Aldo Holland in her ICU room, she opens her eyes to our voice much faster than she did yesterday. She says more than one word. In fact, there are phrases to sentences that are making sense. She is following commands quite well. She moves the right side quite easily. She wiggles the left toes to command. There is hand wiggling of the left fingers, but it is quite inconsistent. Her left hemiparesis is mildly improved compared to yesterday. Sodiums have been 141, 142, and 139 while initiating the mannitol therapy. White blood cell count this morning is 12.3. I am happy with the improvement in Aldo Holland. I do not think she will need neurosurgical intervention to decompress. I will recommend that the mannitol therapy be continued every 6 hours through tomorrow and then every 12 hours through Sunday. Thereafter, it can be every 24 hours for and Sunday and stopped on Sunday. Serum sodium needs to be drawn before each dose of mannitol. Neurosurgery Team will continue to follow for another day. If she maintains this improvement, we will sign off. Job ID: [id number] MTDD
[2020-04-25] MEDS: Lisinopril 5 MG TAB PO SCH (09:22)
[2020-04-25] MEDS: Amlodipine 10 MG TAB PER TUBE SCH (09:22)
[2020-04-25] MEDS: Nitroglycerin 2% Ointment 1 INCH/1 GM Packet TOP SCH ×3 (09:22→21:33)
[2020-04-25] MEDS: Saccharomyces boulardii 250 MG CAP PER TUBE SCH (09:22)
[2020-04-25] MEDS: Multivit, Therapeutic 1 TAB PER TUBE SCH (09:23)
[2020-04-25] MEDS: Carvedilol 3.125 MG TAB PER TUBE SCH ×2 (09:23→21:33)
[2020-04-25] MEDS: Pantoprazole 40 MG VIAL IVP SCH ×2 (09:23→21:33)
--- NOTE | 2020-04-25 10:05 | CT ---
PRELIMINARY REPORT/[facility]/EMERGENCY AFTER HOURS PROCEDURE: EXAM: CT Head Without Intravenous Contrast. CLINICAL HISTORY: F/U. new small areas of hemorrhage TECHNIQUE: Axial computed tomography images of the head/brain without intravenous contrast. COMPARISON: CT\SR - CT BRAIN WO CON - 04/24/2020 01:[address] - CT BRAIN WO CON - 04/18/2020 05:[address]\SR - CT BRAIN WO CON - 04/15/2020 02:16 PM THERAPEUTIC CONSULTANT FINDINGS: BRAIN: Extensive right TONGUER distribution infarct, with hemorrhagic conversion, degree of hemorrhage ap pears stable from most recent comparison. 5-6 mm of leftward midline shift appears similar to prior. Right lateral convexity subdural hemorrhage measuring 3 mm in thickness appears unchanged. Diffuse r ight cerebral sulcal effacement. Hypoattenuation of the upper right cerebellar hemisphere, possibly associated with infarct, without h emorrhage. No new areas of barboza-white matter differentiation loss. VENTRICLES: Unchanged effacement of the atrium and occipital horn of the right lateral ventricle. St able size of the ventricles without hydrocephalus. Mild effacement of the right ambient and suprasel lar cisterns. ORBITS: The orbits are unremarkable. SINUSES AND MASTOIDS: Mucocele of the lower right maxillary sinus. The mastoid air cells are clear. SOFT TISSUES: No significant facial or scalp soft tissue swelling evident. No radiopaque foreign body is seen. BONES: No acute skull fracture. Nasoenteric tube seen passing into the oropharynx. IMPRESSION: 1. Extensive right TONGUER distribution infarct, with hemorrhagic conversion appears unchanged from most recent comparison, with stable degree of mass-effect. 2. Small right lateral convexity subdural hemorrhage measuring 3 mm is unchanged. 3. Likely involvement of infarct of the upper right cerebellar hemisphere, also appears stable. ELECTRONICALLY SIGNED BY: Nas Tyler MD Apr 25, 2020 4:15:46 AM THERAPEUTIC CONSULTANT FINAL REPORT EMERGENT AFTER HOURS CT OF BRAIN PERFORMED WITHOUT CONTRAST ENHANCEMENT: HISTORY: Followup areas of hemorrhage. COMPARISON: Prior day's study. FINDINGS: Area of apparent infarct in the right TONGUER distribution with hemorrhagic conversion. This is a simila r finding to the prior exam. A small amount of what appears to be subdural blood along the right fro ntal convexity laterally is stable. Minimal mass effect with 2-3 mm shift of midline structures to t he left is similar to the previous exam. There is some question as to whether there is some element to a right cerebellar infarct. This is di fficult to assess. IMPRESSION: 1. Stable overall exam. Hemorrhagic changes related to right TONGUER territory infarct and midline shif t are all stable findings. Small right convexity subdural hematoma also is stable. 2. This report is in agreement with the temporary report issued by [facility]. POS: OFF
[2020-04-25 11:24] LABS: Sodium 141 mmol/L (136-145)
--- NOTE | 2020-04-25 12:12 | PRG ---
DATE OF SERVICE: 04/25/2020 SUBJECTIVE: With mannitol, the patient has become more responsive and interactive, especially with her family. PHYSICAL EXAMINATION: VITAL SIGNS: Temperature 98.5, pulse 55, blood pressure O2 sat 96%. HEENT: Unchanged. NECK: No JVD. LUNGS: Clear. CARDIAC: S1 and S2. Regular. ABDOMEN: Soft. EXTREMITIES: No edema. LABORATORY DATA: White blood cell count 12, hematocrit 49.8, and platelet count 308. Sodium 139, BUN 17, creatinine 0.7, glucose 112. ASSESSMENT: Stroke with significant cerebral edema and some component of hemorrhagic conversion. PLAN: Respiratory status continues to be stable. We will continue to follow with you. Job ID: [id number]
--- NOTE | 2020-04-25 12:35 | CON ---
DATE OF CONSULTATION: 04/25/2020 SUBJECTIVE: Ms. Carlson is actually doing a little better today after receiving mannitol. She has been more alert and is oriented. She recalls events from yesterday. OBJECTIVE: VITAL SIGNS: Blood pressure 151/63, pulse 55, temperature is afebrile. LUNGS: Clear to auscultation. HEART: Regular rate and rhythm. ABDOMEN: Soft, nontender, nondistended. EXTREMITIES: No edema. PERTINENT LABORATORY DATA: Hemoglobin 16.6, hematocrit 49.8, creatinine 0.79. IMPRESSION: 1. Recent cerebrovascular accident. 2. Atrial fibrillation, status post cardioversion. 3. Hypertrophic cardiomyopathy. RECOMMENDATIONS: Aldo is improving. We will need to continue to await further recommendations from Neurology on anticoagulation therapy. There appeared to be slight increase in hemorrhage on recent scan and we will defer. I did discuss this with the family. The initial CT scan dated 04/24, did suggest hemorrhagic conversion of right [employer] territory. Again, I am pleased she is improving neurologically. Continue amiodarone therapy in addition to aspirin. If she becomes bradycardic, may need to discontinue carvedilol. Continue lisinopril. Job ID: [id number]
--- NOTE | 2020-04-25 14:32 | PRG ---
DATE OF SERVICE: 04/25/2020 SUBJECTIVE: Ms. Carlson' PEG tube was canceled yesterday. She had change in mental status. Went back to CT and it was felt that some extension of hemorrhagic conversion of her stroke. Initially there was thought to be some herniation, but after Neurosurgery reviewed all this did not feel that there was appreciable change, but agreed that she was having fluctuating mental status, moved to the ICU and placed her on a mannitol drip program for blood pressure control. I talked with the nurse. She is tolerating feeds and medicines through a Dobbhoff now. Her diarrhea is improved. PHYSICAL EXAMINATION: GENERAL: Her eyes are closed. She is extubated. minimally responsive at this time. VITAL SIGNS: Temperature is 99, blood pressure 100/54, pulse 72. ABDOMEN: Nontender. LABORATORY DATA: White count 12.3, hemoglobin 16, platelet count 308. Sodium 139, potassium 4, BUN and creatinine are 17 and 0.79. ASSESSMENT: 1. Cerebrovascular accident, oropharyngeal dysphagia. PEG tube is on hold at this point in time secondary to fluctuating mental status and some hemorrhagic conversion of her stroke. 2. Clostridium difficile, diagnosed on stool studies 04/21, responding well to oral vancomycin and saccharomyces . RECOMMENDATIONS: 1. Continue saccharomyces and vancomycin. 2. Continue ulcer prophylaxis with PPI. 3. We will watch for now. She is going to be on a mannitol program for the next week. We are going to hold off on any endoscopy as elective until then. Job ID: [id number]
[2020-04-25 17:29] LABS: Sodium 143 mmol/L (136-145)
--- NOTE | 2020-04-25 17:29 | PDOC.HOSPP ---
- Subjective Encounter Date: 04/25/20 Encounter Time: 14:00 Subjective: is more awake and oriented today responds well to verbal stimuli moves her left upper (flailing upwards and laterally, cant hold for long) and lift her lower extremity upto 30 degrees off bed. Moves Right upper and lower freely with full control. wants water and is thirsty - Objective Vital Signs & Weight: Vital Signs (12 hours) Temp Pulse Pulse Pulse Resp BP BP 04/25/20 16:00 99.2 F 04/25/20 15:11 56 L 19 04/25/20 13:55 58 L 58 L 113/76 04/25/20 12:00 99.1 F 04/25/20 09:22 63 138/65 04/25/20 08:00 04/25/20 07:43 63 21 H 04/25/20 07:00 98.5 F BP Pulse Ox Pulse Ox Pulse Ox 04/25/20 16:00 04/25/20 15:11 04/25/20 13:55 115/55 L 95 94 L 04/25/20 12:00 04/25/20 09:22 04/25/20 08:00 92 L 04/25/20 07:43 97 04/25/20 07:00 Weight Admit Weight 177 lb 0.499 oz Weight 159 lb 13.362 oz Most Recent Monitor Data Heart Rate from ECG 61 NIBP 127/74 NIBP BP-Mean 91 Respiration from ECG 23 SpO2 100 I&O: 04/24/20 04/25/20 04/26/20 06:59 06:59 06:59 Intake Total 627 323 410 Output Total 1235 1060 Balance 627 -912 -650 Result Diagrams: 04/25/20 03:30 04/25/20 10:44 Additional Labs: Accuchecks 04/24/20 23:04 POC Glucose 135 H Hospitalist ROS - Medication Medications: Active Medications Generic Name Dose Route Start Last Admin Trade Name Freq PRN Reason Stop Dose Admin Acetaminophen 650 mg 04/14/20 13:27 04/15/20 01:30 Acetaminophen 325 Mg Tab PO 650 mg Q4H PRN Administration Headache/Fever/Mild Pain (1-3) Albuterol/Ipratropium 3 ml 04/24/20 13:00 04/25/20 15:11 Ipratropium/Albuterol Sulfate 3 Ml Neb NEB 3 ml [id number] ZANE Administration Amlodipine Besylate 10 mg 04/20/20 09:00 04/25/20 09:22 Amlodipine 10 Mg Tab PER TUBE 10 mg DAILY ZANE Administration Lipase/Protease/Amylase 1 cap 04/22/20 11:30 04/22/20 11:57 Pancrelipase 12,000 1 Cap FS 1 cap .PER PROTOCOL PRN Administration TUBE OCCLUSION PROTOCOL Atorvastatin Calcium 40 mg 04/20/20 21:00 04/24/20 21:46 Atorvastatin Calcium 40 Mg Tab PER TUBE 40 mg HS ZANE Administration Carvedilol 3.125 mg 04/23/20 21:00 04/25/20 09:23 Carvedilol 3.125 Mg Tab PER TUBE 3.125 mg BID ZANE Administration Hydralazine HCl 10 mg 04/20/20 08:50 04/24/20 16:14 Hydralazine 20 Mg/Ml Vial SLOW IVP 10 mg Q4H PRN Administration SBP GREATER THAN 160 Lisinopril 5 mg 04/21/20 09:00 04/25/20 09:22 Lisinopril 5 Mg Tab PO 5 mg DAILY ZANE Administration Mannitol 37.5 gm 04/24/20 18:00 04/25/20 11:44 Mannitol 12.5 Gm/50 Ml IV 04/26/20 18:01 37.5 gm Q6HR ZANE Administration Multivitamins 1 tab 04/21/20 09:00 04/25/20 09:23 Multivit, Therapeutic 1 Tab PER TUBE 1 tab DAILY ZANE Administration Nitroglycerin 1 inch 04/24/20 15:00 04/25/20 16:05 Nitroglycerin 2% Ointment 1 Inch/1 Gm Packet TOP 1 inch TID ZANE Administration Ondansetron HCl 4 mg 04/14/20 13:27 04/24/20 11:58 Ondansetron Pf 4 Mg/2 Ml Vial IVP 4 mg Q6H PRN Administration Nausea/Vomiting Pantoprazole Sodium 40 mg 04/24/20 21:00 04/25/20 09:23 Pantoprazole 40 Mg Vial IVP 40 mg Q12HR ZANE Administration Saccharomyces Boulardii 250 mg 04/23/20 09:00 04/25/20 09:22 Saccharomyces Boulardii 250 Mg Cap PER TUBE 250 mg DAILY ZANE Administration Sodium Bicarbonate 650 mg 04/22/20 11:30 04/22/20 11:57 Sodium Bicarbonate Tab 325 Mg Tab PER TUBE 650 mg .PER PROTOCOL PRN Administration ENTERAL TUBE OCCLUSION Sodium Chloride 10 ml 04/17/20 21:00 04/25/20 10:10 Flush - Normal Saline 10 Ml Syringe IVF 10 ml Q12HR ZANE Administration Vancomycin HCl 250 mg 04/22/20 21:00 04/25/20 16:05 Vancomycin Hcl 25 Mg/Ml Oral PER TUBE 250 mg 0300,0900,1500,2100 ZANE Administration Hospitalist Exam Vitals: Vital Signs (12 hours) Temp Pulse Pulse Pulse Resp BP BP 04/25/20 16:00 99.2 F 04/25/20 15:11 56 L 19 04/25/20 13:55 58 L 58 L 113/76 04/25/20 12:00 99.1 F 04/25/20 09:22 63 138/65 04/25/20 08:00 04/25/20 07:43 63 21 H 04/25/20 07:00 98.5 F BP Pulse Ox Pulse Ox Pulse Ox 04/25/20 16:00 04/25/20 15:11 04/25/20 13:55 115/55 L 95 94 L 04/25/20 12:00 04/25/20 09:22 04/25/20 08:00 92 L 04/25/20 07:43 97 04/25/20 07:00 Weight Admit Weight 177 lb 0.499 oz Weight 159 lb 13.362 oz Most Recent Monitor Data Heart Rate from ECG 61 NIBP 127/74 NIBP BP-Mean 91 Respiration from ECG 23 SpO2 100 General Appearance: awake alert Eye: PERRL, anicteric sclera ENT: no oropharyngeal lesions, dry oral mucosa Neck: supple, no JVD Heart: RRR, no murmur Respiratory: no wheezes, no rales Gastrointestinal: soft, non-tender, non-distended, normal bowel sounds Extremities: no cyanosis, no edema Neurological: speech deficit Neurological - other findings: left hemiparesis Hosp A/P (1) Acute CVA (cerebrovascular accident) Code(s): I63.9 - CEREBRAL INFARCTION, UNSPECIFIED Status: Acute (2) Hypertrophic cardiomyopathy Code(s): I42.2 - OTHER HYPERTROPHIC CARDIOMYOPATHY Status: Chronic (3) Pericardial effusion Code(s): I31.3 - PERICARDIAL EFFUSION (NONINFLAMMATORY) Status: Chronic (4) Obesity (BMI 30.0-34.9) Code(s): E66.9 - OBESITY, UNSPECIFIED Status: Chronic (5) Dyslipidemia Code(s): E78.5 - HYPERLIPIDEMIA, UNSPECIFIED Status: Chronic (6) H/O: CVA (cerebrovascular accident) Code(s): Z86.73 - PRSNL HX OF TIA (TIA), AND CEREB INFRC W/O RESID DEFICITS Status: Chronic (7) Acute respiratory failure with hypoxia Code(s): J96.01 - ACUTE RESPIRATORY FAILURE WITH HYPOXIA Status: Resolved (8) Syncope Code(s): R55 - SYNCOPE AND COLLAPSE Status: Resolved (9) Diastolic CHF Code(s): I50.30 - UNSPECIFIED DIASTOLIC (CONGESTIVE) HEART FAILURE Status: Chronic Qualifiers: Heart failure chronicity: acute on chronic Qualified Code(s): I50.33 - Acute on chronic diastolic (congestive) heart failure (10) Paroxysmal A-fib Code(s): I48.0 - PAROXYSMAL ATRIAL FIBRILLATION Status: Chronic (11) hemorrhagic conversion of cva Status: Acute (12) Uncal herniation Code(s): G93.5 - COMPRESSION OF BRAIN Status: Acute (13) Transtentorial herniation Code(s): G93.5 - COMPRESSION OF BRAIN Status: Acute (14) Cerebral edema Code(s): G93.6 - CEREBRAL EDEMA Status: Acute Plan: due to cva - Plan Had hemorrhagic conversion of pull up hand distribution infarct with midline shift and transtentorial/uncal herniation, is resolving with mannitol infusion and nsx help. Is maintaining airway, peg when she stabilizes a bit, she doesn't like [facility] in her nose. Had CT brain on arrival which did not reveal ac cva but had findings of old left cerebellar cva, repeat done around 2 pm shows massive pull up hand distribution cva with edema on 04/15/20. MRI wo contrast done this am shows post circ multiple cva's including large right pull up hand infarct with edema, left pica, b/l superior cerebellar art R>L, appears to be a ischemic infarct, unlikely to be embolic due to post circ involvement with none in the carotid outreach areas. oral meds will be held including aspirin, continue nitropaste, cardene drip prn for sbp >150 for now. has large pericardial effusion wo tamponade physiology as of now, if she were to get hypotensive, elevated jvd etc then will need stat window, CTS is aware of patient. got extubated on 04/15/20 and maintaining airway has multiple medical ac issues, prognosis guarded hold PT/OT until she stabilizes . progosis guarded. start [facility]bhoff feeding.
[2020-04-25] MEDS: Atorvastatin Calcium 40 MG TAB PER TUBE SCH (21:33)
[2020-04-25 23:19] LABS: Sodium 146 mmol/L (136-145)
[2020-04-26] MEDS: Vancomycin HCl 25 MG/ML Oral PER TUBE SCH ×4 (03:04→21:12)
[2020-04-26 05:45] LABS: Sodium 146 mmol/L (136-145)
[2020-04-26] MEDS: Mannitol 12.5 GM/50 ML IV SCH ×2 (05:52→21:15)
--- NOTE | 2020-04-26 07:25 | PRG ---
DATE OF SERVICE: 04/26/2020 I followed up on Shayy Holland this morning. She is even more alert than she was yesterday. She feels better and is now speaking spontaneously. The maximum temperature I see recorded is 99.3 in the last 24 hours. Blood pressures have been in the 110s to 150s. When I entered the room, Ms. Aldo Holland speaks to me in Green[place]ic. She is speaking coherently. She makes sentences. She asked to have some water and she is thirsty. She moves her right hand quite well to command. She wiggles toes on both sides, although the left side is a little slower. She is not yet squeezing the left arm. It is unclear whether this is weakness or profound neglect. Sodiums have been 141, 143, 146, and 146. I have recommended that Ms. Aldo Holland decrease her mannitol intake to twice a day for the next 2 days and once a day for the following 2 days and then it can be stopped. She will need a sodium before each dose. She does not require neurosurgical intervention. Our team will sign off and can call us, if required. Job ID: [id number] MTDD
[2020-04-26 08:41] LABS: #Lymphocytes 1.1 thou/uL (1.20-3.40); #Monocytes 0.6 thou/uL (0.11-0.59); #Neutrophils 7.4 thou/uL (1.40-6.50); %Basophils 0.1 % (0.0-1.0); %Eosinophils 0.3 % (0.0-10.0); %Lymphocytes 12.4 % (21.0-51.0); %Monocytes 6.1 % (0.0-10.0); Hemoglobin 15.6 g/dL (12.0-16.0); Mean Corpuscular HGB CONC 31.8 g/dL (32.0-36.0); Mean Corpuscular Hemoglobin 30.5 pg (27.0-31.0); Mean Corpuscular Volume 96.1 fL (78.0-98.0); Mean Platelet Volume 8.8 fL (7.4-10.4); Platelet Count 275 thou/uL (130-400); RBC Distribution Width 15.4 % (11.5-14.5); White Blood Cell (WBC) Count 9.2 thou/uL (4.8-10.8)
--- NOTE | 2020-04-26 08:50 | PRG ---
DATE OF SERVICE: 04/26/2020 SUBJECTIVE: The patient is much more awake and alert this morning than she has been. I am told by Dr. Pete to reduce the dose of Mannitol. OBJECTIVE: VITAL SIGNS: Temperature 98.2, pulse 60, blood pressure 114/50, O2 saturation 94%. HEENT: Remarkable for right nares orogastric tube. NECK: No adenopathy or JVD. CHEST: Clear. CARDIAC: S1 and S2. Regular. ABDOMEN: Soft. EXTREMITIES: No edema. LABORATORY DATA: I do not see any labs that were done today. ASSESSMENT: Cerebrovascular accident with hemorrhagic conversion. PLAN: 1. Labs, to follow electrolyte levels given that she is on mannitol. 2. Can transfer to Stroke at any time from my standpoint. Job ID: [id number]
[2020-04-26 09:06] LABS: Anion Gap 11 mmol/L (10-20); BUN (Urea Nitrogen) 17 mg/dL (9.8-20.1); Calc. Creatinine Clearance 74 mL/min (70-130); Calcium 9.8 mg/dL (7.8-10.44); Carbon Dioxide 33 mmol/L (23-31); Chloride 105 mmol/L (98-107); Glucose 102 mg/dL (83-110); Potassium 3.9 mmol/L (3.5-5.1); Sodium 145 mmol/L (136-145)
[2020-04-26] MEDS: Amlodipine 10 MG TAB PER TUBE SCH (09:11)
[2020-04-26] MEDS: Saccharomyces boulardii 250 MG CAP PER TUBE SCH (09:11)
[2020-04-26] MEDS: Multivit, Therapeutic 1 TAB PER TUBE SCH (09:11)
[2020-04-26] MEDS: Carvedilol 3.125 MG TAB PER TUBE SCH ×2 (09:12→21:12)
[2020-04-26] MEDS: Lisinopril 5 MG TAB PO SCH (09:12)
[2020-04-26] MEDS: Nitroglycerin 2% Ointment 1 INCH/1 GM Packet TOP SCH ×3 (09:12→21:12)
[2020-04-26] MEDS: Pantoprazole 40 MG VIAL IVP SCH ×2 (09:14→21:14)
--- NOTE | 2020-04-26 13:48 | CON ---
DATE OF CONSULTATION: 04/26/2020 SUBJECTIVE: Ms. Carlson is doing much better. She is more conversive today versus yesterday. OBJECTIVE: VITAL SIGNS: Blood pressure 135/85, pulse 66, temperature afebrile. LUNGS: Clear to auscultation. HEART: Regular rate and rhythm. ABDOMEN: Soft, nontender, nondistended. EXTREMITIES: No edema. IMPRESSION: 1. Recent cerebrovascular accident. 2. Atrial fibrillation status post cardioversion. RECOMMENDATIONS: The patient's last CT scan did suggest a small area of hemorrhage. I will defer any further anticoagulation therapy to Neurology, but do not feel comfortable proceeding with anticoagulation therapy due to hemorrhage noted. Otherwise, I have no further recommendations. Job ID: [id number]
--- NOTE | 2020-04-26 14:24 | PDOC.NEUPN ---
- Subjective Encounter Date: 04/26/20 Subjective: Mrs. Carlson has been transferred to the CCU because of hemorrhagic conversion of old infarction with impending herniation. Neurosurgery is on board and patient doing better with mannitol infusion. She is alert and oriented x2 and following commands appropriately. Anticoagulation held because of recent bleed. - Objective Vital Signs & Weight: Vital Signs (12 hours) Temp Pulse Pulse Pulse Resp BP BP 04/26/20 14:15 59 L 18 04/26/20 09:42 67 63 129/75 157/74 H 04/26/20 09:12 63 04/26/20 09:11 63 04/26/20 08:00 04/26/20 07:00 98.2 F 04/26/20 05:36 63 20 Pulse Ox Pulse Ox Pulse Ox 04/26/20 14:15 100 04/26/20 09:42 98 97 04/26/20 09:12 04/26/20 09:11 04/26/20 08:00 95 04/26/20 07:00 04/26/20 05:36 94 L Weight Admit Weight 177 lb 0.499 oz Weight 155 lb 6.814 oz Most Recent Monitor Data Heart Rate from ECG 66 NIBP 135/85 NIBP BP-Mean 101 Respiration from ECG 18 SpO2 98 I&O: 04/25/20 04/26/20 04/27/20 06:59 06:59 06:59 Intake Total 323 1922 30 Output Total 1235 2430 695 [facility]912 -508 -665 Result Diagrams: 04/26/20 08:33 04/26/20 08:33 Radiology Reviewed by me: Yes EKG Reviewed by me: Yes ROS - Review of Systems Constitutional: denies: fever, chills, sweats, weakness, malaise, other Genitourinary: denies: dysuria, frequency, incontinence, hematuria, retention, other - Medication Medications: Active Medications Generic Name Dose Route Start Last Admin Trade Name Freq PRN Reason Stop Dose Admin Acetaminophen 650 mg 04/14/20 13:27 04/15/20 01:30 Acetaminophen 325 Mg Tab PO 650 mg Q4H PRN Administration Headache/Fever/Mild Pain (1-3) Albuterol/Ipratropium 3 ml 04/24/20 13:00 04/26/20 14:15 Ipratropium/Albuterol Sulfate 3 Ml Neb NEB 3 ml [id number] ZANE Administration Amlodipine Besylate 10 mg 04/20/20 09:00 04/26/20 09:11 Amlodipine 10 Mg Tab PER TUBE 10 mg DAILY ZANE Administration Lipase/Protease/Amylase 1 cap 04/22/20 11:30 04/22/20 11:57 Pancrelipase 12,000 1 Cap FS 1 cap .PER PROTOCOL PRN Administration TUBE OCCLUSION PROTOCOL Atorvastatin Calcium 40 mg 04/20/20 21:00 04/25/20 21:33 Atorvastatin Calcium 40 Mg Tab PER TUBE 40 mg HS ZANE Administration Carvedilol 3.125 mg 04/23/20 21:00 04/26/20 09:12 Carvedilol 3.125 Mg Tab PER TUBE 3.125 mg BID ZANE Administration Hydralazine HCl 10 mg 04/20/20 08:50 04/24/20 16:14 Hydralazine 20 Mg/Ml Vial SLOW IVP 10 mg Q4H PRN Administration SBP GREATER THAN 160 Lisinopril 5 mg 04/21/20 09:00 04/26/20 09:12 Lisinopril 5 Mg Tab PO 5 mg DAILY ZANE Administration Multivitamins 1 tab 04/21/20 09:00 04/26/20 09:11 Multivit, Therapeutic 1 Tab PER TUBE 1 tab DAILY ZANE Administration Nitroglycerin 1 inch 04/24/20 15:00 04/26/20 09:12 Nitroglycerin 2% Ointment 1 Inch/1 Gm Packet TOP 1 inch TID ZANE Administration Ondansetron HCl 4 mg 04/14/20 13:27 04/24/20 11:58 Ondansetron Pf 4 Mg/2 Ml Vial IVP 4 mg Q6H PRN Administration Nausea/Vomiting Pantoprazole Sodium 40 mg 04/24/20 21:00 04/26/20 09:14 Pantoprazole 40 Mg Vial IVP 40 mg Q12HR ZANE Administration Saccharomyces Boulardii 250 mg 04/23/20 09:00 04/26/20 09:11 Saccharomyces Boulardii 250 Mg Cap PER TUBE 250 mg DAILY ZANE Administration Sodium Bicarbonate 650 mg 04/22/20 11:30 04/22/20 11:57 Sodium Bicarbonate Tab 325 Mg Tab PER TUBE 650 mg .PER PROTOCOL PRN Administration ENTERAL TUBE OCCLUSION Sodium Chloride 10 ml 04/17/20 21:00 04/26/20 10:56 Flush - Normal Saline 10 Ml Syringe IVF 10 ml Q12HR ZANE Administration Vancomycin HCl 250 mg 04/22/20 21:00 04/26/20 09:16 Vancomycin Hcl 25 Mg/Ml Oral PER TUBE 250 mg 0300,0900,1500,2100 ZANE Administration - Exam General Appearance: awake alert Eye: PERRL ENT: normocephalic atraumatic Neck: supple Respiratory: CTAB Cardiovascular: RRR Gastrointestinal: soft Extremities: no cyanosis Skin: normal turgor Neurological: no new deficit, facial droop, hemiplegia, speech deficit Musculoskeletal: normal tone, no muscle wasting PSYCH: normal affect, normal behavior, oriented to person, oriented to place Results - Labs Result Diagrams: 04/26/20 08:33 04/26/20 08:33 Lab results: WBC 9.2 thou/uL (4.8-10.8) 04/26/20 08:33 Hgb 15.6 g/dL (12.0-16.0) 04/26/20 08:33 Hct 49.1 % (36.0-47.0) H 04/26/20 08:33 MCV 96.1 fL (78.0-98.0) 04/26/20 08:33 Plt Count 275 thou/uL (130-400) 04/26/20 08:33 Neutrophils % 81.0 % (42.0-75.0) H 04/26/20 08:33 ESR Westergren 18 mm/hr (Less than 30) 04/15/20 15:20 ABG pH 7.53 (7.35-7.45) H 04/15/20 06:30 ABG pCO2 31.6 mmHg (35.0-45.0) L 04/15/20 06:30 ABG pO2 69.7 mmHg (> 70.0) 04/15/20 06:30 Sodium 145 mmol/L (136-145) 04/26/20 08:33 Potassium 3.9 mmol/L (3.5-5.1) 04/26/20 08:33 Chloride 105 mmol/L (98-107) 04/26/20 08:33 Carbon Dioxide 33 mmol/L (23-31) H 04/26/20 08:33 BUN 17 mg/dL (9.8-20.1) 04/26/20 08:33 Creatinine 0.76 mg/dL (0.6-1.1) 04/26/20 08:33 Glucose 102 mg/dL (83-110) 04/26/20 08:33 Lactic Acid 1.2 mmol/L (0.5-2.2) 04/14/20 11:06 Calcium 9.8 mg/dL (7.8-10.44) 04/26/20 08:33 Total Bilirubin 1.1 mg/dL (0.2-1.2) 04/21/20 05:11 AST 21 U/L (5-34) 04/21/20 05:11 ALT 13 U/L (8-55) 04/21/20 05:11 Alkaline Phosphatase 89 U/L (40-110) 04/21/20 05:11 Creatine Kinase 80 U/L (29-168) 04/14/20 10:54 CK-MB (CK-2) 2.9 ng/mL (0-6.6) 04/14/20 10:51 Troponin I 0.062 ng/mL (< 0.028) H 04/17/20 04:04 B-Natriuretic Peptide 1325.4 pg/mL (0-100) H 04/16/20 02:58 Serum Total Protein 5.6 g/dL (5.8-8.1) L 04/21/20 05:11 Albumin 2.9 g/dL (3.4-4.8) L 04/21/20 05:11 Urine Ketones Negative mg/dL (Negative) 04/14/20 10:40 Urine Blood Negative (Negative) 04/14/20 10:40 Urine Nitrite Negative (Negative) 04/14/20 10:40 Ur Leukocyte Esterase Negative (Negative) 04/14/20 10:40 - Radiology Interpretation CT scan - head Additional Comment: Imaging showed evidence of hemorrhagic conversion of stroke PN A/P (1) Acute CVA (cerebrovascular accident) Code(s): I63.9 - CEREBRAL INFARCTION, UNSPECIFIED Status: Acute (2) Hypokalemia Code(s): E87.6 - HYPOKALEMIA Status: Acute (3) Hypomagnesemia Code(s): E83.42 - HYPOMAGNESEMIA Status: Acute (4) Swallowing dysfunction Code(s): R13.10 - DYSPHAGIA, UNSPECIFIED Status: Acute (5) Diastolic CHF Code(s): I50.30 - UNSPECIFIED DIASTOLIC (CONGESTIVE) HEART FAILURE Status: Chronic Qualifiers: Heart failure chronicity: acute on chronic Qualified Code(s): I50.33 - Acute on chronic diastolic (congestive) heart failure (6) Dyslipidemia Code(s): E78.5 - HYPERLIPIDEMIA, UNSPECIFIED Status: Chronic (7) Obesity (BMI 30.0-34.9) Code(s): E66.9 - OBESITY, UNSPECIFIED Status: Chronic (8) Paroxysmal A-fib Code(s): I48.0 - PAROXYSMAL ATRIAL FIBRILLATION Status: Chronic - Plan Daily Plan: plan discussed w/ family (Daughter at bedside), PT/OT, speech th erapy, DVT proph w/SCDs 74 year old female with history significant for paroxysmal atrial fibrillation underwent cardioversion few days before this admission now in sinus rhythm consulted for acute stroke. There was concern about seizures . Keppra was started which she tolerated well. No reported seizures since initiation of Keppra. Patient is doing well and is alert and oriented to person place and time and following commands appropriately. Daughter at bedside who help with interpretation. Interval history: Patient was transferred to TCU over the weekend because of hemorrhagic conversion of the old stroke with impending herniation. Neurosurgery was contacted and she was started on mannitol infusion which improved her symptoms and currently she is doing much better. Cardiology is on board and anticoagulation has been held because of recent bleed. Consider holding anticoagulation and aspirin for the next 7 days. No further seizure activity reported per nursing staff Continue Keppra 500 mg twice daily. Observe seizure precations Arivan 2 mg IV for seizures greater than 2 minutes. She will MRI of the brain was consistent with acute infarction in the right MUSIC ARRANGER and bilateral superior cerebellar territory. 2D echo to evaluate for left ventricular ejection fraction showed pericardial effusion and LVEF 70-75%.. Carotid Dopplers pending to rule out hemodynamically significant stenosis. Continue telemetrypatient has history of atrial fibrillation but currently in sinus rhythm. Cardiology is on board. Neurochecks every 4 hours. Strict control of blood pressure at this time. Strict control of blood glucose. Continue aspirin and high intensity statin for secondary stroke prevention. N.p.o. till cleared by speech. Consider PEG placement. PT/OT/speech. Continue home medications. Continue medical management per primary team DVT prophylaxis. Case management consult regarding discharge planning. Plan discussed in detail with the nursing staff and also with the daughter at bedside
--- NOTE | 2020-04-26 14:48 | PRG ---
DATE OF SERVICE: 04/26/2020 SUBJECTIVE: The patient is more awake, complaining of being thirsty. She remains on a mannitol drip. OBJECTIVE: VITAL SIGNS: Pulse is 59, blood pressure 135/85. ABDOMEN: Soft, nontender. LABORATORY DATA: Hemoglobin 15, platelet count 275. ASSESSMENT: 1. Stroke with hemorrhagic conversion fluctuating mental status, now on mannitol drip. 2. Oropharyngeal dysphagia. 3. Clostridium difficile, improving. RECOMMENDATIONS: 1. Continue oral vancomycin and probiotics for 14 days. 2. We will re-evaluate later this week regarding PEG tube placement. We are not going to intervene with an elective procedure while she is still on mannitol drip for brain swelling due to the blood pressure changes that can occur and hypoxemia that can occur during upper endoscopy. She has a good source of feeding and medications through [facility] and now Dr. Mcnair will follow back up with the patient or Sunday. If we can be of any further assistance before, then please do not hesitate to contact us. Job ID: [id number]
--- NOTE | 2020-04-26 16:13 | PDOC.HOSPP ---
- Subjective Encounter Date: 04/26/20 Encounter Time: 14:00 Subjective: awake, follows verbal stimuli is not moving her left hand today and moves her left lower extremity a bit, she just worked with PT and is a bit tired per staff daughter at bedside - Objective Vital Signs & Weight: Vital Signs (12 hours) Temp Pulse Pulse Pulse Resp BP BP 04/26/20 14:15 59 L 18 04/26/20 09:42 67 63 129/75 157/74 H 04/26/20 09:12 63 04/26/20 09:11 63 04/26/20 08:00 04/26/20 07:00 98.2 F 04/26/20 05:36 63 20 Pulse Ox Pulse Ox Pulse Ox 04/26/20 14:15 100 04/26/20 09:42 98 97 04/26/20 09:12 04/26/20 09:11 04/26/20 08:00 95 04/26/20 07:00 04/26/20 05:36 94 L Weight Admit Weight 177 lb 0.499 oz Weight 155 lb 6.814 oz Most Recent Monitor Data Heart Rate from ECG 55 NIBP 122/63 NIBP BP-Mean 82 Respiration from ECG 18 SpO2 99 I&O: 04/25/20 04/26/20 04/27/20 06:59 06:59 06:59 Intake Total 323 1922 30 Output Total 1379 1861 805 [facility]912 -508 -775 Result Diagrams: 04/26/20 08:33 04/26/20 08:33 Hospitalist ROS - Medication Medications: Active Medications Generic Name Dose Route Start Last Admin Trade Name Julianne PRN Reason Stop Dose Admin Acetaminophen 650 mg 04/14/20 13:27 04/15/20 01:30 Acetaminophen 325 Mg Tab PO 650 mg Q4H PRN Administration Headache/Fever/Mild Pain (1-3) Albuterol/Ipratropium 3 ml 04/24/20 13:00 04/26/20 14:15 Ipratropium/Albuterol Sulfate 3 Ml Neb NEB 3 ml [id number] ZANE Administration Amlodipine Besylate 10 mg 04/20/20 09:00 04/26/20 09:11 Amlodipine 10 Mg Tab PER TUBE 10 mg DAILY ZANE Administration Lipase/Protease/Amylase 1 cap 04/22/20 11:30 04/22/20 11:57 Pancrelipase 12,000 1 Cap FS 1 cap .PER PROTOCOL PRN Administration TUBE OCCLUSION PROTOCOL Atorvastatin Calcium 40 mg 04/20/20 21:00 04/25/20 21:33 Atorvastatin Calcium 40 Mg Tab PER TUBE 40 mg HS ZANE Administration Carvedilol 3.125 mg 04/23/20 21:00 04/26/20 09:12 Carvedilol 3.125 Mg Tab PER TUBE 3.125 mg BID ZANE Administration Hydralazine HCl 10 mg 04/20/20 08:50 04/24/20 16:14 Hydralazine 20 Mg/Ml Vial SLOW IVP 10 mg Q4H PRN Administration SBP GREATER THAN 160 Lisinopril 5 mg 04/21/20 09:00 04/26/20 09:12 Lisinopril 5 Mg Tab PO 5 mg DAILY ZANE Administration Multivitamins 1 tab 04/21/20 09:00 04/26/20 09:11 Multivit, Therapeutic 1 Tab PER TUBE 1 tab DAILY ZANE Administration Nitroglycerin 1 inch 04/24/20 15:00 04/26/20 15:15 Nitroglycerin 2% Ointment 1 Inch/1 Gm Packet TOP 1 inch TID ZANE Administration Ondansetron HCl 4 mg 04/14/20 13:27 04/24/20 11:58 Ondansetron Pf 4 Mg/2 Ml Vial IVP 4 mg Q6H PRN Administration Nausea/Vomiting Pantoprazole Sodium 40 mg 04/24/20 21:00 04/26/20 09:14 Pantoprazole 40 Mg Vial IVP 40 mg Q12HR ZANE Administration Saccharomyces Boulardii 250 mg 04/23/20 09:00 04/26/20 09:11 Saccharomyces Boulardii 250 Mg Cap PER TUBE 250 mg DAILY ZANE Administration Sodium Bicarbonate 650 mg 04/22/20 11:30 04/22/20 11:57 Sodium Bicarbonate Tab 325 Mg Tab PER TUBE 650 mg .PER PROTOCOL PRN Administration ENTERAL TUBE OCCLUSION Sodium Chloride 10 ml 04/17/20 21:00 04/26/20 10:56 Flush - Normal Saline 10 Ml Syringe IVF 10 ml Q12HR ZANE Administration Vancomycin HCl 250 mg 04/22/20 21:00 04/26/20 15:15 Vancomycin Hcl 25 Mg/Ml Oral PER TUBE 250 mg 0300,0900,1500,2100 ZANE Administration Hospitalist Exam Vitals: Vital Signs (12 hours) Temp Pulse Pulse Pulse Resp BP BP 04/26/20 14:15 59 L 18 04/26/20 09:42 67 63 129/75 157/74 H 04/26/20 09:12 63 04/26/20 09:11 63 04/26/20 08:00 04/26/20 07:00 98.2 F 04/26/20 05:36 63 20 Pulse Ox Pulse Ox Pulse Ox 04/26/20 14:15 100 04/26/20 09:42 98 97 04/26/20 09:12 04/26/20 09:11 04/26/20 08:00 95 04/26/20 07:00 04/26/20 05:36 94 L Weight Admit Weight 177 lb 0.499 oz Weight 155 lb 6.814 oz Most Recent Monitor Data Heart Rate from ECG 55 NIBP 122/63 NIBP BP-Mean 82 Respiration from ECG 18 SpO2 99 Eye: PERRL, anicteric sclera ENT: no oropharyngeal lesions, dry oral mucosa Neck: supple, no JVD Heart: RRR, no murmur Respiratory: no wheezes, no rales Gastrointestinal: soft, non-tender, non-distended, normal bowel sounds Extremities: no cyanosis, no edema Neurological: cranial nerve grossly intact, speech deficit Neurological - other findings: left hemiparesis Hosp A/P (1) Acute CVA (cerebrovascular accident) Code(s): I63.9 - CEREBRAL INFARCTION, UNSPECIFIED Status: Acute (2) Hypertrophic cardiomyopathy Code(s): I42.2 - OTHER HYPERTROPHIC CARDIOMYOPATHY Status: Chronic (3) Pericardial effusion Code(s): I31.3 - PERICARDIAL EFFUSION (NONINFLAMMATORY) Status: Chronic (4) Obesity (BMI 30.0-34.9) Code(s): E66.9 - OBESITY, UNSPECIFIED Status: Chronic (5) Dyslipidemia Code(s): E78.5 - HYPERLIPIDEMIA, UNSPECIFIED Status: Chronic (6) H/O: CVA (cerebrovascular accident) Code(s): Z86.73 - PRSNL HX OF TIA (TIA), AND CEREB INFRC W/O RESID DEFICITS Status: Chronic (7) Acute respiratory failure with hypoxia Code(s): J96.01 - ACUTE RESPIRATORY FAILURE WITH HYPOXIA Status: Resolved (8) Syncope Code(s): R55 - SYNCOPE AND COLLAPSE Status: Resolved (9) Diastolic CHF Code(s): I50.30 - UNSPECIFIED DIASTOLIC (CONGESTIVE) HEART FAILURE Status: Chronic Qualifiers: Heart failure chronicity: acute on chronic Qualified Code(s): I50.33 - Acute on chronic diastolic (congestive) heart failure (10) Paroxysmal A-fib Code(s): I48.0 - PAROXYSMAL ATRIAL FIBRILLATION Status: Chronic (11) hemorrhagic conversion of cva Status: Acute (12) Uncal herniation Code(s): G93.5 - COMPRESSION OF BRAIN Status: Acute (13) Transtentorial herniation Code(s): G93.5 - COMPRESSION OF BRAIN Status: Acute (14) Cerebral edema Code(s): G93.6 - CEREBRAL EDEMA Status: Acute - Plan Had hemorrhagic conversion of customer service supervisor distribution infarct with midline shift and transtentorial/uncal herniation, is resolving with mannitol infusion and nsx help. Is maintaining airway, peg when she stabilizes a bit, she doesn't like dobhoff in her nose. Had CT brain on arrival which did not reveal ac cva but had findings of old left cerebellar cva, repeat done around 2 pm shows massive customer service supervisor distribution cva with edema on 04/15/20. MRI wo contrast done this am shows post circ multiple cva's including large right customer service supervisor infarct with edema, left pica, b/l superior cerebellar art R>L, appears to be a ischemic infarct, unlikely to be embolic due to post circ involv ement with none in the carotid outreach areas. oral meds will be held including aspirin, continue nitropaste, cardene drip prn for sbp >150 for now. has large pericardial effusion wo tamponade physiology as of now, if she were to get hypotensive, elevated jvd etc then will need stat window, CTS is aware of patient. got extubated on 04/15/20 and maintaining airway has multiple medical ac issues, prognosis guarded PT/OT to continue therapy now she is stable. progosis guarded. dobhoff feeding.
[2020-04-26 20:54] LABS: Sodium 150 mmol/L (136-145)
[2020-04-26] MEDS: Atorvastatin Calcium 40 MG TAB PER TUBE SCH (21:12)
[2020-04-27] MEDS: Vancomycin HCl 25 MG/ML Oral PER TUBE SCH ×4 (04:29→22:08)
[2020-04-27 05:05] LABS: #Eosinphils 0.1 thou/uL (0.0-0.7); #Lymphocytes 1.2 thou/uL (1.20-3.40); #Monocytes 0.6 thou/uL (0.11-0.59); #Neutrophils 7.6 thou/uL (1.40-6.50); %Basophils 0.4 % (0.0-1.0); %Eosinophils 0.5 % (0.0-10.0); %Lymphocytes 12.1 % (21.0-51.0); %Monocytes 6.6 % (0.0-10.0); %Neutrophils 80.3 % (42.0-75.0); Hemoglobin 15.7 g/dL (12.0-16.0); Mean Corpuscular HGB CONC 32.9 g/dL (32.0-36.0); Mean Corpuscular Hemoglobin 32.2 pg (27.0-31.0); Mean Platelet Volume 9.6 fL (7.4-10.4); Platelet Count 255 thou/uL (130-400); RBC Distribution Width 15.1 % (11.5-14.5); Red Blood Cell (RBC) Count 4.86 mill/uL (4.20-5.40); White Blood Cell (WBC) Count 9.5 thou/uL (4.8-10.8)
[2020-04-27 05:18] LABS: Anion Gap 11 mmol/L (10-20); BUN (Urea Nitrogen) 21 mg/dL (9.8-20.1); Calc. Creatinine Clearance 81 mL/min (70-130); Calcium 9.8 mg/dL (7.8-10.44); Carbon Dioxide 34 mmol/L (23-31); Chloride 108 mmol/L (98-107); Glucose 107 mg/dL (83-110); Potassium 3.5 mmol/L (3.5-5.1); Sodium 149 mmol/L (136-145)
[2020-04-27] MEDS ORDERED: Potassium Chloride 20 MEQ TAB PO SCH (06:30)
[2020-04-27 08:23] LABS: Sodium 149 mmol/L (136-145)
--- NOTE | 2020-04-27 08:37 | PRG ---
DATE OF SERVICE: 04/27/2020 SUBJECTIVE: The patient is much more verbal today than she has been. OBJECTIVE: VITAL SIGNS: Her temperature is 98.8, pulse 71, blood pressure 146/67, O2 saturation 96%. Intake 1119, output 1855. HEENT: Unremarkable. NECK: No adenopathy or JVD. LUNGS: Diminished breath sounds in the bases. CARDIAC: S1 and S2, regular. ABDOMEN: Soft. EXTREMITIES: No edema. NEUROLOGIC: She is somewhat weak on the left side. She is extremely expressive verbally today. LABORATORY DATA: Sodium 149, potassium 3.5, chloride 108, CO2 of 34, BUN 21, creatinine 0.7, glucose 107. White blood cell count 9.5, hematocrit 47.6, and platelet count 255. ASSESSMENT: 1. Stroke with hemorrhagic conversion. 2. Dysarthria. 3. Atrial fibrillation. PLAN: The patient can probably transfer back to [facility]. At some point, we may want to slow down on the mannitol as her sodium is increasing. Certainly, any recommendations in that regard need to be cleared with Neurosurgery. No further pulmonary recommendations at this time. Job ID: [id number]
[2020-04-27] MEDS: Saccharomyces boulardii 250 MG CAP PER TUBE SCH (08:51)
[2020-04-27] MEDS: Multivit, Therapeutic 1 TAB PER TUBE SCH (08:51)
[2020-04-27] MEDS: Amlodipine 10 MG TAB PER TUBE SCH (08:52)
[2020-04-27] MEDS: Carvedilol 3.125 MG TAB PER TUBE SCH ×2 (08:52→22:07)
[2020-04-27] MEDS: Lisinopril 5 MG TAB PO SCH (08:52)
[2020-04-27] MEDS: Mannitol 12.5 GM/50 ML IV SCH ×2 (08:53→22:07)
[2020-04-27] MEDS: Nitroglycerin 2% Ointment 1 INCH/1 GM Packet TOP SCH ×3 (09:02→22:07)
[2020-04-27] MEDS: Pantoprazole 40 MG VIAL IVP SCH ×2 (09:03→22:08)
--- NOTE | 2020-04-27 15:34 | PRG ---
DATE OF SERVICE: 04/27/2020 SUBJECTIVE: Ms. Carlson is improving. She is alert. She continues with left-sided weakness. OBJECTIVE: VITAL SIGNS: Blood pressure 163/84, pulse 67, temperature afebrile. LUNGS: Clear to auscultation. HEART: Regular rate and rhythm. ABDOMEN: Soft, nontender, nondistended. EXTREMITIES: No edema. IMPRESSION: 1. Recent cerebrovascular accident. 2. Atrial fibrillation, status post cardioversion. RECOMMENDATION: Ms. Carlson continues to be in sinus rhythm. I have deferred anticoagulation therapy due to recent hemorrhage on CT scan. Job ID: [id number]
--- NOTE | 2020-04-27 16:15 | PDOC.NEUPN ---
- Subjective Encounter Date: 04/27/20 Subjective: Ms. Carlson is doing much better and participating with speech therapy. Son at bedside. - Objective Vital Signs & Weight: Vital Signs (12 hours) Temp Pulse Pulse Pulse Resp BP BP 04/27/20 13:33 69 21 H 04/27/20 12:00 98.0 F 04/27/20 11:11 75 71 146/88 H 148/86 H 04/27/20 08:52 71 04/27/20 08:34 04/27/20 08:31 71 24 H 04/27/20 08:00 04/27/20 07:00 97.4 F L Pulse Ox Pulse Ox Pulse Ox 04/27/20 13:33 96 04/27/20 12:00 04/27/20 11:11 97 96 04/27/20 08:52 04/27/20 08:34 100 04/27/20 08:31 92 L 04/27/20 08:00 95 04/27/20 07:00 Weight Admit Weight 177 lb 0.499 oz Weight 151 lb 14.376 oz Most Recent Monitor Data Heart Rate from ECG 67 NIBP 163/84 NIBP BP-Mean 110 Respiration from ECG 25 SpO2 96 I&O: 04/26/20 04/27/20 04/28/20 06:59 06:59 06:59 Intake Total 1922 1119 Output Total 4363 5247 330 [facility] -508 -736 -330 Result Diagrams: 04/27/20 04:25 04/27/20 08:00 Additional Labs: Accuchecks 04/26/20 20:26 POC Glucose 122 H Radiology Reviewed by me: Yes EKG Reviewed by me: Yes ROS - Review of Systems Constitutional: denies: fever, chills, sweats, weakness, malaise, other ENT: denies: ear pain, ear discharge, nose pain, nose discharge, nose congestion, mouth pain, mouth swelling, throat pain, throat swelling, other Respiratory: denies: cough, dry, shortness of breath, hemoptysis, SOB with excertion, pleuritic pain, sputum, wheezing, other Musculoskeletal: denies: neck pain, shoulder pain, arm pain, back pain, hand pain, leg pain, foot pain, other Neurological: reports: weakness, numbness, incoordination, change in speech. denies: confusion, seizures, other - Medication Medications: Active Medications Generic Name Dose Route Start Last Admin Trade Name Freq PRN Reason Stop Dose Admin Acetaminophen 650 mg 04/14/20 13:27 04/15/20 01:30 Acetaminophen 325 Mg Tab PO 650 mg Q4H PRN Administration Headache/Fever/Mild Pain (1-3) Albuterol/Ipratropium 3 ml 04/24/20 13:00 04/27/20 13:33 Ipratropium/Albuterol Sulfate 3 Ml Neb NEB 3 ml [id number] ZANE Administration Amlodipine Besylate 10 mg 04/20/20 09:00 04/27/20 08:52 Amlodipine 10 Mg Tab PER TUBE 10 mg DAILY ZANE Administration Lipase/Protease/Amylase 1 cap 04/22/20 11:30 04/22/20 11:57 Pancrelipase 12,000 1 Cap FS 1 cap .PER PROTOCOL PRN Administration TUBE OCCLUSION PROTOCOL Atorvastatin Calcium 40 mg 04/20/20 21:00 04/26/20 21:12 Atorvastatin Calcium 40 Mg Tab PER TUBE 40 mg HS ZANE Administration Carvedilol 3.125 mg 04/23/20 21:00 04/27/20 08:52 Carvedilol 3.125 Mg Tab PER TUBE 3.125 mg BID ZANE Administration Hydralazine HCl 10 mg 04/20/20 08:50 04/24/20 16:14 Hydralazine 20 Mg/Ml Vial SLOW IVP 10 mg Q4H PRN Administration SBP GREATER THAN 160 Lisinopril 5 mg 04/21/20 09:00 04/27/20 08:52 Lisinopril 5 Mg Tab PO 5 mg DAILY ZANE Administration Mannitol 37.5 gm 04/26/20 21:00 04/27/20 08:53 Mannitol 12.5 Gm/50 Ml IV 04/28/20 23:59 37.5 gm BID ZANE Administration Multivitamins 1 tab 04/21/20 09:00 04/27/20 08:51 Multivit, Therapeutic 1 Tab PER TUBE 1 tab DAILY ZANE Administration Nitroglycerin 1 inch 04/24/20 15:00 04/27/20 09:02 Nitroglycerin 2% Ointment 1 Inch/1 Gm Packet TOP 1 inch TID ZANE Administration Ondansetron HCl 4 mg 04/14/20 13:27 04/24/20 11:58 Ondansetron Pf 4 Mg/2 Ml Vial IVP 4 mg Q6H PRN Administration Nausea/Vomiting Pantoprazole Sodium 40 mg 04/24/20 21:00 04/27/20 09:03 Pantoprazole 40 Mg Vial IVP 40 mg Q12HR ZANE Administration Saccharomyces Boulardii 250 mg 04/23/20 09:00 04/27/20 08:51 Saccharomyces Boulardii 250 Mg Cap PER TUBE 250 mg DAILY ZANE Administration Sodium Bicarbonate 650 mg 04/22/20 11:30 04/22/20 11:57 Sodium Bicarbonate Tab 325 Mg Tab PER TUBE 650 mg .PER PROTOCOL PRN Administration ENTERAL TUBE OCCLUSION Sodium Chloride 10 ml 04/17/20 21:00 04/27/20 09:03 Flush - Normal Saline 10 Ml Syringe IVF 10 ml Q12HR ZANE Administration Vancomycin HCl 250 mg 04/22/20 21:00 04/27/20 09:04 Vancomycin Hcl 25 Mg/Ml Oral PER TUBE 250 mg 0300,0900,1500,2100 ZANE Administration - Exam General Appearance: awake alert Eye: PERRL ENT: normocephalic atraumatic Neck: supple Cardiovascular: no murmur Gastrointestinal: soft Extremities: no cyanosis Skin: normal turgor Neurological: no new deficit, facial droop, hemiplegia, speech deficit Musculoskeletal: normal tone, no muscle wasting PSYCH: normal affect, normal behavior, oriented to person, oriented to place Results - Labs Result Diagrams: 04/27/20 04:25 04/27/20 08:00 Lab results: WBC 9.5 thou/uL (4.8-10.8) 04/27/20 04:25 Hgb 15.7 g/dL (12.0-16.0) 04/27/20 04:25 Hct 47.6 % (36.0-47.0) H 04/27/20 04:25 MCV 98.0 fL (78.0-98.0) 04/27/20 04:25 Plt Count 255 thou/uL (130-400) 04/27/20 04:25 Neutrophils % 80.3 % (42.0-75.0) H 04/27/20 04:25 ESR Westergren 18 mm/hr (Less than 30) 04/15/20 15:20 ABG pH 7.53 (7.35-7.45) H 04/15/20 06:30 ABG pCO2 31.6 mmHg (35.0-45.0) L 04/15/20 06:30 ABG pO2 69.7 mmHg (> 70.0) 04/15/20 06:30 Sodium 149 mmol/L (136-145) H 04/27/20 08:00 Potassium 3.5 mmol/L (3.5-5.1) 04/27/20 04:25 Chloride 108 mmol/L (98-107) H 04/27/20 04:25 Carbon Dioxide 34 mmol/L (23-31) H 04/27/20 04:25 BUN 21 mg/dL (9.8-20.1) H 04/27/20 04:25 Creatinine 0.70 mg/dL (0.6-1.1) 04/27/20 04:25 Glucose 107 mg/dL (83-110) 04/27/20 04:25 Lactic Acid 1.2 mmol/L (0.5-2.2) 04/14/20 11:06 Calcium 9.8 mg/dL (7.8-10.44) 04/27/20 04:25 Total Bilirubin 1.1 mg/dL (0.2-1.2) 04/21/20 05:11 AST 21 U/L (5-34) 04/21/20 05:11 ALT 13 U/L (8-55) 04/21/20 05:11 Alkaline Phosphatase 89 U/L (40-110) 04/21/20 05:11 Creatine Kinase 80 U/L (29-168) 04/14/20 10:54 CK-MB (CK-2) 2.9 ng/mL (0-6.6) 04/14/20 10:51 Troponin I 0.062 ng/mL (< 0.028) H 04/17/20 04:04 B-Natriuretic Peptide 1325.4 pg/mL (0-100) H 04/16/20 02:58 Serum Total Protein 5.6 g/dL (5.8-8.1) L 04/21/20 05:11 Albumin 2.9 g/dL (3.4-4.8) L 04/21/20 05:11 Urine Ketones Negative mg/dL (Negative) 04/14/20 10:40 Urine Blood Negative (Negative) 04/14/20 10:40 Urine Nitrite Negative (Negative) 04/14/20 10:40 Ur Leukocyte Esterase Negative (Negative) 04/14/20 10:40 - Radiology Interpretation MRI - head Additional Comment: MRI brain was positive for acute infarction. PN A/P (1) Acute CVA (cerebrovascular accident) Code(s): I63.9 - CEREBRAL INFARCTION, UNSPECIFIED Status: Acute (2) Hypokalemia Code(s): E87.6 - HYPOKALEMIA Status: Acute (3) Hypomagnesemia Code(s): E83.42 - HYPOMAGNESEMIA Status: Acute (4) Swallowing dysfunction Code(s): R13.10 - DYSPHAGIA, UNSPECIFIED Status: Acute (5) Diastolic CHF Code(s): I50.30 - UNSPECIFIED DIASTOLIC (CONGESTIVE) HEART FAILURE Status: Chronic Qualifiers: Heart failure chronicity: acute on chronic Qualified Code(s): I50.33 - Acute on chronic diastolic (congestive) heart failure (6) Dyslipidemia Code(s): E78.5 - HYPERLIPIDEMIA, UNSPECIFIED Status: Chronic (7) Obesity (BMI 30.0-34.9) Code(s): E66.9 - OBESITY, UNSPECIFIED Status: Chronic (8) Paroxysmal A-fib Code(s): I48.0 - PAROXYSMAL ATRIAL FIBRILLATION Status: Chronic - Plan Daily Plan: plan discussed w/ family (son at bedside.), PT/OT, speech therapy, DVT proph w/SCDs 74 year old female with history significant for paroxysmal atrial fibrillation underwent cardioversion few days before this admission now in sinus rhythm consulted for acute stroke. There was concern about seizures . Keppra was started which she tolerated well. No reported seizures since initiation of Keppra. Patient is doing very well and is alert and oriented to person and place and following commands appropriately. Son at bedside who help with interpretation. She was participating with speech therapy and seems much more alert and responsive. Interval history: Patient was transferred to TCU over the weekend because of hemorrhagic conversion of the old stroke with impending herniation. Neurosurgery was contacted and she was started on mannitol infusion which improved her symptoms and currently she is doing much better. Cardiology is on board and anticoagulation has been held because of recent bleed. Consider holding anticoagulation and aspirin for the next 7 days. No further seizure activity reported per nursing staff Continue Keppra 500 mg twice daily. Observe seizure precations Arivan 2 mg IV for seizures greater than 2 minutes. MRI of the brain on admission was consistent with acute infarction in the right BLOWN FILM EXTRUSION OPERATOR and bilateral superior cerebellar territory. 2D echo to evaluate for left ventricular ejection fraction showed pericardial effusion and LVEF 70-75%.. Carotid Dopplers pending to rule out hemodynamically significant stenosis. Continue telemetrypatient has history of atrial fibrillation but currently in sinus rhythm. Cardiology is on board. Neurochecks every 4 hours. Strict control of blood pressure at this time. Strict control of blood glucose. Continue aspirin and high intensity statin for secondary stroke prevention. N.p.o. till cleared by speech. Consider PEG placement. PT/OT/speech. Continue home medications. Continue medical management per primary team DVT prophylaxis. Case management consult regarding discharge planning. Plan discussed in detail with the nursing staff and also with the daughter at bedside
--- NOTE | 2020-04-27 17:30 | PDOC.HOSPP ---
- Subjective Encounter Date: 04/27/20 Encounter Time: 12:40 Subjective: awake and interacts well brother at bedside translates she can move her right extr well, can bend her knees and ankle on left lower, can lift a bit of her left UE (ataxic) - Objective Vital Signs & Weight: Vital Signs (12 hours) Temp Pulse Pulse Pulse Resp BP BP 04/27/20 16:00 97.4 F L 04/27/20 13:33 69 21 H 04/27/20 12:00 98.0 F 04/27/20 11:11 75 71 146/88 H 148/86 H 04/27/20 08:52 71 04/27/20 08:34 04/27/20 08:31 71 24 H 04/27/20 08:00 04/27/20 07:00 97.4 F L Pulse Ox Pulse Ox Pulse Ox 04/27/20 16:00 04/27/20 13:33 96 04/27/20 12:00 04/27/20 11:11 97 96 04/27/20 08:52 04/27/20 08:34 100 04/27/20 08:31 92 L 04/27/20 08:00 95 04/27/20 07:00 Weight Admit Weight 177 lb 0.499 oz Weight 151 lb 14.376 oz Most Recent Monitor Data Heart Rate from ECG 64 NIBP 158/76 NIBP BP-Mean 103 Respiration from ECG 18 SpO2 93 I&O: 04/26/20 04/27/20 04/28/20 06:59 06:59 06:59 Intake Total 1922 1119 Output Total 5906 [id number] 878 [facility]508 [phone] Result Diagrams: 04/27/20 04:25 04/27/20 08:00 Additional Labs: Accuchecks 04/26/20 20:26 POC Glucose 122 H Hospitalist ROS - Medication Medications: Active Medications Generic Name Dose Route Start Last Admin Trade Name Freq PRN Reason Stop Dose Admin Acetaminophen 650 mg 04/14/20 13:27 04/15/20 01:30 Acetaminophen 325 Mg Tab PO 650 mg Q4H PRN Administration Headache/Fever/Mild Pain (1-3) Albuterol/Ipratropium 3 ml 04/24/20 13:00 04/27/20 13:33 Ipratropium/Albuterol Sulfate 3 Ml Neb NEB 3 ml [id number] ZANE Administration Amlodipine Besylate 10 mg 04/20/20 09:00 04/27/20 08:52 Amlodipine 10 Mg Tab PER TUBE 10 mg DAILY ZANE Administration Lipase/Protease/Amylase 1 cap 04/22/20 11:30 04/22/20 11:57 Pancrelipase 12,000 1 Cap FS 1 cap .PER PROTOCOL PRN Administration TUBE OCCLUSION PROTOCOL Atorvastatin Calcium 40 mg 04/20/20 21:00 04/26/20 21:12 Atorvastatin Calcium 40 Mg Tab PER TUBE 40 mg HS ZANE Administration Carvedilol 3.125 mg 04/23/20 21:00 04/27/20 08:52 Carvedilol 3.125 Mg Tab PER TUBE 3.125 mg BID ZANE Administration Hydralazine HCl 10 mg 04/20/20 08:50 04/24/20 16:14 Hydralazine 20 Mg/Ml Vial SLOW IVP 10 mg Q4H PRN Administration SBP GREATER THAN 160 Lisinopril 5 mg 04/21/20 09:00 04/27/20 08:52 Lisinopril 5 Mg Tab PO 5 mg DAILY ZANE Administration Mannitol 37.5 gm 04/26/20 21:00 04/27/20 08:53 Mannitol 12.5 Gm/50 Ml IV 04/28/20 23:59 37.5 gm BID ZANE Administration Multivitamins 1 tab 04/21/20 09:00 04/27/20 08:51 Multivit, Therapeutic 1 Tab PER TUBE 1 tab DAILY ZANE Administration Nitroglycerin 1 inch 04/24/20 15:00 04/27/20 17:13 Nitroglycerin 2% Ointment 1 Inch/1 Gm Packet TOP 1 inch TID ZANE Administration Ondansetron HCl 4 mg 04/14/20 13:27 04/24/20 11:58 Ondansetron Pf 4 Mg/2 Ml Vial IVP 4 mg Q6H PRN Administration Nausea/Vomiting Pantoprazole Sodium 40 mg 04/24/20 21:00 04/27/20 09:03 Pantoprazole 40 Mg Vial IVP 40 mg Q12HR ZANE Administration Saccharomyces Boulardii 250 mg 04/23/20 09:00 04/27/20 08:51 Saccharomyces Boulardii 250 Mg Cap PER TUBE 250 mg DAILY ZANE Administration Sodium Bicarbonate 650 mg 04/22/20 11:30 04/22/20 11:57 Sodium Bicarbonate Tab 325 Mg Tab PER TUBE 650 mg .PER PROTOCOL PRN Administration ENTERAL TUBE OCCLUSION Sodium Chloride 10 ml 04/17/20 21:00 04/27/20 09:03 Flush - Normal Saline 10 Ml Syringe IVF 10 ml Q12HR ZANE Administration Vancomycin HCl 250 mg 04/22/20 21:00 04/27/20 17:13 Vancomycin Hcl 25 Mg/Ml Oral PER TUBE 250 mg 0300,0900,1500,2100 ZANE Administration Hospitalist Exam Vitals: Vital Signs (12 hours) Temp Pulse Pulse Pulse Resp BP BP 04/27/20 16:00 97.4 F L 04/27/20 13:33 69 21 H 04/27/20 12:00 98.0 F 04/27/20 11:11 75 71 146/88 H 148/86 H 04/27/20 08:52 71 04/27/20 08:34 04/27/20 08:31 71 24 H 04/27/20 08:00 04/27/20 07:00 97.4 F L Pulse Ox Pulse Ox Pulse Ox 04/27/20 16:00 04/27/20 13:33 96 04/27/20 12:00 04/27/20 11:11 97 96 04/27/20 08:52 04/27/20 08:34 100 04/27/20 08:31 92 L 04/27/20 08:00 95 04/27/20 07:00 Weight Admit Weight 177 lb 0.499 oz Weight 151 lb 14.376 oz Most Recent Monitor Data Heart Rate from ECG 64 NIBP 158/76 NIBP BP-Mean 103 Respiration from ECG 18 SpO2 93 General Appearance: awake alert Eye: anicteric sclera Eye - other findings: 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 with restriction of lat movement ENT: no oropharyngeal lesions, dry oral mucosa Neck: supple, no JVD Heart: RRR, no murmur Respiratory: no wheezes, no rales Gastrointestinal: soft, non-tender, non-distended, normal bowel sounds Extremities: no cyanosis, no edema Neurological: cranial nerve grossly intact Neurological - other findings: left hemiparesis, dyarthria Psychiatric: A&O x 3 Hosp A/P (1) Acute CVA (cerebrovascular accident) Code(s): I63.9 - CEREBRAL INFARCTION, UNSPECIFIED Status: Acute (2) Hypertrophic cardiomyopathy Code(s): I42.2 - OTHER HYPERTROPHIC CARDIOMYOPATHY Status: Chronic (3) Pericardial effusion Code(s): I31.3 - PERICARDIAL EFFUSION (NONINFLAMMATORY) Status: Chronic (4) Obesity (BMI 30.0-34.9) Code(s): E66.9 - OBESITY, UNSPECIFIED Status: Chronic (5) Dyslipidemia Code(s): E78.5 - HYPERLIPIDEMIA, UNSPECIFIED Status: Chronic (6) H/O: CVA (cerebrovascular accident) Code(s): Z86.73 - PRSNL HX OF TIA (TIA), AND CEREB INFRC W/O RESID DEFICITS Status: Chronic (7) Acute respiratory failure with hypoxia Code(s): J96.01 - ACUTE RESPIRATORY FAILURE WITH HYPOXIA Status: Resolved (8) Syncope Code(s): R55 - SYNCOPE AND COLLAPSE Status: Resolved (9) Diastolic CHF Code(s): I50.30 - UNSPECIFIED DIASTOLIC (CONGESTIVE) HEART FAILURE Status: Chronic Qualifiers: Heart failure chronicity: acute on chronic Qualified Code(s): I50.33 - Acute on chronic diastolic (congestive) heart failure (10) Paroxysmal A-fib Code(s): I48.0 - PAROXYSMAL ATRIAL FIBRILLATION Status: Chronic (11) hemorrhagic conversion of cva Status: Acute (12) Uncal herniation Code(s): G93.5 - COMPRESSION OF BRAIN Status: Acute (13) Transtentorial herniation Code(s): G93.5 - COMPRESSION OF BRAIN Status: Acute (14) Cerebral edema Code(s): G93.6 - CEREBRAL EDEMA Status: Acute - Plan Has 6th nr palsy on left with lateral gaze restriction which was not very clear before (appears to be new) Had hemorrhagic conversion of nutrition professor distribution infarct with midline shift and transtentorial/uncal herniation, is resolving with mannitol infusion and nsx help. Is maintaining airway, peg when she stabilizes a bit, she doesn't like dobhoff in her nose. Had CT brain on arrival which did not reveal ac cva but had findings of old left cerebellar cva, repeat done around 2 pm shows massive nutrition professor distribution cva with edema on 04/15/20. MRI wo contrast done this am shows post circ multiple cva's including large right nutrition professor infarct with edema, left pica, b/l superior cerebellar art R>L, appears to be a ischemic infarct, unlikely to be embolic due to post circ involvement with none in the carotid outreach areas. oral meds will be held including aspirin, continue nitropaste, cardene drip prn for sbp >150 for now. has large pericardial effusion wo tamponade physiology as of now, if she were to get hypotensive, elevated jvd etc then will need stat window, CTS is aware of patient. got extubated on 04/15/20 and maintaining airway has multiple medical ac issues, prognosis guarded PT/OT to continue therapy, rehab eval, will need peg tube before dc (has to wait for mannitor infusions to finish) progosis guarded. dobhoff feeding.
--- NOTE | 2020-04-27 18:39 | RAD ---
KUB INDICATION: Dobbhoff feeding tube placement COMPARISON: Previous evaluation performed earlier at 5:26 PM FINDINGS: Bowel gas: Unobstructed. There is a Dobbhoff feeding tube tip seen in the region of the distal esopha griselda. Lung bases: Clear. Additional findings: No suspicious calcification demonstrated. Osseous structures: No acute osseous abnormality is demonstrated. IMPRESSION: 1. Dobbhoff feeding tube tip as above.
--- NOTE | 2020-04-27 18:39 | RAD ---
KUB INDICATION: Dobbhoff placement COMPARISON: April 24, 2020 FINDINGS: Bowel gas: Bowel gas pattern is unobstructed. Previously seen Dobbhoff feeding tube has been removed. Lung bases: Clear. Additional findings: Cholestatic clips are stable. Osseous structures: There is scattered degenerative and osteoarthritic change present. IMPRESSION: 1. Removal of the previously seen Dobbhoff feeding tube.
--- NOTE | 2020-04-27 18:41 | RAD ---
KUB INDICATION: Dobbhoff feeding tube placement COMPARISON: Prior exam dated April 27, 2020 and 5:29 PM FINDINGS: Bowel gas: Dobbhoff feeding tube tip remains within the region of the distal esophagus. Lung bases: Clear. Additional findings: No suspicious calcification demonstrated. Osseous structures: No acute osseous abnormality is demonstrated. IMPRESSION: 1. Dobbhoff feeding tube as above
--- NOTE | 2020-04-27 18:41 | RAD ---
KUB INDICATION: Dobbhoff feeding tube placement COMPARISON: April 27, 2020 examination performed at 5:30 PM FINDINGS: Bowel gas: Dobbhoff feeding tube tip has been minimally advanced, still residing in the region of the distal esophagus. Bowel gas pattern is unobstructed. Lung bases: Clear. Additional findings: No suspicious calcification demonstrated. Osseous structures: No acute osseous abnormality is demonstrated. IMPRESSION: 1. Dobbhoff feeding tube tip as above
--- NOTE | 2020-04-27 18:42 | RAD ---
KUB INDICATION: Dobbhoff feeding tube placement COMPARISON: April 27, 2020 at 5:37 PM FINDINGS: Bowel gas: Dobbhoff feeding tube tip is seen within the region of the gastric fundus. Bowel gas patte rn is unobstructed. Lung bases: Clear. Additional findings: No suspicious calcification demonstrated. Osseous structures: No acute osseous abnormality is demonstrated. IMPRESSION: 1. Dobbhoff feeding tube tip as above
--- NOTE | 2020-04-27 19:23 | CT ---
CT Brain WO Con: 04/27/2020 7:07 PM CLINICAL HISTORY: Follow-up cerebral edema and MAKEUP INSTRUCTOR infarct. IMAGING TECHNIQUE: Multiple CT images were obtained of the brain without IV contrast. COMPARISON: CT the brain without contrast dated April 25, 2020 at 3:58 AM FINDINGS: BRAIN: Evidence of acute infarct: The large right MAKEUP INSTRUCTOR distribution infarct with hemorrhagic transformation appears largely stable with surrounding vasogenic edema. The infarct with edema involving the right thalamus is stable. The infarct involving the superior right cerebellar hemisphere is stable. Evidence of chronic ischemic change:Mild chronic small vessel white matter ischemic change. Evidence of intracranial hemorrhage: Small subdural hematoma overlying the right frontal convexity l aterally stable measuring 2 mm. Evidence of brain volume loss:Stable mild generalized atrophy Evidence of midline shift: There is 3 mm of [id number] midline shift, mildly improved from the pr ior examination where measured approximately 4 mm. Ventricles: Normal. No hydrocephalus. SKULL: Intact. VISUALIZED PARANASAL SINUSES: Mucous retention cyst of the right maxillary sinus. Feeding tube is se en within the right nasal canal entering into the right nasopharynx. MASTOID AIR CELLS: Clear. EXTRACRANIAL SOFT TISSUES: Normal. IMPRESSION: 1. Stable right MAKEUP INSTRUCTOR distribution infarct with hemorrhagic transformation and surrounding vasogenic ed ramos. Stable edematous change involving infarct of the right thalamus and superior right cerebellar hemisphere. 2. Stable small subdural hematoma overlying the right frontal convexity measuring approximately 2 mm. 3. Slight improvement of the right to left midline shift 2 3 mm.
[2020-04-27 20:50] LABS: Sodium 151 mmol/L (136-145)
[2020-04-27] MEDS: Atorvastatin Calcium 40 MG TAB PER TUBE SCH (22:07)
[2020-04-28] MEDS: Vancomycin HCl 25 MG/ML Oral PER TUBE SCH ×4 (03:43→21:30)
[2020-04-28 03:47] LABS: #Lymphocytes 1.2 thou/uL (1.20-3.40); #Monocytes 0.7 thou/uL (0.11-0.59); #Neutrophils 8.5 thou/uL (1.40-6.50); %Basophils 0.4 % (0.0-1.0); %Eosinophils 0.4 % (0.0-10.0); %Lymphocytes 11.4 % (21.0-51.0); %Monocytes 6.9 % (0.0-10.0); %Neutrophils 80.9 % (42.0-75.0); Hemoglobin 16.1 g/dL (12.0-16.0); Mean Corpuscular HGB CONC 32.3 g/dL (32.0-36.0); Mean Corpuscular Hemoglobin 31.2 pg (27.0-31.0); Mean Corpuscular Volume 96.4 fL (78.0-98.0); Mean Platelet Volume 9.2 fL (7.4-10.4); Platelet Count 313 thou/uL (130-400); RBC Distribution Width 15.2 % (11.5-14.5); Red Blood Cell (RBC) Count 5.15 mill/uL (4.20-5.40); White Blood Cell (WBC) Count 10.5 thou/uL (4.8-10.8)
[2020-04-28 04:11] LABS: Anion Gap 10 mmol/L (10-20); BUN (Urea Nitrogen) 21 mg/dL (9.8-20.1); Calc. Creatinine Clearance 77 mL/min (70-130); Carbon Dioxide 32 mmol/L (23-31); Chloride 113 mmol/L (98-107); Glucose 114 mg/dL (83-110); Potassium 3.7 mmol/L (3.5-5.1); Sodium 151 mmol/L (136-145)
--- NOTE | 2020-04-28 08:12 | RAD ---
EXAM: CHEST ONE VIEW HISTORY: Right MATERIAL HANDLER distribution infarction and hemorrhagic transformation with associated vasogenic edema. Sma ll right subdural hematoma. COMPARISON: 04/24/2020 FINDINGS: Cardiac silhouette remains prominently enlarged. Pulmonary vasculature is within normal limits. Minim al atelectasis is present at the lung bases bilaterally, and the bibasilar parenchymal densities on prior study have improved. Lungs are otherwise clear. Dobbhoff feeding tube is noted in place with ti p incompletely imaged on this exam. No other interval change. IMPRESSION: 1. Improved aeration at each lung base with minimal bibasilar atelectasis present. 2. Enlargement of the cardiac silhouette with globular appearance of the cardiac silhouette. Pericard ial effusion is a possibility superimposed on cardiomegaly.
[2020-04-28 08:30] LABS: Sodium 151 mmol/L (136-145)
--- NOTE | 2020-04-28 08:33 | PRG ---
DATE OF SERVICE: 04/28/2020 SUBJECTIVE: The patient is extremely talkative this morning, but only in Slovak. OBJECTIVE: VITAL SIGNS: Temperature 98, pulse 69, and blood pressure 145/80. HEENT: Exam is unremarkable. NECK: No adenopathy or JVD. LUNGS: Fairly clear. CARDIAC: S1 and S2. Regular. ABDOMEN: Soft. EXTREMITIES: No edema. LABORATORY DATA: White blood cell count 10, hematocrit 49, platelet count 313. Sodium 151, potassium 3.7, chloride 113, CO2 of 32, BUN 21, creatinine 0.7, and glucose 114. ASSESSMENT: 1. Stroke with hemorrhagic conversion. 2. Clostridium difficile in stool. 3. Status post arrest after bradycardia. PLAN: From my standpoint, she can be transferred back to the stroke floor. If okay with all, this is provided. Neurosurgery will allow mannitol to be stopped. Job ID: [id number]
[2020-04-28] MEDS: Amlodipine 10 MG TAB PER TUBE SCH (09:32)
[2020-04-28] MEDS: Mannitol 12.5 GM/50 ML IV SCH ×2 (09:33→21:51)
[2020-04-28] MEDS: Multivit, Therapeutic 1 TAB PER TUBE SCH (09:33)
[2020-04-28] MEDS: Lisinopril 5 MG TAB PO SCH (09:33)
[2020-04-28] MEDS: Nitroglycerin 2% Ointment 1 INCH/1 GM Packet TOP SCH ×3 (09:33→21:29)
[2020-04-28] MEDS: Carvedilol 3.125 MG TAB PER TUBE SCH ×2 (09:33→21:29)
[2020-04-28] MEDS: Saccharomyces boulardii 250 MG CAP PER TUBE SCH (09:34)
[2020-04-28] MEDS: Pantoprazole 40 MG VIAL IVP SCH ×2 (09:34→21:29)
--- NOTE | 2020-04-28 13:03 | PDOC.NEUPN ---
- Subjective Encounter Date: 04/28/20 Subjective: Mrs. Carlson is doing much better and she was able to carry on a conversation in [place] for more than 10 minutes asking several questions about her health and timing of her discharge. Son at bedside will help with interpretation. She was oriented to person and place and follows commands appropriately. - Objective Vital Signs & Weight: Vital Signs (12 hours) Pulse Resp Pulse Ox 04/28/20 09:33 67 04/28/20 09:32 67 04/28/20 08:00 93 L 04/28/20 07:12 98 04/28/20 07:09 67 15 98 04/28/20 02:26 98 Weight Admit Weight 177 lb 0.499 oz Weight 151 lb 14.376 oz Most Recent Monitor Data Heart Rate from ECG 76 NIBP 146/84 NIBP BP-Mean 104 Respiration from ECG 19 SpO2 96 I&O: 04/27/20 04/28/20 04/29/20 06:59 06:59 06:59 Intake Total 1119 740 Output Total 4415 1625 60 [facility] -[phone] Result Diagrams: 04/28/20 03:25 04/28/20 08:07 Additional Labs: Accuchecks 04/27/20 17:44 POC Glucose 179 H Radiology Reviewed by me: Yes EKG Reviewed by me: Yes ROS - Review of Systems Constitutional: denies: fever, chills, sweats, weakness, malaise, other Gastrointestinal: denies: nausea, vomiting, abdominal pain, diarrhea, constipation, melena, hematochezia, other Genitourinary: denies: dysuria, frequency, incontinence, hematuria, retention, other Musculoskeletal: denies: neck pain, shoulder pain, arm pain, back pain, hand pain, leg pain, foot pain, other Neurological: reports: weakness, numbness, incoordination, change in speech. denies: confusion, seizures, other - Medication Medications: Active Medications Generic Name Dose Route Start Last Admin Trade Name Freq PRN Reason Stop Dose Admin Acetaminophen 650 mg 04/14/20 13:27 04/15/20 01:30 Acetaminophen 325 Mg Tab PO 650 mg Q4H PRN Administration Headache/Fever/Mild Pain (1-3) Albuterol/Ipratropium 3 ml 04/24/20 13:00 04/28/20 07:09 Ipratropium/Albuterol Sulfate 3 Ml Neb NEB 3 ml [id number] ZANE Administration Amlodipine Besylate 10 mg 04/20/20 09:00 04/28/20 09:32 Amlodipine 10 Mg Tab PER TUBE 10 mg DAILY ZANE Administration Lipase/Protease/Amylase 1 cap 04/22/20 11:30 04/22/20 11:[address] 12,000 1 Cap FS 1 cap .PER PROTOCOL PRN Administration TUBE OCCLUSION PROTOCOL Atorvastatin Calcium 40 mg 04/20/20 21:00 04/27/20 22:07 Atorvastatin Calcium 40 Mg Tab PER TUBE 40 mg HS ZANE Administration Carvedilol 3.125 mg 04/23/20 21:00 04/28/20 09:33 Carvedilol 3.125 Mg Tab PER TUBE 3.125 mg BID ZANE Administration Hydralazine HCl 10 mg 04/20/20 08:50 04/24/20 16:14 Hydralazine 20 Mg/Ml Vial SLOW IVP 10 mg Q4H PRN Administration SBP GREATER THAN 160 Lisinopril 5 mg 04/21/20 09:00 04/28/20 09:33 Lisinopril 5 Mg Tab PO 5 mg DAILY ZANE Administration Mannitol 37.5 gm 04/26/20 21:00 04/28/20 09:33 Mannitol 12.5 Gm/50 Ml IV 04/28/20 23:59 37.5 gm BID ZANE Administration Multivitamins 1 tab 04/21/20 09:00 04/28/20 09:33 Multivit, Therapeutic 1 Tab PER TUBE 1 tab DAILY ZANE Administration Nitroglycerin 1 inch 04/24/20 15:00 04/28/20 09:33 Nitroglycerin 2% Ointment 1 Inch/1 Gm Packet TOP 1 inch TID ZANE Administration Ondansetron HCl 4 mg 04/14/20 13:27 04/24/20 11:58 Ondansetron Pf 4 Mg/2 Ml Vial IVP 4 mg Q6H PRN Administration Nausea/Vomiting Pantoprazole Sodium 40 mg 04/24/20 21:00 04/28/20 09:34 Pantoprazole 40 Mg Vial IVP 40 mg Q12HR ZANE Administration Saccharomyces Boulardii 250 mg 04/23/20 09:00 04/28/20 09:34 Saccharomyces Boulardii 250 Mg Cap PER TUBE 250 mg DAILY ZANE Administration Sodium Bicarbonate 650 mg 04/22/20 11:30 04/22/20 11:57 Sodium Bicarbonate Tab 325 Mg Tab PER TUBE 650 mg .PER PROTOCOL PRN Administration ENTERAL TUBE OCCLUSION Sodium Chloride 10 ml 04/17/20 21:00 04/28/20 09:34 Flush - Normal Saline 10 Ml Syringe IVF 10 ml Q12HR ZANE Administration Vancomycin HCl 250 mg 04/22/20 21:00 04/28/20 09:34 Vancomycin Hcl 25 Mg/Ml Oral PER TUBE 250 mg 0300,0900,1500,2100 ZANE Administration - Exam General Appearance: awake alert Eye: PERRL ENT: normocephalic atraumatic Neck: supple Respiratory: CTAB Cardiovascular: no murmur Gastrointestinal: soft Extremities: no cyanosis Skin: normal turgor Neurological: no new deficit Musculoskeletal: normal tone, no muscle wasting PSYCH: normal affect, normal behavior, oriented to person, oriented to place Results - Labs Result Diagrams: 04/28/20 03:25 04/28/20 08:07 Lab results: WBC 10.5 thou/uL (4.8-10.8) 04/28/20 03:25 Hgb 16.1 g/dL (12.0-16.0) H 04/28/20 03:25 Hct 49.7 % (36.0-47.0) H 04/28/20 03:25 MCV 96.4 fL (78.0-98.0) 04/28/20 03:25 Plt Count 313 thou/uL (130-400) 04/28/20 03:25 Neutrophils % 80.9 % (42.0-75.0) H 04/28/20 03:25 ESR Westergren 18 mm/hr (Less than 30) 04/15/20 15:20 ABG pH 7.53 (7.35-7.45) H 04/15/20 06:30 ABG pCO2 31.6 mmHg (35.0-45.0) L 04/15/20 06:30 ABG pO2 69.7 mmHg (> 70.0) 04/15/20 06:30 Sodium 151 mmol/L (136-145) H 04/28/20 08:07 Potassium 3.7 mmol/L (3.5-5.1) 04/28/20 03:25 Chloride 113 mmol/L (98-107) H 04/28/20 03:25 Carbon Dioxide 32 mmol/L (23-31) H 04/28/20 03:25 BUN 21 mg/dL (9.8-20.1) H 04/28/20 03:25 Creatinine 0.72 mg/dL (0.6-1.1) 04/28/20 03:25 Glucose 114 mg/dL (83-110) H 04/28/20 03:25 Lactic Acid 1.2 mmol/L (0.5-2.2) 04/14/20 11:06 Calcium 10.0 mg/dL (7.8-10.44) 04/28/20 03:25 Total Bilirubin 1.1 mg/dL (0.2-1.2) 04/21/20 05:11 AST 21 U/L (5-34) 04/21/20 05:11 ALT 13 U/L (8-55) 04/21/20 05:11 Alkaline Phosphatase 89 U/L (40-110) 04/21/20 05:11 Creatine Kinase 80 U/L (29-168) 04/14/20 10:54 CK-MB (CK-2) 2.9 ng/mL (0-6.6) 04/14/20 10:51 Troponin I 0.062 ng/mL (< 0.028) H 04/17/20 04:04 B-Natriuretic Peptide 1325.4 pg/mL (0-100) H 04/16/20 02:58 Serum Total Protein 5.6 g/dL (5.8-8.1) L 04/21/20 05:11 Albumin 2.9 g/dL (3.4-4.8) L 04/21/20 05:11 Urine Ketones Negative mg/dL (Negative) 04/14/20 10:40 Urine Blood Negative (Negative) 04/14/20 10:40 Urine Nitrite Negative (Negative) 04/14/20 10:40 Ur Leukocyte Esterase Negative (Negative) 04/14/20 10:40 - Radiology Interpretation CT scan - head Additional Comment: Repeat CT is stable PN A/P (1) Acute CVA (cerebrovascular accident) Code(s): I63.9 - CEREBRAL INFARCTION, UNSPECIFIED Status: Acute (2) Hypokalemia Code(s): E87.6 - HYPOKALEMIA Status: Acute (3) Hypomagnesemia Code(s): E83.42 - HYPOMAGNESEMIA Status: Acute (4) Swallowing dysfunction Code(s): R13.10 - DYSPHAGIA, UNSPECIFIED Status: Acute (5) Diastolic CHF Code(s): I50.30 - UNSPECIFIED DIASTOLIC (CONGESTIVE) HEART FAILURE Status: Chronic Qualifiers: Heart failure chronicity: acute on chronic Qualified Code(s): I50.33 - Acute on chronic diastolic (congestive) heart failure (6) Dyslipidemia Code(s): E78.5 - HYPERLIPIDEMIA, UNSPECIFIED Status: Chronic (7) Obesity (BMI 30.0-34.9) Code(s): E66.9 - OBESITY, UNSPECIFIED Status: Chronic (8) Paroxysmal A-fib Code(s): I48.0 - PAROXYSMAL ATRIAL FIBRILLATION Status: Chronic - Plan Daily Plan: plan discussed w/ family (Son at bedside), PT/OT, speech therapy, DVT proph w/SCDs 74 year old female with history significant for paroxysmal atrial fibrillation underwent cardioversion few days before this admission now in sinus rhythm consulted for acute stroke. There was concern about seizures . Keppra was started which she tolerated well. No reported seizures since initiation of Keppra. Interval history: Patient was transferred to CCU over the weekend because of hemorrhagic conversion of the old stroke with impending herniation. Neurosurgery was contacted and she was started on mannitol infusion which improved her symptoms and currently she is doing much better. Cardiology is on board and anticoagulation has been held because of recent bleed. Consider h olding anticoagulation and aspirin for the next 7 days. Patient is doing very well and is alert and oriented to person and place today and following commands appropriately. Son at bedside who help with interpretation. She spoke and had several questions regarding her stay, condition and the timing of her discharge from the hospital. Son at bedside to help with interpretation. No further seizure activity reported per nursing staff Continue Keppra 500 mg twice daily. Observe seizure precations Arivan 2 mg IV for seizures greater than 2 minutes. MRI of the brain on admission was consistent with acute infarction in the right DRUG ROOM CLERK and bilateral superior cerebellar territory. 2D echo to evaluate for left ventricular ejection fraction showed pericardial effusion and LVEF 70-75%.. Carotid Dopplers pending to rule out hemodynamically significant stenosis. Continue telemetrypatient has history of atrial fibrillation but currently in sinus rhythm. Cardiology is on board. Neurochecks every 4 hours. Strict control of blood pressure at this time. Strict control of blood glucose. Continue aspirin and high intensity statin for secondary stroke prevention. N.p.o. till cleared by speech. Consider PEG placement. PT/OT/speech. Continue home medications. Continue medical management per primary team DVT prophylaxis. Case management consult regarding discharge planning. Plan discussed in detail with the patient, son at bedside and also with the primary attending
--- NOTE | 2020-04-28 16:07 | PRG ---
DATE OF SERVICE: 04/28/2020 SUBJECTIVE: Ms. Aldo Holland continues to slowly improve. She continues to complain of not being to . OBJECTIVE: VITAL SIGNS: Blood pressure 147/75, pulse 65, and respirations 20. LUNGS: Clear to auscultation. HEART: Regular rate and rhythm. ABDOMEN: Soft, nontender, and nondistended. EXTREMITIES: No edema. PERTINENT LABORATORY DATA: Hemoglobin 16.1, hematocrit 49.7. IMPRESSION: 1. Atrial fibrillation, status post cardioversion. 2. Recent cerebrovascular accident. 3. Hypertrophic cardiomyopathy. RECOMMENDATIONS: Ms. Aldo Holland remained stable. No new changes. Continue to hold anticoagulation therapy due to recent small hemorrhage. Job ID: [id number]
--- NOTE | 2020-04-28 16:30 | PDOC.HOSPP ---
- Subjective Encounter Date: 04/28/20 Encounter Time: 11:50 Subjective: is sitting in neurochair, no complaints - Objective Vital Signs & Weight: Vital Signs (12 hours) Temp Pulse Pulse Pulse Resp BP BP 04/28/20 14:03 68 65 144/80 H 147/75 H 04/28/20 12:00 97.8 F 04/28/20 09:33 67 04/28/20 09:32 67 04/28/20 08:00 04/28/20 07:12 04/28/20 07:09 67 15 Pulse Ox Pulse Ox Pulse Ox 04/28/20 14:03 95 92 L 04/28/20 12:00 04/28/20 09:33 04/28/20 09:32 04/28/20 08:00 93 L 04/28/20 07:12 98 04/28/20 07:09 98 Weight Admit Weight 177 lb 0.499 oz Weight 151 lb 14.376 oz Most Recent Monitor Data Heart Rate from ECG 69 NIBP 135/74 NIBP BP-Mean 94 Respiration from ECG 18 SpO2 97 I&O: 04/27/20 04/28/20 04/29/20 06:59 06:59 06:59 Intake Total 1119 740 420 Output Total 3825 9445 215 Balance -736 -115 205 Result Diagrams: 04/28/20 03:25 04/28/20 08:07 Additional Labs: Accuchecks 04/27/20 17:44 POC Glucose 179 H Hospitalist ROS - Medication Medications: Active Medications Generic Name Dose Route Start Last Admin Trade Name Freq PRN Reason Stop Dose Admin Acetaminophen 650 mg 04/14/20 13:27 04/15/20 01:30 Acetaminophen 325 Mg Tab PO 650 mg Q4H PRN Administration Headache/Fever/Mild Pain (1-3) Albuterol/Ipratropium 3 ml 04/24/20 13:00 04/28/20 13:44 Ipratropium/Albuterol Sulfate 3 Ml Neb NEB Not Given [id number] ZANE Amlodipine Besylate 10 mg 04/20/20 09:00 04/28/20 09:32 Amlodipine 10 Mg Tab PER TUBE 10 mg DAILY ZANE Administration Lipase/Protease/Amylase 1 cap 04/22/20 11:30 04/22/20 11:[address] 12,000 1 Cap FS 1 cap .PER PROTOCOL PRN Administration TUBE OCCLUSION PROTOCOL Atorvastatin Calcium 40 mg 04/20/20 21:00 04/27/20 22:07 Atorvastatin Calcium 40 Mg Tab PER TUBE 40 mg HS ZANE Administration Carvedilol 3.125 mg 04/23/20 21:00 04/28/20 09:33 Carvedilol 3.125 Mg Tab PER TUBE 3.125 mg BID ZANE Administration Hydralazine HCl 10 mg 04/20/20 08:50 04/24/20 16:14 Hydralazine 20 Mg/Ml Vial SLOW IVP 10 mg Q4H PRN Administration SBP GREATER THAN 160 Lisinopril 5 mg 04/21/20 09:00 04/28/20 09:33 Lisinopril 5 Mg Tab PO 5 mg DAILY ZANE Administration Mannitol 37.5 gm 04/26/20 21:00 04/28/20 09:33 Mannitol 12.5 Gm/50 Ml IV 04/28/20 23:59 37.5 gm BID ZANE Administration Multivitamins 1 tab 04/21/20 09:00 04/28/20 09:33 Multivit, Therapeutic 1 Tab PER TUBE 1 tab DAILY ZANE Administration Nitroglycerin 1 inch 04/24/20 15:00 04/28/20 16:08 Nitroglycerin 2% Ointment 1 Inch/1 Gm Packet TOP 1 inch TID ZANE Administration Ondansetron HCl 4 mg 04/14/20 13:27 04/24/20 11:58 Ondansetron Pf 4 Mg/2 Ml Vial IVP 4 mg Q6H PRN Administration Nausea/Vomiting Pantoprazole Sodium 40 mg 04/24/20 21:00 04/28/20 09:34 Pantoprazole 40 Mg Vial IVP 40 mg Q12HR ZANE Administration Saccharomyces Boulardii 250 mg 04/23/20 09:00 04/28/20 09:34 Saccharomyces Boulardii 250 Mg Cap PER TUBE 250 mg DAILY ZANE Administration Sodium Bicarbonate 650 mg 04/22/20 11:30 04/22/20 11:57 Sodium Bicarbonate Tab 325 Mg Tab PER TUBE 650 mg .PER PROTOCOL PRN Administration ENTERAL TUBE OCCLUSION Sodium Chloride 10 ml 04/17/20 21:00 04/28/20 09:34 Flush - Normal Saline 10 Ml Syringe IVF 10 ml Q12HR ZANE Administration Vancomycin HCl 250 mg 04/22/20 21:00 04/28/20 16:08 Vancomycin Hcl 25 Mg/Ml Oral PER TUBE 250 mg 0300,0900,1500,2100 ZANE Administration Hospitalist Exam Vitals: Vital Signs (12 hours) Temp Pulse Pulse Pulse Resp BP BP 04/28/20 14:03 68 65 144/80 H 147/75 H 04/28/20 12:00 97.8 F 04/28/20 09:33 67 04/28/20 09:32 67 04/28/20 08:00 04/28/20 07:12 04/28/20 07:09 67 15 Pulse Ox Pulse Ox Pulse Ox 04/28/20 14:03 95 92 L 04/28/20 12:00 04/28/20 09:33 04/28/20 09:32 04/28/20 08:00 93 L 04/28/20 07:12 98 04/28/20 07:09 98 Weight Admit Weight 177 lb 0.499 oz Weight 151 lb 14.376 oz Most Recent Monitor Data Heart Rate from ECG 69 NIBP 135/74 NIBP BP-Mean 94 Respiration from ECG 18 SpO2 97 Eye: anicteric sclera ENT: no oropharyngeal lesions, dry oral mucosa Neck: supple, no JVD Heart: RRR, no murmur Respiratory: no wheezes, no rales Gastrointestinal: soft, non-tender, non-distended, normal bowel sounds Extremities: no cyanosis, no edema Neurological: cranial nerve grossly intact Neurological - other findings: left hemiparesis Psychiatric: A&O x 3 Hosp A/P (1) Acute CVA (cerebrovascular accident) Code(s): I63.9 - CEREBRAL INFARCTION, UNSPECIFIED Status: Acute (2) Hypertrophic cardiomyopathy Code(s): I42.2 - OTHER HYPERTROPHIC CARDIOMYOPATHY Status: Chronic (3) Pericardial effusion Code(s): I31.3 - PERICARDIAL EFFUSION (NONINFLAMMATORY) Status: Chronic (4) Obesity (BMI 30.0-34.9) Code(s): E66.9 - OBESITY, UNSPECIFIED Status: Chronic (5) Dyslipidemia Code(s): E78.5 - HYPERLIPIDEMIA, UNSPECIFIED Status: Chronic (6) H/O: CVA (cerebrovascular accident) Code(s): Z86.73 - PRSNL HX OF TIA (TIA), AND CEREB INFRC W/O RESID DEFICITS Status: Chronic (7) Acute respiratory failure with hypoxia Code(s): J96.01 - ACUTE RESPIRATORY FAILURE WITH HYPOXIA Status: Resolved (8) Syncope Code(s): R55 - SYNCOPE AND COLLAPSE Status: Resolved (9) Diastolic CHF Code(s): I50.30 - UNSPECIFIED DIASTOLIC (CONGESTIVE) HEART FAILURE Status: Chronic Qualifiers: Heart failure chronicity: acute on chronic Qualified Code(s): I50.33 - Acute on chronic diastolic (congestive) heart failure (10) Paroxysmal A-fib Code(s): I48.0 - PAROXYSMAL ATRIAL FIBRILLATION Status: Chronic (11) hemorrhagic conversion of cva Status: Acute (12) Uncal herniation Code(s): G93.5 - COMPRESSION OF BRAIN Status: Acute (13) Transtentorial herniation Code(s): G93.5 - COMPRESSION OF BRAIN Status: Acute (14) Cerebral edema Code(s): G93.6 - CEREBRAL EDEMA Status: Acute - Plan waxing and waning neuro symptoms, likely sec to edema. mannitol dosing will be done by sunday, will need peg prior to dc to rehab. She has pulled nearly 5 dobhoff tubes already. 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 Is maintaining airway, improving well clinically. Had CT brain on arrival which did not reveal ac cva but had findings of old left cerebellar cva, repeat done around 2 pm shows massive content designer distribution cva with edema on 04/15/20. MRI wo contrast done this am shows post circ multiple cva's including large right content designer infarct with edema, left pica, b/l superior cerebellar art R>L, appears to be a ischemic infarct, unlikely to be embolic due to post circ involvement with none in the carotid outreach areas. oral meds will be held including aspirin, continue nitropaste, cardene drip prn for sbp >150 for now. has large pericardial effusion wo tamponade physiology as of now, if she were to get hypotensive, elevated jvd etc then will need stat window, CTS is aware of patient. got extubated on 04/15/20 and maintaining airway has multiple medical ac issues, prognosis guarded PT/OT to continue therapy, rehab eval, will need peg tube before dc (has to wait for mannitor infusions to finish on sunday) progosis guarded. dobhoff feeding.
[2020-04-28 20:21] LABS: Sodium 152 mmol/L (136-145)
[2020-04-28] MEDS: Atorvastatin Calcium 40 MG TAB PER TUBE SCH (21:29)
[2020-04-28] MEDS: hydrALAZINE 20 MG/ML VIAL SLOW IVP PRN (23:09)
[2020-04-29] MEDS: Vancomycin HCl 25 MG/ML Oral PER TUBE SCH ×4 (02:52→21:15)
[2020-04-29 04:28] LABS: #Eosinphils 0.1 thou/uL (0.0-0.7); #Lymphocytes 1.3 thou/uL (1.20-3.40); #Monocytes 0.6 thou/uL (0.11-0.59); #Neutrophils 7.8 thou/uL (1.40-6.50); %Basophils 0.5 % (0.0-1.0); %Eosinophils 0.5 % (0.0-10.0); %Lymphocytes 13.1 % (21.0-51.0); %Monocytes 6.5 % (0.0-10.0); %Neutrophils 79.4 % (42.0-75.0); Hemoglobin 16.6 g/dL (12.0-16.0); Mean Corpuscular HGB CONC 30.7 g/dL (32.0-36.0); Mean Corpuscular Hemoglobin 29.8 pg (27.0-31.0); Mean Corpuscular Volume 97.1 fL (78.0-98.0); Mean Platelet Volume 9.9 fL (7.4-10.4); Platelet Count 345 thou/uL (130-400); RBC Distribution Width 15.3 % (11.5-14.5); Red Blood Cell (RBC) Count 5.56 mill/uL (4.20-5.40); White Blood Cell (WBC) Count 9.8 thou/uL (4.8-10.8)
[2020-04-29 04:49] LABS: Anion Gap 11 mmol/L (10-20); BUN (Urea Nitrogen) 28 mg/dL (9.8-20.1); Calc. Creatinine Clearance 76 mL/min (70-130); Calcium 10.2 mg/dL (7.8-10.44); Carbon Dioxide 33 mmol/L (23-31); Chloride 113 mmol/L (98-107); Glucose 118 mg/dL (83-110); Potassium 3.5 mmol/L (3.5-5.1); Sodium 153 mmol/L (136-145)
[2020-04-29 09:13] LABS: Sodium 153 mmol/L (136-145)
[2020-04-29] MEDS ORDERED: Potassium Bicarbonate/Cit Ac 20 MEQ TAB PER TUBE SCH (09:15)
[2020-04-29] MEDS: Amlodipine 10 MG TAB PER TUBE SCH (10:04)
[2020-04-29] MEDS: Carvedilol 3.125 MG TAB PER TUBE SCH ×2 (10:04→21:15)
[2020-04-29] MEDS: Multivit, Therapeutic 1 TAB PER TUBE SCH (10:05)
[2020-04-29] MEDS: Saccharomyces boulardii 250 MG CAP PER TUBE SCH (10:05)
[2020-04-29] MEDS: Pantoprazole 40 MG VIAL IVP SCH ×2 (10:05→21:16)
[2020-04-29] MEDS: Nitroglycerin 2% Ointment 1 INCH/1 GM Packet TOP SCH ×3 (10:05→21:15)
[2020-04-29] MEDS: Lisinopril 5 MG TAB PO SCH (10:05)
--- NOTE | 2020-04-29 11:05 | PRG ---
DATE OF SERVICE: 04/29/2020 SUBJECTIVE: She is doing very well. She continues to take the mannitol and is going to go through tomorrow. OBJECTIVE: VITAL SIGNS: Temperature 97.8, pulse 68, and blood pressure 143/82. HEENT: Unchanged. NECK: No JVD. LUNGS: Clear. CARDIAC: S1 and S2. Regular. ABDOMEN: Soft. EXTREMITIES: No edema. LABORATORY DATA: Sodium 153, BUN 28, creatinine 0.7, glucose 118. White blood cell count 9.8, hematocrit 54, platelet count 345. ASSESSMENT: Stroke with hemorrhagic conversion. PLAN: The patient is becoming extremely hyperosmolar. I will watch her sodium very closely. No further recommendations at this time. Job ID: [id number]
[2020-04-29] MEDS: Mannitol 12.5 GM/50 ML IV SCH (12:19)
--- NOTE | 2020-04-29 13:27 | PDOC.NEUPN ---
- Subjective Encounter Date: 04/29/20 Subjective: Patient doing much better. Daughter at bedside to help with interpretation. - Objective Vital Signs & Weight: Vital Signs (12 hours) Temp Pulse Resp Pulse Ox 04/29/20 10:05 77 04/29/20 10:04 77 04/29/20 08:00 98 04/29/20 07:59 77 19 99 04/29/20 07:44 98 04/29/20 07:00 97.8 F 04/29/20 04:00 98.9 F Weight Admit Weight 177 lb 0.499 oz Weight 148 lb 9.465 oz Most Recent Monitor Data Heart Rate from ECG 70 NIBP 175/81 NIBP BP-Mean 112 Respiration from ECG 24 SpO2 95 I&O: 04/28/20 04/29/20 04/30/20 06:59 06:59 06:59 Intake Total 740 2275 75 Output Total 1625 1200 130 Balance -885 1075 -55 Result Diagrams: 04/29/20 03:00 04/29/20 08:06 Radiology Reviewed by me: Yes EKG Reviewed by me: Yes ROS - Review of Systems Constitutional: denies: fever, chills, sweats, weakness, malaise, other Eyes: denies: pain, vision change, conjunctivae inflammation, eyelid infl ammation, redness, other Genitourinary: denies: dysuria, frequency, incontinence, hematuria, retention, other Musculoskeletal: denies: neck pain, shoulder pain, arm pain, back pain, hand pain, leg pain, foot pain, other Neurological: reports: weakness, numbness, change in speech. denies: incoordination, confusion, seizures, other - Medication Medications: Active Medications Generic Name Dose Route Start Last Admin Trade Name Freq PRN Reason Stop Dose Admin Acetaminophen 650 mg 04/14/20 13:27 04/15/20 01:30 Acetaminophen 325 Mg Tab PO 650 mg Q4H PRN Administration Headache/Fever/Mild Pain (1-3) Albuterol/Ipratropium 3 ml 04/24/20 13:00 04/29/20 07:59 Ipratropium/Albuterol Sulfate 3 Ml Neb NEB 3 ml [id number] ZANE Administration Amlodipine Besylate 10 mg 04/20/20 09:00 04/29/20 10:04 Amlodipine 10 Mg Tab PER TUBE 10 mg DAILY ZANE Administration Lipase/Protease/Amylase 1 cap 04/22/20 11:30 04/22/20 11:57 Pancrelipase 12,000 1 Cap FS 1 cap .PER PROTOCOL PRN Administration TUBE OCCLUSION PROTOCOL Atorvastatin Calcium 40 mg 04/20/20 21:00 04/28/20 21:29 Atorvastatin Calcium 40 Mg Tab PER TUBE 40 mg HS ZANE Administration Carvedilol 3.125 mg 04/23/20 21:00 04/29/20 10:04 Carvedilol 3.125 Mg Tab PER TUBE 3.125 mg BID ZANE Administration Hydralazine HCl 10 mg 04/20/20 08:50 04/28/20 23:09 Hydralazine 20 Mg/Ml Vial SLOW IVP 10 mg Q4H PRN Administration SBP GREATER THAN 160 Lisinopril 5 mg 04/21/20 09:00 04/29/20 10:05 Lisinopril 5 Mg Tab PO 5 mg DAILY ZANE Administration Mannitol 37.5 gm 04/29/20 09:00 04/29/20 12:19 Mannitol 12.5 Gm/50 Ml IV 04/30/20 12:00 37.5 gm DAILY ZANE Administration Multivitamins 1 tab 04/21/20 09:00 04/29/20 10:05 Multivit, Therapeutic 1 Tab PER TUBE 1 tab DAILY ZANE Administration Nitroglycerin 1 inch 04/24/20 15:00 04/29/20 10:05 Nitroglycerin 2% Ointment 1 Inch/1 Gm Packet TOP 1 inch TID ZANE Administration Ondansetron HCl 4 mg 04/14/20 13:27 04/24/20 11:58 Ondansetron Pf 4 Mg/2 Ml Vial IVP 4 mg Q6H PRN Administration Nausea/Vomiting Pantoprazole Sodium 40 mg 04/24/20 21:00 04/29/20 10:05 Pantoprazole 40 Mg Vial IVP 40 mg Q12HR ZANE Administration Saccharomyces Boulardii 250 mg 04/23/20 09:00 04/29/20 10:05 Saccharomyces Boulardii 250 Mg Cap PER TUBE 250 mg DAILY AZNE Administration Sodium Bicarbonate 650 mg 04/22/20 11:30 04/22/20 11:57 Sodium Bicarbonate Tab 325 Mg Tab PER TUBE 650 mg .PER PROTOCOL PRN Administration ENTERAL TUBE OCCLUSION Sodium Chloride 10 ml 04/17/20 21:00 04/29/20 10:05 Flush - Normal Saline 10 Ml Syringe IVF 10 ml Q12HR ZANE Administration Vancomycin HCl 250 mg 04/22/20 21:00 04/29/20 10:05 Vancomycin Hcl 25 Mg/Ml Oral PER TUBE 250 mg 0300,0900,1500,2100 ZANE Administration - Exam General Appearance: awake alert Eye: PERRL ENT: normocephalic atraumatic Neck: supple Respiratory: CTAB Cardiovascular: no murmur Gastrointestinal: soft Extremities: no cyanosis Skin: normal turgor Neurological: no new deficit, facial droop, hemiplegia, speech deficit Musculoskeletal: normal tone, no muscle wasting PSYCH: normal affect, normal behavior, A&O x 3 Results - Labs Result Diagrams: 04/29/20 03:00 04/29/20 08:06 Lab results: WBC 9.8 thou/uL (4.8-10.8) 04/29/20 03:00 Hgb 16.6 g/dL (12.0-16.0) H 04/29/20 03:00 Hct 54.0 % (36.0-47.0) H 04/29/20 03:00 MCV 97.1 fL (78.0-98.0) 04/29/20 03:00 Plt Count 345 thou/uL (130-400) 04/29/20 03:00 Neutrophils % 79.4 % (42.0-75.0) H 04/29/20 03:00 ESR Westergren 18 mm/hr (Less than 30) 04/15/20 15:20 ABG pH 7.53 (7.35-7.45) H 04/15/20 06:30 ABG pCO2 31.6 mmHg (35.0-45.0) L 04/15/20 06:30 ABG pO2 69.7 mmHg (> 70.0) 04/15/20 06:30 Sodium 153 mmol/L (136-145) H 04/29/20 08:06 Potassium 3.5 mmol/L (3.5-5.1) 04/29/20 03:00 Chloride 113 mmol/L (98-107) H 04/29/20 03:00 Carbon Dioxide 33 mmol/L (23-31) H 04/29/20 03:00 BUN 28 mg/dL (9.8-20.1) H 04/29/20 03:00 Creatinine 0.73 mg/dL (0.6-1.1) 04/29/20 03:00 Glucose 118 mg/dL (83-110) H 04/29/20 03:00 Lactic Acid 1.2 mmol/L (0.5-2.2) 04/14/20 11:06 Calcium 10.2 mg/dL (7.8-10.44) 04/29/20 03:00 Total Bilirubin 1.1 mg/dL (0.2-1.2) 04/21/20 05:11 AST 21 U/L (5-34) 04/21/20 05:11 ALT 13 U/L (8-55) 04/21/20 05:11 Alkaline Phosphatase 89 U/L (40-110) 04/21/20 05:11 Creatine Kinase 80 U/L (29-168) 04/14/20 10:54 CK-MB (CK-2) 2.9 ng/mL (0-6.6) 04/14/20 10:51 Troponin I 0.062 ng/mL (< 0.028) H 04/17/20 04:04 B-Natriuretic Peptide 1325.4 pg/mL (0-100) H 04/16/20 02:58 Serum Total Protein 5.6 g/dL (5.8-8.1) L 04/21/20 05:11 Albumin 2.9 g/dL (3.4-4.8) L 04/21/20 05:11 Urine Ketones Negative mg/dL (Negative) 04/14/20 10:40 Urine Blood Negative (Negative) 04/14/20 10:40 Urine Nitrite Negative (Negative) 04/14/20 10:40 Ur Leukocyte Esterase Negative (Negative) 04/14/20 10:40 - Radiology Interpretation CT scan - head Additional Comment: Head CT did not show any worsening edema PN A/P (1) Acute CVA (cerebrovascular accident) Code(s): I63.9 - CEREBRAL INFARCTION, UNSPECIFIED Status: Acute (2) Hypokalemia Code(s): E87.6 - HYPOKALEMIA Status: Acute (3) Hypomagnesemia Code(s): E83.42 - HYPOMAGNESEMIA Status: Acute (4) Swallowing dysfunction Code(s): R13.10 - DYSPHAGIA, UNSPECIFIED Status: Acute (5) Diastolic CHF Code(s): I50.30 - UNSPECIFIED DIASTOLIC (CONGESTIVE) HEART FAILURE Status: Chronic Qualifiers: Heart failure chronicity: acute on chronic Qualified Code(s): I50.33 - Acute on chronic diastolic (congestive) heart failure (6) Dyslipidemia Code(s): E78.5 - HYPERLIPIDEMIA, UNSPECIFIED Status: Chronic (7) Obesity (BMI 30.0-34.9) Code(s): E66.9 - OBESITY, UNSPECIFIED Status: Chronic (8) Paroxysmal A-fib Code(s): I48.0 - PAROXYSMAL ATRIAL FIBRILLATION Status: Chronic - Plan Daily Plan: plan discussed w/ family (Daughter at bedside), PT/OT, speech therapy, DVT proph w/SCDs 74 year old female with history significant for paroxysmal atrial fibrillation underwent cardioversion few days before this admission now in sinus rhythm consulted for acute stroke. There was concern about seizures . Keppra was started which she tolerated well. No reported seizures since initiation of Keppra. Interval history: Patient was transferred to CCU over the weekend because of hemorrhagic conversion of the old stroke with impending herniation. Neurosurgery was contacted and she was started on mannitol infusion which improved her symptoms and currently she is doing much better. Cardiology is on board and anticoagulation has been held because of recent bleed. Consider holding anticoagulation and aspirin for the next 7 days post hemorrhagic conversion. Patient is doing very well and is alert and oriented to person and place today and following commands appropriately. Daughter at bedside to help with interpretation. Continue mannitol for cerebral edema. Monitor sodium Patient will be done for mannitol by tomorrow 04/30/2020. Awaiting PEG tube placement and possible rehab. No further seizure activity reported per nursing staff Continue Keppra 500 mg twice daily. Observe seizure precations Arivan 2 mg IV for seizures greater than 2 minutes. MRI of the brain on admission was consistent with acute infarction in the right AEROBICS INSTRUCTOR and bilateral superior cerebellar territory. 2D echo to evaluate for left ventricular ejection fraction showed pericardial effusion and LVEF 70-75%.. Carotid Dopplers pending to rule out hemodynamically significant stenosis. Continue telemetrypatient has history of atrial fibrillation but currently in sinus rhythm. Cardiology is on board. Neurochecks every 4 hours. Strict control of blood pressure at this time. Strict control of blood glucose. Continue aspirin and high intensity statin for secondary stroke prevention. N.p.o. till cleared by speech. Awaiting PEG placement. PT/OT/speech. Continue home medications. Continue medical management per primary team DVT prophylaxis. Case management consult regarding discharge planning. Plan discussed in detail with the patient, daughter at bedside and also with the nursing staff
--- NOTE | 2020-04-29 15:57 | PDOC.HOSPP ---
- Subjective Encounter Date: 04/29/20 Encounter Time: 13:00 Subjective: awake, responds well to verbal stimuli she still has 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 and inability to see to left lat side - Objective Vital Signs & Weight: Vital Signs (12 hours) Temp Pulse Resp Pulse Ox 04/29/20 14:34 79 16 99 04/29/20 12:00 97.8 F 04/29/20 10:05 77 04/29/20 10:04 77 04/29/20 08:00 98 04/29/20 07:59 77 19 99 04/29/20 07:44 98 04/29/20 07:00 97.8 F 04/29/20 04:00 98.9 F Weight Admit Weight 177 lb 0.499 oz Weight 148 lb 9.465 oz Most Recent Monitor Data Heart Rate from ECG 76 NIBP 124/79 NIBP BP-Mean 94 Respiration from ECG 27 SpO2 97 I&O: 04/28/20 04/29/20 04/30/20 06:59 06:59 06:59 Intake Total 740 2275 345 Output Total 1625 1200 275 Balance -885 1075 70 Result Diagrams: 04/29/20 03:00 04/29/20 08:06 Hospitalist ROS - Medication Medications: Active Medications Generic Name Dose Route Start Last Admin Trade Name Freq PRN Reason Stop Dose Admin Acetaminophen 650 mg 04/14/20 13:27 04/15/20 01:30 Acetaminophen 325 Mg Tab PO 650 mg Q4H PRN Administration Headache/Fever/Mild Pain (1-3) Albuterol/Ipratropium 3 ml 04/24/20 13:00 04/29/20 14:34 Ipratropium/Albuterol Sulfate 3 Ml Neb NEB 3 ml [id number] ZANE Administration Amlodipine Besylate 10 mg 04/20/20 09:00 04/29/20 10:04 Amlodipine 10 Mg Tab PER TUBE 10 mg DAILY ZANE Administration Lipase/Protease/Amylase 1 cap 04/22/20 11:30 04/22/20 11:57 Pancrelipase 12,000 1 Cap FS 1 cap .PER PROTOCOL PRN Administration TUBE OCCLUSION PROTOCOL Atorvastatin Calcium 40 mg 04/20/20 21:00 04/28/20 21:29 Atorvastatin Calcium 40 Mg Tab PER TUBE 40 mg HS ZANE Administration Carvedilol 3.125 mg 04/23/20 21:00 04/29/20 10:04 Carvedilol 3.125 Mg Tab PER TUBE 3.125 mg BID ZANE Administration Hydralazine HCl 10 mg 04/20/20 08:50 04/28/20 23:09 Hydralazine 20 Mg/Ml Vial SLOW IVP 10 mg Q4H PRN Administration SBP GREATER THAN 160 Lisinopril 5 mg 04/21/20 09:00 04/29/20 10:05 Lisinopril 5 Mg Tab PO 5 mg DAILY ZANE Administration Mannitol 37.5 gm 04/29/20 09:00 04/29/20 12:19 Mannitol 12.5 Gm/50 Ml IV 04/30/20 12:00 37.5 gm DAILY ZANE Administration Multivitamins 1 tab 04/21/20 09:00 04/29/20 10:05 Multivit, Therapeutic 1 Tab PER TUBE 1 tab DAILY ZANE Administration Nitroglycerin 1 inch 04/24/20 15:00 04/29/20 10:05 Nitroglycerin 2% Ointment 1 Inch/1 Gm Packet TOP 1 inch TID ZANE Administration Ondansetron HCl 4 mg 04/14/20 13:27 04/24/20 11:58 Ondansetron Pf 4 Mg/2 Ml Vial IVP 4 mg Q6H PRN Administration Nausea/Vomiting Pantoprazole Sodium 40 mg 04/24/20 21:00 04/29/20 10:05 Pantoprazole 40 Mg Vial IVP 40 mg Q12HR ZANE Administration Saccharomyces Boulardii 250 mg 04/23/20 09:00 04/29/20 10:05 Saccharomyces Boulardii 250 Mg Cap PER TUBE 250 mg DAILY ZANE Administration Sodium Bicarbonate 650 mg 04/22/20 11:30 04/22/20 11:57 Sodium Bicarbonate Tab 325 Mg Tab PER TUBE 650 mg .PER PROTOCOL PRN Administration ENTERAL TUBE OCCLUSION Sodium Chloride 10 ml 04/17/20 21:00 04/29/20 10:05 Flush - Normal Saline 10 Ml Syringe IVF 10 ml Q12HR ZANE Administration Vancomycin HCl 250 mg 04/22/20 21:00 04/29/20 10:05 Vancomycin Hcl 25 Mg/Ml Oral PER TUBE 250 mg 0300,0900,1500,2100 ZANE Administration Hospitalist Exam Vitals: Vital Signs (12 hours) Temp Pulse Resp Pulse Ox 04/29/20 14:34 79 16 99 04/29/20 12:00 97.8 F 04/29/20 10:05 77 04/29/20 10:04 77 04/29/20 08:00 98 04/29/20 07:59 77 19 99 04/29/20 07:44 98 04/29/20 07:00 97.8 F 04/29/20 04:00 98.9 F Weight Admit Weight 177 lb 0.499 oz Weight 148 lb 9.465 oz Most Recent Monitor Data Heart Rate from ECG 76 NIBP 124/79 NIBP BP-Mean 94 Respiration from ECG 27 SpO2 97 General Appearance: awake alert Eye: PERRL, anicteric sclera ENT: no oropharyngeal lesions, dry oral mucosa Neck: supple, no JVD Heart: RRR, no murmur Respiratory: no wheezes, no rales Gastrointestinal: soft, non-tender, non-distended, normal bowel sounds Extremities: no cyanosis, no edema Neurological - other findings: left hemiparesis, 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 Hosp A/P (1) Acute CVA (cerebrovascular accident) Code(s): I63.9 - CEREBRAL INFARCTION, UNSPECIFIED Status: Acute (2) Hypertrophic cardiomyopathy Code(s): I42.2 - OTHER HYPERTROPHIC CARDIOMYOPATHY Status: Chronic (3) Pericardial effusion Code(s): I31.3 - PERICARDIAL EFFUSION (NONINFLAMMATORY) Status: Chronic (4) Obesity (BMI 30.0-34.9) Code(s): E66.9 - OBESITY, UNSPECIFIED Status: Chronic (5) Dyslipidemia Code(s): E78.5 - HYPERLIPIDEMIA, UNSPECIFIED Status: Chronic (6) H/O: CVA (cerebrovascular accident) Code(s): Z86.73 - PRSNL HX OF TIA (TIA), AND CEREB INFRC W/O RESID DEFICITS Status: Chronic (7) Acute respiratory failure with hypoxia Code(s): J96.01 - ACUTE RESPIRATORY FAILURE WITH HYPOXIA Status: Resolved (8) Syncope Code(s): R55 - SYNCOPE AND COLLAPSE Status: Resolved (9) Diastolic CHF Code(s): I50.30 - UNSPECIFIED DIASTOLIC (CONGESTIVE) HEART FAILURE Status: Chronic Qualifiers: Heart failure chronicity: acute on chronic Qualified Code(s): I50.33 - Acute on chronic diastolic (congestive) heart failure (10) Paroxysmal A-fib Code(s): I48.0 - PAROXYSMAL ATRIAL FIBRILLATION Status: Chronic (11) hemorrhagic conversion of cva Status: Acute (12) Uncal herniation Code(s): G93.5 - COMPRESSION OF BRAIN Status: Acute (13) Transtentorial herniation Code(s): G93.5 - COMPRESSION OF BRAIN Status: Acute (14) Cerebral edema Code(s): G93.6 - CEREBRAL EDEMA Status: Acute - Plan waxing and waning neuro symptoms, likely sec to edema. mannitol dosing will be done by tomorrow, will need peg prior to dc to rehab. She has pulled nearly 5 dobhoff tubes already, will have modified ba swallow in am (if she fails will need peg on weekend). Has 6th nr palsy on left with lateral gaze restriction Had hemorrhagic conversion of outcome analyst distribution infarct with midline shift and transtentorial/uncal herniation, is resolving with mannitol infusion and nsx h elp. Is maintaining airway, improving well clinically. Had CT brain on arrival which did not reveal ac cva but had findings of old left cerebellar cva, repeat done around 2 pm shows massive outcome analyst distribution cva with edema on 04/15/20. MRI wo contrast done this am shows post circ multiple cva's including large right outcome analyst infarct with edema, left pica, b/l superior cerebellar art R>L, appears to be a ischemic infarct, unlikely to be embolic due to post circ involvement with none in the carotid outreach areas. oral meds will be held including aspirin, continue nitropaste, cardene drip prn for sbp >150 for now. has large pericardial effusion wo tamponade physiology as of now, if she were to get hypotensive, elevated jvd etc then will need stat window, CTS is aware of patient. got extubated on 04/15/20 and maintaining airway has multiple medical ac issues, prognosis guarded PT/OT to continue therapy, rehab eval, will need peg tube before dc (has to wait for mannitor infusions to finish on sunday) progosis guarded. dobhoff feeding.
[2020-04-29] MEDS: Atorvastatin Calcium 40 MG TAB PER TUBE SCH (21:15)
[2020-04-30] MEDS: Vancomycin HCl 25 MG/ML Oral PER TUBE SCH ×4 (03:04→21:17)
[2020-04-30 04:39] LABS: #Eosinphils 0.1 thou/uL (0.0-0.7); #Lymphocytes 1.2 thou/uL (1.20-3.40); #Monocytes 0.6 thou/uL (0.11-0.59); #Neutrophils 7.4 thou/uL (1.40-6.50); %Basophils 0.2 % (0.0-1.0); %Eosinophils 0.9 % (0.0-10.0); %Lymphocytes 12.4 % (21.0-51.0); %Monocytes 6.1 % (0.0-10.0); %Neutrophils 80.3 % (42.0-75.0); Hemoglobin 16.9 g/dL (12.0-16.0); Mean Corpuscular HGB CONC 31.5 g/dL (32.0-36.0); Mean Corpuscular Hemoglobin 31.2 pg (27.0-31.0); Mean Platelet Volume 10.1 fL (7.4-10.4); Platelet Count 305 thou/uL (130-400); RBC Distribution Width 15.3 % (11.5-14.5); Red Blood Cell (RBC) Count 5.43 mill/uL (4.20-5.40); White Blood Cell (WBC) Count 9.2 thou/uL (4.8-10.8)
[2020-04-30 04:59] LABS: Anion Gap 12 mmol/L (10-20); BUN (Urea Nitrogen) 32 mg/dL (9.8-20.1); Calc. Creatinine Clearance 74 mL/min (70-130); Carbon Dioxide 33 mmol/L (23-31); Chloride 114 mmol/L (98-107); Glucose 111 mg/dL (83-110); Potassium 3.6 mmol/L (3.5-5.1); Sodium 155 mmol/L (136-145)
[2020-04-30] MEDS: Multivit, Therapeutic 1 TAB PER TUBE SCH (08:37)
[2020-04-30] MEDS: Lisinopril 5 MG TAB PO SCH (08:37)
[2020-04-30] MEDS: Carvedilol 3.125 MG TAB PER TUBE SCH ×2 (08:37→21:12)
[2020-04-30] MEDS: Amlodipine 10 MG TAB PER TUBE SCH (08:37)
[2020-04-30] MEDS: Nitroglycerin 2% Ointment 1 INCH/1 GM Packet TOP SCH ×3 (08:37→21:13)
[2020-04-30] MEDS: Saccharomyces boulardii 250 MG CAP PER TUBE SCH (08:37)
[2020-04-30] MEDS: Pantoprazole 40 MG VIAL IVP SCH ×2 (08:38→21:13)
[2020-04-30 08:44] LABS: Sodium 155 mmol/L (136-145)
--- NOTE | 2020-04-30 10:14 | PRG ---
DATE OF SERVICE: 04/30/2020 SUBJECTIVE: She remains in the ICU, getting mannitol for her hemorrhagic stroke. She is wide awake. She is wanting water and food. OBJECTIVE: VITAL SIGNS: Temperature 98.1, pulse 69, blood pressure 121/75, and O2 saturation in the 90s. HEENT: Unremarkable. NECK: No JVD. LUNGS: Fairly clear. CARDIAC: S1 and S2. Regular. ABDOMEN: Soft and nontender. EXTREMITIES: She has left arm hemiplegia. LABORATORY DATA: Her sodium is up to 155, potassium 3.6, chloride 114, CO2 of 33, BUN 32, creatinine 0.7, and glucose 111. White count 9.2, hematocrit 53, and platelet count 305. 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 I spoke with nurse. Neurosurgery is comfortable with the sodium as long as it is below 160. Today is her last day of mannitol. PLAN: Supportive care. Transfer to Stroke likely tomorrow. Job ID: [id number]
[2020-04-30] MEDS: Mannitol 12.5 GM/50 ML IV SCH (13:07)
--- NOTE | 2020-04-30 14:20 | PRG ---
DATE OF SERVICE: 04/30/2020 SUBJECTIVE: Ms Carlson is sleeping. No current complaints. No significant dysrhythmias overnight. OBJECTIVE: VITAL SIGNS: Blood pressure 111/75, pulse 67, and temperature afebrile. LUNGS: Clear to auscultation. HEART: Regular rate and rhythm. ABDOMEN: Soft, nontender, and nondistended. EXTREMITIES: No edema. IMPRESSION: 1. Recent cerebrovascular accident. 2. Atrial fibrillation status post cardioversion. RECOMMENDATIONS: Again await recommendations from Neurology on when to restart anticoagulation therapy. Based on the recent hemorrhage, although small, would be at increased risk of bleeding. I have discussed this with the family at length and they understand. We will continue mannitol today and likely be transferred to the stroke unit. Job ID: [id number]
--- NOTE | 2020-04-30 16:03 | RAD ---
Modified barium swallow: 04/30/2020 COMPARISON: None HISTORY: Dysphasia, feeding difficulties, stroke, intracranial hemorrhage FINDINGS: A modified barium swallow was performed in conjunction with a member division of speech pat hology. The patient was imaged in the lateral projection swallowing various consistencies of barium. Penetration and aspiration noted with the thin liquids, nectar thick liquids, and honey liqui ds. No penetration or aspiration noted with puree. IMPRESSION: Penetration and aspiration as above. Please see speech pathologist report for full detail and feeding recommendations.
--- NOTE | 2020-04-30 16:26 | PDOC.HOSPP ---
- Subjective Encounter Date: 04/30/20 Encounter Time: 13:40 Subjective: awake, talking a lot not in distress - Objective Vital Signs & Weight: Vital Signs (12 hours) Temp Pulse Resp BP BP Pulse Ox 04/30/20 15:15 68 14 99 04/30/20 12:00 98.5 F 04/30/20 10:55 126/77 111/75 04/30/20 08:37 67 04/30/20 08:34 67 15 98 04/30/20 08:00 98.0 F 04/30/20 07:48 95 Weight Admit Weight 177 lb 0.499 oz Weight 147 lb 14.883 oz Most Recent Monitor Data Heart Rate from ECG 68 NIBP 131/72 NIBP BP-Mean 91 Respiration from ECG 20 SpO2 95 I&O: 04/29/20 04/30/20 05/01/20 06:59 06:59 06:59 Intake Total 2275 1765 765 Output Total 1200 790 290 Balance 1075 975 475 Result Diagrams: 04/30/20 03:15 04/30/20 08:13 Hospitalist ROS - Medication Medications: Active Medications Generic Name Dose Route Start Last Admin Trade Name Freq PRN Reason Stop Dose Admin Acetaminophen 650 mg 04/14/20 13:27 04/15/20 01:30 Acetaminophen 325 Mg Tab PO 650 mg Q4H PRN Administration Headache/Fever/Mild Pain (1-3) Albuterol/Ipratropium 3 ml 04/24/20 13:00 04/30/20 15:15 Ipratropium/Albuterol Sulfate 3 Ml Neb NEB 3 ml [id number] ZANE Administration Amlodipine Besylate 10 mg 04/20/20 09:00 04/30/20 08:37 Amlodipine 10 Mg Tab PER TUBE 10 mg DAILY ZANE Administration Lipase/Protease/Amylase 1 cap 04/22/20 11:30 04/22/20 11:[address] 12,000 1 Cap FS 1 cap .PER PROTOCOL PRN Administration TUBE OCCLUSION PROTOCOL Atorvastatin Calcium 40 mg 04/20/20 21:00 04/29/20 21:15 Atorvastatin Calcium 40 Mg Tab PER TUBE 40 mg HS ZANE Administration Carvedilol 3.125 mg 04/23/20 21:00 04/30/20 08:37 Carvedilol 3.125 Mg Tab PER TUBE 3.125 mg BID ZANE Administration Hydralazine HCl 10 mg 04/20/20 08:50 04/28/20 23:09 Hydralazine 20 Mg/Ml Vial SLOW IVP 10 mg Q4H PRN Administration SBP GREATER THAN 160 Lisinopril 5 mg 04/21/20 09:00 04/30/20 08:37 Lisinopril 5 Mg Tab PO 5 mg DAILY ZANE Administration Multivitamins 1 tab 04/21/20 09:00 04/30/20 08:37 Multivit, Therapeutic 1 Tab PER TUBE 1 tab DAILY ZANE Administration Nitroglycerin 1 inch 04/24/20 15:00 04/30/20 08:37 Nitroglycerin 2% Ointment 1 Inch/1 Gm Packet TOP 1 inch TID ZANE Administration Ondansetron HCl 4 mg 04/14/20 13:27 04/24/20 11:58 Ondansetron Pf 4 Mg/2 Ml Vial IVP 4 mg Q6H PRN Administration Nausea/Vomiting Pantoprazole Sodium 40 mg 04/24/20 21:00 04/30/20 08:38 Pantoprazole 40 Mg Vial IVP 40 mg Q12HR ZANE Administration Saccharomyces Boulardii 250 mg 04/23/20 09:00 04/30/20 08:37 Saccharomyces Boulardii 250 Mg Cap PER TUBE 250 mg DAILY ZANE Administration Sodium Bicarbonate 650 mg 04/22/20 11:30 04/22/20 11:57 Sodium Bicarbonate Tab 325 Mg Tab PER TUBE 650 mg .PER PROTOCOL PRN Administration ENTERAL TUBE OCCLUSION Sodium Chloride 10 ml 04/17/20 21:00 04/30/20 08:38 Flush - Normal Saline 10 Ml Syringe IVF 10 ml Q12HR ZANE Administration Vancomycin HCl 250 mg 04/22/20 21:00 04/30/20 10:01 Vancomycin Hcl 25 Mg/Ml Oral PER TUBE 250 mg 0300,0900,1500,2100 ZANE Administration Hospitalist Exam Vitals: Vital Signs (12 hours) Temp Pulse Resp BP BP Pulse Ox 04/30/20 15:15 68 14 99 04/30/20 12:00 98.5 F 04/30/20 10:55 126/77 111/75 04/30/20 08:37 67 04/30/20 08:34 67 15 98 04/30/20 08:00 98.0 F 04/30/20 07:48 95 Weight Admit Weight 177 lb 0.499 oz Weight 147 lb 14.883 oz Most Recent Monitor Data Heart Rate from ECG 68 NIBP 131/72 NIBP BP-Mean 91 Respiration from ECG 20 SpO2 95 General Appearance: awake alert Eye: PERRL, anicteric sclera ENT: no oropharyngeal lesions, dry oral mucosa Neck: supple, no JVD Heart: RRR, no murmur Respiratory: no wheezes, no rales Gastrointestinal: soft, non-tender, non-distended, normal bowel sounds Extremities: no cyanosis, no edema Neurological: speech deficit Neurological - other findings: 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, left hemiparesis Hosp A/P (1) Acute CVA (cerebrovascular accident) Code(s): I63.9 - CEREBRAL INFARCTION, UNSPECIFIED Status: Acute (2) Hypertrophic cardiomyopathy Code(s): I42.2 - OTHER HYPERTROPHIC CARDIOMYOPATHY Status: Chronic (3) Pericardial effusion Code(s): I31.3 - PERICARDIAL EFFUSION (NONINFLAMMATORY) Status: Chronic (4) Obesity (BMI 30.0-34.9) Code(s): E66.9 - OBESITY, UNSPECIFIED Status: Chronic (5) Dyslipidemia Code(s): E78.5 - HYPERLIPIDEMIA, UNSPECIFIED Status: Chronic (6) H/O: CVA (cerebrovascular accident) Code(s): Z86.73 - PRSNL HX OF TIA (TIA), AND CEREB INFRC W/O RESID DEFICITS Status: Chronic (7) Acute respiratory failure with hypoxia Code(s): J96.01 - ACUTE RESPIRATORY FAILURE WITH HYPOXIA Status: Resolved (8) Syncope Code(s): R55 - SYNCOPE AND COLLAPSE Status: Resolved (9) Diastolic CHF Code(s): I50.30 - UNSPECIFIED DIASTOLIC (CONGESTIVE) HEART FAILURE Status: Chronic Qualifiers: Heart failure chronicity: acute on chronic Qualified Code(s): I50.33 - Acute on chronic diastolic (congestive) heart failure (10) Paroxysmal A-fib Code(s): I48.0 - PAROXYSMAL ATRIAL FIBRILLATION Status: Chronic (11) hemorrhagic conversion of cva Status: Acute (12) Uncal herniation Code(s): G93.5 - COMPRESSION OF BRAIN Status: Acute (13) Transtentorial herniation Code(s): G93.5 - COMPRESSION OF BRAIN Status: Acute (14) Cerebral edema Code(s): G93.6 - CEREBRAL EDEMA Status: Acute - Plan waxing and waning neuro symptoms, likely sec to edema. mannitol dosing is done, will need peg prior to dc to rehab. She has pulled nearly 5 dobhoff tubes already, has failed MBS. Has 6th nr palsy on left with lateral gaze restriction Had hemorrhagic conversion of energy consultant distribution infarct with midline shift and transtentorial/uncal herniation, is resolving with mannitol infusion and nsx help. Is maintaining airway, improving well clinically. Had CT brain on arrival which did not reveal ac cva but had findings of old left cerebellar cva, repeat done around 2 pm shows massive energy consultant distribution cva with edema on 04/15/20. MRI wo contrast done this am shows post circ multiple cva's including large right energy consultant infarct with edema, left pica, b/l superior cerebellar art R>L, appears to be a ischemic infarct, unlikely to be embolic due to post circ involvement with none in the carotid outreach areas. oral meds will be held including aspirin, continue nitropaste, cardene drip prn for sbp >150 for now. has large pericardial effusion wo tamponade physiology as of now, if she were to get hypotensive, elevated jvd etc then will need stat window, CTS is aware of patient. got extubated on 04/15/20 and maintaining airway has multiple medical ac issues, prognosis guarded PT/OT to continue therapy, rehab eval, will need peg tube before dc, has failed modified ba swallow. progosis guarded. dobhoff feeding.
[2020-04-30] MEDS: Atorvastatin Calcium 40 MG TAB PER TUBE SCH (21:12)
[2020-05-01] MEDS: Vancomycin HCl 25 MG/ML Oral PER TUBE SCH ×4 (03:13→21:15)
[2020-05-01 04:15] LABS: #Basophils 0.1 thou/uL (0.0-0.2); #Eosinphils 0.2 thou/uL (0.0-0.7); #Lymphocytes 1.5 thou/uL (1.20-3.40); #Monocytes 0.6 thou/uL (0.11-0.59); #Neutrophils 9.6 thou/uL (1.40-6.50); %Basophils 0.4 % (0.0-1.0); %Eosinophils 1.4 % (0.0-10.0); %Lymphocytes 12.6 % (21.0-51.0); %Monocytes 4.7 % (0.0-10.0); %Neutrophils 80.9 % (42.0-75.0); Hemoglobin 16.1 g/dL (12.0-16.0); Mean Corpuscular HGB CONC 31.7 g/dL (32.0-36.0); Mean Corpuscular Hemoglobin 30.8 pg (27.0-31.0); Mean Corpuscular Volume 97.4 fL (78.0-98.0); Mean Platelet Volume 9.7 fL (7.4-10.4); Platelet Count 343 thou/uL (130-400); RBC Distribution Width 15.3 % (11.5-14.5); Red Blood Cell (RBC) Count 5.23 mill/uL (4.20-5.40); White Blood Cell (WBC) Count 11.9 thou/uL (4.8-10.8)
[2020-05-01 04:32] LABS: Anion Gap 13 mmol/L (10-20); BUN (Urea Nitrogen) 40 mg/dL (9.8-20.1); Calc. Creatinine Clearance 62 mL/min (70-130); Calcium 9.8 mg/dL (7.8-10.44); Carbon Dioxide 33 mmol/L (23-31); Chloride 111 mmol/L (98-107); Glucose 123 mg/dL (83-110); Potassium 3.8 mmol/L (3.5-5.1); Sodium 153 mmol/L (136-145)
[2020-05-01] MEDS ORDERED: cloNIDine 0.1mg/24 Hour PATCH TD SCH (09:00)
[2020-05-01] MEDS: Saccharomyces boulardii 250 MG CAP PER TUBE SCH (10:34)
[2020-05-01] MEDS: Lisinopril 5 MG TAB PO SCH (10:34)
[2020-05-01] MEDS: Carvedilol 3.125 MG TAB PER TUBE SCH ×2 (10:35→21:33)
[2020-05-01] MEDS: Amlodipine 10 MG TAB PER TUBE SCH (10:36)
[2020-05-01] MEDS: Multivit, Therapeutic 1 TAB PER TUBE SCH (10:36)
[2020-05-01] MEDS: Pantoprazole 40 MG VIAL IVP SCH ×2 (10:36→21:34)
[2020-05-01] MEDS: Nitroglycerin 2% Ointment 1 INCH/1 GM Packet TOP SCH ×3 (10:36→21:34)
--- NOTE | 2020-05-01 11:54 | PDOC.HOSPP ---
- Subjective Encounter Date: 05/01/20 Encounter Time: 11:30 Subjective: Awake, verbalizes well, oriented. Daughter at bedside. - Objective Vital Signs & Weight: Vital Signs (12 hours) Temp Pulse Resp Pulse Ox 05/01/20 10:36 60 05/01/20 10:34 60 05/01/20 08:00 98.4 F 05/01/20 07:17 93 L 05/01/20 07:14 60 14 93 L 05/01/20 04:00 98.0 F 05/01/20 00:22 78 16 99 05/01/20 00:00 98.1 F Weight Admit Weight 177 lb 0.499 oz Weight 146 lb Most Recent Monitor Data Heart Rate from ECG 68 NIBP 104/68 NIBP BP-Mean 80 Respiration from ECG 24 SpO2 92 I&O: 04/30/20 05/01/20 05/02/20 06:59 06:59 06:59 Intake Total 1765 2009 Output Total 790 815 60 Balance 975 1195 -60 Result Diagrams: 05/01/20 03:45 05/01/20 03:45 Hospitalist ROS - Medication Medications: Active Medications Generic Name Dose Route Start Last Admin Trade Name Freq PRN Reason Stop Dose Admin Acetaminophen 650 mg 04/14/20 13:27 04/15/20 01:30 Acetaminophen 325 Mg Tab PO 650 mg Q4H PRN Administration Headache/Fever/Mild Pain (1-3) Albuterol/Ipratropium 3 ml 04/24/20 13:00 05/01/20 07:14 Ipratropium/Albuterol Sulfate 3 Ml Neb NEB 3 ml [id number] ZANE Administration Amlodipine Besylate 10 mg 04/20/20 09:00 05/01/20 10:36 Amlodipine 10 Mg Tab PER TUBE 10 mg DAILY ZANE Administration Lipase/Protease/Amylase 1 cap 04/22/20 11:30 04/22/20 11:[address] 12,000 1 Cap FS 1 cap .PER PROTOCOL PRN Administration TUBE OCCLUSION PROTOCOL Atorvastatin Calcium 40 mg 04/20/20 21:00 04/30/20 21:12 Atorvastatin Calcium 40 Mg Tab PER TUBE 40 mg HS ZANE Administration Carvedilol 3.125 mg 04/23/20 21:00 05/01/20 10:35 Carvedilol 3.125 Mg Tab PER TUBE 3.125 mg BID ZANE Administration Hydralazine HCl 10 mg 04/20/20 08:50 04/28/20 23:09 Hydralazine 20 Mg/Ml Vial SLOW IVP 10 mg Q4H PRN Administration SBP GREATER THAN 160 Lisinopril 5 mg 04/21/20 09:00 05/01/20 10:34 Lisinopril 5 Mg Tab PO 5 mg DAILY ZANE Administration Multivitamins 1 tab 04/21/20 09:00 05/01/20 10:36 Multivit, Therapeutic 1 Tab PER TUBE 1 tab DAILY ZANE Administration Nitroglycerin 1 inch 04/24/20 15:00 05/01/20 10:36 Nitroglycerin 2% Ointment 1 Inch/1 Gm Packet TOP 1 inch TID ZANE Administration Ondansetron HCl 4 mg 04/14/20 13:27 04/24/20 11:58 Ondansetron Pf 4 Mg/2 Ml Vial IVP 4 mg Q6H PRN Administration Nausea/Vomiting Pantoprazole Sodium 40 mg 04/24/20 21:00 05/01/20 10:36 Pantoprazole 40 Mg Vial IVP 40 mg Q12HR ZANE Administration Saccharomyces Boulardii 250 mg 04/23/20 09:00 05/01/20 10:34 Saccharomyces Boulardii 250 Mg Cap PER TUBE 250 mg DAILY ZANE Administration Sodium Bicarbonate 650 mg 04/22/20 11:30 04/22/20 11:57 Sodium Bicarbonate Tab 325 Mg Tab PER TUBE 650 mg .PER PROTOCOL PRN Administration ENTERAL TUBE OCCLUSION Sodium Chloride 10 ml 04/17/20 21:00 05/01/20 10:36 Flush - Normal Saline 10 Ml Syringe IVF 10 ml Q12HR ZANE Administration Vancomycin HCl 250 mg 04/22/20 21:00 05/01/20 10:36 Vancomycin Hcl 25 Mg/Ml Oral PER TUBE 250 mg 0300,0900,1500,2100 ZANE Administration Hospitalist Exam Vitals: Vital Signs (12 hours) Temp Pulse Resp Pulse Ox 05/01/20 10:36 60 05/01/20 10:34 60 05/01/20 08:00 98.4 F 05/01/20 07:17 93 L 05/01/20 07:14 60 14 93 L 05/01/20 04:00 98.0 F 05/01/20 00:22 78 16 99 05/01/20 00:00 98.1 F Weight Admit Weight 177 lb 0.499 oz Weight 146 lb Most Recent Monitor Data Heart Rate from ECG 68 NIBP 104/68 NIBP BP-Mean 80 Respiration from ECG 24 SpO2 92 General Appearance: awake alert Eye: PERRL, anicteric sclera ENT: no oropharyngeal lesions, dry oral mucosa Neck: supple, no JVD Heart: RRR, no murmur Respiratory: no wheezes, no rales Gastrointestinal: soft, non-tender, non-distended, normal bowel sounds Extremities: no cyanosis, no edema Neurological - other findings: left sixth nerve palsy, left hemiparesis Hosp A/P (1) Acute CVA (cerebrovascular accident) Code(s): I63.9 - CEREBRAL INFARCTION, UNSPECIFIED Status: Acute (2) Hypertrophic cardiomyopathy Code(s): I42.2 - OTHER HYPERTROPHIC CARDIOMYOPATHY Status: Chronic (3) Pericardial effusion Code(s): I31.3 - PERICARDIAL EFFUSION (NONINFLAMMATORY) Status: Chronic (4) Obesity (BMI 30.0-34.9) Code(s): E66.9 - OBESITY, UNSPECIFIED Status: Chronic (5) Dyslipidemia Code(s): E78.5 - HYPERLIPIDEMIA, UNSPECIFIED Status: Chronic (6) H/O: CVA (cerebrovascular accident) Code(s): Z86.73 - PRSNL HX OF TIA (TIA), AND CEREB INFRC W/O RESID DEFICITS Status: Chronic (7) Acute respiratory failure with hypoxia Code(s): J96.01 - ACUTE RESPIRATORY FAILURE WITH HYPOXIA Status: Resolved (8) Syncope Code(s): R55 - SYNCOPE AND COLLAPSE Status: Resolved (9) Diastolic CHF Code(s): I50.30 - UNSPECIFIED DIASTOLIC (CONGESTIVE) HEART FAILURE Status: Chronic Qualifiers: Heart failure chronicity: acute on chronic Qualified Code(s): I50.33 - Acute on chronic diastolic (congestive) heart failure (10) Paroxysmal A-fib Code(s): I48.0 - PAROXYSMAL ATRIAL FIBRILLATION Status: Chronic (11) hemorrhagic conversion of cva Status: Acute (12) Uncal herniation Code(s): G93.5 - COMPRESSION OF BRAIN Status: Resolved (13) Transtentorial herniation Code(s): G93.5 - COMPRESSION OF BRAIN Status: Resolved (14) Cerebral edema Code(s): G93.6 - CEREBRAL EDEMA Status: Resolved - Plan waxing and waning neuro symptoms, likely sec to edema, resolving. mannitol dosing is done, will need peg prior to dc to rehab. She has pulled nearly 5 dobhoff tubes already, has failed MBS. Has 6th nr palsy on left with lateral gaze restriction Had hemorrhagic conversion of force adjustment supervisor distribution infarct with midline shift and transtentorial/uncal herniation, is resolving with mannitol infusion and nsx help. Is maintaining airway, improving well clinically. Had CT brain on arrival which did not reveal ac cva but had findings of old left cerebellar cva, repeat done around 2 pm shows massive force adjustment supervisor distribution cva with edema on 04/15/20. MRI wo contrast done this am shows post circ multiple cva's including large right force adjustment supervisor infarct with edema, left pica, b/l superior cerebellar art R>L, appears to be a ischemic infarct, unlikely to be embolic due to post circ involvement with none in the carotid outreach areas. oral meds will be held including aspirin, continue nitropaste, cardene drip prn for sbp >150 for now. has large pericardial effusion wo tamponade physiology as of now, if she were to get hypotensive, elevated jvd etc then will need stat window, CTS is aware of patient. got extubated on 04/15/20 and maintaining airway discussed with daughter at bedside. has multiple medical ac issues, prognosis guarded PT/OT to continue therapy, rehab eval, will need peg tube before dc, has failed modified ba swallow. progosis guarded. dobhoff feeding.
--- NOTE | 2020-05-01 12:20 | PRG ---
DATE OF SERVICE: 05/01/2020 SUBJECTIVE: Ms. Aldo Holland is showing some improvement in mental status. She is oriented to her name and responsive to questions with the small arms repairer, but appears to go to sleep when not stimulated. OBJECTIVE: VITAL SIGNS: Temperature 98.4, blood pressure 104/68, pulse 68. GENERAL: She is in no acute distress. LUNGS: Clear to auscultation bilaterally. HEART: Regular rate and rhythm without murmur. ABDOMEN: Soft, nontender, nondistended. Bowel sounds are present. EXTREMITIES: No lower extremity edema. IMPRESSION: 1. Oropharyngeal dysphagia. She failed swallow study and plan is for PEG tube tomorrow. 2. Stroke. 3. Atrial fibrillation. Status post cardioversion. Plan is for anticoagulation when cleared by Neuro from a standpoint of hemorrhagic stroke. 4. Hypernatremia. She is receiving free water through her Dobhoff tube. RECOMMENDATIONS: Risks and benefits of EGD and PEG tube were discussed with the patient's daughter in detail. We will proceed with PEG tube placement tomorrow. Job ID: [id number]
--- NOTE | 2020-05-01 13:17 | PDOC.CPN ---
- Subjective Date: 05/01/20 Time: 13:14 Interval history: No new issues. No new complaints. - Review of Systems General: denies: fever/chills, weight/appetite/sleep changes, night sweats, fatigue Respiratory: denies: cough, congestion, shortness of breath, exercise intolerance Cardiovascular: denies: chest pain, palpitation, edema, paroxysmal nocturnal dyspnea, orthopnea Gastrointestinal: denies: nausea, vomiting, diarrhea, constipation, abd pain, GI bleeding Musculoskeletal: denies: pain, tenderness, stiffness, swelling, arthritis/arthralgias Neurological: reports: weakness. denies: numbness, syncope, seizure - Objective Allergies/Adverse Reactions: Allergies Allergy/AdvReac Type Severity Reaction Status Date / Time No Known Allergies Allergy Verified 04/09/20 09:08 Visit Medications: Current Medications Acetaminophen (Acetaminophen 650 Mg Suppository) 650 mg [place] Q4H PRN PRN Reason: Headache/Fever/Mild Pain (1-3) Acetaminophen (Acetaminophen 325 Mg Tab) 650 mg PO Q4H PRN PRN Reason: Headache/Fever/Mild Pain (1-3) Last Admin: 04/15/20 01:30 Dose: 650 mg Documented by: Albuterol/Ipratropium (Ipratropium/Albuterol Sulfate 3 Ml Neb) 3 ml NEB [id number] [facility] Last Admin: 05/01/20 07:14 Dose: 3 ml Documented by: Amlodipine Besylate (Amlodipine 10 Mg Tab) 10 mg PER TUBE DAILY [facility] Last Admin: 05/01/20 10:36 Dose: 10 mg Documented by: Lipase/Protease/Amylase (Pancrelipase Dr 12,000 1 Cap) 1 cap FS .PER PROTOCOL PRN PRN Reason: TUBE OCCLUSION PROTOCOL Last Admin: 04/22/20 11:57 Dose: 1 cap Documented by: Atorvastatin Calcium (Atorvastatin Calcium 40 Mg Tab) 40 mg PER TUBE HS [facility] Last Admin: 04/30/20 21:12 Dose: 40 mg Documented by: Carvedilol (Carvedilol 3.125 Mg Tab) 3.125 mg PER TUBE BID [facility] Last Admin: 05/01/20 10:35 Dose: 3.125 mg Documented by: Hydralazine HCl (Hydralazine 20 Mg/Ml Vial) 10 mg SLOW IVP Q4H PRN PRN Reason: SBP GREATER THAN 160 Last Admin: 04/28/20 23:09 Dose: 10 mg Documented by: Lisinopril (Lisinopril 5 Mg Tab) 5 mg PO DAILY [facility] Last Admin: 05/01/20 10:34 Dose: 5 mg Documented by: Miscellaneous Medication (Electrolyte Replacement Protocol) 0 each FS ASDIR PRN; Protocol PRN Reason: ELECTROLYTE REPLACEMENT Multivitamins (Multivit, Therapeutic 1 Tab) 1 tab PER TUBE DAILY [facility] Last Admin: 05/01/20 10:36 Dose: 1 tab Documented by: Nitroglycerin (Nitroglycerin 2% Ointment 1 Inch/1 Gm Packet) 1 inch TOP TID [facility] Last Admin: 05/01/20 10:36 Dose: 1 inch Documented by: Ondansetron HCl (Ondansetron Pf 4 Mg/2 Ml Vial) 4 mg IVP Q6H PRN PRN Reason: Nausea/Vomiting Last Admin: 04/24/20 11:58 Dose: 4 mg Documented by: Pantoprazole Sodium (Pantoprazole 40 Mg Vial) 40 mg IVP Q12HR [facility] Last Admin: 05/01/20 10:36 Dose: 40 mg Documented by: Saccharomyces Boulardii (Saccharomyces Boulardii 250 Mg Cap) 250 mg PER TUBE DAILY [facility] Last Admin: 05/01/20 10:34 Dose: 250 mg Documented by: Sodium Bicarbonate (Sodium Bicarbonate Tab 325 Mg Tab) 650 mg PER TUBE .PER PROTOCOL PRN PRN Reason: ENTERAL TUBE OCCLUSION Last Admin: 04/22/20 11:57 Dose: 650 mg Documented by: Sodium Chloride (Flush - Normal Saline 10 Ml Syringe) 10 ml IVF Q12HR [facility] Last Admin: 05/01/20 10:36 Dose: 10 ml Documented by: Sodium Chloride (Flush - Normal Saline 10 Ml Syringe) 10 ml IVF PRN PRN PRN Reason: Saline Flush Sodium Chloride (Flush - Normal Saline 10 Ml Syringe) 10 ml IVF PRN PRN PRN Reason: Saline Flush Vancomycin HCl (Vancomycin Hcl 25 Mg/Ml Oral) 250 mg PER TUBE 0300,0900,1500,2100 [facility] Last Admin: 05/01/20 10:36 Dose: 250 mg Documented by: Vital Signs & Weight: Vital Signs Temp Pulse Resp Pulse Ox 05/01/20 10:36 60 05/01/20 10:34 60 05/01/20 08:00 98.4 F 05/01/20 07:17 93 L 05/01/20 07:14 60 14 93 L 05/01/20 04:00 98.0 F Admit Weight 177 lb 0.499 oz Weight 146 lb - Physical Exam General: no apparent distress HEENT: mucus membranes moist Neck: supple neck Cardiac: regular rate and rhythm Lungs: clear to auscultation Neuro: weakness Abdomen: active bowel sounds Extremities: no edema Skin: clear Musculoskeletal: no pain - Labs Result Diagrams: 05/01/20 03:45 05/01/20 03:45 Troponin/CKMB CK-MB (CK-2) 2.9 ng/mL (0-6.6) 04/14/20 10:51 Troponin I 0.062 ng/mL (< 0.028) H 04/17/20 04:04 - Telemetry Sinus rhythms and dysrhythmias: sinus rhythm - Assessment/Plan Assessment/Plan: 1. Acute CVA 2. Paroxysmal afib 3. hemorrhagic conversion to CVA PLAN: - Restart anticoagulation ONLY when deemed safe from neurological perspective. May be weeks before thats the case. - Will follow.
[2020-05-01] MEDS: Atorvastatin Calcium 40 MG TAB PER TUBE SCH (21:33)
[2020-05-02] MEDS: Vancomycin HCl 25 MG/ML Oral PER TUBE SCH ×4 (03:25→21:08)
[2020-05-02 07:13] LABS: #Basophils 0.1 thou/uL (0.0-0.2); #Eosinphils 0.2 thou/uL (0.0-0.7); #Lymphocytes 1.5 thou/uL (1.20-3.40); #Monocytes 0.4 thou/uL (0.11-0.59); #Neutrophils 7.9 thou/uL (1.40-6.50); %Basophils 0.8 % (0.0-1.0); %Eosinophils 1.6 % (0.0-10.0); %Lymphocytes 14.7 % (21.0-51.0); %Monocytes 4.1 % (0.0-10.0); %Neutrophils 78.7 % (42.0-75.0); Hemoglobin 16.1 g/dL (12.0-16.0); Mean Corpuscular HGB CONC 31.6 g/dL (32.0-36.0); Mean Corpuscular Hemoglobin 30.7 pg (27.0-31.0); Mean Platelet Volume 9.6 fL (7.4-10.4); Platelet Count 301 thou/uL (130-400); RBC Distribution Width 14.9 % (11.5-14.5); Red Blood Cell (RBC) Count 5.27 mill/uL (4.20-5.40); White Blood Cell (WBC) Count 10.1 thou/uL (4.8-10.8)
[2020-05-02 07:27] LABS: Anion Gap 11 mmol/L (10-20); BUN (Urea Nitrogen) 29 mg/dL (9.8-20.1); Calc. Creatinine Clearance 75 mL/min (70-130); Calcium 9.4 mg/dL (7.8-10.44); Carbon Dioxide 28 mmol/L (23-31); Chloride 112 mmol/L (98-107); Glucose 103 mg/dL (83-110); Potassium 4.1 mmol/L (3.5-5.1); Sodium 147 mmol/L (136-145)
[2020-05-02] MEDS ORDERED: Ondansetron ODT 4 MG TAB ONE (07:48)
[2020-05-02] MEDS ORDERED: Ketamine 50 MG/ML (10ML VIAL) ONE (08:16)
[2020-05-02] MEDS ORDERED: Midazolam HCl 2 mg/2 ml Vial ONE (08:16)
[2020-05-02] MEDS ORDERED: Promethazine HCl 25 MG/ML VIAL IM PRN (08:37)
[2020-05-02] MEDS ORDERED: Ondansetron HCl/PF 4 MG/2 ML Vial IVP PRN (08:37)
[2020-05-02] MEDS ORDERED: Promethazine HCl 25 MG/ML VIAL SLOW IVP PRN (08:37)
--- NOTE | 2020-05-02 09:07 | OP ---
DATE OF PROCEDURE: 05/02/2020 PROCEDURE PERFORMED: Esophagogastroduodenoscopy and percutaneous endoscopic gastrostomy tube placement. PREOPERATIVE DIAGNOSIS: Oropharyngeal dysphagia. DESCRIPTION OF PROCEDURE: Informed consent was obtained. The patient was sedated with total intravenous anesthesia. The bite block was placed and the endoscope was advanced easily to the second portion of the duodenum and retroflexion was performed in the stomach. The esophagus was normal. The GE junction was normal. The stomach was normal including retroflexed views. The pylorus and first and second portions of the duodenum were normal. The stomach was fully insufflated. An appropriate site in the left upper quadrant below the left ribs was transilluminated and palpated to identify the optimal position. The skin was sterilized with chlorhexidine and draped. The patient did receive 2 g of cefazolin prior to the procedure. The skin was anesthetized with 5 mL of 1% lidocaine and 1 cm skin incision was performed with a scalpel. The catheter was then placed through the abdominal wall into the stomach easily on first attempt and the wire was passed through the catheter and grasped with a snare and pulled out through the patient's mouth. The 20-[place] gastrostomy tube was then placed by the pull-through technique. The external bumper was placed at 3.5 cm and this was not tight. 2x2s were placed underneath and antibiotic ointment was applied to the incision site. Second-look endoscopy showed the internal bumper to be in good position. The patient tolerated the procedure well without immediate complications. IMPRESSION: 1. Normal esophagogastroduodenoscopy. 2. Successful placement of 20-[place] percutaneous endoscopic gastrostomy tube. RECOMMENDATIONS: 1. Start feeds in 8 hours per dietitian recommendations. 2. She may continue to receive her scheduled medications through the PEG tube starting now. Job ID: [id number]
[2020-05-02] MEDS ORDERED: Lidocaine 1% PF 5 ML VIAL ONE (09:28)
[2020-05-02] MEDS ORDERED: PROPOFOL 200 MG/20 ML VIAL ONE (09:28)
[2020-05-02] MEDS: Lisinopril 5 MG TAB PO SCH (09:38)
[2020-05-02] MEDS: Amlodipine 10 MG TAB PER TUBE SCH (09:38)
[2020-05-02] MEDS: Saccharomyces boulardii 250 MG CAP PER TUBE SCH (09:38)
[2020-05-02] MEDS: Multivit, Therapeutic 1 TAB PER TUBE SCH (09:38)
[2020-05-02] MEDS: Carvedilol 3.125 MG TAB PER TUBE SCH ×2 (09:38→21:08)
[2020-05-02] MEDS: Nitroglycerin 2% Ointment 1 INCH/1 GM Packet TOP SCH (09:39)
[2020-05-02] MEDS: Pantoprazole 40 MG VIAL IVP SCH (09:42)
--- NOTE | 2020-05-02 12:25 | PDOC.HOSPP ---
- Subjective Encounter Date: 05/02/20 Encounter Time: 11:00 Subjective: had her peg tube placed this am, a bit drowsy but easily arousable family at bedside - Objective Vital Signs & Weight: Vital Signs (12 hours) Temp Pulse Resp BP Pulse Ox 05/02/20 11:22 97.6 F 60 20 162/87 H 97 05/02/20 09:38 72 05/02/20 09:25 97.9 F 61 16 123/71 98 05/02/20 06:21 72 16 05/02/20 03:40 97.4 F L 54 L 18 128/72 93 L 05/02/20 01:26 98 Weight Admit Weight 177 lb 0.499 oz Weight 146 lb Most Recent Monitor Data Heart Rate from ECG 68 NIBP 104/68 NIBP BP-Mean 80 Respiration from ECG 24 SpO2 92 I&O: 05/01/20 05/02/20 05/03/20 06:59 06:59 06:59 Intake Total 2009 981 Output Total 815 1085 Balance 1195 -104 Result Diagrams: 05/02/20 06:53 05/02/20 06:53 Hospitalist ROS - Medication Medications: Active Medications Generic Name Dose Route Start Last Admin Trade Name Freq PRN Reason Stop Dose Admin Acetaminophen 650 mg 04/14/20 13:27 04/15/20 01:30 Acetaminophen 325 Mg Tab PO 650 mg Q4H PRN Administration Headache/Fever/Mild Pain (1-3) Albuterol/Ipratropium 3 ml 04/24/20 13:00 05/02/20 06:21 Ipratropium/Albuterol Sulfate 3 Ml Neb NEB 3 ml [id number] ZANE Administration Amlodipine Besylate 10 mg 04/20/20 09:00 05/02/20 09:38 Amlodipine 10 Mg Tab PER TUBE 10 mg DAILY ZANE Administration Lipase/Protease/Amylase 1 cap 04/22/20 11:30 04/22/20 11:57 Pancrelipase 12,000 1 Cap FS 1 cap .PER PROTOCOL PRN Administration TUBE OCCLUSION PROTOCOL Atorvastatin Calcium 40 mg 04/20/20 21:00 05/01/20 21:33 Atorvastatin Calcium 40 Mg Tab PER TUBE 40 mg HS ZANE Administration Carvedilol 3.125 mg 04/23/20 21:00 05/02/20 09:38 Carvedilol 3.125 Mg Tab PER TUBE 3.125 mg BID ZANE Administration Hydralazine HCl 10 mg 04/20/20 08:50 04/28/20 23:09 Hydralazine 20 Mg/Ml Vial SLOW IVP 10 mg Q4H PRN Administration SBP GREATER THAN 160 Lisinopril 5 mg 04/21/20 09:00 05/02/20 09:38 Lisinopril 5 Mg Tab PO 5 mg DAILY ZANE Administration Multivitamins 1 tab 04/21/20 09:00 05/02/20 09:38 Multivit, Therapeutic 1 Tab PER TUBE 1 tab DAILY ZANE Administration Nitroglycerin 1 inch 04/24/20 15:00 05/02/20 09:39 Nitroglycerin 2% Ointment 1 Inch/1 Gm Packet TOP 1 inch TID ZANE Administration Ondansetron HCl 4 mg 04/14/20 13:27 04/24/20 11:58 Ondansetron Pf 4 Mg/2 Ml Vial IVP 4 mg Q6H PRN Administration Nausea/Vomiting Pantoprazole Sodium 40 mg 04/24/20 21:00 05/02/20 09:42 Pantoprazole 40 Mg Vial IVP 40 mg Q12HR ZANE Administration Saccharomyces Boulardii 250 mg 04/23/20 09:00 05/02/20 09:38 Saccharomyces Boulardii 250 Mg Cap PER TUBE 250 mg DAILY ZANE Administration Sodium Bicarbonate 650 mg 04/22/20 11:30 04/22/20 11:57 Sodium Bicarbonate Tab 325 Mg Tab PER TUBE 650 mg .PER PROTOCOL PRN Administration ENTERAL TUBE OCCLUSION Sodium Chloride 10 ml 04/17/20 21:00 05/02/20 09:39 Flush - Normal Saline 10 Ml Syringe IVF 10 ml Q12HR ZANE Administration Vancomycin HCl 250 mg 04/22/20 21:00 05/02/20 09:42 Vancomycin Hcl 25 Mg/Ml Oral PER TUBE 250 mg 0300,0900,1500,2100 ZANE Administration Hospitalist Exam Vitals: Vital Signs (12 hours) Temp Pulse Resp BP Pulse Ox 05/02/20 11:22 97.6 F 60 20 162/87 H 97 05/02/20 09:38 72 05/02/20 09:25 97.9 F 61 16 123/71 98 05/02/20 06:21 72 16 05/02/20 03:40 97.4 F L 54 L 18 128/72 93 L 02/28/21 01:26 98 Weight Admit Weight 177 lb 0.499 oz Weight 146 lb Most Recent Monitor Data Heart Rate from ECG 68 NIBP 104/68 NIBP BP-Mean 80 Respiration from ECG 24 SpO2 92 Eye: PERRL, anicteric sclera ENT: no oropharyngeal lesions, dry oral mucosa Neck: supple, no JVD Heart: RRR, no murmur Respiratory: no wheezes, no rales Gastrointestinal: soft, non-tender, non-distended, normal bowel sounds Gastrointestinal - other findings: peg+ Extremities: no cyanosis, no edema Neurological - other findings: left hemiparesis, 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 Hosp A/P (1) Acute CVA (cerebrovascular accident) Code(s): I63.9 - CEREBRAL INFARCTION, UNSPECIFIED Status: Acute (2) Hypertrophic cardiomyopathy Code(s): I42.2 - OTHER HYPERTROPHIC CARDIOMYOPATHY Status: Chronic (3) Pericardial effusion Code(s): I31.3 - PERICARDIAL EFFUSION (NONINFLAMMATORY) Status: Chronic (4) Obesity (BMI 30.0-34.9) Code(s): E66.9 - OBESITY, UNSPECIFIED Status: Chronic (5) Dyslipidemia Code(s): E78.5 - HYPERLIPIDEMIA, UNSPECIFIED Status: Chronic (6) H/O: CVA (cerebrovascular accident) Code(s): Z86.73 - PRSNL HX OF TIA (TIA), AND CEREB INFRC W/O RESID DEFICITS Status: Chronic (7) Acute respiratory failure with hypoxia Code(s): J96.01 - ACUTE RESPIRATORY FAILURE WITH HYPOXIA Status: Resolved (8) Syncope Code(s): R55 - SYNCOPE AND COLLAPSE Status: Resolved (9) Diastolic CHF Code(s): I50.30 - UNSPECIFIED DIASTOLIC (CONGESTIVE) HEART FAILURE Status: [facility] Qualifiers: Heart failure chronicity: acute on chronic Qualified Code(s): I50.33 - Acute on chronic diastolic (congestive) heart failure (10) Paroxysmal A-fib Code(s): I48.0 - PAROXYSMAL ATRIAL FIBRILLATION Status: Chronic (11) hemorrhagic conversion of cva Status: Acute (12) Uncal herniation Code(s): G93.5 - COMPRESSION OF BRAIN Status: Resolved (13) Transtentorial herniation Code(s): G93.5 - COMPRESSION OF BRAIN Status: Resolved (14) Cerebral edema Code(s): G93.6 - CEREBRAL EDEMA Status: Resolved - Plan waxing and waning neuro symptoms, likely sec to edema, resolving. is s/p peg tube 05/02, will start feeding later this evening. 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 Is maintaining airway, improving well clinically. Had CT brain on arrival which did not reveal ac cva but had findings of old left cerebellar cva, repeat done around 2 pm shows massive welder production line combination distribution cva with edema on 04/15/20. MRI wo contrast done this am shows post circ multiple cva's including large right welder production line combination infarct with edema, left pica, b/l superior cerebellar art R>L, appears to be a ischemic infarct, unlikely to be embolic due to post circ involvement with none in the carotid outreach areas. will start oral meds via peg, norvasc, lisinopril and coreg along with lipitor, decision on aspirin per neuro advice has large pericardial effusion wo tamponade physiology as of now, if she were to get hypotensive, elevated jvd etc then will need stat window, CTS is aware of patient. got extubated on 04/15/20 and maintaining airway discussed with daughter at bedside. PT/OT to continue therapy, dc plan to rehab if accepted in am progosis guarded.
--- NOTE | 2020-05-02 13:31 | PDOC.NEUPN ---
- Subjective Encounter Date: 05/02/20 Subjective: Mrs. Carlson is doing much better today and is s/p PEG placement. - Objective Vital Signs & Weight: Vital Signs (12 hours) Temp Pulse Resp BP Pulse Ox 05/02/20 12:56 58 L 16 94 L 05/02/20 11:22 97.6 F 60 20 162/87 H 97 05/02/20 09:38 72 05/02/20 09:25 97.9 F 61 16 123/71 98 05/02/20 06:21 72 16 05/02/20 03:40 97.4 F L 54 L 18 128/72 93 L Weight Admit Weight 177 lb 0.499 oz Weight 146 lb Most Recent Monitor Data Heart Rate from ECG 68 NIBP 104/68 NIBP BP-Mean 80 Respiration from ECG 24 SpO2 92 I&O: 05/01/20 05/02/20 05/03/20 06:59 06:59 06:59 Intake Total 2009 Output Total 815 1085 Balance 1195 -104 Result Diagrams: 05/02/20 06:53 05/02/20 06:53 Radiology Reviewed by me: Yes EKG Reviewed by me: Yes ROS - Review of Systems ENT: denies: ear pain, ear discharge, nose pain, nose discharge, nose congestion, mouth pain, mouth swelling, throat pain, throat swelling, other Gastrointestinal: denies: nausea, vomiting, abdominal pain, diarrhea, constip ation, melena, hematochezia, other Musculoskeletal: denies: neck pain, shoulder pain, arm pain, back pain, hand pain, leg pain, foot pain, other Neurological: reports: weakness, numbness, change in speech - Medication Medications: Active Medications Generic Name Dose Route Start Last Admin Trade Name Freq PRN Reason Stop Dose Admin Acetaminophen 650 mg 04/14/20 13:27 04/15/20 01:30 Acetaminophen 325 Mg Tab PO 650 mg Q4H PRN Administration Headache/Fever/Mild Pain (1-3) Albuterol/Ipratropium 3 ml 04/24/20 13:00 05/02/20 12:56 Ipratropium/Albuterol Sulfate 3 Ml Neb NEB 3 ml [id number] ZANE Administration Amlodipine Besylate 10 mg 04/20/20 09:00 05/02/20 09:38 Amlodipine 10 Mg Tab PER TUBE 10 mg DAILY ZANE Administration Lipase/Protease/Amylase 1 cap 04/22/20 11:30 04/22/20 11:[address] 12,000 1 Cap FS 1 cap .PER PROTOCOL PRN Administration TUBE OCCLUSION PROTOCOL Atorvastatin Calcium 40 mg 04/20/20 21:00 05/01/20 21:33 Atorvastatin Calcium 40 Mg Tab PER TUBE 40 mg HS ZANE Administration Carvedilol 3.125 mg 04/23/20 21:00 05/02/20 09:38 Carvedilol 3.125 Mg Tab PER TUBE 3.125 mg BID ZANE Administration Hydralazine HCl 10 mg 04/20/20 08:50 04/28/20 23:09 Hydralazine 20 Mg/Ml Vial SLOW IVP 10 mg Q4H PRN Administration SBP GREATER THAN 160 Lisinopril 5 mg 04/21/20 09:00 05/02/20 09:38 Lisinopril 5 Mg Tab PO 5 mg DAILY ZANE Administration Multivitamins 1 tab 04/21/20 09:00 05/02/20 09:38 Multivit, Therapeutic 1 Tab PER TUBE 1 tab DAILY ZANE Administration Ondansetron HCl 4 mg 04/14/20 13:27 04/24/20 11:58 Ondansetron Pf 4 Mg/2 Ml Vial IVP 4 mg Q6H PRN Administration Nausea/Vomiting Saccharomyces Boulardii 250 mg 04/23/20 09:00 05/02/20 09:38 Saccharomyces Boulardii 250 Mg Cap PER TUBE 250 mg DAILY ZANE Administration Sodium Bicarbonate 650 mg 04/22/20 11:30 04/22/20 11:57 Sodium Bicarbonate Tab 325 Mg Tab PER TUBE 650 mg .PER PROTOCOL PRN Administration ENTERAL TUBE OCCLUSION Sodium Chloride 10 ml 04/17/20 21:00 05/02/20 09:39 Flush - Normal Saline 10 Ml Syringe IVF 10 ml Q12HR ZANE Administration Vancomycin HCl 250 mg 04/22/20 21:00 05/02/20 09:42 Vancomycin Hcl 25 Mg/Ml Oral PER TUBE 250 mg 0300,0900,1500,2100 ZANE Administration - Exam General Appearance: awake alert Eye: PERRL ENT: normocephalic atraumatic Neck: supple Respiratory: CTAB Cardiovascular: RRR Gastrointestinal: soft Extremities: no cyanosis Skin: normal turgor Neurological: no new deficit Musculoskeletal: no muscle wasting PSYCH: normal affect, normal behavior Results - Labs Result Diagrams: 05/02/20 06:53 05/02/20 06:53 Lab results: WBC 10.1 thou/uL (4.8-10.8) 05/02/20 06:53 Hgb 16.1 g/dL (12.0-16.0) H 05/02/20 06:53 Hct 51.1 % (36.0-47.0) H 05/02/20 06:53 MCV 97.0 fL (78.0-98.0) 05/02/20 06:53 Plt Count 301 thou/uL (130-400) 05/02/20 06:53 Neutrophils % 78.7 % (42.0-75.0) H 05/02/20 06:53 ESR Westergren 18 mm/hr (Less than 30) 04/15/20 15:20 ABG pH 7.53 (7.35-7.45) H 04/15/20 06:30 ABG pCO2 31.6 mmHg (35.0-45.0) L 04/15/20 06:30 ABG pO2 69.7 mmHg (> 70.0) 04/15/20 06:30 Sodium 147 mmol/L (136-145) H 05/02/20 06:53 Potassium 4.1 mmol/L (3.5-5.1) 05/02/20 06:53 Chloride 112 mmol/L (98-107) H 05/02/20 06:53 Carbon Dioxide 28 mmol/L (23-31) 05/02/20 06:53 BUN 29 mg/dL (9.8-20.1) H 05/02/20 06:53 Creatinine 0.71 mg/dL (0.6-1.1) 05/02/20 06:53 Glucose 103 mg/dL (83-110) 05/02/20 06:53 Lactic Acid 1.2 mmol/L (0.5-2.2) 04/14/20 11:06 Calcium 9.4 mg/dL (7.8-10.44) 05/02/20 06:53 Total Bilirubin 1.1 mg/dL (0.2-1.2) 04/21/20 05:11 AST 21 U/L (5-34) 04/21/20 05:11 ALT 13 U/L (8-55) 04/21/20 05:11 Alkaline Phosphatase 89 U/L (40-110) 04/21/20 05:11 Creatine Kinase 80 U/L (29-168) 04/14/20 10:54 CK-MB (CK-2) 2.9 ng/mL (0-6.6) 04/14/20 10:51 Troponin I 0.062 ng/mL (< 0.028) H 04/17/20 04:04 B-Natriuretic Peptide 1325.4 pg/mL (0-100) H 04/16/20 02:58 Serum Total Protein 5.6 g/dL (5.8-8.1) L 04/21/20 05:11 Albumin 2.9 g/dL (3.4-4.8) L 04/21/20 05:11 Urine Ketones Negative mg/dL (Negative) 04/14/20 10:40 Urine Blood Negative (Negative) 04/14/20 10:40 Urine Nitrite Negative (Negative) 04/14/20 10:40 Ur Leukocyte Esterase Negative (Negative) 04/14/20 10:40 - Radiology Interpretation CT scan - head Additional Comment: Last head CT was stable with no worsening of bleed PN A/P (1) Acute CVA (cerebrovascular accident) Code(s): I63.9 - CEREBRAL INFARCTION, UNSPECIFIED Status: Acute (2) Hypokalemia Code(s): E87.6 - HYPOKALEMIA Status: Acute (3) Hypomagnesemia Code(s): E83.42 - HYPOMAGNESEMIA Status: Acute (4) Swallowing dysfunction Code(s): R13.10 - DYSPHAGIA, UNSPECIFIED Status: Acute (5) Diastolic CHF Code(s): I50.30 - UNSPECIFIED DIASTOLIC (CONGESTIVE) HEART FAILURE Status: Chronic Qualifiers: Heart failure chronicity: acute on chronic Qualified Code(s): I50.33 - Acute on chronic diastolic (congestive) heart failure (6) Dyslipidemia Code(s): E78.5 - HYPERLIPIDEMIA, UNSPECIFIED Status: Chronic (7) Obesity (BMI 30.0-34.9) Code(s): E66.9 - OBESITY, UNSPECIFIED Status: Chronic (8) Paroxysmal A-fib Code(s): I48.0 - PAROXYSMAL ATRIAL FIBRILLATION Status: Chronic - Plan Daily Plan: plan discussed w/ family (Family member at bedside), PT/OT, speech therapy, DVT proph w/SCDs 74 year old female with history significant for paroxysmal atrial fibrillation underwent cardioversion few days before this admission now in sinus rhythm consulted for acute stroke. There was concern about seizures . Keppra was started which she tolerated well. No reported seizures since initiation of Keppra. Interval history: Patient was transferred to CCU last weekend because of hemorrhagic conversion of the old stroke with impending herniation. Neurosurgery was contacted and she was started on mannitol infusion which improved her symptoms and currently she is doing much better. Cardiology is on board and anticoagulation has been held because of recent bleed. She completed her course of mannitol last 04/30/2020 and transferred back to the stroke floor. She is status status post PEG placement now and doing well. Hold anticoagulation for now. Patient is doing very well today and following commands appropriately. Family member at bedside Awaiting placement to rehab. No further seizure activity reported per nursing staff Continue Keppra 500 mg twice daily. Observe seizure precations Arivan 2 mg IV for seizures greater than 2 minutes. MRI of the brain on admission was consistent with acute infarction in the right [employer] and bilateral superior cerebellar territory. 2D echo to evaluate for left ventricular ejection fraction showed pericardial effusion and LVEF 70-75%.. Carotid Dopplers pending to rule out hemodynamically significant stenosis. Continue telemetrypatient has history of atrial fibrillation but currently in sinus rhythm. Cardiology is on board. Neurochecks every 4 hours. Strict control of blood pressure at this time. Strict control of blood glucose. Continue high intensity statin for secondary stroke prevention. PT/OT/speech. Continue home medications. Continue medical management per primary team DVT prophylaxis. Case management consult regarding discharge planning. Plan discussed in detail with the patient, family member at bedside and also with the nursing staff
[2020-05-02] MEDS: Acetaminophen 325 MG TAB PO PRN (15:38)
--- NOTE | 2020-05-02 16:14 | PDOC.CPN ---
- Subjective Date: 05/02/20 Time: 16:13 Interval history: No new issues. - Review of Systems General: denies: fever/chills, weight/appetite/sleep changes, night sweats, fatigue Respiratory: denies: cough, congestion, shortness of breath, exercise intolerance Cardiovascular: denies: chest pain, palpitation, edema, paroxysmal nocturnal dyspnea, orthopnea Gastrointestinal: denies: nausea, vomiting, diarrhea, constipation, abd pain, GI bleeding Musculoskeletal: denies: pain, tenderness, stiffness, swelling, arthritis/arthralgias Neurological: denies: numbness, syncope, seizure, weakness - Objective Allergies/Adverse Reactions: Allergies Allergy/AdvReac Type Severity Reaction Status Date / Time No Known Allergies Allergy Verified 04/09/20 09:08 Visit Medications: Current Medications Acetaminophen (Acetaminophen 650 Mg Suppository) 650 mg MO Q4H PRN PRN Reason: Headache/Fever/Mild Pain (1-3) Acetaminophen (Acetaminophen 325 Mg Tab) 650 mg PO Q4H PRN PRN Reason: Headache/Fever/Mild Pain (1-3) Last Admin: 05/02/20 15:38 Dose: 650 mg Documented by: Albuterol/Ipratropium (Ipratropium/Albuterol Sulfate 3 Ml Neb) 3 ml NEB [id number] [facility] Last Admin: 05/02/20 12:56 Dose: 3 ml Documented by: Amlodipine Besylate (Amlodipine 10 Mg Tab) 10 mg PER TUBE DAILY [facility] Last Admin: 05/02/20 09:38 Dose: 10 mg Documented by: Lipase/Protease/Amylase (Pancrelipase Dr 12,000 1 Cap) 1 cap FS .PER PROTOCOL PRN PRN Reason: TUBE OCCLUSION PROTOCOL Last Admin: 04/22/20 11:57 Dose: 1 cap Documented by: Atorvastatin Calcium (Atorvastatin Calcium 40 Mg Tab) 40 mg PER TUBE HS [facility] Last Admin: 05/01/20 21:33 Dose: 40 mg Documented by: Carvedilol (Carvedilol 3.125 Mg Tab) 3.125 mg PER TUBE BID [facility] Last Admin: 05/02/20 09:38 Dose: 3.125 mg Documented by: Hydralazine HCl (Hydralazine 20 Mg/Ml Vial) 10 mg SLOW IVP Q4H PRN PRN Reason: SBP GREATER THAN 160 Last Admin: 04/28/20 23:09 Dose: 10 mg Documented by: Lisinopril (Lisinopril 5 Mg Tab) 5 mg PO DAILY [facility] Last Admin: 05/02/20 09:38 Dose: 5 mg Documented by: Miscellaneous Medication (Electrolyte Replacement Protocol) 0 each FS ASDIR PRN; Protocol PRN Reason: ELECTROLYTE REPLACEMENT Multivitamins (Multivit, Therapeutic 1 Tab) 1 tab PER TUBE DAILY [facility] Last Admin: 05/02/20 09:38 Dose: 1 tab Documented by: Ondansetron HCl (Ondansetron Pf 4 Mg/2 Ml Vial) 4 mg IVP Q6H PRN PRN Reason: Nausea/Vomiting Last Admin: 04/24/20 11:58 Dose: 4 mg Documented by: Pantoprazole Sodium (Pantoprazole 40 Mg Granules Packet) 40 mg PER TUBE DAILY [facility] Saccharomyces Boulardii (Saccharomyces Boulardii 250 Mg Cap) 250 mg PER TUBE DAILY [facility] Last Admin: 05/02/20 09:38 Dose: 250 mg Documented by: Sodium Bicarbonate (Sodium Bicarbonate Tab 325 Mg Tab) 650 mg PER TUBE .PER PROTOCOL PRN PRN Reason: ENTERAL TUBE OCCLUSION Last Admin: 04/22/20 11:57 Dose: 650 mg Documented by: Sodium Chloride (Flush - Normal Saline 10 Ml Syringe) 10 ml IVF Q12HR [facility] Last Admin: 05/02/20 09:39 Dose: 10 ml Documented by: Sodium Chloride (Flush - Normal Saline 10 Ml Syringe) 10 ml IVF PRN PRN PRN Reason: Saline Flush Sodium Chloride (Flush - Normal Saline 10 Ml Syringe) 10 ml IVF PRN PRN PRN Reason: Saline Flush Vancomycin HCl (Vancomycin Hcl 25 Mg/Ml Oral) 250 mg PER TUBE 0300,0900,1500,2100 [facility] Last Admin: 05/02/20 15:38 Dose: 250 mg Documented by: Vital Signs & Weight: Vital Signs Temp Pulse Resp BP Pulse Ox 05/02/20 15:39 97.6 F 56 L 16 127/83 94 L 05/02/20 12:56 58 L 16 94 L 05/02/20 11:22 97.6 F 60 20 162/87 H 97 05/02/20 09:38 72 05/02/20 09:25 97.9 F 61 16 123/71 98 05/02/20 06:21 72 16 Admit Weight 177 lb 0.499 oz Weight 146 lb - Physical Exam General: alert & oriented x3 HEENT: mucus membranes moist Neck: supple neck Cardiac: regular rate and rhythm, bradycardia Lungs: normal breath sounds Neuro: weakness Abdomen: active bowel sounds Extremities: no edema Skin: clear Musculoskeletal: no pain - Labs Result Diagrams: 05/02/20 06:53 05/02/20 06:53 Troponin/CKMB CK-MB (CK-2) 2.9 ng/mL (0-6.6) 04/14/20 10:51 Troponin I 0.062 ng/mL (< 0.028) H 04/17/20 04:04 - Telemetry Sinus rhythms and dysrhythmias: sinus bradycardia (< 50 bpm) - Assessment/Plan Assessment/Plan: 1. Acute CVA 2. Paroxysmal afib, currently in sinus 3. hemorrhagic conversion to CVA PLAN: - Restart anticoagulation ONLY when deemed safe from neurological perspective. - Dr. Clement to follow in the morning.
[2020-05-02] MEDS: Atorvastatin Calcium 40 MG TAB PER TUBE SCH (21:08)
[2020-05-03 00:11] LABS: Clarity Extra Turbid (Clear); Leukocyte 500 Leu/uL (Negative); Nitrite Negative (Negative); Specific Gravity, Urine 1.015 (1.002-1.036)
[2020-05-03 00:12] LABS: Bacteria/HPF None Seen HPF (None Seen); Bilirubin Negative (Negative); Blood, Urine Trace (Negative); Glucose, Urine (Dipstick) Normal (Negative); Ketone, Urine Negative (Negative); Protein, Urine (Dipstick) 10 mg/dL (Neg-Trace); Squamous Epithelial None Seen HPF (0-3); Triple Phosphate Crystal 2+ HPF (None Seen); Urobilinogen Normal mg/dL (Less than 2)
[2020-05-03 00:14] LABS: Urine Culture Reflex Yes Yes
[2020-05-03] MEDS: Vancomycin HCl 25 MG/ML Oral PER TUBE SCH ×2 (04:05→22:31)
[2020-05-03 05:20] LABS: #Basophils 0.1 thou/uL (0.0-0.2); #Eosinphils 0.2 thou/uL (0.0-0.7); #Lymphocytes 1.4 thou/uL (1.20-3.40); #Monocytes 0.4 thou/uL (0.11-0.59); #Neutrophils 6.9 thou/uL (1.40-6.50); %Basophils 0.6 % (0.0-1.0); %Eosinophils 2.4 % (0.0-10.0); %Lymphocytes 15.5 % (21.0-51.0); %Monocytes 4.3 % (0.0-10.0); %Neutrophils 77.2 % (42.0-75.0); Hemoglobin 15.5 g/dL (12.0-16.0); Mean Corpuscular HGB CONC 31.8 g/dL (32.0-36.0); Mean Corpuscular Volume 97.5 fL (78.0-98.0); Platelet Count 254 thou/uL (130-400); RBC Distribution Width 14.8 % (11.5-14.5); Red Blood Cell (RBC) Count 5.02 mill/uL (4.20-5.40); White Blood Cell (WBC) Count 8.9 thou/uL (4.8-10.8)
[2020-05-03 05:45] LABS: Anion Gap 11 mmol/L (10-20); BUN (Urea Nitrogen) 23 mg/dL (9.8-20.1); Calc. Creatinine Clearance 72 mL/min (70-130); Calcium 9.4 mg/dL (7.8-10.44); Carbon Dioxide 25 mmol/L (23-31); Chloride 110 mmol/L (98-107); Glucose 99 mg/dL (83-110); Sodium 142 mmol/L (136-145)
[2020-05-03] MEDS: Pantoprazole 40 MG GRANULES PACKET PER TUBE SCH (09:04)
[2020-05-03] MEDS: Carvedilol 3.125 MG TAB PER TUBE SCH ×2 (09:04→20:46)
[2020-05-03] MEDS: Multivit, Therapeutic 1 TAB PER TUBE SCH (09:04)
[2020-05-03] MEDS: Amlodipine 10 MG TAB PER TUBE SCH (09:04)
[2020-05-03] MEDS: Lisinopril 5 MG TAB PO SCH (09:04)
[2020-05-03] MEDS: Saccharomyces boulardii 250 MG CAP PER TUBE SCH (09:04)
[2020-05-03] MEDS: Acetaminophen 325 MG TAB PO PRN ×2 (09:05→13:45)
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
--- NOTE | 2020-05-03 13:33 | PDOC.HOSPP ---
- Subjective Encounter Date: 05/03/20 Subjective: I spoke with the patient using a geoduck diver via audiovisual media. She is complaining of feeling thirsty. She currently has a PEG tube placed for oropharyngeal dysphagia. She is also complaining of mild abdominal tenderness. GI was at bedside during our encounter. - Objective Vital Signs & Weight: Vital Signs (12 hours) Temp Pulse Resp BP BP Pulse Ox 05/03/20 12:07 97.8 F 63 22 H 119/60 96 05/03/20 09:28 130/67 05/03/20 07:50 97.8 F 61 24 H 117/65 90 L 05/03/20 07:18 64 16 95 05/03/20 04:00 97.7 F 59 L 24 H 128/85 97 Weight Admit Weight 177 lb 0.499 oz Weight 146 lb Most Recent Monitor Data Heart Rate from ECG 68 NIBP 104/68 NIBP BP-Mean 80 Respiration from ECG 24 SpO2 92 I&O: 05/02/20 05/03/20 05/04/20 06:59 06:59 06:59 Intake Total 981 1567 327 Output Total 1085 600 Balance -104 967 327 Result Diagrams: 05/03/20 04:50 05/03/20 04:50 Additional Labs: Accuchecks 05/03/20 05/03/20 05/03/20 12:49 06:10 01:10 POC Glucose 98 120 H 108 H Hospitalist ROS - Medication Medications: Active Medications Generic Name Dose Route Start Last Admin Trade Name Freq PRN Reason Stop Dose Admin Acetaminophen 650 mg 04/14/20 13:27 05/03/20 09:05 Acetaminophen 325 Mg Tab PO 650 mg Q4H PRN Administration Headache/Fever/Mild Pain (1-3) Albuterol/Ipratropium 3 ml 04/24/20 13:00 05/03/20 07:18 Ipratropium/Albuterol Sulfate 3 Ml Neb NEB 3 ml [id number] ZANE Administration Amlodipine Besylate 10 mg 04/20/20 09:00 05/03/20 09:04 Amlodipine 10 Mg Tab PER TUBE 10 mg DAILY ZANE Administration Lipase/Protease/Amylase 1 cap 04/22/20 11:30 04/22/20 11:[address] 12,000 1 Cap FS 1 cap .PER PROTOCOL PRN Administration TUBE OCCLUSION PROTOCOL Atorvastatin Calcium 40 mg 04/20/20 21:00 05/02/20 21:08 Atorvastatin Calcium 40 Mg Tab PER TUBE 40 mg HS ZANE Administration Carvedilol 3.125 mg 04/23/20 21:00 05/03/20 09:04 Carvedilol 3.125 Mg Tab PER TUBE 3.125 mg BID ZANE Administration Hydralazine HCl 10 mg 04/20/20 08:50 04/28/20 23:09 Hydralazine 20 Mg/Ml Vial SLOW IVP 10 mg Q4H PRN Administration SBP GREATER THAN 160 Lisinopril 5 mg 04/21/20 09:00 05/03/20 09:04 Lisinopril 5 Mg Tab PO 5 mg DAILY ZANE Administration Multivitamins 1 tab 04/21/20 09:00 05/03/20 09:04 Multivit, Therapeutic 1 Tab PER TUBE 1 tab DAILY ZANE Administration Ondansetron HCl 4 mg 04/14/20 13:27 04/24/20 11:58 Ondansetron Pf 4 Mg/2 Ml Vial IVP 4 mg Q6H PRN Administration Nausea/Vomiting Pantoprazole Sodium 40 mg 05/03/20 09:00 05/03/20 09:04 Pantoprazole 40 Mg Granules Packet PER TUBE 40 mg DAILY ZANE Administration Saccharomyces Boulardii 250 mg 04/23/20 09:00 05/03/20 09:04 Saccharomyces Boulardii 250 Mg Cap PER TUBE 250 mg DAILY ZANE Administration Sodium Bicarbonate 650 mg 04/22/20 11:30 04/22/20 11:57 Sodium Bicarbonate Tab 325 Mg Tab PER TUBE 650 mg .PER PROTOCOL PRN Administration ENTERAL TUBE OCCLUSION Sodium Chloride 10 ml 04/17/20 21:00 05/03/20 09:04 Flush - Normal Saline 10 Ml Syringe IVF 10 ml Q12HR ZANE Administration Hospitalist Exam Vitals: Vital Signs (12 hours) Temp Pulse Resp BP BP Pulse Ox 05/03/20 12:07 97.8 F 63 22 H 119/60 96 05/03/20 09:28 130/67 05/03/20 07:50 97.8 F 61 24 H 117/65 90 L 05/03/20 07:18 64 16 95 05/03/20 04:00 97.7 F 59 L 24 H 128/85 97 Weight Admit Weight 177 lb 0.499 oz Weight 146 lb Most Recent Monitor Data Heart Rate from ECG 68 NIBP 104/68 NIBP BP-Mean 80 Respiration from ECG 24 SpO2 92 General - other findings: Mild distress Eye: PERRL Eye - other findings: Lateral gaze ENT: normocephalic atraumatic Heart: RRR, no murmur, no gallops Respiratory: CTAB, no wheezes, no rales Gastrointestinal: soft, non-distended, tender to palpation Gastrointestinal - other findings: PEG tube in place Neurological - other findings: Lateral gaze Psychiatric: normal affect, normal behavior Hosp A/P (1) Acute CVA (cerebrovascular accident) Code(s): I63.9 - CEREBRAL INFARCTION, UNSPECIFIED Status: Acute (2) C. difficile colitis Code(s): A04.72 - ENTEROCOLITIS D/T CLOSTRIDIUM DIFFICILE, NOT SPCF RECUR Status: Acute (3) Hypokalemia Code(s): E87.6 - HYPOKALEMIA Status: Acute (4) Hypomagnesemia Code(s): E83.42 - HYPOMAGNESEMIA Status: Acute (5) Swallowing dysfunction Code(s): R13.10 - DYSPHAGIA, UNSPECIFIED Status: Acute (6) Diastolic CHF Code(s): I50.30 - UNSPECIFIED DIASTOLIC (CONGESTIVE) HEART FAILURE Status: Chronic Qualifiers: Heart failure chronicity: acute on chronic Qualified Code(s): I50.33 - Acute on chronic diastolic (congestive) heart failure (7) Hypertrophic cardiomyopathy Code(s): I42.2 - OTHER HYPERTROPHIC CARDIOMYOPATHY Status: Chronic (8) Paroxysmal A-fib Code(s): I48.0 - PAROXYSMAL ATRIAL FIBRILLATION Status: Chronic (9) Pericardial effusion Code(s): I31.3 - PERICARDIAL EFFUSION (NONINFLAMMATORY) Status: Chronic (10) Acute respiratory failure with hypoxia Code(s): J96.01 - ACUTE RESPIRATORY FAILURE WITH HYPOXIA Status: Resolved (11) Cerebral edema Code(s): G93.6 - CEREBRAL EDEMA Status: Resolved (12) Syncope Code(s): R55 - SYNCOPE AND COLLAPSE Status: Resolved (13) Transtentorial herniation Code(s): G93.5 - COMPRESSION OF BRAIN Status: Resolved (14) Uncal herniation Code(s): G93.5 - COMPRESSION OF BRAIN Status: Resolved (15) Atrial fibrillation with RVR Code(s): I48.91 - UNSPECIFIED ATRIAL FIBRILLATION Status: Acute - Plan Assessment Patient is a 74-year-old female with a past medical history of hypertension and paroxysmal atrial fibrillation who presented to the hospital with posterior cerebral artery CVA that later transformed into hemorrhagic stroke complicated by herniation, midline shift and cerebral edema. She finished a full course of mannitol infusion. She currently has a PEG tube for oropharyngeal dysphagia. Hospital course was complicated by acute hypoxemic respiratory failure, which is now resolved. Is medically cleared pending transfer to inpatient rehab. Acute posterior cerebral artery ischemic stroke Hemorrhagic stroke with uncal herniation, and cerebral edema Paroxysmal atrial fibrillation Acute on chronic diastolic CHF Hypertension Acute hypoxemic respiratory failure Plan: Continue post CVA supportive care: Catheter in place, PEG tube in place for nutrition Atorvastatin for secondary CVA prevention Blood pressure control: Norvasc, lisinopril and Coreg on board Coreg for rate control. Poor candidate for systemic anticoagulation Appreciate cardiology recommendations SCD for DVT prophylaxis PPI for GI prophylaxis Transfer to inpatient rehab once accepted
[2020-05-03 14:35] VITALS: BMI 26.6
[2020-05-03] MEDS: BIOTENE MOUTH SPRAY 44.3 ML PO SCH ×2 (16:05→21:14)
[2020-05-03] MEDS: traMADol HCl 50 MG TAB PO PRN (17:47)
[2020-05-03] MEDS: Atorvastatin Calcium 40 MG TAB PER TUBE SCH (20:46)
[2020-05-04] MEDS: traMADol HCl 50 MG TAB PO PRN (00:16)
[2020-05-04] MEDS: BIOTENE MOUTH SPRAY 44.3 ML PO SCH ×7 (03:18→21:07)
[2020-05-04] MEDS: Vancomycin HCl 25 MG/ML Oral PER TUBE SCH ×4 (03:37→21:07)
[2020-05-04 04:50] LABS: #Eosinphils 0.2 thou/uL (0.0-0.7); #Lymphocytes 1.2 thou/uL (1.20-3.40); #Monocytes 0.5 thou/uL (0.11-0.59); #Neutrophils 8.1 thou/uL (1.40-6.50); %Basophils 0.1 % (0.0-1.0); %Eosinophils 1.7 % (0.0-10.0); %Lymphocytes 11.7 % (21.0-51.0); %Monocytes 4.8 % (0.0-10.0); %Neutrophils 81.6 % (42.0-75.0); Hemoglobin 15.5 g/dL (12.0-16.0); Mean Corpuscular HGB CONC 33.2 g/dL (32.0-36.0); Mean Corpuscular Hemoglobin 32.1 pg (27.0-31.0); Mean Corpuscular Volume 96.8 fL (78.0-98.0); Mean Platelet Volume 10.1 fL (7.4-10.4); Platelet Count 230 thou/uL (130-400); RBC Distribution Width 14.7 % (11.5-14.5); Red Blood Cell (RBC) Count 4.82 mill/uL (4.20-5.40)
[2020-05-04 05:13] LABS: Anion Gap 10 mmol/L (10-20); BUN (Urea Nitrogen) 21 mg/dL (9.8-20.1); Calc. Creatinine Clearance 70 mL/min (70-130); Calcium 9.1 mg/dL (7.8-10.44); Carbon Dioxide 29 mmol/L (23-31); Chloride 103 mmol/L (98-107); Glucose 118 mg/dL (83-110); Potassium 3.7 mmol/L (3.5-5.1); Sodium 138 mmol/L (136-145)
--- NOTE | 2020-05-04 05:22 | PRG ---
DATE OF SERVICE: 05/03/2020 SUBJECTIVE: Ms. Carlson has been transferred from the ICU to the Stroke Unit. No current complaints. OBJECTIVE: VITAL SIGNS: Blood pressure 130/70, pulse 57, temperature 98.4 LUNGS: Clear to auscultation. HEART: Regular rate and rhythm. ABDOMEN: Soft, nontender, and nondistended. EXTREMITIES: No edema. PERTINENT LABS: Hemoglobin 15.5. Creatinine 0.7. IMPRESSION: 1. Atrial fibrillation, status post cardioversion. 2. Recent cerebrovascular accident. 3. Hypertrophic cardiomyopathy. RECOMMENDATIONS: Discussed the case with Neurology. Given hemorrhagic conversion, I would like to wait at least 10 days prior to starting anticoagulation therapy. I recommend repeating CT scan prior to discharge. This may help assess restarting anticoagulation therapy. I have discussed this in detail with the family on the risks and benefits of restarting anticoagulation treatment. They are certainly understandable. Job ID: [id number]
[2020-05-04] MEDS: Lisinopril 5 MG TAB PO SCH (09:40)
[2020-05-04] MEDS: Amlodipine 10 MG TAB PER TUBE SCH (09:40)
[2020-05-04] MEDS: Saccharomyces boulardii 250 MG CAP PER TUBE SCH (09:40)
[2020-05-04] MEDS: Multivit, Therapeutic 1 TAB PER TUBE SCH (09:40)
[2020-05-04] MEDS: Pantoprazole 40 MG GRANULES PACKET PER TUBE SCH (09:41)
--- NOTE | 2020-05-04 11:11 | PDOC.HOSPP ---
- Subjective Encounter Date: 05/04/20 Subjective: Patient is feeling better. No longer complaining of abdominal pain around PEG site. No acute events overnight. RN still noticing cloudy urine in raza bag this morning. Raza catheter exchanged yesterday upon request from primary team. - Objective Vital Signs & Weight: Vital Signs (12 hours) Temp Pulse Resp BP Pulse Ox 05/04/20 07:30 97.9 F 59 L 16 126/64 94 L 05/04/20 04:35 97.7 F 56 L 20 116/61 92 L 05/04/20 00:17 54 L 12 05/03/20 23:35 97.9 F 58 L 22 H 126/62 94 L Weight Admit Weight 177 lb 0.499 oz Weight 146 lb Most Recent Monitor Data Heart Rate from ECG 68 NIBP 104/68 NIBP BP-Mean 80 Respiration from ECG 24 SpO2 92 I&O: 05/03/20 05/04/20 05/05/20 06:59 06:59 06:59 Intake Total 1567 2609 Output Total 600 825 Balance 967 1784 Result Diagrams: 05/04/20 04:26 05/04/20 04:26 Additional Labs: Accuchecks 05/04/20 05/03/20 05/03/20 06:05 23:35 18:14 POC Glucose 116 H 92 113 H 05/03/20 12:49 POC Glucose 98 Hospitalist ROS - Medication Medications: Active Medications Generic Name Dose Route Start Last Admin Trade Name Freq PRN Reason Stop Dose Admin Acetaminophen 650 mg 04/14/20 13:27 05/03/20 13:45 Acetaminophen 325 Mg Tab PO 650 mg Q4H PRN Administration Headache/Fever/Mild Pain (1-3) Albuterol/Ipratropium 3 ml 04/24/20 13:00 05/04/20 07:38 Ipratropium/Albuterol Sulfate 3 Ml Neb NEB Not Given [id number] ZANE Amlodipine Besylate 10 mg 04/20/20 09:00 05/04/20 09:40 Amlodipine 10 Mg Tab PER TUBE 10 mg DAILY ZANE Administration Lipase/Protease/Amylase 1 cap 04/22/20 11:30 04/22/20 11:[address] 12,000 1 Cap FS 1 cap .PER PROTOCOL PRN Administration TUBE OCCLUSION PROTOCOL Atorvastatin Calcium 40 mg 04/20/20 21:00 03/01/21 20:46 Atorvastatin Calcium 40 Mg Tab PER TUBE 40 mg HS ZANE Administration Hydralazine HCl 10 mg 04/20/20 08:50 04/28/20 23:09 Hydralazine 20 Mg/Ml Vial SLOW IVP 10 mg Q4H PRN Administration SBP GREATER THAN 160 Lisinopril 5 mg 04/21/20 09:00 05/04/20 09:40 Lisinopril 5 Mg Tab PO 5 mg DAILY ZANE Administration Miscellaneous Medication 1 ml 05/03/20 17:00 05/04/20 09:38 Biotene Mouth [place] 44.3 Ml PO 1 spr Q4HR ZANE Administration Multivitamins 1 tab 04/21/20 09:00 05/04/20 09:40 Multivit, Therapeutic 1 Tab PER TUBE 1 tab DAILY ZANE Administration Ondansetron HCl 4 mg 04/14/20 13:27 04/24/20 11:58 Ondansetron Pf 4 Mg/2 Ml Vial IVP 4 mg Q6H PRN Administration Nausea/Vomiting Pantoprazole Sodium 40 mg 05/03/20 09:00 05/04/20 09:41 Pantoprazole 40 Mg Granules Packet PER TUBE 40 mg DAILY ZANE Administration Saccharomyces Boulardii 250 mg 04/23/20 09:00 05/04/20 09:40 Saccharomyces Boulardii 250 Mg Cap PER TUBE 250 mg DAILY ZANE Administration Sodium Bicarbonate 650 mg 04/22/20 11:30 04/22/20 11:57 Sodium Bicarbonate Tab 325 Mg Tab PER TUBE 650 mg .PER PROTOCOL PRN Administration ENTERAL TUBE OCCLUSION Sodium Chloride 10 ml 04/17/20 21:00 05/04/20 09:40 Flush - Normal Saline 10 Ml Syringe IVF 10 ml Q12HR ZANE Administration Tramadol HCl 50 mg 05/03/20 17:37 05/04/20 00:16 Tramadol Hcl 50 Mg Tab PO 50 mg Q6H PRN Administration Pain Vancomycin HCl 250 mg 05/03/20 21:00 05/04/20 09:39 Vancomycin Hcl 25 Mg/Ml Oral PER TUBE 05/04/20 21:01 250 mg 0300,0900,1500,2100 ZANE Administration Hospitalist Exam Vitals: Vital Signs (12 hours) Temp Pulse Resp BP Pulse Ox 05/04/20 07:30 97.9 F 59 L 16 126/64 94 L 05/04/20 04:35 97.7 F 56 L 20 116/61 92 L 05/04/20 00:17 54 L 12 05/03/20 23:35 97.9 F 58 L 22 H 126/62 94 L Weight Admit Weight 177 lb 0.499 oz Weight 146 lb Most Recent Monitor Data Heart Rate from ECG 68 NIBP 104/68 NIBP BP-Mean 80 Respiration from ECG 24 SpO2 92 General Appearance: NAD, awake alert Eye: anicteric sclera Eye - other findings: R lateral gaze ENT: normocephalic atraumatic Neck: supple Heart: RRR, no murmur, no gallops, no rubs Respiratory: CTAB, no wheezes, no rales, no ronchi Gastrointestinal: soft, non-tender, non-distended Gastrointestinal - other findings: PEG tube inplace, raza catheter with cloudy urine Extremities: no clubbing, no edema Neurological: speech deficit Hosp A/P (1) Acute CVA (cerebrovascular accident) Code(s): I63.9 - CEREBRAL INFARCTION, UNSPECIFIED Status: Acute (2) C. difficile colitis Code(s): A04.72 - ENTEROCOLITIS D/T CLOSTRIDIUM DIFFICILE, NOT SPCF RECUR Status: Acute (3) Hypokalemia Code(s): E87.6 - HYPOKALEMIA Status: Acute (4) Hypomagnesemia Code(s): E83.42 - HYPOMAGNESEMIA Status: Acute (5) Swallowing dysfunction Code(s): R13.10 - DYSPHAGIA, UNSPECIFIED Status: Acute (6) Diastolic CHF Code(s): I50.30 - UNSPECIFIED DIASTOLIC (CONGESTIVE) HEART FAILURE Status: Chronic Qualifiers: Heart failure chronicity: acute on chronic Qualified Code(s): I50.33 - Acute on chronic diastolic (congestive) heart failure (7) Hypertrophic cardiomyopathy Code(s): I42.2 - OTHER HYPERTROPHIC CARDIOMYOPATHY Status: Chronic (8) Paroxysmal A-fib Code(s): I48.0 - PAROXYSMAL ATRIAL FIBRILLATION Status: Chronic (9) Pericardial effusion Code(s): I31.3 - PERICARDIAL EFFUSION (NONINFLAMMATORY) Status: Chronic (10) Acute respiratory failure with hypoxia Code(s): J96.01 - ACUTE RESPIRATORY FAILURE WITH HYPOXIA Status: Resolved (11) Cerebral edema Code(s): G93.6 - CEREBRAL EDEMA Status: Resolved (12) Syncope Code(s): R55 - SYNCOPE AND COLLAPSE Status: Resolved (13) Transtentorial herniation Code(s): G93.5 - COMPRESSION OF BRAIN Status: Resolved (14) Uncal herniation Code(s): G93.5 - COMPRESSION OF BRAIN Status: Resolved (15) Atrial fibrillation with RVR Code(s): I48.91 - UNSPECIFIED ATRIAL FIBRILLATION Status: Acute - Plan Assessment Patient is a 74-year-old female with a past medical history of hypertension and paroxysmal atrial fibrillation who presented to the hospital with posterior cerebral artery CVA that later transformed into hemorrhagic stroke complicated by herniation, midline shift and cerebral edema. She finished a full course of mannitol infusion. She currently has a PEG tube for oropharyngeal dysphagia. Hospital course was complicated by acute hypoxemic re spiratory failure, which required intubation. She has been extubated is now medically cleared on room air and awaiting for transfer to inpatient rehab. Other issue includes cloudy urine. UA was suspicious for UTI Acute posterior cerebral artery ischemic stroke Hemorrhagic stroke with uncal herniation, and cerebral edema Paroxysmal atrial fibrillation Acute on chronic diastolic CHF Hypertension Acute hypoxemic respiratory failure Suspected UTI Plan: Discontinue raza catheter Start ceftriaxone today AND follow up urine cultures Continue post CVA supportive care: PEG tube in place for nutrition, bowel regimen for constipation Atorvastatin for secondary CVA prevention Blood pressure control: Norvasc, lisinopril and Coreg on board Coreg for rate control. Poor candidate for systemic anticoagulation. Cardiology recommends waiting 10 days before starting systemic AC. Patient will need a repeat CT head before discharge. CT ordered by Neuro today SCD for DVT prophylaxis PPI for GI prophylaxis Transfer to inpatient rehab once accepted ([facility])
--- NOTE | 2020-05-04 12:19 | PDOC.NEUPN ---
- Subjective Encounter Date: 05/04/20 Subjective: Mrs. Carlson is doing much better and no complaints in the last 24 hours. - Objective Vital Signs & Weight: Vital Signs (12 hours) Temp Pulse Resp BP Pulse Ox 05/04/20 11:31 97.7 F 57 L 16 133/60 98 05/04/20 07:30 97.9 F 59 L 16 126/64 94 L 05/04/20 04:35 97.7 F 56 L 20 116/61 92 L Weight Admit Weight 177 lb 0.499 oz Weight 146 lb Most Recent Monitor Data Heart Rate from ECG 68 NIBP 104/68 NIBP BP-Mean 80 Respiration from ECG 24 SpO2 92 I&O: 05/03/20 05/04/20 05/05/20 06:59 06:59 06:59 Intake Total 1567 2609 Output Total 600 825 Balance 967 1784 Result Diagrams: 05/04/20 04:26 05/04/20 04:26 Additional Labs: Accuchecks 05/04/20 05/03/20 05/03/20 06:05 23:35 18:14 POC Glucose 116 H 92 113 H 05/03/20 12:49 POC Glucose 98 Radiology Reviewed by me: Yes EKG Reviewed by me: Yes ROS - Review of Systems Constitutional: denies: fever, chills, sweats, weakness, malaise, other Respiratory: denies: cough, dry, shortness of breath, hemoptysis, SOB with excertion, pleuritic pain, sputum, wheezing, other - Medication Medications: Active Medications Generic Name Dose Route Start Last Admin Trade Name Freq PRN Reason Stop Dose Admin Acetaminophen 650 mg 04/14/20 13:27 05/03/20 13:45 Acetaminophen 325 Mg Tab PO 650 mg Q4H PRN Administration Headache/Fever/Mild Pain (1-3) Albuterol/Ipratropium 3 ml 04/24/20 13:00 05/04/20 07:38 Ipratropium/Albuterol Sulfate 3 Ml Neb NEB Not Given [id number] ZANE Amlodipine Besylate 10 mg 04/20/20 09:00 05/04/20 09:40 Amlodipine 10 Mg Tab PER TUBE 10 mg DAILY ZANE Administration Lipase/Protease/Amylase 1 cap 04/22/20 11:30 04/22/20 11:[address] 12,000 1 Cap FS 1 cap .PER PROTOCOL PRN Administration TUBE OCCLUSION PROTOCOL Atorvastatin Calcium 40 mg 04/20/20 21:00 05/03/20 20:46 Atorvastatin Calcium 40 Mg Tab PER TUBE 40 mg HS ZANE Administration Hydralazine HCl 10 mg 04/20/20 08:50 04/28/20 23:09 Hydralazine 20 Mg/Ml Vial SLOW IVP 10 mg Q4H PRN Administration SBP GREATER THAN 160 Lisinopril 5 mg 04/21/20 09:00 05/04/20 09:40 Lisinopril 5 Mg Tab PO 5 mg DAILY ZANE Administration Miscellaneous Medication 1 ml 05/03/20 17:00 05/04/20 09:38 Biotene Mouth [place] 44.3 Ml PO 1 spr Q4HR ZANE Administration Multivitamins 1 tab 04/21/20 09:00 05/04/20 09:40 Multivit, Therapeutic 1 Tab PER TUBE 1 tab DAILY ZANE Administration Ondansetron HCl 4 mg 04/14/20 13:27 04/24/20 11:58 Ondansetron Pf 4 Mg/2 Ml Vial IVP 4 mg Q6H PRN Administration Nausea/Vomiting Pantoprazole Sodium 40 mg 05/03/20 09:00 05/04/20 09:41 Pantoprazole 40 Mg Granules Packet PER TUBE 40 mg DAILY ZANE Administration Saccharomyces Boulardii 250 mg 04/23/20 09:00 05/04/20 09:40 Saccharomyces Boulardii 250 Mg Cap PER TUBE 250 mg DAILY ZANE Administration Sodium Bicarbonate 650 mg 04/22/20 11:30 04/22/20 11:57 Sodium Bicarbonate Tab 325 Mg Tab PER TUBE 650 mg .PER PROTOCOL PRN Administration ENTERAL TUBE OCCLUSION Sodium Chloride 10 ml 04/17/20 21:00 05/04/20 09:40 Flush - Normal Saline 10 Ml Syringe IVF 10 ml Q12HR ZANE Administration Tramadol HCl 50 mg 05/03/20 17:37 05/04/20 00:16 Tramadol Hcl 50 Mg Tab PO 50 mg Q6H PRN Administration Pain Vancomycin HCl 250 mg 05/03/20 21:00 05/04/20 09:39 Vancomycin Hcl 25 Mg/Ml Oral PER TUBE 05/04/20 21:01 250 mg 0300,0900,1500,2100 ZANE Administration - Exam General Appearance: awake alert Eye: PERRL ENT: normocephalic atraumatic Neck: supple Respiratory: CTAB Cardiovascular: no murmur Gastrointestinal: soft Extremities: no cyanosis Skin: normal turgor Neurological: no new deficit Musculoskeletal: normal tone, no muscle wasting PSYCH: normal affect, normal behavior Results - Labs Result Diagrams: 05/04/20 04:26 05/04/20 04:26 Lab results: WBC 10.0 thou/uL (4.8-10.8) 05/04/20 04:26 Hgb 15.5 g/dL (12.0-16.0) 05/04/20 04:26 Hct 46.6 % (36.0-47.0) 05/04/20 04:26 MCV 96.8 fL (78.0-98.0) 05/04/20 04:26 Plt Count 230 thou/uL (130-400) 05/04/20 04:26 Neutrophils % 81.6 % (42.0-75.0) H 05/04/20 04:26 ESR Westergren 18 mm/hr (Less than 30) 04/15/20 15:20 ABG pH 7.53 (7.35-7.45) H 04/15/20 06:30 ABG pCO2 31.6 mmHg (35.0-45.0) L 04/15/20 06:30 ABG pO2 69.7 mmHg (> 70.0) 04/15/20 06:30 Sodium 138 mmol/L (136-145) 05/04/20 04:26 Potassium 3.7 mmol/L (3.5-5.1) 05/04/20 04:26 Chloride 103 mmol/L (98-107) 05/04/20 04:26 Carbon Dioxide 29 mmol/L (23-31) 05/04/20 04:26 BUN 21 mg/dL (9.8-20.1) H 05/04/20 04:26 Creatinine 0.76 mg/dL (0.6-1.1) 05/04/20 04:26 Glucose 118 mg/dL (83-110) H 05/04/20 04:26 Lactic Acid 1.2 mmol/L (0.5-2.2) 04/14/20 11:06 Calcium 9.1 mg/dL (7.8-10.44) 05/04/20 04:26 Total Bilirubin 1.1 mg/dL (0.2-1.2) 04/21/20 05:11 AST 21 U/L (5-34) 04/21/20 05:11 ALT 13 U/L (8-55) 04/21/20 05:11 Alkaline Phosphatase 89 U/L (40-110) 04/21/20 05:11 Creatine Kinase 80 U/L (29-168) 04/14/20 10:54 CK-MB (CK-2) 2.9 ng/mL (0-6.6) 04/14/20 10:51 Troponin I 0.062 ng/mL (< 0.028) H 04/17/20 04:04 B-Natriuretic Peptide 1325.4 pg/mL (0-100) H 04/16/20 02:58 Serum Total Protein 5.6 g/dL (5.8-8.1) L 04/21/20 05:11 Albumin 2.9 g/dL (3.4-4.8) L 04/21/20 05:11 Urine Ketones Negative mg/dL (Negative) 05/02/20 22:39 Urine Blood Trace (Negative) A 05/02/20 22:39 Urine Nitrite Negative (Negative) 05/02/20 22:39 Ur Leukocyte Esterase 500 [place]mond/uL (Negative) A 05/02/20 22:39 Urine RBC 11-20 HPF (0-3) A 05/02/20 22:39 Urine WBC 11-20 HPF (0-3) A 05/02/20 22:39 Ur Squamous Epith Cells None Seen HPF (0-3) 05/02/20 22:39 Urine Bacteria None Seen HPF (None Seen) 05/02/20 22:39 - Radiology Interpretation MRI - head Additional Comment: MRI of the brain initial also consistent with acute infarction PN A/P (1) Acute CVA (cerebrovascular accident) Code(s): I63.9 - CEREBRAL INFARCTION, UNSPECIFIED Status: Acute (2) Hypokalemia Code(s): E87.6 - HYPOKALEMIA Status: Acute (3) Hypomagnesemia Code(s): E83.42 - HYPOMAGNESEMIA Status: Acute (4) Swallowing dysfunction Code(s): R13.10 - DYSPHAGIA, UNSPECIFIED Status: Acute (5) Diastolic CHF Code(s): I50.30 - UNSPECIFIED DIASTOLIC (CONGESTIVE) HEART FAILURE Status: Chronic Qualifiers: Heart failure chronicity: acute on chronic Qualified Code(s): I50.33 - Acute on chronic diastolic (congestive) heart failure (6) Dyslipidemia Code(s): E78.5 - HYPERLIPIDEMIA, UNSPECIFIED Status: Chronic (7) Obesity (BMI 30.0-34.9) Code(s): E66.9 - OBESITY, UNSPECIFIED Status: Chronic (8) Paroxysmal A-fib Code(s): I48.0 - PAROXYSMAL ATRIAL FIBRILLATION Status: Chronic - Plan Daily Plan: plan discussed w/ family ( at bedside), PT/OT, speech therapy, DVT proph w/SCDs 74 year old female with history significant for paroxysmal atrial fibrillation underwent cardioversion few days before this admission now in sinus rhythm consulted for acute stroke. There was concern about seizures . Keppra was started which she tolerated well. No reported seizures since initiation of Keppra. Interval history: Patient was transferred to CCU on 04/27/2020 because of hemorrhagic conversion of the old stroke with impending herniation. Neurosurgery was contacted and she completed a course of mannitol infusion which improved her symptoms and currently she is doing much better. Cardiology is on board and anticoagulation has been held because of recent bleed. She completed her course of mannitol 04/30/2020 and then transferred back to the stroke floor. She is status status post PEG placement now and doing well. Hold anticoagulation for now. We will repeat the head CT today for bleed. If negative, we will plan on starting anticoagulation on 05/06/2020 10 days post hemorrhagic conversion. Mrs. Carlson is doing very well today and following commands appropriately. Family member at bedside Awaiting placement to rehab. No further seizure activity reported per nursing staff Continue Keppra 500 mg twice daily. Observe seizure precations Arivan 2 mg IV for seizures greater than 2 minutes. MRI of the brain on admission was consistent with acute infarction in the right [employer] and bilateral superior cerebellar territory. 2D echo to evaluate for left ventricular ejection fraction showed pericardial effusion and LVEF 70-75%.. Carotid Dopplers pending to rule out hemodynamically significant stenosis. Continue telemetrypatient has history of atrial fibrillation but currently in sinus rhythm. Cardiology is on board. Neurochecks every 4 hours. Strict control of blood pressure and blood glucose. Continue high intensity statin for secondary stroke prevention. PT/OT/speech. Continue home medications. Continue medical management per primary team DVT prophylaxis. Case management consult regarding discharge planning. Plan discussed in detail with the patient, family member at bedside and also with the nursing staff
[2020-05-04] MEDS: cefTRIAXone\\ROCEPHIN 1 GM in Sodium Chloride 0.9% 100 ML IVPB SCH (12:25)
--- NOTE | 2020-05-04 12:25 | CT ---
CT head without IV contrast: Multiple axial tomograms obtained through the head without IV enhancement. INDICATIONS: Follow-up hemorrhagic infarction COMPARISON: 04/27/2020 FINDINGS: Previously described right posterior cerebral artery infarct is again noted. Gyriform hemorrhage is s een consistent with hemorrhagic conversion. The degree of blood product has decreased since prior exam. The cytotoxic edema produces mass effect. Midline shift has decreased measuring 2 mm range at t he septum pellucidum. Small right convexity subdural hematoma has become hypodense with no evidence of recurrent acute hemo rrhage. Visualized sinuses and mastoids appear clear. Bony calvarium appears unremarkable. IMPRESSION: Continued evolution of the right posterior cerebral artery hemorrhagic infarct.
[2020-05-04] MEDS: Atorvastatin Calcium 40 MG TAB PER TUBE SCH (21:07)
[2020-05-05] MEDS: BIOTENE MOUTH SPRAY 44.3 ML PO SCH ×4 (01:03→12:54)
[2020-05-05 05:31] LABS: #Eosinphils 0.1 thou/uL (0.0-0.7); #Lymphocytes 1.3 thou/uL (1.20-3.40); #Monocytes 0.5 thou/uL (0.11-0.59); #Neutrophils 7.5 thou/uL (1.40-6.50); %Basophils 0.3 % (0.0-1.0); %Lymphocytes 13.6 % (21.0-51.0); %Monocytes 5.3 % (0.0-10.0); %Neutrophils 79.7 % (42.0-75.0); Hemoglobin 15.8 g/dL (12.0-16.0); Mean Corpuscular Hemoglobin 30.1 pg (27.0-31.0); Mean Corpuscular Volume 97.2 fL (78.0-98.0); Platelet Count 230 thou/uL (130-400); RBC Distribution Width 14.8 % (11.5-14.5); Red Blood Cell (RBC) Count 5.24 mill/uL (4.20-5.40); White Blood Cell (WBC) Count 9.4 thou/uL (4.8-10.8)
[2020-05-05 05:50] LABS: Anion Gap 13 mmol/L (10-20); BUN (Urea Nitrogen) 14 mg/dL (9.8-20.1); Calc. Creatinine Clearance 79 mL/min (70-130); Calcium 9.5 mg/dL (7.8-10.44); Carbon Dioxide 26 mmol/L (23-31); Chloride 103 mmol/L (98-107); Glucose 119 mg/dL (83-110); Potassium 3.8 mmol/L (3.5-5.1); Sodium 138 mmol/L (136-145)
[2020-05-05 07:49] VITALS: TEMP 98.4
[2020-05-05] MEDS: Saccharomyces boulardii 250 MG CAP PER TUBE SCH (09:04)
[2020-05-05] MEDS: Amlodipine 10 MG TAB PER TUBE SCH (09:04)
[2020-05-05] MEDS: Acetaminophen 325 MG TAB PO PRN (09:05)
[2020-05-05] MEDS: Lisinopril 5 MG TAB PO SCH (09:05)
[2020-05-05] MEDS: Pantoprazole 40 MG GRANULES PACKET PER TUBE SCH (09:05)
[2020-05-05] MEDS: Multivit, Therapeutic 1 TAB PER TUBE SCH (09:05)
--- NOTE | 2020-05-05 11:17 | PDOC.DS.DS ---
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 She finished a full course of mannitol infusion. She currently has a PEG tube for oropharyngeal dysphagia. Hospital course was complicated by acute hypoxemic respiratory failure, which required intubation. She has been extubated is now medically cleared and is now on room air. I have started her on ceftriaxone for proteus mirabilis UTI. Patient will need to a repeat CT head in 2 weeks, and if negative, she can be resumed on eliquis. Rehab facility can call cardiology. Resuscitation Status: 04/14/20 13:27 Resuscitation Status Routine Resuscitation Status: FULL: Full Resuscitation Discussed with: daughter Lab Results: 05/05/20 05:21 05/05/20 05:21 Abnormal Lab Results - Last 48 hrs 05/04/20 04:26: BUN 21 H 05/04/20 04:26: MCH 32.1 H, RDW 14.7 H, Neutrophils % 81.6 H, Lymphocytes % 11.7 L, Neutrophils # 8.1 H 05/05/20 05:21: Hct 50.9 H, MCHC 31.0 L, RDW 14.8 H, Neutrophils % 79.7 H, Lymphocytes % 13.6 L, Neutrophils # 7.5 H Microbiology - Entire Visit 05/03/20 00:12 Urine raza catheter Urine Culture - Preliminary Proteus mirabilis 04/22/20 02:00 Stool Stool Culture - Final 04/22/20 02:00 Stool Escherichia coli 0157 Culture - Final 04/21/20 02:00 Stool - Pending C. difficile GDH Antigen & Toxins - Final 04/21/20 02:00 Stool - Pending Clostridioides difficile Toxins A&B (PCR) - Final 04/22/20 02:00 Stool Stool Lactoferrin - Final 04/22/20 02:00 Stool Campylobacter Antigen Assay - Final 04/22/20 02:00 Stool Shiga Toxin Test - Final 04/14/20 11:06 Venous blood - Right Hand Blood Culture - Final NO GROWTH IN 5 DAYS 04/14/20 11:06 Venous blood - Left Hand Blood Culture - Final NO GROWTH IN 5 DAYS 04/14/20 10:40 Urine raza catheter Urine Culture - Final NO GROWTH AT 48 HOURS Vitals: Vital Signs (12 hours) Temp Pulse Pulse Resp BP BP Pulse Ox 05/05/20 09:04 66 05/05/20 08:50 61 138/86 05/05/20 07:46 98.4 F 68 20 128/69 95 05/05/20 06:45 66 20 94 L 05/05/20 04:00 97.5 F L 64 20 138/66 96 05/05/20 01:01 60 16 05/04/20 23:53 98.3 F 68 20 130/65 96 Weight Admit Weight 177 lb 0.499 oz Weight 146 lb Most Recent Monitor Data Heart Rate from ECG 68 NIBP 104/68 NIBP BP-Mean 80 Respiration from ECG 24 SpO2 92 Physical Exam: The patient was seen and examined on the day of discharge. General Appearance: NAD, awake alert Eye: anicteric sclera Eye - other findings: R lateral gaze ENT: normocephalic atraumatic Respiratory: CTAB, no wheezes, no rales, no ronchi Cardiovascular: RRR, no murmur, no gallops, no rubs Gastrointestinal: soft, non-tender, non-distended Gastrointestinal - other findings: PEG tube in place Extremities: no clubbing, no edema PSYCH: normal affect, normal behavior Problem (1) Acute CVA (cerebrovascular accident) Code(s): I63.9 - CEREBRAL INFARCTION, UNSPECIFIED Status: Acute (2) C. difficile colitis Code(s): A04.72 - ENTEROCOLITIS D/T CLOSTRIDIUM DIFFICILE, NOT SPCF RECUR Status: Acute (3) Hypokalemia Code(s): E87.6 - HYPOKALEMIA Status: Acute (4) Hypomagnesemia Code(s): E83.42 - HYPOMAGNESEMIA Status: Acute (5) Swallowing dysfunction Code(s): R13.10 - DYSPHAGIA, UNSPECIFIED Status: Acute (6) Diastolic CHF Code(s): I50.30 - UNSPECIFIED DIASTOLIC (CONGESTIVE) HEART FAILURE Status: Chronic Qualifiers: Heart failure chronicity: acute on chronic Qualified Code(s): I50.33 - Acute on chronic diastolic (congestive) heart failure (7) Hypertrophic cardiomyopathy Code(s): I42.2 - OTHER HYPERTROPHIC CARDIOMYOPATHY Status: Chronic (8) Paroxysmal A-fib Code(s): I48.0 - PAROXYSMAL ATRIAL FIBRILLATION Status: Chronic (9) Pericardial effusion Code(s): I31.3 - PERICARDIAL EFFUSION (NONINFLAMMATORY) Status: Chronic (10) Acute respiratory failure with hypoxia Code(s): J96.01 - ACUTE RESPIRATORY FAILURE WITH HYPOXIA Status: Resolved (11) Cerebral edema Code(s): G93.6 - CEREBRAL EDEMA Status: Resolved (12) Syncope Code(s): R55 - SYNCOPE AND COLLAPSE Status: Resolved (13) Transtentorial herniation Code(s): G93.5 - COMPRESSION OF BRAIN Status: Resolved (14) Uncal herniation Code(s): G93.5 - COMPRESSION OF BRAIN Status: Resolved (15) Atrial fibrillation with RVR Code(s): I48.91 - UNSPECIFIED ATRIAL FIBRILLATION Status: Acute Plan Home Medications: Medication Instructions Recorded Confirmed Type Multivit, Therapeutic [Theragran] 1 tab PO DAILY tab 02/24/19 04/21/20 Rx Amiodarone [Cordarone] 200 mg PO DAILY #30 tab 01/01/20 04/21/20 Rx Furosemide [Lasix] 40 mg PO DAILY #30 tab 01/01/20 04/21/20 Rx Lisinopril 10 mg PO QAM #30 tablet 01/01/20 04/21/20 Rx Carvedilol 3.125 mg PO BID 04/09/20 04/21/20 History Acetaminophen [Tylenol Regular 650 mg PO Q4H PRN tab 05/05/20 Rx Strength] Acetaminophen [Tylenol Suppository] 650 mg MT Q4H PRN supp 05/05/20 Rx Amlodipine [Norvasc] 10 mg PER TUBE DAILY tab 05/05/20 Rx Atorvastatin Calcium [Lipitor] 40 mg PER TUBE HS tab 05/05/20 Rx Ipratropium/Albuterol Sulfate 3 ml NEB [id number] neb 05/05/20 Rx [DuoNeb] Lipase/Protease/Amylase [Creon DR 1 cap FS .PER PROTOCOL PRN cap 05/05/20 Rx 12,000 Units] Multivit, Therapeutic [Theragran] 1 tab PER TUBE DAILY tab 05/05/20 Rx Pantoprazole [Protonix] 40 mg PER TUBE DAILY pk 05/05/20 Rx Saccharomyces boulardii [Florastor] 250 mg PER TUBE DAILY cap 05/05/20 Rx Saliva Stimulant Agents Comb.3 1 ml PO Q4HR oral.baldemar 05/05/20 Rx [Biotene Moisturizing Mouth] Sodium Bicarbonate [Bicarbonate, 650 mg PER TUBE .PER PROTOCOL PRN 05/05/20 Rx Sodium] tab cefTRIAXone\ROCEPHIN [Rocephin] 1 gm IVPB 1200 vial 05/05/20 Rx traMADol HCl [Ultram] 50 mg PO Q6H PRN tab 05/05/20 Rx Allergies: No Known Allergies Allergy (Verified 04/09/20 09:08) Discharge Instructions:: Follow up with Rheumatology due to abnormal VELIA studies. Patient will also need to a repeat CT head in 2 weeks. If negative, she can be resumed on eliquis. Rehab facility can call cardiology. Referrals: Latonya Coffey Jr, MD [Primary Care Provider] - Augusto Blackwell DO [Active] - Disposition: NURSING HOME FACILITY Quality CORE MEASURES:: Stroke/TIA Did you prescribe antithrombotic therapy?: No Specify reason for no DC antithrombotic therapy: Medical contraindication Did you prescribe anticoagulant for A Fib/Flutter?: No Specify reason for no DC anticoagulant: Medical contraindication Did you prescribe a statin medication?: Yes
[2020-05-05 11:33] VITALS: BP 127/67
[2020-05-05] MEDS: cefTRIAXone\\ROCEPHIN 1 GM in Sodium Chloride 0.9% 100 ML IVPB SCH (12:48)
--- NOTE | 2020-05-05 13:09 | PDOC.NEUPN ---
- Subjective Encounter Date: 05/05/20 Subjective: Ms. Carlson is doing much better today and is following simple commands. - Objective Vital Signs & Weight: Vital Signs (12 hours) Temp Pulse Pulse Resp BP BP Pulse Ox 05/05/20 11:20 98.4 F 64 20 127/67 97 05/05/20 09:04 66 05/05/20 08:50 61 138/86 05/05/20 07:46 98.4 F 68 20 128/69 95 05/05/20 06:45 66 20 94 L 05/05/20 04:00 97.5 F L 64 20 138/66 96 Weight Admit Weight 177 lb 0.499 oz Weight 146 lb Most Recent Monitor Data Heart Rate from ECG 68 NIBP 104/68 NIBP BP-Mean 80 Respiration from ECG 24 SpO2 92 I&O: 05/04/20 05/05/20 05/06/20 06:59 06:59 06:59 Intake Total 2609 1695 530 Output Total 825 250 Balance 1784 1445 530 Result Diagrams: 05/05/20 05:21 05/05/20 05:21 Additional Labs: Accuchecks 05/05/20 05/05/20 05/04/20 11:22 05:30 23:32 POC Glucose 125 H 111 H 121 H 05/04/20 05/04/20 05/04/20 21:12 18:13 13:24 POC Glucose 106 H 124 H 106 H Radiology Reviewed by me: Yes EKG Reviewed by me: Yes ROS - Review of Systems Constitutional: denies: fever, chills, sweats, weakness, malaise, other - Medication Medications: Active Medications Generic Name Dose Route Start Last Admin Trade Name Freq PRN Reason Stop Dose Admin Acetaminophen 650 mg 04/14/20 13:27 05/05/20 09:05 Acetaminophen 325 Mg Tab PO 650 mg Q4H PRN Administration Headache/Fever/Mild Pain (1-3) Albuterol/Ipratropium 3 ml 04/24/20 13:00 05/05/20 06:45 Ipratropium/Albuterol Sulfate 3 Ml Neb NEB 3 ml [id number] ZANE Administration Amlodipine Besylate 10 mg 04/20/20 09:00 05/05/20 09:04 Amlodipine 10 Mg Tab PER TUBE 10 mg DAILY ZANE Administration Lipase/Protease/Amylase 1 cap 04/22/20 11:30 04/22/20 11:[address] 12,000 1 Cap FS 1 cap .PER PROTOCOL PRN Administration TUBE OCCLUSION PROTOCOL Atorvastatin Calcium 40 mg 04/20/20 21:00 05/04/20 21:07 Atorvastatin Calcium 40 Mg Tab PER TUBE 40 mg HS ZANE Administration Hydralazine HCl 10 mg 04/20/20 08:50 04/28/20 23:09 Hydralazine 20 Mg/Ml Vial SLOW IVP 10 mg Q4H PRN Administration SBP GREATER THAN 160 Ceftriaxone Sodium 1 gm/ 100 mls @ 200 mls/hr 05/04/20 12:00 05/05/20 12:48 Sodium Chloride IVPB 100 mls 1200 ZANE Administration Lisinopril 5 mg 04/21/20 09:00 05/05/20 09:05 Lisinopril 5 Mg Tab PO 5 mg DAILY ZANE Administration Miscellaneous Medication 1 ml 05/03/20 17:00 05/05/20 12:54 Biotene Mouth [place] 44.3 Ml PO 1 spr Q4HR ZANE Administration Multivitamins 1 tab 04/21/20 09:00 05/05/20 09:05 Multivit, Therapeutic 1 Tab PER TUBE 1 tab DAILY ZANE Administration Ondansetron HCl 4 mg 04/14/20 13:27 04/24/20 11:58 Ondansetron Pf 4 Mg/2 Ml Vial IVP 4 mg Q6H PRN Administration Nausea/Vomiting Pantoprazole Sodium 40 mg 05/03/20 09:00 05/05/20 09:05 Pantoprazole 40 Mg Granules Packet PER TUBE 40 mg DAILY ZANE Administration Saccharomyces Boulardii 250 mg 04/23/20 09:00 05/05/20 09:04 Saccharomyces Boulardii 250 Mg Cap PER TUBE 250 mg DAILY ZANE Administration Sodium Bicarbonate 650 mg 04/22/20 11:30 04/22/20 11:57 Sodium Bicarbonate Tab 325 Mg Tab PER TUBE 650 mg .PER PROTOCOL PRN Administration ENTERAL TUBE OCCLUSION Sodium Chloride 10 ml 04/17/20 21:00 05/05/20 09:12 Flush - Normal Saline 10 Ml Syringe IVF 10 ml Q12HR ZANE Administration Tramadol HCl 50 mg 05/03/20 17:37 05/04/20 00:16 Tramadol Hcl 50 Mg Tab PO 50 mg Q6H PRN Administration Pain - Exam General Appearance: awake alert Eye: PERRL ENT: normocephalic atraumatic Neck: supple Respiratory: no wheezes Cardiovascular: no murmur Gastrointestinal: soft Extremities: no cyanosis Skin: normal turgor Neurological: no new deficit, facial droop, hemiplegia Musculoskeletal: normal tone, no muscle wasting PSYCH: normal affect, normal behavior, oriented to person, oriented to place Results - Labs Result Diagrams: 05/05/20 05:21 05/05/20 05:21 Lab results: WBC 9.4 thou/uL (4.8-10.8) 05/05/20 05:21 Hgb 15.8 g/dL (12.0-16.0) 05/05/20 05:21 Hct 50.9 % (36.0-47.0) H 05/05/20 05:21 MCV 97.2 fL (78.0-98.0) 05/05/20 05:21 Plt Count 230 thou/uL (130-400) 05/05/20 05:21 Neutrophils % 79.7 % (42.0-75.0) H 05/05/20 05:21 ESR Westergren 18 mm/hr (Less than 30) 04/15/20 15:20 ABG pH 7.53 (7.35-7.45) H 04/15/20 06:30 ABG pCO2 31.6 mmHg (35.0-45.0) L 04/15/20 06:30 ABG pO2 69.7 mmHg (> 70.0) 04/15/20 06:30 Sodium 138 mmol/L (136-145) 05/05/20 05:21 Potassium 3.8 mmol/L (3.5-5.1) 05/05/20 05:21 Chloride 103 mmol/L (98-107) 05/05/20 05:21 Carbon Dioxide 26 mmol/L (23-31) 05/05/20 05:21 BUN 14 mg/dL (9.8-20.1) 05/05/20 05:21 Creatinine 0.67 mg/dL (0.6-1.1) 05/05/20 05:21 Glucose 119 mg/dL (83-110) H 05/05/20 05:21 Lactic Acid 1.2 mmol/L (0.5-2.2) 04/14/20 11:06 Calcium 9.5 mg/dL (7.8-10.44) 05/05/20 05:21 Total Bilirubin 1.1 mg/dL (0.2-1.2) 04/21/20 05:11 AST 21 U/L (5-34) 04/21/20 05:11 ALT 13 U/L (8-55) 04/21/20 05:11 Alkaline Phosphatase 89 U/L (40-110) 04/21/20 05:11 Creatine Kinase 80 U/L (29-168) 04/14/20 10:54 CK-MB (CK-2) 2.9 ng/mL (0-6.6) 04/14/20 10:51 Troponin I 0.062 ng/mL (< 0.028) H 04/17/20 04:04 B-Natriuretic Peptide 1325.4 pg/mL (0-100) H 04/16/20 02:58 Serum Total Protein 5.6 g/dL (5.8-8.1) L 04/21/20 05:11 Albumin 2.9 g/dL (3.4-4.8) L 04/21/20 05:11 Urine Ketones Negative mg/dL (Negative) 05/02/20 22:39 Urine Blood Trace (Negative) A 05/02/20 22:39 Urine Nitrite Negative (Negative) 05/02/20 22:39 Ur Leukocyte Esterase 500 Desmond/uL (Negative) A 05/02/20 22:39 Urine RBC 11-20 HPF (0-3) A 05/02/20 22:39 Urine WBC 11-20 HPF (0-3) A 05/02/20 22:39 Ur Squamous Epith Cells None Seen HPF (0-3) 05/02/20 22:39 Urine Bacteria None Seen HPF (None Seen) 05/02/20 22:39 - Radiology Interpretation CT scan - head Additional Comment: Repeat head CT did show residual hemorrhage. PN A/P (1) Acute CVA (cerebrovascular accident) Code(s): I63.9 - CEREBRAL INFARCTION, UNSPECIFIED Status: Acute (2) Hypokalemia Code(s): E87.6 - HYPOKALEMIA Status: Acute (3) Hypomagnesemia Code(s): E83.42 - HYPOMAGNESEMIA Status: Acute (4) Swallowing dysfunction Code(s): R13.10 - DYSPHAGIA, UNSPECIFIED Status: Acute (5) Diastolic CHF Code(s): I50.30 - UNSPECIFIED DIASTOLIC (CONGESTIVE) HEART FAILURE Status: Chronic Qualifiers: Heart failure chronicity: acute on chronic Qualified Code(s): I50.33 - Acute on chronic diastolic (congestive) heart failure (6) Dyslipidemia Code(s): E78.5 - HYPERLIPIDEMIA, UNSPECIFIED Status: Chronic (7) Obesity (BMI 30.0-34.9) Code(s): E66.9 - OBESITY, UNSPECIFIED Status: Chronic (8) Paroxysmal A-fib Code(s): I48.0 - PAROXYSMAL ATRIAL FIBRILLATION Status: Chronic - Plan Daily Plan: PT/OT, speech therapy, DVT proph w/SCDs 74 year old female with history significant for paroxysmal atrial fibrillation underwent cardioversion few days before this admission now in sinus rhythm consulted for acute stroke. There was concern about seizures . Keppra was started which she tolerated well. No reported seizures since initiation of Keppra. Mrs. Carlson is doing really well and following commands appropriately Interval history: Patient was transferred to CCU on 04/27/2020 because of hemorrhagic conversion of the old stroke with impending herniation. Neurosurgery was contacted and she completed a course of mannitol infusion which improved her symptoms and currently she is doing much better. Cardiology is on board and anticoagulation has been held because of recent bleed. She completed her course of mannitol 04/30/2020 and then transferred back to the stroke floor. She is status status post PEG placement now and doing well. Hold anticoagulation for now. Head CT repeated today which did not show residual hemorrhage. Phone conversation with the forensic audit expert Dr. Clement regarding the future need of starting anticoagulation and the risk of hemorrhage because of unresolved blood on head CT. Patient has been accepted to rehab and can go to rehab today with a follow-up head CT in 2 weeks. The rehab physician should contact Dr. Clement regarding the results of the head CT and at that time will be decided to resume anticoagulation or not depending upon the results of the head CT. Plan was discussed in detail with the showcase maker and also with the patient's forensic audit expert Dr. Clement. No further seizure activity reported per nursing staff Continue Keppra 500 mg twice daily. Observe seizure precations Arivan 2 mg IV for seizures greater than 2 minutes. MRI of the brain on admission was consistent with acute infarction in the right [employer] and bilateral superior cerebellar territory. 2D echo to evaluate for left ventricular ejection fraction showed pericardial effusion and LVEF 70-75%.. Carotid Dopplers pending to rule out hemodynamically significant stenosis. Continue telemetrypatient has history of atrial fibrillation but currently in sinus rhythm. Cardiology is on board. Neurochecks every 4 hours. Strict control of blood pressure and blood glucose. Continue high intensity statin for secondary stroke prevention. PT/OT/speech. Continue home medications. Continue medical management per primary team DVT prophylaxis. Plan discussed in detail with the showcase maker and also with the patient's forensic audit expert Dr. Clement
--- NOTE | 2020-05-05 13:29 | PRG ---
DATE OF SERVICE: 05/05/2020 SUBJECTIVE: No significant changes noted overnight. She did have a repeat CT scan yesterday that suggested continued evolution of right posterior cerebral artery hemorrhagic infarct. OBJECTIVE: VITAL SIGNS: Blood pressure 127/67, pulse 64, temperature 98.4. LUNGS: Clear to auscultation. HEART: Regular rate and rhythm. ABDOMEN: Soft, nontender, nondistended. EXTREMITIES: No edema. IMPRESSION: 1. Recent CVA. 2. Atrial fibrillation, status post cardioversion. 3. Hypertrophic cardiomyopathy. RECOMMENDATIONS: I spoke with Dr. Carlson. Based on the findings on her CT scan, we both decided to wait another 2 weeks prior to anticoagulation therapy reinstitution. We would recommend repeat CT scan in 2 weeks. If improvement or resolution, we then start anticoagulation therapy. Otherwise, at this point, I have no further recommendations. She appears to be rate controlled. Job ID: [id number]
== END 2020-05-05 16:37 | DRG 64 ==
LOC: ERS 10:14 → CCU 13:37 → 2SE 04-20 15:00 → CCU 04-24 16:07 → 2SE 05-01 08:55
PROVIDERS: ADMIT Internal Medicine; ATTEND Internal Medicine
PROC: 5A1935Z Respiratory Ventilation, Less than 24 Consecutive Hours (ICD-10-PCS; principal; 2020-04-14)
PROC: 0DH63UZ Insertion of Feeding Device into Stomach, Percutaneous Approach (ICD-10-PCS; 2020-05-02)
PROC: 3E0G76Z Introduction of Nutritional Substance into Upper GI, Via Natural or Artificial Opening (ICD-10-PCS; 2020-05-02)
PROC: 0DJ08ZZ Inspection of Upper Intestinal Tract, Via Natural or Artificial Opening Endoscopic (ICD-10-PCS; 2020-05-02)
DX: I63.9 Cerebral infarction, unspecified (principal); J96.01 Acute respiratory failure with hypoxia; I50.33 Acute on chronic diastolic (congestive) heart failure; G93.6 Cerebral edema; G93.5 Compression of brain; I61.9 Nontraumatic intracerebral hemorrhage, unspecified; I13.0 Hypertensive heart and chronic kidney disease with heart failure and stage 1 through stage 4 chronic kidney disease, or unspecified chronic kidney disease; I42.2 Other hypertrophic cardiomyopathy; I31.3 Pericardial effusion (noninflammatory); E87.0 Hyperosmolality and hypernatremia; G81.94 Hemiplegia, unspecified affecting left nondominant side; I16.9 Hypertensive crisis, unspecified; A04.72 Enterocolitis due to Clostridium difficile, not specified as recurrent; N39.0 Urinary tract infection, site not specified; E11.22 Type 2 diabetes mellitus with diabetic chronic kidney disease; E66.9 Obesity, unspecified; N18.2 Chronic kidney disease, stage 2 (mild); R94.5 Abnormal results of liver function studies; I48.0 Paroxysmal atrial fibrillation; R00.1 Bradycardia, unspecified; R13.12 Dysphagia, oropharyngeal phase; E78.5 Hyperlipidemia, unspecified; R53.81 Other malaise; Z20.822 Contact with and (suspected) exposure to COVID-19; E87.6 Hypokalemia; E83.42 Hypomagnesemia; B96.4 Proteus (mirabilis) (morganii) as the cause of diseases classified elsewhere; Z90.49 Acquired absence of other specified parts of digestive tract; Z68.26 Body mass index [BMI] 26.0-26.9, adult; Z78.1 Physical restraint status
CPT/HCPCS: 0240U; 36415; 36416; 36600; 51702; 70450; 70551; 71045; 74018; 74230; 80048; 80053; 80061; 80177; 81001; 81003; 82550; 82553; 82805; 83520; 83605; 83630; 83735; 83880; 84100; 84295; 84443; 84484; 85025; 85610; 85652; 85730; 86038; 86200; 86225; 86235; 86780; 87040; 87045; 87046; 87077; 87086; 87186; 87324; 87427; 87449; 87493; 92960; 93005; 93010; 93306; 93880; 94002; 94003; 94640; 95712; 95819; 95957; 96365; 96366; 96375; 96376; C9113; J0360; J0690; J0696; J1644; J1650; J1940; J1953; J2150; J2250; J2405; J2704; J3010; J3475; J3480; J3490; J7050; J7131; J7620; Q0162; S0028